=== PATIENT | female | born 2005 | race Caucasian/White ===

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

== ENCOUNTER 2023-01-06 13:30 | Emergency (ER) | payer BC, SELFPAY ==
[2023-01-06 13:43] VITALS: BP 126/81; PULSE 110; RESP 18; TEMP 36.9; O2SAT 98; BMI 28.4
--- NOTE | 2023-01-06 13:43 | ED_ITS ---
HPI - Female Genitourinary General Chief complaint: Urogenital-Female Stated complaint: uti ? kidney infection Time Seen by Provider: 01/06/23 14:05 Source: patient Mode of arrival: ambulatory Limitations: no limitations History of Present Illness HPI Narrative: patient is a 17-year-old who presents emergency department for evaluation of dysuria, urinary frequency and urgency. Symptom onset 2 days ago. She has an appointment to see her primary care provider in 3 days which she could not wait due to her amount of pain. She states pain is now progressing to bilateral flank areas. She has been experiencing subjective fevers, nausea, and poor p.o. intake. She denies hematuria. Reports a history of frequent urinary tract infections, last treated 3-4 months ago. States that she saw Urology in 2020, had a VCUG which was negative. Related Data Previous Rx's Medication Instructions Recorded cefuroxime axetil 500 mg tablet 500 mg PO Q12H 5 days #10 tabs 08/02/22 ibuprofen 600 mg tablet 600 mg PO Q6H PRN fever or pain 11/29/22 #20 tabs cefuroxime axetil 500 mg tablet 500 mg PO BID #14 tabs 01/06/23 naproxen 500 mg tablet 500 mg PO BID PRN pain #20 tabs 01/06/23 Allergies Allergy/AdvReac Type Severity Reaction Status Date / Time amoxicillin [Augmentin] Allergy Unknown diarrhea Verified 01/06/23 13:42 clavulanic acid [Augmentin] Allergy Unknown diarrhea Verified 01/06/23 13:42 levofloxacin Allergy Unknown Verified 01/06/23 13:42 Review of Systems Review of Systems: Constitutional: positive subjective fevers Skin: No rash or itching. Cardiovascular: No chest pain Respiratory: No shortness of breath, cough or sputum production. Gastrointestinal: positive nausea. no vomiting or diarrhea. No abdominal pain Genitourinary: positive burning micturition. positive urinary frequency positive flank pain Musculoskeletal: No muscle pain, back pain, joint pain or stiffness. Psychiatric: No depression or anxiety. Yes all other systems are reviewed and are negative PMFSH Past Medical History Attestation statement: The following information was validated with the patient. Source: old records reviewed Medical History [id number] transgender person Syringomyelia Social History Social History (System 12/13/22 @ 13:33 by Gabi Maravilla) Advance Directives: No Advance Directives Information Provided: Yes Physical Exam Vital Signs: Vital Signs: Last Vital Signs Temp 97.7 F 01/06/23 15:13 Pulse 113 H 01/06/23 15:13 Resp 18 01/06/23 15:13 BP 139/86 01/06/23 15:13 Pulse Ox 97 01/06/23 15:13 O2 Del Method Room Air 01/06/23 15:13 BMI result Body Mass Index 28.4 Appearance: Alert.?Oriented to person, place and time. No acute distress.?Normal affect. Eyes: Pupils equal, round and reactive to light.? ENT: Pharynx normal.?? Neck: Normal inspection.? Neck supple.?? CVS: Heart sounds normal. Normal heart rate and rhythm.? Pulses normal.?? Respiratory: No respiratory distress.? Lung sounds clear to auscultation bilaterally?? Abdomen: Soft and non-tender. Normoactive bowel sounds. ?mild positive CVA tenderness bilaterally. Skin: Skin warm and dry.? Normal skin color.? Extremities: No lower extremity edema.? Neuro: Moves all extremities spontaneously. Sensation intact bilaterally.No focal neuro deficits. Ambulates with normal steady gait. Course Course Course Narrative: RME - 17 y/o female with history of recurrent UTIs (last a few months ago) who presents to the ER for evaluation of 2 days of urinary urgency, frequency, dysuria that has now progressed to bilateral kidney pain. No hematuria. She reports subjective fevers, nausea, constipation and unable to eat or drink due to nausea. Plan: Medications Administered Discontinued Medications Generic Name Dose Route Start Last Admin Trade Name Freq PRN Reason Stop Dose Admin Naproxen 500 mg 01/06/23 15:18 01/06/23 15:22 Naproxen 500 Mg Tablet PO 01/06/23 15:19 500 mg ONCE ONE Administration Ondansetron HCl 4 mg 01/06/23 15:01 01/06/23 15:16 Ondansetron Odt 4 Mg Tab.Rapdis TRANSLINGU 01/06/23 15:02 4 mg ONCE ONE Administration Medical Decision Making Medical Decision Making MDM Narrative: patient is a 17-year-old Transgender female to male who presents to the emergency department for evaluation of dysuria with urinary frequency and urgency, she has been taking OTC azo without any improvement in symptoms. Urinalysis is concerning for urinary tract infection, concern for early pyelonephritis given mild CVA tenderness, however tolerating oral intake. At this time of discharge home with prescription for oral antibiotic, outpatient follow-up with primary care provider as scheduled on 01/09/2023. Reviewed worrisome signs and symptoms that would warrant re-evaluation in the emergency department. All questions answered. Stable for discharge. Differential Diagnosis Differential Diagnoses: The differential diagnosis associated with the presentation includes ( urinary tract infection, pyelonephritis, ureteral calculi, hydronephrosis, obstructive calculi, PID) Lab Data MDM Lab Attestation statement: I reviewed the patient's lab results. ( As noted above) Labs: Lab Results 01/06/23 01/06/23 Range/Units 14:39 14:[address] [place] Urine Appearance Hazy Urine pH 7.0 (5.0-9.0) Ur Specific [place] 1.020 (1.005-1.025) Urine Protein See Note (Neg-Trace) mg/dL Urine Glucose (UA) 100 H (Negative) mg/dL Urine Ketones Trace (Negative) mg/dL Urine Blood Trace (Negative) Urine Nitrite See Note (Negative) Ur Leukocyte Esterase Moderate (2+) H (Negative) Urine RBC 3-5 H (0-2) /HPF Urine WBC >50 H (0-5) /HPF Urine WBC Clumps Present Ur Squamous Epith Cells 3-5 (0-2) /HPF Urine Bacteria 1+ (None Seen) Hyaline Casts 0-2 (0-2) /LPF Urine Test NEGATIVE (NEGATIVE) Tests considered The following testing was considered but not selected: I considered serum labs in addition to CT of the abdomen pelvis for further evaluation, however clinically appears consistent with early pyelonephritis, lower suspicion for ureteral calculi/ hydronephrosis or obstructive stone, imaging deferred At this time. Prescription Management I considered prescription management with: Pain Medication and Antibiotic Discharge Plan Discharge Clinical Impression: Urinary tract infection Patient Disposition: Home, Self-Care Instructions: Urinary Tract Infection in Women (ED) Additional Instructions: As discussed, your urine sample today is concerning for a urinary tract infection. For this I have sent a prescription for antibiotic to your pharmacy. Please complete this entire course. I have also sent a prescription for naproxen to your pharmacy, do not use additional [id number] medications such as ibuprofen/ Advil / Aleve/ Motrin/ aspirin while taking this medication. Follow-up with your primary care provider as scheduled on Sunday. You may return back to the emergency department any new or worsening symptoms or concerns. Prescriptions: New cefuroxime axetil 500 mg tablet 500 mg PO BID Qty: 14 0RF naproxen 500 mg tablet 500 mg PO BID PRN (Reason: pain) Qty: 20 0RF No Action cefuroxime axetil 500 mg tablet 500 mg PO Q12H 5 Days Qty: 10 0RF ibuprofen 600 mg tablet 600 mg PO Q6H PRN (Reason: fever or pain) Qty: 20 0RF Referrals: Jimbo Oliveros MD [Primary Care Provider] -
--- OUTSIDE RECORDS SUMMARY | 2023-01-06 14:15 | XMS_ITS | Continuity of Care Document ---
Author Name Unknown Organization 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 Role Phone Yelena Martinez DO Primary Care Physician Encounter [facility] Date(s): 06/08/21 - 07/08/21 [facility] [address] [place] [address]- Attending Physician: AdmBertin sellers Admitting Physician: Admtr, ArLauren Referring Physician: Admtr, Ar8 Allergies, Adverse Reactions, Alerts Substance Reaction Severity Status Augmentin diarrhea Active levoFLOXacin muscle/bone pain Active Medications acetaminophen 325 mg oral tablet 650 mg, By Mouth, Every 4 hours, (after 24 hrs may give PRN for Moderate Pain - separate order required), # 50 tablet, Refills 0, Tot. Refills 0, Acute 10/05/21 15:15:00 EDT, 10/04/20 15:14:00 EDT, Route to Pharmacy Electronically, [facility]... Start Date: 10/04/20 Stop Date: 10/05/21 Status: Ordered amiTRIPTYLINE By Mouth, Daily at bedtime, 0 Refills, Maintenance, 07/20/20 13:49:00 EST, Partial fill upon patient request if the prescription is for a schedule II opioid drug. Start Date: 07/20/20 Status: Ordered ibuprofen 400 mg oral tablet 400 mg, 1, tablet, By Mouth, Every 4 hours, PRN, # 60 tablet, Refills 0, Tot. Refills 0, Acute 10/05/21 15:15:00 EDT, Pain , Mild, 10/04/20 15:15:00 EDT, Route to Pharmacy Electronically, [facility], Partial fill upon patient request if... Start Date: 10/04/20 Stop Date: 10/05/21 Status: Ordered omeprazole 20 mg oral enteric coated capsule 1 capsule = 20 mg, By Mouth, Daily, # 30 capsule, 3 Refills, Maintenance, 08/20/19 12:10:00 EST, [facility]/pharmacy #[id number], 172.2, cm, 05/20/19 14:14:00 EST, Height, 57.8, kg, 05/20/19 14:14:00 EST, Dry Weight Start Date: 08/20/19 Status: Ordered ondansetron 4 mg oral tablet 1 tablet = 4 mg, By Mouth, Every 6 hours, PRN as needed for nausea/vomiting, # 16 tablet, 0 Refills, Maintenance, 09/17/20 15:41:00 EDT, Tablet, [facility]/pharmacy #[id number], Partial fill upon patient request if the prescription is for a schedule II opioid drug... Start Date: 09/17/20 Status: Ordered oxybutynin 5 mg oral tablet 1 tablet = 5 mg, By Mouth, 3 times a day, PRN for urinary discomfort, # 30 tablet, 0 Refills, Maintenance, 10/04/20 15:14:00 EDT, Tablet, [facility], Partial fill upon patient request if the prescription is for a schedule II opioid drug.... Start Date: 10/04/20 Status: Ordered Pyridium = 200 mg, By Mouth, 3 times a day after meals, 0 Refills, Maintenance, 10/04/20 10:28:00 EDT, Partial fill upon patient request if the prescription is for a schedule II opioid drug. Start Date: 10/04/20 Status: Ordered Slynd = 4 mg, By Mouth, Daily, 0 Refills, Maintenance, 06/30/21 14:52:00 EST, Partial fill upon patient request if the prescription is for a schedule II opioid drug. Start Date: 06/30/21 Status: Ordered Vitamin C By Mouth, Daily, 0 Refills, Maintenance, 08/31/20 8:47:00 EST, Partial fill upon patient request ifthe prescription is for a schedule II opioid drug. Start Date: 08/31/20 Status: Ordered Problem List Condition Effective Dates Status Health Status Inform ant Urachal cyst(Confirmed) Active Gender dysphoria(Confirmed) Active History of vertebral fracture(Confirmed) Active Migraine(Confirmed) Active Anxiety and depression(Confirmed) Active Social History Social History Type Response Tobacco Tobacco user in hous ehold: Yes. Other: smokes outside. Sex Female
--- OUTSIDE RECORDS SUMMARY | 2023-01-06 14:15 | XMS_ITS | Continuity of Care Document ---
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 Name Role Phone Yelena Martinez DO Primary Care Physician Encounter [facility] Date(s): 05/18/20 - 06/17/20 [facility] [address] [place] [id number]- Allergies, Adverse Reactions, Alerts Substance Reaction Severity Status Augmentin Active Medications celecoxib 100 mg oral capsule 1 capsule = 100 mg, By Mouth, 2 times a day, # 60 capsule, 5 Refills, Maintenance, 10/09/19 8:55:00EDT, Capsule, [id number], 172.2, cm, 05/20/19 14:14:00 EST, Height, 57.8, kg, 05/20/19 14:14:00 EST, Dry Weight Start Date: 10/09/19 Status: Ordered omeprazole 20 mg oral enteric coated capsule 1 capsule = 20 mg, By Mouth, Daily, # 30 capsule, 3 Refills, Maintenance, 08/20/19 12:10:00 EST, [id number], 172.2, cm, 05/20/19 14:14:00 EST, Height, 57.8, kg, 05/20/19 14:14:00 EST, Dry Weight Start Date: 08/20/19 Status: Ordered Vitamin D3 1000 intl units oral tablet 1 tablet = 1,000 International_Units, By Mouth, Daily, # 1,000 tablet, 4 Refills, Maintenance, 06/10/20 14:37:00 EST, Tablet, [id number], Partial fill upon patient request if the prescriptionis for a schedule II opioid drug., 170, cm, ... Start Date: 06/10/20 Status: Ordered Problem List Condition Effective Dates Status Health Status Inform ant Urachal cyst(Confirmed) Active Gender dysphoria(Confirmed) Active History of vertebral fracture(Confirmed) Active Lymphadenopathy(Confirmed) Active Anxiety and depression(Confirmed) Active Social History Social History Type Response Tobacco Tobacco user in hous ehold: Yes. Other: smokes outside. Sex
--- OUTSIDE RECORDS SUMMARY | 2023-01-06 14:15 | XMS_ITS | Continuity of Care Document ---
Author Name Unknown Organization [facility] Address [address] [place] [address]- Care Team Providers Care Equipment Maint Tech Name Role Phone Arian THOMAS, Meghann Talley Primary Care Physician [place] [facility] [place] 06/02/19 - 06/12/19 [facility] [address] [place] [address]- [facility] Attending Physician: AdmBertin sellers Admitting Physician: AdmtrBertin Referring Physician: Admtr, Ar8 Allergies, Adverse Reactions, Alerts Substance Reaction Severity Status Augmentin Active Medications amitriptyline 10 mg oral tablet 30 mg, 3, tablet, By Mouth, Daily at bedtime, # 90 tablet, Refills 2, Tot. Refills 2, Maintenance, 05/09/19 12:17:23 EST, Route to Pharmacy Electronically, [id number], [facility]/pharmacy #[id number] Start Date: 05/09/19 Status: Ordered celecoxib 100 mg oral capsule 1 capsule = 100 mg, By Mouth, 2 times a day, # 60 capsule, 3 Refills, Maintenance, 02/07/19 14:28:05 EDT, Capsule Start Date: 02/07/19 Status: Ordered Melatonin By Mouth, Daily at bedtime, 0 Refills, Maintenance Start Date: 10/07/12 Status: Ordered omeprazole 20 mg oral enteric coated capsule 1 capsule = 20 mg, By Mouth, Daily, # 30 capsule, 3 Refills, Maintenance, 04/08/19 8:50:17 EDT Start Date: 04/08/19 Status: Ordered predniSONE 10 mg oral tablet See Instructions, 2 tablet By Mouth Daily for 7 days, then 1 tablet daily thereafter until gone, # 30 tablet, 0 Refills, Maintenance, 06/12/19 12:56:00 EST, [id number], 172.2, cm, 05/20/19 14:14:00 EST, Height, 57.8, kg, 05/20/19 14:14:00 EST,... Start Date: 06/12/19 Status: Ordered Zantac 150 oral tablet 1 tablet = 150 mg, By Mouth, 2 times a day, 0 Refills, Maintenance, 10/30/18 14:51:51 EDT Start Date: 10/30/18 Status: Ordered Problem List Condition Effective Dates Status Health Status Inform ant Lymphadenopathy(Confirmed) Active Social History Social History Type Response Tobacco Tobacco user in hous ehold: Yes. Other: smokes outside. Sex
--- OUTSIDE RECORDS SUMMARY | 2023-01-06 14:15 | XMS_ITS | Continuity of Care Document ---
Author Name Unknown Organization [facility] Address [address] [place] [id number]- Care Team Providers Care Architectural Engineer Name Role Phone Yelena Martinez DO Primary Care Physician Encounter [facility] [place] Date(s): 11/03/21 - 12/03/21 [facility] [address] [place] [address]- [place] Allergies, Adverse Reactions, Alerts Substance Reaction Severity Status Augmentin diarrhea Active levoFLOXacin muscle/bone pain Active Medications amiTRIPTYLINE By Mouth, Daily at bedtime, 0 Refills, Maintenance, 07/20/20 13:49:00 EST, Partial fill upon patient request if the prescription is for a schedule II opioid drug. Start Date: 07/20/20 Status: Ordered baclofen 10 mg oral tablet Refills 0, Maintenance, 10/18/21 7:04:00 EDT, Partial fill upon patient request if the prescriptionis for a schedule II opioid drug. Start Date: 10/18/21 Status: Ordered ISOtretinoin 30 mg oral capsule 0 Refills, Maintenance, 09/12/21 14:00:00 EDT, Partial fill upon patient request if the prescription is for a schedule II opioid drug. Start Date: 09/12/21 Status: Ordered omeprazole 20 mg oral enteric coated capsule 1 capsule = 20 mg, By Mouth, Daily, # 30 capsule, 3 Refills, Maintenance, 08/20/19 12:10:00 EST, [facility]/pharmacy #[id number], 172.2, cm, 05/20/19 14:14:00 EST, Height, 57.8, kg, 05/20/19 14:14:00 EST, Dry Weight Start Date: 08/20/19 Status: Ordered ondansetron 4 mg oral tablet 1 tablet = 4 mg, By Mouth, Every 6 hours, PRN as needed for nausea/vomiting, # 16 tablet, 0 Refills, Maintenance, 09/17/20 15:41:00 EDT, Tablet, [facility]/pharmacy #[id number], Partial fill upon patient request if the prescription is for a schedule II opioid drug... Start Date: 09/17/20 Status: Ordered oxybutynin 5 mg oral tablet 1 tablet = 5 mg, By Mouth, 3 times a day, PRN for urinary discomfort, # 30 tablet, 0 Refills, Maintenance, 10/04/20 15:14:00 EDT, Tablet, [facility], Partial fill upon patient request [...] opioid drug. Start Date: 06/30/21 Status: Ordered SUMAtriptan 25 mg oral tablet 0 Refills, Maintenance, 10/18/21 7:04:00 EDT, Partial fill upon patient request if the prescriptionis for a schedule II opioid drug. Start Date: 10/18/21 Status: Ordered Vitamin C By Mouth, Daily, 0 Refills, Maintenance, 08/31/20 8:47:00 EST, Partial fill upon patient request ifthe prescription is for a schedule II opioid drug. Start Date: 08/31/20 Status: Ordered Problem List Condition Effective Dates Status Health Status Inform ant Urachal cyst(Confirmed) Active Syrinx(Confirmed) Active Gender dysphoria(Confirmed) Active History of vertebral fracture(Confirmed) Active Migraine(Confirmed) Active Anxiety and depression(Confirmed) Active Social History Social History Type Response Tobacco Tobacco user in hous ehold: Yes. Other: smokes outside. Sex Female
--- OUTSIDE RECORDS SUMMARY | 2023-01-06 14:15 | XMS_ITS | Continuity of Care Document ---
Author Name Unknown Organization [facility] Address [address] [place] [address]- Care Team Providers Care Assistant Teacher Name Role Phone Yelena Martinez DO Primary Care Physician [phone] Encounter [facility] [place] Date(s): 06/30/21 - 07/30/21 [facility] [address] [place] [address]- Attending Physician: Bertin Tobin Admitting Physician: Bertin Tobin Referring Physician: Admtr Ar8 Allergies, Adverse Reactions, Alerts Substance Reaction Severity Status Augmentin diarrhea Active levoFLOXacin muscle/bone pain Active Medications acetaminophen 325 mg oral tablet 650 mg, By Mouth, Every 4 hours, (after 24 hrs may give PRN for Moderate Pain - separate order required), # 50 tablet, Refills 0, Tot. Refills 0, Acute 10/05/21 15:15:00 EDT, 10/04/20 15:14:00 EDT, Route to Pharmacy Electronically, [facility] Start Date: 10/04/20 Stop Date: 10/05/21 [...] 10/04/20 15:15:00 EDT, Route to Pharmacy Electronically, [facility], Partial fill upon patient request if... Start Date: 10/04/20 Stop Date: 10/05/21 Status: Ordered omeprazole 20 mg oral enteric coated capsule 1 capsule = 20 mg, By Mouth, Daily, # 30 capsule, 3 Refills, Maintenance, 08/20/19 12:10:00 EST, [facility]/pharmacy #[id number], 172.2, cm, 05/20/19 14:14:00 EST, Height, 57.8, kg, 05/20/19 14:14:00 EST, Dry Weight Start Date: 08/20/19 Status: Ordered ondansetron 4 mg oral tablet 1 tablet = 4 mg, By Mouth, Every 6 hours, PRN as needed for nausea/vomiting, # 16 tablet, 0 Refills, Maintenance, 09/17/20 15:41:00 EDT, Tablet, [facility]/pharmacy #[id number], Partial fill upon patient request if the prescription is for a schedule II opioid drug... Start Date: 09/17/20 Status: Ordered oxybutynin 5 mg oral tablet 1 tablet = 5 mg, By Mouth, 3 times a day, PRN for urinary discomfort, # 30 tablet, 0 Refills, Maintenance, 10/04/20 15:14:00 EDT, Tablet, [facility], Partial fill upon patient [...]
--- OUTSIDE RECORDS SUMMARY | 2023-01-06 14:15 | XMS_ITS | Continuity of Care Document ---
Author Name Unknown Organization [facility] Address [address] [place] [address] [address] [place] [address]- Care Team Providers Care Footwear Factory Worker Name Role Phone Yelena Martinez DO Primary Care Physician [phone] En[place] [facility] [place] Date(s): 06/09/21 - 07/09/21 [facility] [address] [place] [address]- Allergies, Adverse Reactions, Alerts Substance Reaction Severity Status Augmentin diarrhea Active levoFLOXacin muscle/bone pain Active Medications acetaminophen 325 mg oral tablet 650 mg, By Mouth, Every 4 hours, (after 24 hrs may give PRN for Moderate Pain - separate order required), # 50 tablet, Refills 0, Tot. Refills 0, Acute 10/05/21 15:15:00 EDT, 10/04/20 15:14:00 EDT, Route to Pharmacy Electronically, [facility] Start Date: 10/04/20 Stop Date: 10/05/21 [...] 10/04/20 15:15:00 EDT, Route to Pharmacy Electronically, [facility], Partial fill upon patient request if... Start Date: 10/04/20 Stop Date: 10/05/21 Status: Ordered omeprazole 20 mg oral enteric coated capsule 1 capsule = 20 mg, By Mouth, Daily, # 30 capsule, 3 Refills, Maintenance, 08/20/19 12:10:00 EST, [facility]/pharmacy #[id number], 172.2, cm, 05/20/19 14:14:00 EST, Height, 57.8, kg, 05/20/19 14:14:00 EST, Dry Weight Start Date: 08/20/19 Status: Ordered ondansetron 4 mg oral tablet 1 tablet = 4 mg, By Mouth, Every 6 hours, PRN as needed for nausea/vomiting, # 16 tablet, 0 Refills, Maintenance, 09/17/20 15:41:00 EDT, Tablet, [facility]/pharmacy #[id number], Partial fill upon patient request if the prescription is for a schedule II opioid drug... Start Date: 09/17/20 Status: Ordered oxybutynin 5 mg oral tablet 1 tablet = 5 mg, By Mouth, 3 times a day, PRN for urinary discomfort, # 30 tablet, 0 Refills, Maintenance, 10/04/20 15:14:00 EDT, Tablet, [facility], Partial fill upon patient request [...]
--- OUTSIDE RECORDS SUMMARY | 2023-01-06 14:15 | XMS_ITS | Continuity of Care Document ---
Author Name Unknown Organization [facility] Address [address] [place] [address]- Care Team Providers Care Electric Motor Repairer Name Role Phone Yelena Martinez DO Primary Care Physician Encounter [facility] [place] Date(s): 10/12/21 - 11/11/21 [facility] [address] [place] [address]- [place] Allergies, Adverse Reactions, Alerts Substance Reaction [...] capsule, 3 Refills, Maintenance, 08/20/19 12:10:00 EST, [facility]/pharmacy #[id number], 172.2, cm, 05/20/19 14:14:00 EST, Height, 57.8, kg, 05/20/19 14:14:00 EST, Dry Weight Start Date: 08/20/19 Status: Ordered ondansetron 4 mg oral tablet 1 tablet = 4 mg, By Mouth, Every 6 hours, PRN as needed for nausea/vomiting, # 16 tablet, 0 Refills, Maintenance, 09/17/20 15:41:00 EDT, Tablet, [facility]/pharmacy #[id number], Partial fill upon patient request if the prescription is for a schedule II opioid drug... Start Date: 09/17/20 Status: Ordered oxybutynin 5 mg oral tablet 1 tablet = 5 mg, By Mouth, 3 times a day, PRN for urinary discomfort, # 30 tablet, 0 Refills, Maintenance, 10/04/20 15:14:00 EDT, Tablet, [facility], Partial fill upon patient request [...]
--- OUTSIDE RECORDS SUMMARY | 2023-01-06 14:15 | XMS_ITS | Continuity of Care Document ---
Author Name Unknown Organization [facility] ter Address [address] [place] [address]- Care Team Providers Care Novelty Twister Operator Name Role Phone Yelena Martinez DO Primary Care Physician [phone] [place] [facility] [place](s): 06/08/20 - 09/08/[address] [address]- Attending Physician: Mary Jo Drummond MD Admitting Physician: Mary Jo Drummond MD Referring Physician: Mary Jo Drummond MD Allergies, Adverse Reactions, Alerts Substance Reaction Severity Status Augmentin diarrhea Active levoFLOXacin Active Medications amiTRIPTYLINE By Mouth, Daily at bedtime, 0 Refills, Maintenance, 07/20/20 13:49:00 EST, Partial fill upon patient request if the prescription is for a schedule II opioid drug. Start Date: 07/20/20 Status: Ordered omeprazole 20 mg oral enteric coated capsule 1 capsule = 20 mg, By Mouth, Daily, # 30 capsule, 3 Refills, Maintenance, 08/20/19 12:10:00 EST, [id number], 172.2, cm, 05/20/19 14:14:00 EST, Height, 57.8, kg, 05/20/19 14:14:00 EST, Dry Weight Start Date: 08/20/19 Status: Ordered oxybutynin 5 mg oral tablet 1 tablet = 5 mg, By Mouth, 3 times a day, PRN for urinary discomfort, # 30 tablet, 0 Refills, Maintenance, 09/07/20 13:21:00 EDT, Tablet, [id number], Partial fill upon patient request if the prescription is for a schedule II opioid drug., 172,... Start Date: 09/07/20 Status: Ordered phenazopyridine 200 mg oral tablet 200 mg, 1, tablet, By Mouth, 3 times a day, for 3 days, # 9 tablet, Refills 0, Tot. Refills 0, Acute 09/09/20 12:09:00 EDT, 09/06/20 12:09:00 EDT, Route to Pharmacy Electronically, [facility]/pharmacy #[id number], Partial fill upon patient request if the prescript... Start Date: 09/06/20 Stop Date: 09/09/20 Status: Ordered Sulfamethoxazole 0 Refills, Maintenance, 08/31/20 8:48:00 EST, Partial fill upon patient request if the prescriptionis for a schedule II opioid drug. Start Date: 08/31/20 Status: Ordered Vitamin C By Mouth, Daily, [...]
--- OUTSIDE RECORDS SUMMARY | 2023-01-06 14:15 | XMS_ITS | Continuity of Care Document ---
Author Name Unknown Organization [facility] ter Address [address] [place] [address]- Care Team Providers Care Physician Non Invasive Cardiologist Name Role Phone Yelena Martinez DO Primary Care Physician Encounter [facility] [place] Date(s): 10/18/21 - 10/18/[address] [address]- Discharge Disposition: A-D/C Home Attending Physician: Fox Julien MD Admitting Physician: Fox Julien MD Referring Physician: Not on Staff, Referring MD Allergies, Adverse Reactions, Alerts Substance Reaction [...] capsule, 3 Refills, Maintenance, 08/20/19 12:10:00 EST, [facility]/pharmacy #[id number], 172.2, cm, 05/20/19 14:14:00 EST, Height, 57.8, kg, 05/20/19 14:14:00 EST, Dry Weight Start Date: 08/20/19 Status: Ordered ondansetron 4 mg oral tablet 1 tablet = 4 mg, By Mouth, Every 6 hours, PRN as needed for nausea/vomiting, # 16 tablet, 0 Refills, Maintenance, 09/17/20 15:41:00 EDT, Tablet, [facility]/pharmacy #[id number], Partial fill upon patient request if the prescription is for a schedule II opioid drug... Start Date: 09/17/20 Status: Ordered oxybutynin 5 mg oral tablet 1 tablet = 5 mg, By Mouth, 3 times a day, PRN for urinary discomfort, # 30 tablet, 0 Refills, Maintenance, 10/04/20 15:14:00 EDT, Tablet, [facility], Partial fill upon patient [...] Active Migraine(Confirmed) Active Anxiety and depression(Confirmed) Active Vital Signs Most recent to oldest [Reference Range]: 1 2 3 Weight 71.5 kg (10/18/21 7:20 AM) 71.5 kg (10/18/21 2:38 AM) 71.5 kg (10/18/21 1:01 AM) Oxygen Saturation [94-100 %] 99 % (10/18/21 7:20 AM) 98 % (10/18/21 2:38 AM) 98 % (10/18/21 1:01 AM) Pulse Rate [55-90 bpm] 93 bpm *H* (10/18/21 7:20 AM) 78 bpm (10/18/21 2:38 AM) 117 bpm *H* (10/18/21 1:01 AM) Blood Pressure [80-130/50-80 mm Hg] 118/82mm Hg (10/18/21 7:20 AM) 118/72mm Hg (10/18/21 2:38 AM) 123/81mm Hg (10/18/21 1:01 AM) Respiratory Rate [16-30 br/min] 18 br/min (10/18/21 7:20 AM) 16 br/min (10/18/21 2:38 AM) 16 br/min (10/18/21 1:01 AM) Temperature [96.8-100.4 DegF] 99.0 DegF (10/18/21 7:20 AM) 97.8 DegF (10/18/21 2:38 AM) 99.2 DegF (10/18/21 1:01 AM) Mode of Delivery (Oxygen) Room air (10/18/21 7:20 AM) Room air (10/18/21 2:38 AM) Room air (10/18/21 1:01 AM) Blood pressure sites Arm, left (10/18/21 7:20 AM) Arm, right (10/18/21 2:38 AM) Arm, right (10/18/21:01 AM) Temperature Route Oral (10/18/21 7:20 AM) Oral (10/18/21 2:38 AM) Temporal (10/18/21 1:01 AM) Dry Weight 71.5 kg (10/18/21 7:20 AM) 71.5 kg (10/18/21 2:38 AM) 71.5 kg (10/18/21 1:01 AM) Weight Obtained Via Standing scale (10/18/21 1:01 AM) Dry Weight Obtained Via Standing scale (10/18/21 1:01 AM) Social History Social History Type Response Tobacco Tobacco user in hous ehold: Yes. Other: smokes outside. Sex Female
--- OUTSIDE RECORDS SUMMARY | 2023-01-06 14:15 | XMS_ITS | Continuity of Care Document ---
Author Name Unknown Organization [facility] Address [address] [facility] [address] [place] [address]- Care Team Providers Care Special Education Educational Assistant Name Role Phone Yelena Martinez DO Primary Care Physician [place] [facility] [place] 08/31/20 - 09/07/20 [facility] [address] [facility] [address] [place] [address]- Attending Physician: Christiano THOMAS, Jose Roberto Cedillo Allergies, Adverse Reactions, Alerts Substance Reaction Severity [...] Route to Pharmacy Electronically, [facility]/pharmacy #[id number], Partial fill upon patient request if the [...] Most recent to oldest [Reference Range]: 1 Weight 66.3 kg (08/31/20 8:36 AM) Dry Weight 66.3 kg (08/31/20 8:36 AM) Weight Obtained Via Patient/family state d (08/31/20 8:36 AM) Social History Social History Type Response Tobacco Tobacco user in hous ehold: Yes. Other: smokes outside. Sex
--- OUTSIDE RECORDS SUMMARY | 2023-01-06 14:15 | XMS_ITS | Continuity of Care Document ---
Author Name Unknown Organization [facility] Address [address] [place] [address] [address] [place] [address]- Care Team Providers Care Graphics Intern Name Role Phone Yelena Martinez DO Primary Care Physician En[place] [facility] [place](s): 06/08/21 - 06/15/21 [facility] [address] [place] [address]- Attending Physician: Fox Lugo MD Allergies, Adverse Reactions, Alerts Substance Reaction Severity Status Augmentin diarrhea Active levoFLOXacin muscle/bone pain Active Medications acetaminophen 325 mg oral tablet 650 mg, By Mouth, Every 4 hours, (after 24 hrs may give PRN for Moderate Pain - separate order required), # 50 tablet, Refills 0, Tot. Refills 0, Acute 10/05/21 15:15:00 EDT, 10/04/20 15:14:00 EDT, Route to Pharmacy Electronically, [facility] Start Date: 10/04/20 Stop Date: [...] 10/04/20 15:15:00 EDT, Route to Pharmacy Electronically, [facility], Partial fill upon patient request if... Start Date: 10/04/20 Stop Date: 4/13/22 Status: Ordered omeprazole 20 mg oral enteric coated capsule 1 capsule = 20 mg, By Mouth, Daily, # 30 capsule, 3 Refills, Maintenance, 08/20/19 12:10:00 EST, [facility]/pharmacy #[id number], 172.2, cm, 05/20/19 14:14:00 EST, Height, 57.8, kg, 05/20/19 14:14:00 EST, Dry Weight Start Date: 08/20/19 Status: Ordered ondansetron 4 mg oral tablet 1 tablet = 4 mg, By Mouth, Every 6 hours, PRN as needed for nausea/vomiting, # 16 tablet, 0 Refills, Maintenance, 09/17/20 15:41:00 EDT, Tablet, [facility]/pharmacy #[id number], Partial fill upon patient request if the prescription is for a schedule II opioid drug... Start Date: 09/17/20 Status: Ordered oxybutynin 5 mg oral tablet 1 tablet = 5 mg, By Mouth, 3 times a day, PRN for urinary discomfort, # 30 tablet, 0 Refills, Maintenance, 10/04/20 15:14:00 EDT, Tablet, [facility], Partial fill upon patient request if the prescription is for a schedule II opioid drug.... Start Date: 10/04/20 Status: Ordered Pyridium = 200 mg, By Mouth, 3 times a day after meals, 0 Refills, Maintenance, 10/04/20 10:28:00 EDT, Partial fill upon patient request if the prescription is for a schedule II opioid drug. Start Date: 10/04/20 Status: Ordered Vitamin C By Mouth, Daily, [...] Most recent to oldest [Reference Range]: 1 Height 170 cm (06/08/21 3:23 PM) Weight 68 kg (06/08/21 3:23 PM) Body Mass Index [18.5-24.99] 23.53 (06/08/21 3:23 PM) Temperature [96.8-100.4 DegF] 98.2 DegF (06/08/21 3:23 PM) Social History Social History Type Response Tobacco Tobacco user in hous ehold: Yes. Other: smokes outside. Sex Female
--- OUTSIDE RECORDS SUMMARY | 2023-01-06 14:15 | XMS_ITS | Continuity of Care Document ---
Author Name Unknown Organization [facility] Address [address] [facility] [address] [place] [address]- Care Team Providers Care Shoe Clerk Name Role Phone Yelnea Martinez DO Primary Care Physician [phone] [place] [facility] [place] - 08/19/20 [facility] [address] [facility] [address] [place] [address]- Attending Physician: Christiano THOMAS, Jose Roberto Cedillo Referring Physician: Yelena Martinez DO Allergies, Adverse Reactions, Alerts Substance Reaction Severity Status Augmentin diarrhea Active levoFLOXacin Active Medications amiTRIPTYLINE By Mouth, Daily at bedtime, 0 Refills, Maintenance, 07/20/20 13:49:00 EST, Partial fill upon patient request if the prescription is for a schedule II opioid drug. Start Date: 07/20/20 Status: Ordered Multivitamin Daily, 0 Refills, Maintenance, 07/20/20 13:49:00 EST, Partial fill upon patient request if the prescription is for a schedule II opioid drug. Start Date: 07/20/20 Status: Ordered omeprazole 20 mg oral enteric coated capsule 1 capsule = 20 mg, By Mouth, Daily, # 30 capsule, 3 Refills, Maintenance, 08/20/19 12:10:00 EST, [facility]/pharmacy #[id number], 172.2, cm, 05/20/19 14:14:00 EST, Height, 57.8, kg, 05/20/19 14:14:00 EST, Dry Weight Start Date: 08/20/19 Status: Ordered Problem List Condition Effective Dates Status Health Status Inform ant Urachal cyst(Confirmed) Active Gender dysphoria(Confirmed) Active History of vertebral fracture(Confirmed) Active Migraine(Confirmed) Active Anxiety and depression(Confirmed) Active Social History Social History Type Response Tobacco Tobacco user in [facility] ehold: Yes. Other: smokes outside. Sex
--- OUTSIDE RECORDS SUMMARY | 2023-01-06 14:15 | XMS_ITS | Continuity of Care Document ---
Author Name Unknown Organization [facility] Address [address] [place] [address] [phone]- Care Team Providers Care Software Development Coordinator Name Role Phone Yelena Martinez DO Primary Care Physician [phone] Encounter [facility] [place] Date(s): 05/25/21 - 06/01/21 [facility] [address] [address]- Attending Physician: Fox Lugo MD Referring Physician: Yelena Martinez DO Allergies, Adverse [...] 10/04/20 15:14:00 EDT, Route to Pharmacy Electronically, [facility] Start Date: 10/04/20 Stop Date: 10/05/21 Status: [...] 10/04/20 15:15:00 EDT, Route to Pharmacy Electronically, [facility], Partial fill upon patient request if... Start Date: 10/04/20 Stop Date: 10/05/21 Status: Ordered omeprazole 20 mg oral enteric coated capsule 1 capsule = 20 mg, By Mouth, Daily, # 30 capsule, 3 Refills, Maintenance, 08/20/19 12:10:00 EST, [facility]/pharmacy #[id number], 172.2, cm, 05/20/19 14:14:00 EST, Height, 57.8, kg, 05/20/19 14:14:00 EST, Dry Weight Start Date: 08/20/19 Status: Ordered ondansetron 4 mg oral tablet 1 tablet = 4 mg, By Mouth, Every 6 hours, PRN as needed for nausea/vomiting, # 16 tablet, 0 Refills, Maintenance, 09/17/20 15:41:00 EDT, Tablet, [facility]/pharmacy #[id number], Partial fill upon patient request if the prescription is for a schedule II opioid drug... Start Date: 09/17/20 Status: Ordered oxybutynin 5 mg oral tablet 1 tablet = 5 mg, By Mouth, 3 times a day, PRN for urinary discomfort, # 30 tablet, 0 Refills, Maintenance, 10/04/20 15:14:00 EDT, Tablet, [facility], Partial fill upon patient [...] oldest [Reference Range]: 1 Height 170 cm (05/25/21 8:33 AM) Weight 68 kg (05/25/21 8:33 AM) Body Mass Index [18.5-24.99] 23.53 (05/25/21 8:33 AM) Temperature [96.8-100.4 DegF] 98.2 DegF (05/25/21 8:33 AM) Social History Social History Type Response Tobacco Tobacco user in hous ehold: Yes. Other: smokes outside. Sex Female
--- OUTSIDE RECORDS SUMMARY | 2023-01-06 14:15 | XMS_ITS | Continuity of Care Document ---
Author Name Unknown Organization [facility] Chantale zoila Address [address] [place] [address] [address] [place] [address]- Care Team Providers Care Corporate Planner Name Role Phone Yelena Martinez DO Primary Care Physician [place] [facility] [place] [facility] [address] [place] [address]- Allergies, Adverse Reactions, Alerts Substance Reaction Severity Status Augmentin diarrhea Active levoFLOXacin muscle/bone pain Active Medications acetaminophen 325 mg oral tablet 650 mg, By Mouth, Every 4 hours, (after 24 hrs may give PRN for Moderate Pain - separate order required), # 50 tablet, Refills 0, Tot. Refills 0, Acute 10/05/21 15:15:00 EDT, 10/04/20 15:14:00 EDT, Route to Pharmacy Electronically, [facility] Start Date: 10/04/20 Stop Date: 10/05/21 [...] 10/04/20 15:15:00 EDT, Route to Pharmacy Electronically, [facility], Partial fill upon patient request if... Start Date: 10/04/20 Stop Date: 10/05/21 Status: Ordered omeprazole 20 mg oral enteric coated capsule 1 capsule = 20 mg, By Mouth, Daily, # 30 capsule, 3 Refills, Maintenance, 08/20/19 12:10:00 EST, [facility]/pharmacy #[id number], 172.2, cm, 05/20/19 14:14:00 EST, Height, 57.8, kg, 05/20/19 14:14:00 EST, Dry Weight Start Date: 08/20/19 Status: Ordered ondansetron 4 mg oral tablet 1 tablet = 4 mg, By Mouth, Every 6 hours, PRN as needed for nausea/vomiting, # 16 tablet, 0 Refills, Maintenance, 09/17/20 15:41:00 EDT, Tablet, [facility]/pharmacy #[id number], Partial fill upon patient request if the prescription is for a schedule II opioid drug... Start Date: 09/17/20 Status: Ordered oxybutynin 5 mg oral tablet 1 tablet = 5 mg, By Mouth, 3 times a day, PRN for urinary discomfort, # 30 tablet, 0 Refills, Maintenance, 10/04/20 15:14:00 EDT, Tablet, [facility], Partial fill upon patient [...]
--- OUTSIDE RECORDS SUMMARY | 2023-01-06 14:15 | XMS_ITS | Continuity of Care Document ---
Author Name Unknown Organization [facility] Address [address] [place] [address]- Care Team Providers Care Facilities Assistant Name Role Phone Yelena Martinez DO Primary Care Physician [phone] [place] [facility] [place]12[place]20 [facility] [address] [place] [address]- Attending Physician: Sharon Akins DO Admitting Physician: Sharon Akins DO Referring Physician: Yelena Martinez DO Allergies, Adverse [...]
--- OUTSIDE RECORDS SUMMARY | 2023-01-06 14:15 | XMS_ITS | Continuity of Care Document ---
Author Name Unknown Organization [facility] Address [address] [place] [address]- Care Team Providers Care Chief Controller Tower Name Role Phone Yelena Martinez DO Primary Care Physician [place] [facility] [place] 10/04/[address] [address]- Discharge Disposition: A-D/C Home Attending Physician: Christiano THOMAS, Jose Roberto Cedillo Admitting Physician: Jose Roberto Alvarado MD Referring Physician: Jose Roberto Alvarado MD Allergies, Adverse Reactions, Alerts Substance Reaction Severity Status Augmentin diarrhea Active levoFLOXacin muscle/bone pain Active Medications acetaminophen 325 mg oral tablet 650 mg, By Mouth, Every 4 hours, (after 24 hrs may give PRN for Moderate Pain - separate order required), # 50 tablet, Refills 0, Tot. Refills 0, Acute 10/05/21 15:15:00 EDT, 10/04/20 15:14:00 EDT, Route to Pharmacy Electronically, [facility] Start Date: 10/04/20 Stop Date: [...] 10/04/20 15:15:00 EDT, Route to Pharmacy Electronically, [facility], Partial fill upon patient request if... Start Date: 10/04/20 Stop Date: 10/05/21 Status: Ordered omeprazole 20 mg oral enteric coated capsule 1 capsule = 20 mg, By Mouth, Daily, # 30 capsule, 3 Refills, Maintenance, 08/20/19 12:10:00 EST, [facility]/pharmacy #[id number], 172.2, cm, 05/20/19 14:14:00 EST, Height, 57.8, kg, 05/20/19 14:14:00 EST, Dry Weight Start Date: 08/20/19 Status: Ordered ondansetron 4 mg oral tablet 1 tablet = 4 mg, By Mouth, Every 6 hours, PRN as needed for nausea/vomiting, # 16 tablet, 0 Refills, Maintenance, 09/17/20 15:41:00 EDT, Tablet, [id number], Partial fill upon patient request if the prescription is for a schedule II opioid drug... Start Date: 09/17/20 Status: Ordered oxybutynin 5 mg oral tablet 1 tablet = 5 mg, By Mouth, 3 times a day, PRN for urinary discomfort, # 30 tablet, 0 Refills, Maintenance, 10/04/20 15:14:00 EDT, Tablet, [facility], Partial fill upon patient request if the prescription is for a schedule II opioid drug.... Start Date: 10/04/20 Status: Ordered oxyCODONE 5 mg oral tablet 5 mg, 1, tablet, By Mouth, Every 6 hours, PRN, # 5 tablet, Refills 0, Tot. Refills 0, Acute 10/03/21 15:16:00 EDT, as needed for pain, 10/04/20 15:16:00 EDT, Route to Pharmacy Electronically, [facility], Partial fill upon patient request... Start Date: 10/04/20 Stop Date: 10/03/21 Status: Ordered Pyridium = 200 mg, By [...] to oldest [Reference Range]: 1 2 3 Oxygen Saturation [94-100 %] 100 % (10/04/20 5:30 PM) 100 % (10/04/20 5:15 PM) 100 % (10/04/20 5:00 PM) Pulse Rate [55-90 bpm] 109 bpm *H* (10/04/20 10:14 AM) Blood Pressure [80-130/50-80 mm Hg] 134/84mm Hg *H* (10/04/20 5:30 PM) 140/83mm Hg *H* (10/04/20 5:15 PM) 141/88mm Hg *H* (10/04/20 5:00 PM) Respiratory Rate [16-30 br/min] 17 br/min (10/04/20 4:45 PM) 16 br/min (10/04/20 4:30 PM) 16 br/min (10/04/20 4:15 PM) Temperature [96.8-100.4 DegF] 98.7 DegF (10/04/20 5:15 PM) 97.6 DegF (10/04/20 4:15 PM) 98.4 DegF (10/04/20 3:00 PM) Mode of Delivery (Oxygen) Room air (10/04/20 3:00 PM) Room air (10/04/20 10:14 AM) Blood pressure sites Arm, right (10/04/20 10:14 AM) Temperature Route Temporal (10/04/20 5:15 PM) Temporal (10/04/20 3:00 PM) Temporal (10/04/20 10:14 AM) Dry Weight 65.9 kg (10/04/20 10:14 AM) Dry Weight Obtained Via Standing scale (10/04/20 10:14 AM) Social History Social History Type Response Tobacco Tobacco user in hous ehold: Yes. Other: smokes outside. Sex
--- OUTSIDE RECORDS SUMMARY | 2023-01-06 14:15 | XMS_ITS | Continuity of Care Document ---
Author Name Unknown Organization [facility] Address [address] [place] [address]- Care Team Providers Care Housekeeping Room Inspector Name Role Phone Yelena Martinez DO Primary Care Physician Encounter [facility] Date(s): 08/25/20 - 09/24/20 [facility] [address] [place] [id number] Allergies, Adverse Reactions, Alerts Substance Reaction Severity [...] 0 Refills, Maintenance, 09/17/20 15:41:00 EDT, Tablet, [facility]/pharmacy #[id number], Partial fill upon patient request if the prescription is for a schedule II opioid drug... Start Date: 09/17/20 Status: Ordered oxybutynin 5 mg oral tablet 1 tablet = 5 mg, By Mouth, 3 times a day, PRN for urinary discomfort, # 30 tablet, 0 Refills, Maintenance, 09/07/20 13:21:00 EDT, Tablet, [facility]/pharmacy #[id number], Partial fill upon patient request if the prescription is for a schedule II opioid drug., 172,... Start Date: 09/07/20 Status: Ordered Sulfamethoxazole 0 Refills, Maintenance, 08/31/20 [...]
--- OUTSIDE RECORDS SUMMARY | 2023-01-06 14:15 | XMS_ITS | Continuity of Care Document ---
Author Name Unknown Organization [facility] Address [address] [place] [address]- Care Team Providers Care Body Recall Instructor Name Role Phone Yelena Martinez DO Primary Care Physician [place] [facility] [place] 03/21[place]21 - 04/20/21 [facility] [address] [place] [address]- [place] Allergies, Adverse Reactions, Alerts Substance Reaction Severity Status Augmentin diarrhea Active levoFLOXacin muscle/bone pain Active Medications acetaminophen 325 mg oral tablet 650 mg, By Mouth, Every 4 hours, (after 24 hrs may give PRN for Moderate Pain - separate order required), # 50 tablet, Refills 0, Tot. Refills 0, Acute 10/05/21 15:15:00 EDT, 10/04/20 15:14:00 EDT, Route to Pharmacy Electronically, [facility] Start Date: 10/04/20 Stop Date: [...] 10/04/20 15:15:00 EDT, Route to Pharmacy Electronically, [facility], Partial fill upon patient request if... Start Date: 10/04/20 Stop Date: 10/05/21 Status: Ordered omeprazole 20 mg oral enteric coated capsule 1 capsule = 20 mg, By Mouth, Daily, # 30 capsule, 3 Refills, Maintenance, 08/20/19 12:10:00 EST, [facility]/pharmacy #[id number], 172.2, cm, 05/20/19 14:14:00 EST, Height, 57.8, kg, 05/20/19 14:14:00 EST, Dry Weight Start Date: 08/20/19 Status: Ordered ondansetron 4 mg oral tablet 1 tablet = 4 mg, By Mouth, Every 6 hours, PRN as needed for nausea/vomiting, # 16 tablet, 0 Refills, Maintenance, 09/17/20 15:41:00 EDT, Tablet, [facility]/pharmacy #[id number], Partial fill upon patient request if the prescription is for a schedule II opioid drug... Start Date: 09/17/20 Status: Ordered oxybutynin 5 mg oral tablet 1 tablet = 5 mg, By Mouth, 3 times a day, PRN for urinary discomfort, # 30 tablet, 0 Refills, Maintenance, 10/04/20 15:14:00 EDT, Tablet, [facility], Partial fill upon patient request if [...]
--- OUTSIDE RECORDS SUMMARY | 2023-01-06 14:15 | XMS_ITS | Continuity of Care Document ---
Author Name Unknown Organization [facility] Address [address] [place] [address]- Care Team Providers Care Treatment Counselor Name Role Phone Yelena Martinez DO Primary Care Physician [place] [facility] [place] 01[place]13[place]22 - 05/12/22 [facility] [address] [place] [id number]- Attending Physician: Not on Staff, Attending MD Allergies, Adverse Reactions, Alerts Substance Reaction [...] capsule, 3 Refills, Maintenance, 08/20/19 12:10:00 EST, [facility]/pharmacy #[id number], 172.2, cm, 05/20/19 14:14:00 EST, Height, 57.8, kg, 05/20/19 14:14:00 EST, Dry Weight Start Date: 08/20/19 Status: Ordered ondansetron 4 mg oral tablet 1 tablet = 4 mg, By Mouth, Every 6 hours, PRN as needed for nausea/vomiting, # 16 tablet, 0 Refills, Maintenance, 09/17/20 15:41:00 EDT, Tablet, [facility]/pharmacy #[id number], Partial fill upon patient request if the prescription is for a schedule II opioid drug... Start Date: 09/17/20 Status: Ordered oxybutynin 5 mg oral tablet 1 tablet = 5 mg, By Mouth, 3 times a day, PRN for urinary discomfort, # 30 tablet, 0 Refills, Maintenance, 10/04/20 15:14:00 EDT, Tablet, [facility], Partial fill upon patient request if the prescription is for a schedule II opioid drug.... Start Date: 10/04/20 Status: Ordered Pyridium = 200 mg, By Mouth, 3 times a day after meals, 0 Refills, Maintenance, 10/04/20 10:28:00 EDT, Partial fill upon patient request if the prescription is for a schedule II opioid drug. Start Date: 10/04/20 Status: Ordered Slynd 4 mg oral tablet 1 tablet = 4 mg, By Mouth, Daily, # 28 tablet, 11 Refills, Maintenance, 12/26/21 17:53:00 EDT, Tablet, [facility]/pharmacy #[id number], Partial fill upon patient request if the prescription is for a schedule II opioid drug., 170, cm, 06/08/21 15:23:00 EST, Height,... 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 Other: smokes outside. Sex Female Patient Care team information Care Team Personnel Name: Yelena Martinez DO Position: [facility] General Pediatrics MD Member Role: PCP Address: Address: [address] [place] [address] [place] [address]- Name: Adriano Rankin RN Position: [facility] RN Member Role: Primary Care Nurse Care Team Related Persons Name: ADAN SÁNCHEZ Address: [address] [place] [address] Name: ARABELLA SÁNCHEZ Address: home [address] [place] [address] Name: JOHNATHAN REID Address: [address] [address]
--- OUTSIDE RECORDS SUMMARY | 2023-01-06 14:15 | XMS_ITS | Continuity of Care Document ---
Author Name Unknown Organization [facility] ter Address [address] [place] [address]- Care Team Providers Care Proposal Coordinator Name Role Phone Yelena Martinez DO Primary Care Physician [place] [facility] [place] Date(s): 10/13/22 - 10/13/[address] [address]- Encounter Diagnosis Abdominal pain(Final) - 10/13/22 GERD (gastroesophageal reflux disease)(Final) - 10/13/22 Discharge Disposition: A-D/C Home Attending Physician: Mari Garcia MD Admitting Physician: Mari Garcia MD Referring Physician: Not on Staff, Referring [...] opioid drug. Start Date: 10/18/21 Status: Ordered famotidine 20 mg oral tablet 20 mg, 1, tablet, By Mouth, Daily, # 30 tablet, Refills 0, Tot. Refills 0, Maintenance, 10/13/22 21:03:00 EDT, Route to Pharmacy Electronically, [facility]/pharmacy #[id number], Partial fill upon patient request if the prescription is for a schedule II opioid drug... Start Date: 10/13/22 Status: Ordered ISOtretinoin 30 mg oral capsule 0 Refills, Maintenance, 09/12/21 14:00:00 EDT, Partial fill upon patient request if the prescription is for a schedule II opioid drug. Start Date: 09/12/21 Status: Ordered omeprazole 20 mg oral enteric coated capsule 1 capsule = 20 mg, By Mouth, Daily, # 30 capsule, 3 Refills, Maintenance, 08/20/19 12:10:00 EST, [facility]/pharmacy #[id number], 172.2, cm, 05/20/19 14:14:00 EST, Height, 57.8, kg, 05/20/19 14:14:00 EST, Dry Weight Start Date: 08/20/19 Status: Ordered ondansetron 4 mg oral tablet 1 tablet = 4 mg, By Mouth, Every 6 hours, PRN as needed for nausea/vomiting, # 16 tablet, 0 Refills, Maintenance, 09/17/20 15:41:00 EDT, Tablet, [facility]/pharmacy #[id number], Partial fill upon patient request if the prescription is for a schedule II opioid drug... Start Date: 09/17/20 Status: Ordered oxybutynin 5 mg oral tablet 1 tablet = 5 mg, By Mouth, 3 times a day, PRN for urinary discomfort, # 30 tablet, 0 Refills, Maintenance, 10/04/20 15:14:00 EDT, Tablet, [facility], Partial fill upon patient request if [...] 11 Refills, Maintenance, 12/26/21 17:53:00 EDT, Tablet, [facility]/pharmacy #[id number], Partial fill upon patient request [...] Confirmed Active Anxiety and depression Confirmed Active Results Radiology Reports * Exam Date Time Procedure Performing Provider Status 10/13/22 8:[address] Abd/Pelvis W/ IV Contrast Only [address]on [address]; Auth (Verified) Notes: (CT Abd/Pelvis W/ IV Contrast Only) Reason For Exam: RLQ abdominal pain;Other: RESULT: CT Abd/Pelvis W/ IV Contrast Only CT Abd/Pelvis W/ IV Contrast Only Hx of Present Illness: R O Appy; Reason: Other:; RLQ abdominal pain; Clinical Question(s): Appendicitis; Order Comment: TECHNIQUE: Spiral CT through the abdomen and pelvis with IV contrast formatted in 3 planes. 75 cc of Omnipaque 300 was administered intravenously. This study was performed without oral contrast. Weight-based protocol using automatic tube modulation was used to optimize exposure parameters. CTDIvol Body: 15.60 mGy, DLP Body: 891 mGy*cm. COMPARISON: None. FINDINGS: Railroad Dining Car Steward/Stewardess View Findings, Lines and Tubes: None. Visualized Chest: Lung bases are clear. No pleural effusion. The heart is normal in size. No pericardial effusion. Diaphragm: Normal. Liver: Normal. Gallbladder: No CT evidence of gallbladder pathology. Bile ducts: No biliary ductal dilation. Spleen: Normal. Pancreas: Normal. Adrenal glands: Normal. Kidneys and ureters: No hydronephrosis, stones, or suspicious masses. Bladder: Normal. Reproductive organs: There are bilateral ovarian follicles with small amount of free fluid within the pelvis. Stomach, small bowel, and large bowel: Normal. Appendix: Normal. Peritoneum and retroperitoneum: No ascites or pneumoperitoneum. No omental or mesenteric lesions. Lymph nodes: No enlarged lymph nodes. Blood vessels: Normal. No aneurysm. No evidence of venous thrombosis. Abdominal and pelvic wall: Unremarkable. Bones: No acute abnormality. IMPRESSION: Normal appendix. Bilateral ovarian follicles with small amount of free fluid in the pelvis. WSN: [id number] Ordering Physician: Sadai Goetz Dictated By: Avi Padron MD Dictated Date/Time: 10/13/22 8:40 pm Reviewed By: Avi Padron MD Signed By: Avi Padron MD Signed Date/Time: 10/13/22 8:40 pm Transcribed By: RENETTA Transcribed Date/Time: 10/13/22 8:36 pm Vital Signs Most recent to oldest [Reference Range]: 1 2 3 Oxygen Saturation [94-100 %] 100 % (10/13/22 8:28 PM) 100 % (10/13/22 5:49 PM) 100 % (10/13/22 4:34 PM) Pulse Rate [55-90 bpm] 114 bpm *H* (10/13/22 8:28 PM) 110 bpm *H* (10/13/22 5:49 PM) 104 bpm *H* (10/13/22 4:34 PM) Blood Pressure [71-110/30-71 mm Hg] 138/92mm Hg *H* (10/13/22 8:28 PM) 142/86mm Hg *H* (10/13/22 5:49 PM) 146/87mm Hg *H* (10/13/22 4:34 PM) Respiratory Rate [16-30 br/min] 22 br/min (10/13/22 8:28 PM) 20 br/min (10/13/22 3:27 PM) Temperature [96.8-100.4 DegF] 98.1 DegF (10/13/22 8:28 PM) 98.8 DegF (10/13/22 5:49 PM) 98.9 DegF (10/13/22 4:34 PM) Mode of Delivery (Oxygen) Room air (10/13/22 8:28 PM) Room air (10/13/22 5:49 PM) r (10/13/22 3:27 PM) Blood pressure sites Arm, left (10/13/22 8:28 PM) Arm, right (10/13/22 5:49 PM) Arm, left (10/13/22 4:34 PM) Temperature Route Oral (10/13/22 8:28 PM) Oral (10/13/22 5:49 PM) Oral (10/13/22 4:34 PM) Social History Social History Type Response Tobacco Tobacco user in hous ehold: Yes. Other: smokes outside. Sex Female Note * Jim Cordero MD: PERFORM Event Display: Patient Education Leaflets Authored Date: Unknown Causes of Abdominal Pain (Adult) ?? [id number] Unknown Causes of Abdominal Pain (Adult) The exact cause of your belly (abdominal) pain is not clear. Your exam and tests don't suggest a dangerous cause at this time. This does not mean that this is something to worry about. Everyone likesto know the exact cause of the problem. But sometimes with belly pain, there is no clear-cut cause,and this could be a good thing. Your symptoms can be treated, and you should feel better.?? Your condition does not seem serious now. But sometimes the signs of a serious problem may take more time to appear. For this reason,??it's important for you to watch for any new symptoms, problems,??or worsening of your condition. Over the next few days, the abdominal pain may come and go. Or it may be constant. Other common symptoms can include nausea and vomiting. Sometimes it can be difficult to tell if you feel nauseous. You may just feel bad and not connect that feeling to nausea. Constipation, diarrhea, and a fever maygo along with the pain. The pain may continue even if treated correctly over the following days. Depending on how things go, sometimes the cause can become clear and you may need more??or different treatment. You may also need other evaluations, medicines, or tests. Home care Your healthcare provider may prescribe medicine for pain, symptoms, or an infection. ??Follow the healthcare provider's instructions for taking these medicines. General care ??? Rest as much as you can until your next exam. No strenuous activities. ??? Try to not do anything that may have caused your symptoms. This might be not taking any medicines unless otherwise directed by your healthcare provider. It might be not eating certain foods or doing certain activities. ??? Find positions that ease discomfort. A small pillow placed on your belly may help relieve pain. ??? Something warm on your belly such as a heating pad may help, but be careful not to burn yourself. Diet ??? Don???t??force yourself to eat, especially if having cramps, vomiting, or diarrhea. ??? Water is important so you don't get dehydrated. Soup may also be good. Sports drinks may also help, especially if they are not too acidic. Don't drink sugary drinks as this can make things worse. Take liquids in small amounts. Don???t??guzzle them. ??? Caffeine sometimes makes the pain and cramping worse. ??? Don???t take??dairy products if you have vomiting or diarrhea. ??? Don't eat large amounts at a time. Eat several small meals during the day instead of 2 or 3 larger meals. Wait a few minutesbetween bites. ??? Eat a diet low in fiber (called a low-residue diet). Foods allowed include refined breads, white rice, fruit and vegetable juices without pulp, tender meats. These foods will pass more easily through the intestine. ??? Don???t have??whole-grain foods, whole fruits and vegetables,meats, seeds and nuts, fried or fatty foods, dairy, alcohol and spicy foods until your symptoms go away. ?? Follow-up care Follow up with your healthcare provider, or as advised, if your pain does not begin to improve in the next 24 hours. ?? Call 911 Call?? 911 if any of these occur: ??? Trouble breathing ??? Confusion ??? Fainting or loss of consciousness ??? Rapid heart rate ??? Seizure ?? When to seek medical advice Call your healthcare provider right away if any of these occur: ??? Pain gets worse or moves to theright lower abdomen ??? New or worsening vomiting or diarrhea ??? Swelling of the abdomen ??? Unable to pass stool for more than??3 days ??? Fever of 100.4??F (38??C) or higher, or as directed by your healthcare provider ??? Blood in vomit or bowel movements (dark red or black color) ??? Yellow color of eyes and skin (jaundice) ??? Weakness, dizziness ??? Chest, arm, back, neck, or jaw pain ??? Can't keep down medicines, liquids, or water because of too much vomiting ??? If you have a vagina: unexpected vaginal bleeding or missed period ?? Last Reviewed Date: 2021 ?? [id number] [employer]. All rights reserved. This information is not intended as a substitute for professional medical care. Always follow your healthcare professional's instructions. ?? CT Abdomen and Pelvis W contrast IV * [facility] , CIS S: TRANSCRIBE Avi Padron MD: VERIFY Event Display: Result: Authored Date: [id number] CT Abd/Pelvis W/ IV Contrast Only Hx of Present Illness: R O Appy; Reason: Other:; RLQ abdominal pain; Clinical Question(s): Appendicitis; Order Comment: TECHNIQUE: Spiral CT through the abdomen and pelvis with IV contrast formatted in 3 planes. 75 cc of Omnipaque 300 was administered intravenously. This study was performed without oral contrast. Weight-based protocol using automatic tube modulation was used to optimize exposure parameters. CTDIvol Body: 15.60 mGy, DLP Body: 891 mGy*cm. COMPARISON: None. FINDINGS: Railroad Dining Car Steward/Stewardess View Findings, Lines and Tubes: None. Visualized Chest: Lung bases are clear. No pleural effusion. The heart is normal in size. No pericardial effusion. Diaphragm: Normal. Liver: Normal. Gallbladder: No CT evidence of gallbladder pathology. Bile ducts: No biliary ductal dilation. Spleen: Normal. Pancreas: Normal. Adrenal glands: Normal. Kidneys and ureters: No hydronephrosis, stones, or suspicious masses. Bladder: Normal. Reproductive organs: There are bilateral ovarian follicles with small amount of free fluid within the pelvis. Stomach, small bowel, and large bowel: Normal. Appendix: Normal. Peritoneum and retroperitoneum: No ascites or pneumoperitoneum. No omental or mesenteric lesions. Lymph nodes: No enlarged lymph nodes. Blood vessels: Normal. No aneurysm. No evidence of venous thrombosis. Abdominal and pelvic wall: Unremarkable. Bones: No acute abnormality. IMPRESSION: Normal appendix. Bilateral ovarian follicles with small amount of free fluid in the pelvis. WSN: [id number] Ordering Physician: Sadia Goetz Dictated By: Avi Padron MD Dictated Date/Time: 10/13/22 8:40 pm Reviewed By: Avi Padron MD Signed By: Avi Padron MD Signed Date/Time: 10/13/22 8:40 pm Transcribed By: RENETTA Transcribed Date/Time: 10/13/22 8:36 pm Patient Care team information Care Team Personnel Name: Yelena Martinez DO Position: [facility] General Pediatrics MD Member Role: PCP Address: Address: [address] [place] [address] [facility] [address]- Name: Mari Garcia MD Position: [facility] ED Medicine MD Member Role: Admitting Physician Address: Address: [address] [place] [address]- Name: Dixie Plasencia RN Position: [facility] ED RN W/OE and Tasks Member Role: Patient Care Provider Name: Jim Cordero MD Position: [facility] Resident Member Role: ED Resident Address: Address: [address] [place] [address]- Care Team Related Persons Name: ADAN SÁNCHEZ Address: [address] [place] [address] Name: ARABELLA SÁNCHEZ Address: home [address] [place] [address] Name: JOHNATHAN REID Address: home [address] [place] [address]
--- OUTSIDE RECORDS SUMMARY | 2023-01-06 14:15 | XMS_ITS | Continuity of Care Document ---
Author Name Unknown Organization [facility] ndocrinology Address [address] [place] [address]- Care Team Providers Care Space Operations Officer Name Role Phone Juan Yelena Primary Care Physician [phone] [facility] [place] Date(s): 01/28/21 - 02/27/21 [facility] [address] [place] [address]- [place] Allergies, Adverse Reactions, Alerts Substance Reaction Severity Status Augmentin diarrhea Active levoFLOXacin muscle/bone pain Active Medications acetaminophen 325 mg oral tablet 650 mg, By Mouth, Every 4 hours, (after 24 hrs may give PRN for Moderate Pain - separate order required), # 50 tablet, Refills 0, Tot. Refills 0, Acute 10/05/21 15:15:00 EDT, 10/04/20 15:14:00 EDT, Route to Pharmacy Electronically, [facility] Start Date: 10/04/20 Stop Date: [...] 10/04/20 15:15:00 EDT, Route to Pharmacy Electronically, [facility], Partial fill upon patient request if... Start Date: 10/04/20 Stop Date: 10/05/21 Status: Ordered omeprazole 20 mg oral enteric coated capsule 1 capsule = 20 mg, By Mouth, Daily, # 30 capsule, 3 Refills, Maintenance, 08/20/19 12:10:00 EST, [facility]/pharmacy #[id number], 172.2, cm, 05/20/19 14:14:00 EST, Height, 57.8, kg, 05/20/19 14:14:00 EST, Dry Weight Start Date: 08/20/19 Status: Ordered ondansetron 4 mg oral tablet 1 tablet = 4 mg, By Mouth, Every 6 hours, PRN as needed for nausea/vomiting, # 16 tablet, 0 Refills, Maintenance, 09/17/20 15:41:00 EDT, Tablet, [facility]/pharmacy #[id number], Partial fill upon patient request if the prescription is for a schedule II opioid drug... Start Date: 09/17/20 Status: Ordered oxybutynin 5 mg oral tablet 1 tablet = 5 mg, By Mouth, 3 times a day, PRN for urinary discomfort, # 30 tablet, 0 Refills, Maintenance, 10/04/20 15:14:00 EDT, Tablet, [facility], Partial fill [...]
--- OUTSIDE RECORDS SUMMARY | 2023-01-06 14:15 | XMS_ITS | Continuity of Care Document ---
Author Name Unknown Organization [facility] Address [address] [place] [address]- Care Team Providers Care Strip Presser Name Role Phone Yelena Martinez DO Primary Care Physician Encounter [facility] [place] Date(s): 03/16/21 - 04/21/21 [facility] [address] [place] [address]- Attending Physician: Morgan Zheng MD Admitting Physician: Marce THOMAS, Morgan Landry Allergies, Adverse Reactions, Alerts Substance Reaction Severity Status Augmentin diarrhea Active levoFLOXacin muscle/bone pain Active Medications acetaminophen 325 mg oral tablet 650 mg, By Mouth, Every 4 hours, (after 24 hrs may give PRN for Moderate Pain - separate order required), # 50 tablet, Refills 0, Tot. Refills 0, Acute 10/05/21 15:15:00 EDT, 10/04/20 15:14:00 EDT, Route to Pharmacy Electronically, [facility] Start Date: 10/04/20 Stop Date: [...] 10/04/20 15:15:00 EDT, Route to Pharmacy Electronically, [facility], Partial fill upon patient request if... Start Date: 10/04/20 Stop Date: 10/05/21 Status: Ordered omeprazole 20 mg oral enteric coated capsule 1 capsule = 20 mg, By Mouth, Daily, # 30 capsule, 3 Refills, Maintenance, 08/20/19 12:10:00 EST, [facility]/pharmacy #[id number], 172.2, cm, 05/20/19 14:14:00 EST, Height, 57.8, kg, 05/20/19 14:14:00 EST, Dry Weight Start Date: 08/20/19 Status: Ordered ondansetron 4 mg oral tablet 1 tablet = 4 mg, By Mouth, Every 6 hours, PRN as needed for nausea/vomiting, # 16 tablet, 0 Refills, Maintenance, 09/17/20 15:41:00 EDT, Tablet, [facility]/pharmacy #[id number], Partial fill upon patient request if the prescription is for a schedule II opioid drug... Start Date: 09/17/20 Status: Ordered oxybutynin 5 mg oral tablet 1 tablet = 5 mg, By Mouth, 3 times a day, PRN for urinary discomfort, # 30 tablet, 0 Refills, Maintenance, 10/04/20 15:14:00 EDT, Tablet, [facility], Partial fill upon patient [...]
--- OUTSIDE RECORDS SUMMARY | 2023-01-06 14:15 | XMS_ITS | Continuity of Care Document ---
Author Name Unknown Organization [facility] Address [address] [place] [address]- Care Team Providers Care Pocket Setter Name Role Phone Arian THOMAS, Meghann Talley Primary Care Physician Encounter [facility] [place] Date(s): 09/15/19 - 09/25/19 [facility] [address] [place] [address]- [facility] Attending Physician: Admtr, Bertin Admitting Physician: AdmtrBertin Referring Physician: Admtr, Ar8 Allergies, Adverse Reactions, Alerts Substance Reaction Severity Status Augmentin Active Medications amitriptyline 10 mg oral tablet 30 mg, 3, tablet, By Mouth, Daily at bedtime, # 90 tablet, Refills 2, Tot. Refills 2, Maintenance, 08/20/19 12:10:00 EST, Route to Pharmacy Electronically, [facility]/pharmacy #[id number], 172.2, cm, 05/20/19 14:14:00 EST, Height, 57.8, kg, 05/20/19 14:14:00 EST,... Start Date: 08/20/19 Status: Ordered celecoxib 100 mg oral capsule [...] capsule, 3 Refills, Maintenance, 08/20/19 12:10:00 EST, [facility]/pharmacy #[id number], 172.2, cm, 05/20/19 14:14:00 EST, Height, 57.8, kg, 05/20/19 14:14:00 EST, Dry Weight Start Date: 08/20/19 Status: Ordered predniSONE 10 mg oral tablet See Instructions, 2 tablet By Mouth Daily for 7 days, then 1 tablet daily thereafter until gone, # 30 tablet, 0 Refills, Maintenance, 06/12/19 12:56:00 EST, [facility]/pharmacy #[id number], 172.2, cm, 05/20/19 [...]
--- OUTSIDE RECORDS SUMMARY | 2023-01-06 14:15 | XMS_ITS | Continuity of Care Document ---
Author Name Unknown Organization [facility] ter Address [address] [place] [address]- Care Team Providers Care Garage Door Hanger Name Role Phone Yelena Martinez DO Primary Care Physician [place] [facility] [place] - 07/07/[address] [address]- Encounter Diagnosis Pill esophagitis(Final) - 07/07/20 Discharge Disposition: A-D/C Home Attending Physician: Chilango Matias MD Admitting Physician: Chilango Matias MD Referring Physician: Not on Staff, Referring MD Allergies, Adverse Reactions, Alerts Substance Reaction Severity Status Augmentin Active Medications Carafate 1 gm/10 ml oral suspension 10 mL = 1 Gm, By Mouth, 3 times a day before meals and bedtime, # 160 mL, 0 Refills, Maintenance, 07/07/20 18:06:00 EST, [facility]/pharmacy #[id number], Partial fill upon patient request if the prescription is for a schedule II opioid drug., 171, cm, 07/07/20 15:... Start Date: 07/07/20 Stop Date: 07/11/20 Status: Ordered celecoxib 100 mg oral capsule [...] 4 Refills, Maintenance, 06/10/20 14:37:00 EST, Tablet, [facility]/pharmacy #[id number], Partial fill upon patient request if the prescriptionis for a schedule II opioid drug., 170, cm, ... Start Date: 06/10/20 Status: Ordered Problem List Condition Effective Dates Status Health Status Inform ant Urachal cyst(Confirmed) Active Gender dysphoria(Confirmed) Active History of vertebral fracture(Confirmed) Active Lymphadenopathy(Confirmed) Active Anxiety and depression(Confirmed) Active Results Radiology Reports * Exam Date Time Procedure Performing Provider Status 07/07/20 5:45 PM Chest 2 Views Frontal and Lat Mary Davenport; April (Verified) Notes: (Chest 2 Views Frontal and Lat) Reason For Exam: sensation of pill in throat;Foreign Body RESULT: Chest 2 Views Frontal and Lat Chest 2 Views Frontal and Lat Hx of Present Illness: pt goes by Garygi- Female to Male. pt took medications last night at 10pm- woke up at 2am feeling like something is stuck, mom gave benadryl pt c o throat pain and pain when swallowing solids; Reason: Foreign Body; sensation of pill in throat; Clinical Question(s): Foreign Body; Special Instructions: Pt goes by Bennett COMPARISON: None FINDINGS: LINES AND TUBES: None. LUNGS AND PLEURA: The lungs are clear. No pleural effusion. No pneumothorax. HEART, MEDIASTINUM AND HA: Normal. BONES AND SOFT TISSUES: Normal. IMPRESSION: Clear lungs. Normal caliber trachea. No ingested foreign body. WSN: [id number] Ordering Physician: Christy Zurita Dictated By: Tapan Laureano MD Dictated Date/Time: 07/07/20 5:47 pm Reviewed By: Tapan Laureano MD Signed By: Tapan Laureano MD Signed Date/Time: 07/07/20 5:47 pm Transcribed By: RENETTA Transcribed Date/Time: 07/07/20 5:47 pm Vital Signs Most recent to oldest [Reference Range]: 1 2 3 Height 171 cm (07/07/20 6:13 PM) 171 cm (07/07/20 3:48 PM) 171 cm (07/07/20 3:34 PM) Weight 64.1 kg (07/07/20 6:13 PM) 64.1 kg (07/07/20 3:48 PM) 64.1 kg (07/07/20 3:34 PM) Oxygen Saturation [94-100 %] 100 % (07/07/20 3:34 PM) Pulse Rate [55-90 bpm] 88 bpm (07/07/20 6:13 PM) 102 bpm *H* (07/07/20 3:34 PM) Body Mass Index [18.5-24.99] 21.92 (07/07/20 6:13 PM) 21.92 (07/07/20 3:34 PM) Blood Pressure [80-130/50-80 mm Hg] 122/70mm Hg (07/07/20 6:13 PM) 123/77mm Hg (07/07/20 3:34 PM) Respiratory Rate [16-30 br/min] 18 br/min (07/07/20 6:13 PM) 26 br/min (07/07/20 3:34 PM) Temperature [96.8-100.4 DegF] 99.1 DegF (07/07/20 6:13 PM) 99.9 DegF (07/07/20 3:34 PM) Mode of Delivery (Oxygen) Room air (07/07/20 3:34 PM) Blood pressure sites Arm, left (07/07/20 3:34 PM) Temperature Route Oral (07/07/20 6:13 PM) Temporal (07/07/20 3:34 PM) Dry Weight 64.1 kg (07/07/20 6:13 PM) 64.1 kg (07/07/20 3:48 PM) 64.1 kg (07/07/20 3:34 PM) Weight Obtained Via Standing scale (07/07/20 3:34 PM) Dry Weight Obtained Via Standing scale (07/07/20 3:34 PM) Social History Social History Type Response Tobacco Tobacco user in hous ehold: Yes. Other: smokes outside. Sex
--- OUTSIDE RECORDS SUMMARY | 2023-01-06 14:15 | XMS_ITS | Continuity of Care Document ---
Author Name Unknown Organization [facility] Address [address] [place] [address]- Care Team Providers Care Dough Brake Machine Operator Name Role Phone Juan Yelena Primary Care Physician [phone] Encounter [facility] [place] Date(s): 05/03/21 - 06/02/21 [facility] [address] [place] [address]- [place] Allergies, Adverse Reactions, Alerts Substance Reaction Severity Status Augmentin diarrhea Active levoFLOXacin muscle/bone pain Active Medications acetaminophen 325 mg oral tablet 650 mg, By Mouth, Every 4 hours, (after 24 hrs may give PRN for Moderate Pain - separate order required), # 50 tablet, Refills 0, Tot. Refills 0, Acute 10/05/21 15:15:00 EDT, 10/04/20 15:14:00 EDT, Route to Pharmacy Electronically, [facility] Start Date: 10/04/20 Stop Date: [...] 10/04/20 15:15:00 EDT, Route to Pharmacy Electronically, [facility], Partial fill upon patient request if... Start Date: 10/04/20 Stop Date: 10/05/21 Status: Ordered omeprazole 20 mg oral enteric coated capsule 1 capsule = 20 mg, By Mouth, Daily, # 30 capsule, 3 Refills, Maintenance, 08/20/19 12:10:00 EST, [facility]/pharmacy #[id number], 172.2, cm, 05/20/19 14:14:00 EST, Height, 57.8, kg, 05/20/19 14:14:00 EST, Dry Weight Start Date: 08/20/19 Status: Ordered ondansetron 4 mg oral tablet 1 tablet = 4 mg, By Mouth, Every 6 hours, PRN as needed for nausea/vomiting, # 16 tablet, 0 Refills, Maintenance, 09/17/20 15:41:00 EDT, Tablet, [facility]/pharmacy #[id number], Partial fill upon patient request if the prescription is for a schedule II opioid drug... Start Date: 09/17/20 Status: Ordered oxybutynin 5 mg oral tablet 1 tablet = 5 mg, By Mouth, 3 times a day, PRN for urinary discomfort, # 30 tablet, 0 Refills, Maintenance, 10/04/20 15:14:00 EDT, Tablet, [facility], Partial fill upon patient [...]
--- OUTSIDE RECORDS SUMMARY | 2023-01-06 14:15 | XMS_ITS | Continuity of Care Document ---
Author Name Unknown Organization [facility] Address [address] [place] [address] [address] [place] [address]- Care Team Providers Care Brownell Operator Name Role Phone Yelena Martinez DO Primary Care Physician Encounter [facility] [place] Date(s): 06/09/21 - 07/09/21 [facility] [address] [place] [address]- Allergies, Adverse Reactions, Alerts Substance Reaction Severity Status Augmentin diarrhea Active levoFLOXacin muscle/bone pain Active Medications acetaminophen 325 mg oral tablet 650 mg, By Mouth, Every 4 hours, (after 24 hrs may give PRN for Moderate Pain - separate order required), # 50 tablet, Refills 0, Tot. Refills 0, Acute 10/05/21 15:15:00 EDT, 10/04/20 15:14:00 EDT, Route to Pharmacy Electronically, [facility] Start Date: 10/04/20 Stop Date: [...] 10/04/20 15:15:00 EDT, Route to Pharmacy Electronically, [facility], Partial fill upon patient request if... Start Date: 10/04/20 Stop Date: 10/05/21 Status: Ordered omeprazole 20 mg oral enteric coated capsule 1 capsule = 20 mg, By Mouth, Daily, # 30 capsule, 3 Refills, Maintenance, 08/20/19 12:10:00 EST, [facility]/pharmacy #[id number], 172.2, cm, 05/20/19 14:14:00 EST, Height, 57.8, kg, 05/20/19 14:14:00 EST, Dry Weight Start Date: 08/20/19 Status: Ordered ondansetron 4 mg oral tablet 1 tablet = 4 mg, By Mouth, Every 6 hours, PRN as needed for nausea/vomiting, # 16 tablet, 0 Refills, Maintenance, 09/17/20 15:41:00 EDT, Tablet, [facility]/pharmacy #[id number], Partial fill upon patient request if the prescription is for a schedule II opioid drug... Start Date: 09/17/20 Status: Ordered oxybutynin 5 mg oral tablet 1 tablet = 5 mg, By Mouth, 3 times a day, PRN for urinary discomfort, # 30 tablet, 0 Refills, Maintenance, 10/04/20 15:14:00 EDT, Tablet, [facility], Partial fill upon patient [...]
--- OUTSIDE RECORDS SUMMARY | 2023-01-06 14:16 | XMS_ITS | Continuity of Care Document ---
Author Name Unknown Organization [facility] ter Address [address] [place] [address]- Care Team Providers Care Truck Driving Name Role Phone Yelena Martinez DO Primary Care Physician Encounter [facility] [place] Date(s): 07/20/20 - 07/20/[address] [address]- Discharge Disposition: A-D/C Home Attending Physician: Navid Mccabe MD Admitting Physician: Navid Mccabe MD Referring Physician: Not on Staff, Referring MD Allergies, Adverse Reactions, Alerts Substance Reaction Severity Status Augmentin Active Medications amiTRIPTYLINE By Mouth, Daily at bedtime, 0 Refills, Maintenance, 07/20/20 13:49:00 EST, Partial fill upon patient request if the prescription is for a schedule II opioid drug. Start Date: 07/20/20 Status: Ordered cephalexin monohydrate 500 mg oral capsule 1 capsule = 500 mg, By Mouth, Every 12 hours, take until complete, # 20 capsule, 0 Refills, Maintenance, 07/20/20 19:36:00 EST, Capsule, [id number], Partial fill upon patient request if the prescription is for a schedule II opioid drug., 170,... Start Date: 07/20/20 Stop Date: 07/30/20 Status: Ordered Multivitamin Daily, 0 Refills, Maintenance, [...] 08/20/19 Status: Ordered ondansetron 4 mg oral tablet, disintegrating 1 tablet = 4 mg, By Mouth, Once, PRN as needed for nausea/vomiting, allow tablet to dissolve on tongue, # 10 tablet, 0 Refills, Soft Stop, 07/20/20 19:36:00 EST, DIS Tablet, [facility]/pharmacy #[id number], Partial fill upon patient request if the prescription is... Start Date: 07/20/20 Status: Ordered Pyridium 200 mg oral tablet 1 tablet = 200 mg, By Mouth, 3 times a day, PRN Pain , Mild, for 2 days, # 6 tablet, 0 Refills, Acute 07/22/20 21:26:00 EST, 07/20/20 21:26:00 EST, Tablet, [facility]/pharmacy #[id number], Partial fill upon patient request if the prescription is for a schedule II... Start Date: 07/20/20 Stop Date: 07/22/20 Status: Ordered Problem List Condition Effective Dates Status Health Status Inform ant Urachal cyst(Confirmed) Active Gender dysphoria(Confirmed) Active History of vertebral fracture(Confirmed) Active Lymphadenopathy(Confirmed) Active Anxiety and depression(Confirmed) Active Vital Signs Most recent to oldest [Reference Range]: 1 2 3 Height 170 cm (07/20/20 3:43 PM) 170 cm (07/20/20 1:45 PM) 170 cm (07/20/20 1:15 PM) Weight 63.9 kg (07/20/20 3:43 PM) 63.9 kg (07/20/20 1:45 PM) 63.9 kg (07/20/20 1:15 PM) Oxygen Saturation [94-100 %] 100 % (07/20/20 7:26 PM) 100 % (07/20/20 3:43 PM) 100 % (07/20/20 1:15 PM) Pulse Rate [55-90 bpm] 102 bpm *H* (07/20/20 7:26 PM) 92 bpm *H* (07/20/20 3:43 PM) 97 bpm *H* (07/20/20 1:15 PM) Body Mass Index [18.5-24.99] 22.11 (07/20/20 3:43 PM) 22.11 (07/20/20 1:15 PM) Blood Pressure [80-130/50-80 mm Hg] 115/70mm Hg (07/20/20 7:26 PM) 125/72mm Hg (07/20/20 3:43 PM) 127/79mm Hg (07/20/20 1:15 PM) Respiratory Rate [16-30 br/min] 18 br/min (07/20/20 7:26 PM) 20 br/min (07/20/20 3:43 PM) 18 br/min (07/20/20 1:15 PM) Temperature [96.8-100.4 DegF] 98.1 DegF (07/20/20 7:26 PM) 98.3 DegF (07/20/20 3:43 PM) 97.9 DegF (07/20/20 1:15 PM) Mode of Delivery (Oxygen) Room air (07/20/20 7:26 PM) Room air (07/20/20 3:43 PM) Room air (07/20/20 1:15 PM) Blood pressure sites Arm, right (07/20/20 7:26 PM) Arm, left (07/20/20 3:43 PM) Arm, left (07/20/20 1:15 PM) Temperature Route Oral (07/20/20 7:26 PM) Oral (07/20/20 3:43 PM) Temporal (07/20/20 1:15 PM) Dry Weight 63.9 kg (07/20/20 3:43 PM) 63.9 kg (07/20/20 1:45 PM) 63.9 kg (07/20/20 1:15 PM) Weight Obtained Via Standing scale (07/20/20 1:15 PM) Dry Weight Obtained Via Standing scale (07/20/20 1:15 PM) Social History Social History Type Response Tobacco Tobacco user in hous ehold: Yes. Other: smokes outside. Sex
--- OUTSIDE RECORDS SUMMARY | 2023-01-06 14:16 | XMS_ITS | Continuity of Care Document ---
Author Name Unknown Organization [facility] Address [address] [place] [address]- Care Team Providers Care Technical Coordinator Name Role Phone Yelena Martinez DO Primary Care Physician Encounter [facility] [place] Date(s): 06/30/21 - 07/30/21 [facility] [address] [place] [address]- [place] Allergies, Adverse Reactions, Alerts Substance Reaction Severity Status Augmentin diarrhea Active levoFLOXacin muscle/bone pain Active Medications acetaminophen 325 mg oral tablet 650 mg, By Mouth, Every 4 hours, (after 24 hrs may give PRN for Moderate Pain - separate order required), # 50 tablet, Refills 0, Tot. Refills 0, Acute 10/05/21 15:15:00 EDT, 10/04/20 15:14:00 EDT, Route to Pharmacy Electronically, [facility] Start Date: 10/04/20 Stop Date: 10/05/21 [...] 10/04/20 15:15:00 EDT, Route to Pharmacy Electronically, [facility], Partial fill upon patient request [...] 0 Refills, Maintenance, 10/04/20 15:14:00 EDT, Tablet, [facility], Partial fill upon patient request [...]
--- OUTSIDE RECORDS SUMMARY | 2023-01-06 14:16 | XMS_ITS | Continuity of Care Document ---
Author Name Unknown Organization [facility] Address [address] [place] [address]- Care Team Providers Care Platinum And Palladium Kettle Tender Name Role Phone Arian THOMAS, Meghann Talley Primary Care Physician [phone] Encounter [facility] [place] Date(s): 07/23/19 - 10/15/19 [facility] [address] [place] [address]- [facility] Attending Physician: Buck Taylor MD Allergies, Adverse Reactions, Alerts Substance Reaction Severity Status Augmentin Active Medications amitriptyline 10 mg oral tablet 30 mg, 3, tablet, By Mouth, Daily at bedtime, # 90 tablet, Refills 2, Tot. Refills 2, Maintenance, 08/20/19 12:10:00 EST, Route to Pharmacy Electronically, [facility]/pharmacy #[id number], 172.2, cm, 05/20/19 14:14:00 EST, Height, 57.8, kg, 05/20/19 14:14:00 EST,... Start Date: 08/20/19 Status: Ordered celecoxib 100 mg oral capsule 1 capsule = 100 mg, By Mouth, 2 times a day, # 60 capsule, 5 Refills, Maintenance, 10/09/19 8:55:00EDT, Capsule, [facility]/pharmacy #[id number], 172.2, cm, 05/20/19 14:14:00 EST, Height, 57.8, kg, 05/20/19 14:14:00 EST, Dry Weight Start Date: 10/09/19 Status: Ordered Melatonin By Mouth, Daily at bedtime, 0 Refills, Maintenance Start Date: 10/07/12 Status: Ordered omeprazole 20 mg oral enteric coated capsule 1 capsule = 20 mg, By Mouth, Daily, # 30 capsule, 3 Refills, Maintenance, 08/20/19 12:10:00 EST, [facility]/pharmacy #[id number], 172.2, cm, 05/20/19 14:14:00 EST, Height, 57.8, kg, 05/20/19 14:14:00 EST, Dry Weight Start Date: 08/20/19 Status: Ordered predniSONE 10 mg oral tablet See Instructions, 2 tablet By Mouth Daily for 7 days, then 1 tablet daily thereafter until gone, # 30 tablet, 0 Refills, Maintenance, 06/12/19 12:56:00 EST, [facility]/pharmacy #[id number], 172.2, cm, 05/20/19 14:14:00 EST, [...]
--- OUTSIDE RECORDS SUMMARY | 2023-01-06 14:16 | XMS_ITS | Continuity of Care Document ---
Author Name Unknown Organization [facility] Address [address] [place] [address] [address] [place] [address]- Care Team Providers Care Graduate Civil Engineer Name Role Phone Yelena Martinez DO Primary Care Physician [phone] Encounter [facility] [place] Date(s): 09/18/22 - 10/18/22 [facility] [address] [place] [address]- Attending Physician: Bertin Tobin Admitting Physician: AdmtrBertin Referring Physician: Admtr, Ar8 [...] 10/13/22 21:03:00 EDT, Route to Pharmacy Electronically, [facility]/pharmacy #[id number], Partial fill upon patient request if the [...] 0 Refills, Maintenance, 10/04/20 15:14:00 EDT, Tablet, [facility], Partial fill upon patient request if [...] 11 Refills, Maintenance, 12/26/21 17:53:00 EDT, Tablet, [id number], Partial fill upon [...] Team Personnel Name: Yelena Martinez DO Position: [facility] General Pediatrics MD Member Role: PCP Address: Address: [address] [place] [address] [place] [address]- Care Team Related Persons Name: ADAN SÁNCHEZ Address: home [address] [place] [address] Name: ARABELLA SÁNCHEZ Address: [address] [place] [address] Name: JOHNATHAN REID Address: [place] [phone]
--- OUTSIDE RECORDS SUMMARY | 2023-01-06 14:16 | XMS_ITS | Continuity of Care Document ---
Author Name Unknown Organization [facility] Address [address] [place] [address]- Care Team Providers Care Remote Medical Coder Name Role Phone Yelena Martinez DO Primary Care Physician Encounter [facility] [place] Date(s): 05/10/20 - 06/09/20 [facility] [address] [place], [place] [address] Allergies, Adverse Reactions, Alerts Substance Reaction Severity Status Augmentin Active Medications amitriptyline 10 mg oral tablet 30 mg, 3, tablet, By Mouth, Daily at bedtime, # 90 tablet, Refills 3, Tot. Refills 3, Maintenance, 11/05/19 15:26:00 EDT, Route to Pharmacy Electronically, [id number], 172.2, cm, 05/20/19 14:14:00 EST, Height, 57.8, kg, 05/20/19 14:14:00 EST,... Start Date: 11/05/19 Status: Ordered celecoxib 100 mg oral capsule [...] tablet, 0 Refills, Maintenance, 06/12/19 12:56:00 EST, [facility]/pharmacy #[id number], 172.2, cm, 05/20/19 14:14:00 EST, [...]
--- OUTSIDE RECORDS SUMMARY | 2023-01-06 14:16 | XMS_ITS | Continuity of Care Document ---
Author Name Unknown Organization [facility] Address [address] [place] [address]- Care Team Providers Care Licensed Optician Name Role Phone Yelena Martinez DO Primary Care Physician Encounter [facility] Date(s): 05/12/20 - 06/11/20 [facility] [address] [place] [address]- Allergies, Adverse Reactions, Alerts Substance Reaction Severity [...]
--- OUTSIDE RECORDS SUMMARY | 2023-01-06 14:16 | XMS_ITS | Summary of Care ---
Author Name Unknown Organization [facility] Address [address] [place] [address]. [place] [address]- Care Team Providers Care Commercial Property Administrator Name Role Phone JENNIFER VIGIL DO Primary Care Physician Encounter [facility] [id number] Date(s): 06/13/21 - 06/13/21 [facility] [address] [place], [place] [address] Attending Physician: ADAN NEIL MD Referring Physician: JENNIFER VIGIL DO Social History Social History Type Response Sex Female
--- OUTSIDE RECORDS SUMMARY | 2023-01-06 14:16 | XMS_ITS | Continuity of Care Document ---
Author Name Unknown Organization [facility] Address [address] [place] [address]- Care Team Providers Care Labeling Associate Name Role Phone Juan Yelena Primary Care Physician [phone] Encounter [facility] [place] Date(s): 03/23/21 - 04/22/21 [facility] [address] [place] [address]- [place] Allergies, Adverse Reactions, Alerts Substance Reaction Severity Status Augmentin diarrhea Active levoFLOXacin muscle/bone pain Active Medications acetaminophen 325 mg oral tablet 650 mg, By Mouth, Every 4 hours, (after 24 hrs may give PRN for Moderate Pain - separate order required), # 50 tablet, Refills 0, Tot. Refills 0, Acute 10/05/21 15:15:00 EDT, 10/04/20 15:14:00 EDT, Route to Pharmacy Electronically, [facility] Start Date: 10/04/20 Stop Date: 10/05/21 [...] 10/04/20 15:15:00 EDT, Route to Pharmacy Electronically, [facility], Partial fill upon patient request if... Start Date: 10/04/20 Stop Date: 10/05/21 Status: Ordered omeprazole 20 mg oral enteric coated capsule 1 capsule = 20 mg, By Mouth, Daily, # 30 capsule, 3 Refills, Maintenance, 08/20/19 12:10:00 EST, [facility]/pharmacy #[id number], 172.2, cm, 05/20/19 14:14:00 EST, Height, 57.8, kg, 05/20/19 14:14:00 EST, Dry Weight Start Date: 08/20/19 Status: Ordered ondansetron 4 mg oral tablet 1 tablet = 4 mg, By Mouth, Every 6 hours, PRN as needed for nausea/vomiting, # 16 tablet, 0 Refills, Maintenance, 09/17/20 15:41:00 EDT, Tablet, [facility]/pharmacy #[id number], Partial fill upon patient request if the prescription is for a schedule II opioid drug... Start Date: 09/17/20 Status: Ordered oxybutynin 5 mg oral tablet 1 tablet = 5 mg, By Mouth, 3 times a day, PRN for urinary discomfort, # 30 tablet, 0 Refills, Maintenance, 10/04/20 15:14:00 EDT, Tablet, [facility], Partial fill upon patient request [...]
--- OUTSIDE RECORDS SUMMARY | 2023-01-06 14:16 | XMS_ITS | Summary of Care ---
Author Name Unknown Organization [facility] Address [address] [place] [address]- Care Team Providers Care Eligibility Worker Name Role Phone JENNIFER VIGIL DO Primary Care Physician [phone] Encounter [facility] [id number] Date(s): 09/29/21 - 09/29/[address] [address]- Encounter Diagnosis Congenital spondylolisthesis(Final) - Discharge Disposition: Discharge Attending Physician: SEE ROGER THOMAS Referring Physician: JENNIFER VIGIL DO Medications No Known Medications Social History Social History Type Response Sex Female
--- OUTSIDE RECORDS SUMMARY | 2023-01-06 14:16 | XMS_ITS | Continuity of Care Document ---
Author Name Unknown Organization [facility] ter Address [address] [place] [address]- Care Team Providers Care Swabber Name Role Phone Yelena Martinez DO Primary Care Physician Encounter [facility] [place] Date(s): 03/13/22 - 03/14/[address] [address]- Encounter Diagnosis Pyelonephritis(Final) - 03/14/22 Discharge Disposition: A-D/C Home Attending Physician: Abbey Whalen MD Admitting Physician: Abbey Whalen MD Referring Physician: Not on Staff, Referring MD Allergies, Adverse Reactions, Alerts Substance Reaction Severity Status Augmentin diarrhea Active levoFLOXacin muscle/bone pain Active Medications Acetaminophen Tablet 975 mg, Tablet, By Mouth, Once, STAT, 03/14/22 3:05:00 EDT, Stop date 03/14/22 3:05:00 EDT Start Date: 03/14/22 Stop Date: 03/14/22 Status: Completed amiTRIPTYLINE By Mouth, Daily at bedtime, 0 Refills, Maintenance, 07/20/20 13:49:00 EST, Partial fill upon patient request if the prescription is for a schedule II opioid drug. Start Date: 07/20/20 Status: Ordered baclofen 10 mg oral tablet Refills 0, Maintenance, 10/18/21 7:04:00 EDT, Partial fill upon patient request if the prescriptionis for a schedule II opioid drug. Start Date: 10/18/21 Status: Ordered cefpodoxime 200 mg oral tablet 1 tablet = 200 mg, By Mouth, Every 12 hours, for 10 days, # 20 tablet, 0 Refills, Acute 03/24/22 4:55:00 EDT, 03/14/22 4:55:00 EDT, Tablet, [id number], Partial fill upon patient request if the prescription is for a schedule II opioid drug., 17... Start Date: 03/14/22 Stop Date: 03/24/22 Status: Ordered ISOtretinoin 30 mg oral capsule [...] 0 Refills, Maintenance, 10/04/20 15:14:00 EDT, Tablet, [facility], Partial fill upon patient request if [...] 11 Refills, Maintenance, 12/26/21 17:53:00 EDT, Tablet, [facility] [...] opioid drug. Start Date: 10/18/21 Status: Ordered Toradol Inj 15 mg, Injection, IV Push Slowly, Once, STAT, 03/14/22 3:05:00 EDT, Stop date 03/14/22 3:05:00 EDT Start Date: 03/14/22 Stop Date: 03/14/22 Status: Completed Vitamin C By Mouth, Daily, 0 Refills, [...] 1 2 3 Oxygen Saturation [94-100 %] 99 % (03/14/22 6:20 AM) 100 % (03/14/22 5:12 AM) 100 % (03/14/22 3:46 AM) Pulse Rate [55-90 bpm] 92 bpm *H* (03/14/22 6:20 AM) 93 bpm *H* (03/14/22 5:12 AM) 101 bpm *H* (03/14/22 3:46 AM) Blood Pressure [71-110/30-71 mm Hg] 119/67mm Hg *H* (03/14/22 6:20 AM) 144/72mm Hg *H* (03/14/22 5:12 AM) 122/81mm Hg *H* (03/14/22 3:46 AM) Respiratory Rate [16-30 br/min] 16 br/min (03/14/22 6:20 AM) 16 br/min (03/14/22 5:11 AM) 16 br/min (03/14/22 4:42 AM) Temperature [96.8-100.4 DegF] 98.4 DegF (03/14/22 6:20 AM) 98.8 DegF (03/14/22 12:37 AM) 98.6 DegF (03/13/22 11:51 PM) Mode of Delivery (Oxygen) Room air (03/14/22 6:20 AM) Room air (03/14/22 5:12 AM) Room air (03/14/22 3:46 AM) Blood pressure sites Arm, left (03/14/22 6:20 AM) Arm, left (03/14/22 5:12 AM) Arm, left (03/14/22 3:46 AM) Temperature Route Oral (03/14/22 6:20 AM) Oral (03/14/22 12:37 AM) Oral (03/13/22 11:51 PM) Social History Social History Type Response Tobacco Tobacco user in hous ehold: Yes. Other: smokes outside. Sex Female Care Team Personnel Name: Yelena Martinez DO Address: [address] [place] [address] [facility] [place], [place] [address]
--- OUTSIDE RECORDS SUMMARY | 2023-01-06 14:16 | XMS_ITS | Continuity of Care Document ---
Author Name Unknown Organization [facility] Address [address] [place] [address]- Care Team Providers Care Insulation Batting Machine Operator Name Role Phone Yelena Martinez DO Primary Care Physician [place] [facility] [place] 01/28/21 - 04/21/21 [facility] [address] [place] [address]- Attending Physician: Morgan Zheng MD Admitting Physician: Morgan Zheng MD Allergies, Adverse Reactions, Alerts Substance Reaction Severity Status Augmentin diarrhea Active levoFLOXacin muscle/bone pain Active Medications acetaminophen 325 mg oral tablet 650 mg, By Mouth, Every 4 hours, (after 24 hrs may give PRN for Moderate Pain - separate order required), # 50 tablet, Refills 0, Tot. Refills 0, Acute 10/05/21 15:15:00 EDT, 10/04/20 15:14:00 EDT, Route to Pharmacy Electronically, [facility] Start Date: 10/04/20 Stop [...] 10/04/20 15:15:00 EDT, Route to Pharmacy Electronically, [facility], Partial fill upon patient request if... Start Date: 10/04/20 Stop Date: 4/13/22 Status: Ordered omeprazole 20 mg oral enteric coated capsule 1 capsule = 20 mg, By Mouth, Daily, # 30 capsule, 3 Refills, Maintenance, 08/20/19 12:10:00 EST, [facility]/pharmacy #[id number], 172.2, cm, 05/20/19 14:14:00 EST, Height, 57.8, kg, 05/20/19 14:14:00 EST, Dry Weight Start Date: 08/20/19 Status: Ordered ondansetron 4 mg oral tablet 1 tablet = 4 mg, By Mouth, Every 6 hours, PRN as needed for nausea/vomiting, # 16 tablet, 0 Refills, Maintenance, 09/17/20 15:41:00 EDT, Tablet, [facility]/pharmacy #[id number], Partial fill upon patient request if the prescription is for a schedule II opioid drug... Start Date: 09/17/20 Status: Ordered oxybutynin 5 mg oral tablet 1 tablet = 5 mg, By Mouth, 3 times a day, PRN for urinary discomfort, # 30 tablet, 0 Refills, Maintenance, 10/04/20 15:14:00 EDT, Tablet, [facility], Partial fill upon [...]
--- OUTSIDE RECORDS SUMMARY | 2023-01-06 14:16 | XMS_ITS | Continuity of Care Document ---
Author Name Unknown Organization [facility] Address [address] [place] [address]- Care Team Providers Care Undergraduate Internship Name Role Phone Yelena Martinez DO Primary Care Physician Encounter [facility] Date(s): 05/11/20 - 06/10/20 [facility] [address] [place] [address]- Allergies, Adverse Reactions, Alerts Substance Reaction Severity [...]
--- OUTSIDE RECORDS SUMMARY | 2023-01-06 14:16 | XMS_ITS | Continuity of Care Document ---
Author Name Unknown Organization [facility] ter Address [address] [place] [address]- Care Team Providers Care Roofing Machine Operator Name Role Phone Yelena Martinez DO Primary Care Physician [phone] [id number] - 10/08/[address] [address]- Encounter Diagnosis Constipation(Final) - 10/08/20 Discharge Disposition: A-D/C Home Attending Physician: Lenora Perdue MD Admitting Physician: Lenora Perdue MD Referring Physician: Not on Staff, Referring [...] 10/04/20 15:14:00 EDT, Route to Pharmacy Electronically, [facility] Start Date: 10/04/20 Stop Date: 10/05/21 Status: Ordered amiTRIPTYLINE By Mouth, Daily at bedtime, 0 Refills, Maintenance, 07/20/20 13:49:00 EST, Partial fill upon patient request if the prescription is for a schedule II opioid drug. Start Date: 07/20/20 Status: Ordered Dulcolax 10 mg rectal suppository 1 supp = 10 mg, Rectally, Daily, PRN as needed for constipation, for 3 days, # 3 supp, 0 Refills, Acute 10/11/20 6:06:00 EDT, 10/08/20 6:06:00 EDT, Suppository, [facility]/pharmacy #[id number], Partial fill upon patient request if the prescription is for a schedul... Start Date: 10/08/20 Stop Date: 10/11/20 Status: Ordered ibuprofen 400 mg oral tablet 400 mg, 1, tablet, By Mouth, Every 4 hours, PRN, # 60 tablet, Refills 0, Tot. Refills 0, Acute 10/05/21 15:15:00 EDT, Pain , Mild, 10/04/20 15:15:00 EDT, Route to Pharmacy Electronically, [facility], Partial fill upon patient request if... Start Date: 10/04/20 Stop Date: 10/05/21 Status: Ordered MiraLax oral powder for reconstitution = 17 Gm, By Mouth, Daily, for 7 days, dissolve in water before taking, # 255 Gm, 0 Refills, Acute 10/15/20 6:00:00 EDT, 10/08/20 6:00:00 EDT, [id number] fill upon patientrequest if the prescription is for a schedule II op... Start Date: 10/08/20 Stop Date: 10/15/20 Status: Ordered omeprazole 20 mg oral enteric coated capsule 1 capsule = 20 mg, By Mouth, Daily, # 30 capsule, 3 Refills, Maintenance, 08/20/19 12:10:00 EST, [facility]/pharmacy #[id number], 172.2, cm, 05/20/19 14:14:00 EST, Height, 57.8, kg, 05/20/19 14:14:00 EST, Dry Weight Start Date: 08/20/19 Status: Ordered ondansetron 4 mg oral tablet 1 tablet = 4 mg, By Mouth, Every 6 hours, PRN as needed for nausea/vomiting, # 16 tablet, 0 Refills, Maintenance, 09/17/20 15:41:00 EDT, Tablet, [facility]/pharmacy #[id number], Partial fill upon patient request if the prescription is for a schedule II opioid drug... Start Date: 09/17/20 Status: Ordered oxybutynin 5 mg oral tablet 1 tablet = 5 mg, By Mouth, 3 times a day, PRN for urinary discomfort, # 30 tablet, 0 Refills, Maintenance, 10/04/20 15:14:00 EDT, Tablet, [facility], Partial fill upon patient request if the prescription is for a schedule II opioid drug.... Start Date: 10/04/20 Status: Ordered oxyCODONE 5 mg oral tablet 5 mg, 1, tablet, By Mouth, Every 6 hours, PRN, # 5 tablet, Refills 0, Tot. Refills 0, Acute 10/03/21 15:16:00 EDT, as needed for pain, 10/04/20 15:16:00 EDT, Route to Pharmacy Electronically, [facility], Partial fill upon patient request... Start Date: 10/04/20 Stop Date: 10/03/21 Status: Ordered OxyCODONE IR Tablet 5 mg, Tablet, By Mouth, Once, STAT, 10/08/20 5:59:00 EDT, Stop date 10/08/20 5:59:00 EDT Start Date: 10/08/20 Stop Date: 10/08/20 Status: Completed Pyridium = 200 mg, By Mouth, 3 [...] Range]: 1 2 3 Height 170 cm (10/08/20 6:02 AM) 170 cm (10/08/20 4:40 AM) 170 cm (10/08/20 1:23 AM) Weight 68.5 kg (10/08/20 6:02 AM) 68.5 kg (10/08/20 4:40 AM) 68.5 kg (10/08/20 1:23 AM) Oxygen Saturation [94-100 %] 100 % (10/08/20 6:02 AM) 100 % (10/08/20 4:40 AM) 98 % (10/08/20 1:23 AM) Pulse Rate [55-90 bpm] 97 bpm *H* (10/08/20 6:02 AM) 96 bpm *H* (10/08/20 4:40 AM) 126 bpm *H* (10/08/20 1:23 AM) Body Mass Index [18.5-24.99] 23.7 (10/08/20 6:02 AM) 23.7 (10/08/20 4:40 AM) 23.7 (10/08/20 1:23 AM) Blood Pressure [80-130/50-80 mm Hg] 123/81mm Hg (10/08/20 6:02 AM) 120/79mm Hg (10/08/20 4:40 AM) 141/82mm Hg *H* (10/08/20 1:23 AM) Respiratory Rate [16-30 br/min] 18 br/min (10/08/20 6:02 AM) 18 br/min (10/08/20 6:01 AM) 18 br/min (10/08/20 4:40 AM) Temperature [96.8-100.4 DegF] 98.6 DegF (10/08/20 6:02 AM) 98.4 DegF (10/08/20 4:40 AM) 99.1 DegF (10/08/20 1:23 AM) Mode of Delivery (Oxygen) Room air (10/08/20 6:02 AM) Room air (10/08/20 4:40 AM) Room air (10/08/20 1:23 AM) Blood pressure sites Arm, right (10/08/20 6:02 AM) Arm, left (10/08/20 4:40 AM) Arm, right (10/08/20 1:23 AM) Temperature Route Oral (10/08/20 6:02 AM) Oral (10/08/20 4:40 AM) Oral (10/08/20 1:23 AM) Dry Weight 68.5 kg (10/08/20 6:02 AM) 68.5 kg (10/08/20 4:40 AM) 68.5 kg (10/08/20 1:23 AM) Weight Obtained Via Standing scale (10/08/20 1:23 AM) Dry Weight Obtained Via Standing scale (10/08/20 1:23 AM) Social History Social History Type Response Tobacco Tobacco user in hous ehold: Yes. Other: smokes outside. Sex
--- OUTSIDE RECORDS SUMMARY | 2023-01-06 14:16 | XMS_ITS | Continuity of Care Document ---
Author Name Unknown Organization [facility] Address [address] [place] [address] [address] [place] [address]- Care Team Providers Care Hydro Pneumatic Tester Name Role Phone Yelena Martinez DO Primary Care Physician Encounter [facility] Date(s): 09/18/22 - 09/25/22 [facility] [address] [place] [address]- Attending Physician: Fox Lugo MD Allergies, Adverse [...] 3 Refills, Maintenance, 08/20/19 12:10:00 EST, [facility]/pharmacy #[id number], 172.2, cm, 05/20/19 14:14:00 EST, Height, 57.8, kg, 05/20/19 14:14:00 EST, Dry Weight Start Date: 08/20/19 Status: Ordered ondansetron 4 mg oral tablet 1 tablet = 4 mg, By Mouth, Every 6 hours, PRN as needed for nausea/vomiting, # 16 tablet, 0 Refills, Maintenance, 09/17/20 15:41:00 EDT, Tablet, [facility]/pharmacy #[id number], Partial fill upon patient request if the prescription is for a schedule II opioid drug... Start Date: 09/17/20 Status: Ordered oxybutynin 5 mg oral tablet 1 tablet = 5 mg, By Mouth, 3 times a day, PRN for urinary discomfort, # 30 tablet, 0 Refills, Maintenance, 10/04/20 15:14:00 EDT, Tablet, [facility], Partial fill upon patient request if [...] Refills, Maintenance, 12/26/21 17:53:00 EDT, Tablet, [facility]/pharmacy #[id number], Partial fill upon patient request [...] Confirmed Active Anxiety and depression Confirmed Active Vital Signs Most recent to oldest [Reference Range]: 1 Height 170 cm (09/18/22 2:53 PM) Weight 71 kg (09/18/22 2:53 PM) Body Mass Index [18.5-24.99 kg/m2] 24.57 kg/m2 (09/18/22 2:53 PM) Height Percentile 85.28 % 1 (09/18/22 2:53 PM) Height ZScore 1.05 2 (09/18/22 2:53 PM) Weight Percentile Per Age 87.02 % 3 (09/18/22 2:53 PM) BMI Percentile 78.27 4 (09/18/22 2:53 PM) BMI ZScore 0.78 5 (09/18/22 2:53 PM) Weight ZScore 1.13 6 (09/18/22 2:53 PM) 1Result Comment: ^~:!Percentile Source -CDC/WHO 2Result Comment: ^~:!ZScore Source -CDC/WHO 3Result Comment: ^~:!Percentile Source -CDC/WHO 4Result Comment: ^~:!Percentile Source -CDC/WHO 5Result Comment: ^~:!ZScore Source -CDC/WHO 6Result Comment: ^~:!ZScore Source -CDC/WHO Social History Social History Type Response Tobacco Tobacco user in hous ehold: Yes. Other: smokes outside. Sex Female Patient Care team information Care Team Personnel Name: Yelena Martinez DO Position: [facility] General Pediatrics MD Member Role: PCP Address: Address: [address] [place] [address] [place] [address]- Care Team Related Persons Name: ADAN SÁNCHEZ Address: home [address] [place] [address] Name: ARABELLA SÁNCHEZ Address: home [address] [place] [address] Name: JOHNATHAN REID Address: home [address] [place] [address]
--- OUTSIDE RECORDS SUMMARY | 2023-01-06 14:16 | XMS_ITS | Continuity of Care Document ---
Author Name Unknown Organization [facility] Address [address] [facility] [address] [place] [address]- Care Team Providers Care Sporting Goods Sales Associate Name Role Phone Yelena Martinez DO Primary Care Physician [phone] Encounter [facility] Date(s): 07/27/20 - 08/03/20 [facility] [address] [facility] [address] [place], [place] [address] Attending Physician: Christiano THOMAS, Jose Roberto Cedillo [...] capsule, 3 Refills, Maintenance, 08/20/19 12:10:00 EST, [facility]/pharmacy #[id number], 172.2, cm, 05/20/19 14:14:00 EST, Height, 57.8, kg, 05/20/19 14:14:00 EST, Dry Weight Start Date: 08/20/19 Status: Ordered Pyridium = 200 mg, By Mouth, 3 times a day after meals, 0 Refills, Maintenance, 07/27/20 11:25:00 EST, Partial fill upon patient request if the prescription is for a schedule II opioid drug. Start Date: 07/27/20 Status: Ordered Zofran 4 mg oral tablet 1 tablet = 4 mg, By Mouth, Every 6 hours, # 8 tablet, 0 Refills, Maintenance, 07/25/20 11:59:00 EST, Tablet, [facility], Partial fill upon patient request if the prescription is for a schedule II opioid drug., 171, cm, 07/25/20 3:25:00 E... Start Date: 07/25/20 Status: Ordered Problem List Condition Effective Dates Status Health Status Inform ant Urachal cyst(Confirmed) Active Gender dysphoria(Confirmed) Active History of vertebral fracture(Confirmed) Active Migraine(Confirmed) Active Anxiety and depression(Confirmed) Active Social History Social History Type Response Tobacco Tobacco user in hous ehold: Yes. Other: smokes outside. Sex
--- OUTSIDE RECORDS SUMMARY | 2023-01-06 14:16 | XMS_ITS | Continuity of Care Document ---
Author Name Unknown Organization [facility] ter Address [address] [place] [address]- Care Team Providers Care Male Impersonator Name Role Phone Yelena Martinez DO Primary Care Physician Encounter [facility] Date(s): 08/01/20 - 08/01/[address] [address]- Discharge Disposition: A-D/C Home Attending Physician: Jason Alcocer MD Admitting Physician: Jaosn Alcocer MD Referring Physician: Not on Staff, Referring [...] capsule, 3 Refills, Maintenance, 08/20/19 12:10:00 EST, [facility]/pharmacy #[id number], 172.2, cm, 05/20/19 14:14:00 EST, [...] 0 Refills, Maintenance, 07/25/20 11:59:00 EST, Tablet, [facility], Partial fill upon patient [...] oldest [Reference Range]: 1 2 3 Height 172 cm (08/01/20 4:20 PM) 172 cm (08/01/20 4:06 PM) Weight 60 kg (08/01/20 4:20 PM) 60 kg (08/01/20 4:06 PM) Oxygen Saturation [94-100 %] 99 % (08/01/20 8:54 PM) 99 % (08/01/20 7:30 PM) 98 % (08/01/20 4:19 PM) Pulse Rate [55-90 bpm] 117 bpm *H* (08/01/20 8:54 PM) 110 bpm *H* (08/01/20 7:30 PM) 113 bpm *H* (08/01/20 4:19 PM) Body Mass Index [18.5-24.99] 20.28 (08/01/20 4:20 PM) Blood Pressure [80-130/50-80 mm Hg] 122/64mm Hg (08/01/20 8:54 PM) 111/68mm Hg (08/01/20 7:30 PM) 126/73mm Hg (08/01/20 4:19 PM) Respiratory Rate [16-30 br/min] 16 br/min (08/01/20 8:54 PM) 17 br/min (08/01/20 7:30 PM) 22 br/min (08/01/20 4:19 PM) Temperature [96.8-100.4 DegF] 98.3 DegF (08/01/20 8:54 PM) 98.9 DegF (08/01/20 7:30 PM) 98.8 DegF (08/01/20 4:19 PM) Mode of Delivery (Oxygen) Room air (08/01/20 8:54 PM) Room air (08/01/20 7:30 PM) Room air (08/01/20 4:19 PM) Blood pressure sites Arm, right (08/01/20 8:54 PM) Arm, left (08/01/20 7:30 PM) Arm, left (08/01/20 4:19 PM) Temperature Route Oral (08/01/20 8:54 PM) Oral (08/01/20 7:30 PM) Oral (08/01/20 4:19 PM) Dry Weight 60 kg (08/01/20 4:20 PM) 60 kg (08/01/20 4:06 PM) Dry Weight Obtained Via Patient/family s tated (08/01/20 4:20 PM) Social History Social History Type Response Tobacco Tobacco user in hous ehold: Yes. Other: smokes outside. Sex
--- OUTSIDE RECORDS SUMMARY | 2023-01-06 14:16 | XMS_ITS | Continuity of Care Document ---
Author Name Unknown Organization [facility] Address [address] [facility] [address] [place] [address]- Care Team Providers Care Wet Process Miller Head Name Role Phone Yelena Martinez DO Primary Care Physician [phone] [place] [facility] [place] 10/21/20 - 10/28/20 [facility] [address] [facility] [address] [place] [address]- Attending Physician: Christiano THOMAS, Jose Roberto Cedillo [...] 10/04/20 15:14:00 EDT, Route to Pharmacy Electronically, [facility] Start Date: 10/04/20 Stop Date: [...] 10/04/20 15:15:00 EDT, Route to Pharmacy Electronically, [facility], Partial fill upon patient request if... Start Date: 10/04/20 Stop Date: 10/05/21 Status: Ordered omeprazole 20 mg oral enteric coated capsule 1 capsule = 20 mg, By Mouth, Daily, # 30 capsule, 3 Refills, Maintenance, 08/20/19 12:10:00 EST, [facility]/pharmacy #[id number], 172.2, cm, 05/20/19 14:14:00 EST, Height, 57.8, kg, 05/20/19 14:14:00 EST, Dry Weight Start Date: 08/20/19 Status: Ordered ondansetron 4 mg oral tablet 1 tablet = 4 mg, By Mouth, Every 6 hours, PRN as needed for nausea/vomiting, # 16 tablet, 0 Refills, Maintenance, 09/17/20 15:41:00 EDT, Tablet, [facility]/pharmacy #[id number], Partial fill upon patient request if the prescription is for a schedule II opioid drug... Start Date: 09/17/20 Status: Ordered oxybutynin 5 mg oral tablet 1 tablet = 5 mg, By Mouth, 3 times a day, PRN for urinary discomfort, # 30 tablet, 0 Refills, Maintenance, 10/04/20 15:14:00 EDT, Tablet, [facility], Partial fill upon patient [...] Active Migraine(Confirmed) Active Anxiety and depression(Confirmed) Active Procedures Procedure Date Related Diagnosis Body Site Status Cystoscopy and bladder biopsy 10/04/20 Completed Vital Signs Most recent to oldest [Reference Range]: 1 Weight 68.7 kg (10/21/20 2:19 PM) Dry Weight 68.7 kg (10/21/20 2:19 PM) Weight Obtained Via Standing scale (10/21/20 2:19 PM) Social History Social History Type Response Tobacco Tobacco user in hous ehold: Yes. Other: smokes outside. Sex Female
--- OUTSIDE RECORDS SUMMARY | 2023-01-06 14:16 | XMS_ITS | Continuity of Care Document ---
Author Name Unknown Organization [facility] Address [address] [place] [address]- Care Team Providers Care Boiler House Operator Name Role Phone Yelena Martinez DO Primary Care Physician [phone] [facility] Date(s): 09/16/20 - 10/16/20 [facility] [address] [place] [address]- Attending Physician: Admverito, Bertin Admitting Physician: Admtr, Ar8 Referring Physician: Admtr, Ar8 Allergies, Adverse Reactions, [...] 3 Refills, Maintenance, 08/20/19 12:10:00 EST, [id number], 172.2, cm, 05/20/19 14:14:00 EST, Height, 57.8, kg, 05/20/19 14:14:00 EST, Dry Weight Start Date: 08/20/19 Status: Ordered ondansetron 4 mg oral tablet 1 tablet = 4 mg, By Mouth, Every 6 hours, PRN as needed for nausea/vomiting, # 16 tablet, 0 Refills, Maintenance, 09/17/20 15:41:00 EDT, Tablet, [id number], Partial fill upon patient request if [...] 10/04/20 15:16:00 EDT, Route to Pharmacy Electronically, [facility] [...]
--- OUTSIDE RECORDS SUMMARY | 2023-01-06 14:16 | XMS_ITS | Continuity of Care Document ---
Author Name Unknown Organization [facility] Address [address] [facility] [address] [place] [address]- Care Team Providers Care Profiler Name Role Phone Yelena Martinez DO Primary Care Physician [place] [facility] [place](s[place] 10/21/20 - 11/20/20 [facility] Pediatric [facility] [address] [facility] [address] [place] [address]- Attending Physician: AdmBertin sellers Admitting Physician: Admtr, Ar8 Referring Physician: Admtr, [...] 10/04/20 15:14:00 EDT, Route to Pharmacy Electronically, [facility] Start Date: 10/04/20 Stop Date: 10/05/21 [...] 10/04/20 15:15:00 EDT, Route to Pharmacy Electronically, [facility], Partial fill upon patient request if... Start Date: 10/04/20 Stop Date: 10/05/21 Status: Ordered omeprazole 20 mg oral enteric coated capsule 1 capsule = 20 mg, By Mouth, Daily, # 30 capsule, 3 Refills, Maintenance, 08/20/19 12:10:00 EST, [facility]/pharmacy #[id number], 172.2, cm, 05/20/19 14:14:00 EST, Height, 57.8, kg, 05/20/19 14:14:00 EST, Dry Weight Start Date: 08/20/19 Status: Ordered ondansetron 4 mg oral tablet 1 tablet = 4 mg, By Mouth, Every 6 hours, PRN as needed for nausea/vomiting, # 16 tablet, 0 Refills, Maintenance, 09/17/20 15:41:00 EDT, Tablet, [facility]/pharmacy #[id number], Partial fill upon patient request if the prescription is for a schedule II opioid drug... Start Date: 09/17/20 Status: Ordered oxybutynin 5 mg oral tablet 1 tablet = 5 mg, By Mouth, 3 times a day, PRN for urinary discomfort, # 30 tablet, 0 Refills, Maintenance, 10/04/20 15:14:00 EDT, Tablet, [facility], Partial fill upon patient request if [...]
--- OUTSIDE RECORDS SUMMARY | 2023-01-06 14:16 | XMS_ITS | Continuity of Care Document ---
Author Name Unknown Organization [facility] Address [address] [place] [address]- Care Team Providers Care Teen Counselor Name Role Phone Yelena Martinez DO Primary Care Physician Encounter [facility] Date(s): 04/12/22 - 05/12/22 [facility] [address] [place] [address]- Attending Physician: Bertin Tobin Admitting Physician: Bertin Tobin Referring Physician: trBertin Allergies, Adverse Reactions, Alerts Substance Reaction Severity [...] 3 Refills, Maintenance, 08/20/19 12:10:00 EST, [facility]/pharmacy #[id number], 172.2, cm, 05/20/19 14:14:00 EST, Height, 57.8, kg, 05/20/19 14:14:00 EST, Dry Weight Start Date: 08/20/19 Status: Ordered ondansetron 4 mg oral tablet 1 tablet = 4 mg, By Mouth, Every 6 hours, PRN as needed for nausea/vomiting, # 16 tablet, 0 Refills, Maintenance, 09/17/20 15:41:00 EDT, Tablet, [facility]/pharmacy #[id number], Partial fill upon patient request if the prescription is for a schedule II opioid drug... Start Date: 09/17/20 Status: Ordered oxybutynin 5 mg oral tablet 1 tablet = 5 mg, By Mouth, 3 times a day, PRN for urinary discomfort, # 30 tablet, 0 Refills, Maintenance, 10/04/20 15:14:00 EDT, Tablet, [facility], Partial fill upon patient [...] 11 Refills, Maintenance, 12/26/21 17:53:00 EDT, Tablet, [facility]/pharmacy #[id number], Partial fill upon patient request if [...] Team Personnel Name: Yelena Martinez DO [facility] General Pediatrics MD Member Role: PCP Address: Address: [address] [place] [address] [place] [address]- Name: Adriano Rankin RN Position[facility] RN Member Role: Primary Care Nurse Care Team Related Persons Name: ADAN SÁNCHEZ Address: [address] [place] [address] Name: ARABELLA SÁNCHEZ Address: home [address] [place] [address] Name: JOHNATHAN REID Address: home [address] [place] [address]
--- OUTSIDE RECORDS SUMMARY | 2023-01-06 14:16 | XMS_ITS | Continuity of Care Document ---
Author Name Unknown Organization [facility] Address [address] [place] [address] [address] [place] [address]- Care Team Providers Care Rock Duster Name Role Phone Yelena Martinez DO Primary Care Physician [place] [facility] [place]s): 05/25/21 - 06/24/21 [facility] [address] [place] [address]- Allergies, Adverse Reactions, Alerts Substance Reaction Severity Status Augmentin diarrhea Active levoFLOXacin muscle/bone pain Active Medications acetaminophen 325 mg oral tablet 650 mg, By Mouth, Every 4 hours, (after 24 hrs may give PRN for Moderate Pain - separate order required), # 50 tablet, Refills 0, Tot. Refills 0, Acute 10/05/21 15:15:00 EDT, 10/04/20 15:14:00 EDT, Route to Pharmacy Electronically, [facility] Start Date: 10/04/20 Stop [...] 10/04/20 15:15:00 EDT, Route to Pharmacy Electronically, [facility], Partial fill upon patient request if... Start Date: 10/04/20 Stop Date: 10/05/21 Status: Ordered omeprazole 20 mg oral enteric coated capsule 1 capsule = 20 mg, By Mouth, Daily, # 30 capsule, 3 Refills, Maintenance, 08/20/19 12:10:00 EST, [facility]/pharmacy #[id number], 172.2, cm, 05/20/19 14:14:00 EST, Height, 57.8, kg, 05/20/19 14:14:00 EST, Dry Weight Start Date: 08/20/19 Status: Ordered ondansetron 4 mg oral tablet 1 tablet = 4 mg, By Mouth, Every 6 hours, PRN as needed for nausea/vomiting, # 16 tablet, 0 Refills, Maintenance, 09/17/20 15:41:00 EDT, Tablet, [facility]/pharmacy #[id number], Partial fill upon patient request if the prescription is for a schedule II opioid drug... Start Date: 09/17/20 Status: Ordered oxybutynin 5 mg oral tablet 1 tablet = 5 mg, By Mouth, 3 times a day, PRN for urinary discomfort, # 30 tablet, 0 Refills, Maintenance, 10/04/20 15:14:00 EDT, Tablet, [facility], Partial fill upon [...]
--- OUTSIDE RECORDS SUMMARY | 2023-01-06 14:16 | XMS_ITS | Continuity of Care Document ---
Author Name Unknown Organization [facility] Address [address] [place] [address]- Care Team Providers Care Automatic Riveting Machine Operator Name Role Phone Yelena Martinez DO Primary Care Physician Encounter [facility] Date(s): 05/11/20 - 06/10/20 [facility] [address] [place] [address]- Allergies, Adverse Reactions, Alerts Substance Reaction Severity [...]
--- OUTSIDE RECORDS SUMMARY | 2023-01-06 14:16 | XMS_ITS | Continuity of Care Document ---
Author Name Unknown Organization [facility] Address [address] [place] [address] [address] [place] [address]- Care Team Providers Care Accounts Receivable Analyst Name Role Phone Yelena Martinez DO Primary Care Physician [place] [facility] [place](s[place] 05/13/21 - 06/12/21 [facility] [address] [place] [address]- Allergies, Adverse Reactions, Alerts Substance Reaction Severity Status Augmentin diarrhea Active levoFLOXacin muscle/bone pain Active Medications acetaminophen 325 mg oral tablet 650 mg, By Mouth, Every 4 hours, (after 24 hrs may give PRN for Moderate Pain - separate order required), # 50 tablet, Refills 0, Tot. Refills 0, Acute 10/05/21 15:15:00 EDT, 10/04/20 15:14:00 EDT, Route to Pharmacy Electronically, [facility] Start Date: 10/04/20 Stop Date: [...] 10/04/20 15:15:00 EDT, Route to Pharmacy Electronically, [facility], Partial fill upon patient request if... Start Date: 10/04/20 Stop Date: 10/05/21 Status: Ordered omeprazole 20 mg oral enteric coated capsule 1 capsule = 20 mg, By Mouth, Daily, # 30 capsule, 3 Refills, Maintenance, 08/20/19 12:10:00 EST, [facility]/pharmacy #[id number], 172.2, cm, 05/20/19 14:14:00 EST, Height, 57.8, kg, 05/20/19 14:14:00 EST, Dry Weight Start Date: 08/20/19 Status: Ordered ondansetron 4 mg oral tablet 1 tablet = 4 mg, By Mouth, Every 6 hours, PRN as needed for nausea/vomiting, # 16 tablet, 0 Refills, Maintenance, 09/17/20 15:41:00 EDT, Tablet, [facility]/pharmacy #[id number], Partial fill upon patient request if the prescription is for a schedule II opioid drug... Start Date: 09/17/20 Status: Ordered oxybutynin 5 mg oral tablet 1 tablet = 5 mg, By Mouth, 3 times a day, PRN for urinary discomfort, # 30 tablet, 0 Refills, Maintenance, 10/04/20 15:14:00 EDT, Tablet, [facility], Partial fill upon [...]
--- OUTSIDE RECORDS SUMMARY | 2023-01-06 14:16 | XMS_ITS | Summary of Care ---
Author Name Unknown Organization [facility] Address [address] [place] [address]. [place] [address]- Care Team Providers Care Public Works Commissioner Name Role Phone JENNIFER VIGIL DO Primary Care Physician Encounter [facility] [id number] Date(s): 09/09/21 - 09/09/21 [facility] [address] [place] [address]- Discharge Disposition: Discharge Attending Physician: ADAN NEIL MD Referring Physician: JENNIFER VIGIL DO Social History Social History Type Response Sex Female
--- OUTSIDE RECORDS SUMMARY | 2023-01-06 14:16 | XMS_ITS | Continuity of Care Document ---
Author Name Unknown Organization [facility] Address [address] [place] [address]- Care Team Providers Care Stripper Preliminary Name Role Phone Yelena Martinez DO Primary Care Physician [phone] [place] [facility] [place](s): 02/02/22 - 03/04/22 [facility] [address] [place] [address] [place] Allergies, Adverse Reactions, Alerts Substance Reaction [...] Refills, Maintenance, 08/20/19 12:10:00 EST, [facility]/pharmacy #[id number], 172.2, cm, 05/20/19 14:14:00 EST, Height, 57.8, kg, 05/20/19 14:14:00 EST, Dry Weight Start Date: 08/20/19 Status: Ordered ondansetron 4 mg oral tablet 1 tablet = 4 mg, By Mouth, Every 6 hours, PRN as needed for nausea/vomiting, # 16 tablet, 0 Refills, Maintenance, 09/17/20 15:41:00 EDT, Tablet, [facility]/pharmacy #[id number], Partial fill upon patient request if the prescription is for a schedule II opioid drug... Start Date: 09/17/20 Status: Ordered oxybutynin 5 mg oral tablet 1 tablet = 5 mg, By Mouth, 3 times a day, PRN for urinary discomfort, # 30 tablet, 0 Refills, Maintenance, 10/04/20 15:14:00 EDT, Tablet, [facility], Partial fill upon [...] Maintenance, 12/26/21 17:53:00 EDT, Tablet, [facility]/pharmacy #[id number], Partial fill upon patient request [...] Team Personnel Name: Yelena Martinez DO Address: [address] [place], [place] [address] [place] [address]-
--- OUTSIDE RECORDS SUMMARY | 2023-01-06 14:16 | XMS_ITS | Summary of Care ---
Author Name Unknown Organization [facility] Orthopa[facility] Surgery [facility] Address [address] [place] [address]. [place] [address]- Care Team Providers Care Toll Collector Name Role Phone RUTH ANN THOMAS, KRIS Talley Primary Care Physician Encounter [facility] [id number] Date(s): 02/25/21 - 02/25/21 [facility] [address] [place] [address]- Discharge Disposition: Discharge Attending Physician: ADAN NEIL MD Referring Physician: JENNIFER VIGIL DO Social History Social History Type Response Sex Female
--- OUTSIDE RECORDS SUMMARY | 2023-01-06 14:16 | XMS_ITS | Continuity of Care Document ---
Author Name Unknown Organization [facility] Address [address] [place] [address]- Care Team Providers Care Estimation Manager Name Role Phone Arian THOMAS, Meghann Talley Primary Care Physician [phone] Encounter [facility] [place] Date(s): 09/15/19 - 09/22/19 [facility] [address] [place] [address]- [facility] Attending Physician: Buck Taylor MD Allergies, Adverse Reactions, Alerts Substance Reaction Severity Status Augmentin Active Medications amitriptyline 10 mg oral tablet 30 mg, 3, tablet, By Mouth, Daily at bedtime, # 90 tablet, Refills 2, Tot. Refills 2, Maintenance, 08/20/19 12:10:00 EST, Route to Pharmacy Electronically, [facility]/pharmacy #[id number], 172.2, cm, 05/20/19 14:14:00 EST, Height, [...] capsule, 3 Refills, Maintenance, 08/20/19 12:10:00 EST, [facility]/pharmacy #[id number], 172.2, cm, 05/20/19 14:14:00 EST, Height, [...]
--- OUTSIDE RECORDS SUMMARY | 2023-01-06 14:16 | XMS_ITS | Summary of Care ---
Author Name Unknown Organization [facility] Orthopaed ic Surgery [facility] Address [address] [place] [address]- Care Team Providers Care Sheet Writer Name Role Phone RUTH ANN THOMAS, KRIS Talley Primary Care Physician Encounter [facility] [id number] Date(s): 04/08/21 - 04/08/21 [facility] [address] [place] [address]- Discharge Disposition: Discharge Attending Physician: ADAN NEIL MD Referring Physician: JENNIFER VIGIL DO Medications cephalexin Dose: 500 mg, PO, Entered: 03/14/21 15:40:00 EDT Start Date: 03/14/21 Status: Ordered omeprazole PO, daily, Entered: 03/14/21 15:38:00 EDT Start Date: 03/14/21 Status: Ordered Slynd mg, PO, daily, Entered: 03/14/21 15:39:00 EDT Start Date: 03/14/21 Status: Ordered Social History Social History Type Response Sex Female
--- OUTSIDE RECORDS SUMMARY | 2023-01-06 14:16 | XMS_ITS | Continuity of Care Document ---
Author Name Unknown Organization [facility] Address [address] [place] [address]- Care Team Providers Care Curling Machine Operator Name Role Phone Yelena Martinez DO Primary Care Physician [phone] [place] [facility] [place] 08/31/20 - 09/30/20 [facility] [address] [place] [address]- Attending Physician: Bertin Tobin Admitting Physician: AdmtrBertin [...] capsule, 3 Refills, Maintenance, 08/20/19 12:10:00 EST, [facility]/pharmacy #[id number], 172.2, cm, 05/20/19 14:14:00 [...] 0 Refills, Maintenance, 09/07/20 13:21:00 EDT, Tablet, [facility]/pharmacy #[id number], Partial fill upon patient request if the [...]
--- OUTSIDE RECORDS SUMMARY | 2023-01-06 14:16 | XMS_ITS | Continuity of Care Document ---
Author Name Unknown Organization [facility] Address [address] [place] [address]- Care Team Providers Care Banking Supervisor Name Role Phone Yelena Martinez DO Primary Care Physician Encounter [facility] Date(s): 05/11/20 - 06/10/20 [facility] [address] [place] [address]- Allergies, Adverse Reactions, Alerts Substance Reaction Severity [...]
--- OUTSIDE RECORDS SUMMARY | 2023-01-06 14:16 | XMS_ITS | Continuity of Care Document ---
Author Name Unknown Organization [facility] Address [address] [place] [address]- Care Team Providers Care Utilization Specialist Name Role Phone Yelena Martinez DO Primary Care Physician [place] [facility] [place] 03/23[place]21 - 04/22/21 [facility] [address] [place] [address]- Attending Physician: Bertin Tobin Admitting Physician: AdmtrBertin [...] 10/04/20 15:14:00 EDT, Route to Pharmacy Electronically, [facility] Start Date: 10/04/20 Stop Date: [...] 10/04/20 15:15:00 EDT, Route to Pharmacy Electronically, [facility], Partial fill upon patient request if... Start Date: 10/04/20 Stop Date: 10/05/21 Status: Ordered omeprazole 20 mg oral enteric coated capsule 1 capsule = 20 mg, By Mouth, Daily, # 30 capsule, 3 Refills, Maintenance, 08/20/19 12:10:00 EST, [facility]/pharmacy #[id number], 172.2, cm, 05/20/19 14:14:00 EST, Height, 57.8, kg, 05/20/19 14:14:00 EST, Dry Weight Start Date: 08/20/19 Status: Ordered ondansetron 4 mg oral tablet 1 tablet = 4 mg, By Mouth, Every 6 hours, PRN as needed for nausea/vomiting, # 16 tablet, 0 Refills, Maintenance, 09/17/20 15:41:00 EDT, Tablet, [facility]/pharmacy #[id number], Partial fill upon patient request if the prescription is for a schedule II opioid drug... Start Date: 09/17/20 Status: Ordered oxybutynin 5 mg oral tablet 1 tablet = 5 mg, By Mouth, 3 times a day, PRN for urinary discomfort, # 30 tablet, 0 Refills, Maintenance, 10/04/20 15:14:00 EDT, Tablet, [facility], Partial fill upon patient [...]
--- OUTSIDE RECORDS SUMMARY | 2023-01-06 14:16 | XMS_ITS | Continuity of Care Document ---
Author Name Unknown Organization [facility] Address [address] [place] [address]- Care Team Providers Care Worship Director Name Role Phone Arian THOMAS, Meghann Talley Primary Care Physician [phone] En[place] [facility] [place] Date(s): 05/13/19 - 07/02/19 [facility] [address] [place] [address] [facility] Attending Physician: Buck Taylor MD Allergies, Adverse Reactions, Alerts Substance Reaction Severity Status Augmentin Active Medications amitriptyline 10 mg oral tablet 30 mg, 3, tablet, By Mouth, Daily at bedtime, # 90 tablet, Refills 2, Tot. Refills 2, Maintenance, 05/09/19 12:17:23 EST, Route to Pharmacy Electronically, [id number], [id number] Start Date: 05/09/19 Status: Ordered celecoxib [...]
--- OUTSIDE RECORDS SUMMARY | 2023-01-06 14:16 | XMS_ITS | Continuity of Care Document ---
Author Name Unknown Organization [facility] Address [address] [place] [address]- Care Team Providers Care Outside Sales Name Role Phone Yelena Martinez DO Primary Care Physician Encounter [facility] Date(s): 10/01/20 - 10/31/20 [facility] [address] [facility] [address] [place] [address]- Allergies, Adverse Reactions, Alerts Substance Reaction Severity Status Augmentin diarrhea Active levoFLOXacin muscle/bone pain Active Medications acetaminophen 325 mg oral tablet 650 mg, By Mouth, Every 4 hours, (after 24 hrs may give PRN for Moderate Pain - separate order required), # 50 tablet, Refills 0, Tot. Refills 0, Acute 10/05/21 15:15:00 EDT, 10/04/20 15:14:00 EDT, Route to Pharmacy Electronically, [facility] Start Date: 10/04/20 Stop Date: 10/05/21 [...] 10/04/20 15:15:00 EDT, Route to Pharmacy Electronically, [facility], Partial fill upon patient request if... Start Date: 10/04/20 Stop Date: 4/13/22 Status: Ordered omeprazole 20 mg oral enteric coated capsule 1 capsule = 20 mg, By Mouth, Daily, # 30 capsule, 3 Refills, Maintenance, 08/20/19 12:10:00 EST, [facility]/pharmacy #[id number], 172.2, cm, 05/20/19 14:14:00 EST, Height, 57.8, kg, 05/20/19 14:14:00 EST, Dry Weight Start Date: 08/20/19 Status: Ordered ondansetron 4 mg oral tablet 1 tablet = 4 mg, By Mouth, Every 6 hours, PRN as needed for nausea/vomiting, # 16 tablet, 0 Refills, Maintenance, 09/17/20 15:41:00 EDT, Tablet, [facility]/pharmacy #[id number], Partial fill upon patient request if the prescription is for a schedule II opioid drug... Start Date: 09/17/20 Status: Ordered oxybutynin 5 mg oral tablet 1 tablet = 5 mg, By Mouth, 3 times a day, PRN for urinary discomfort, # 30 tablet, 0 Refills, Maintenance, 10/04/20 15:14:00 EDT, Tablet, [facility], Partial fill upon patient request [...]
--- OUTSIDE RECORDS SUMMARY | 2023-01-06 14:17 | XMS_ITS | Summary of Care ---
Author Name Unknown Organization [facility] Address [address] [place] [address]- Care Team Providers Care Monorail Hooker Name Role Phone JENNIFER VIGIL DO Primary Care Physician [phone] Encounter [facility] [id number] Date(s): 09/29/21 - 09/29/[address] [address]- Encounter Diagnosis Congenital spondylolisthesis(Final) - Discharge Disposition: Discharge Attending Physician: JOSEPH THOMAS, YONY Perez Referring Physician: JENNIFER VIGIL DO Medications Lidoderm 5% topical film Dose Amount: 1 patch, TOP, daily, Dispense Quantity: 30 patch, Entered: 09/20/21 17:02:00 EDT, [id number] Start Date: 09/20/21 Status: Ordered Social History Social History Type Response Sex Female
[2023-01-06 14:47] LABS: Appearance Urine Hazy; Color Urine Orange; Glucose Urine UA 100 mg/dL (Negative); Leukocyte Esterase Urine Moderate (2+) (Negative); UMIC TRIGGER UACC YES; Urine Blood Trace (Negative); Urine Ketones Trace mg/dL (Negative)
[2023-01-06 14:53] LABS: UPreg QC Valid YES; Urine Pregnancy NEGATIVE (NEGATIVE)
[2023-01-06 14:54] LABS: Bacteria Urine 1+ (None Seen); Hyaline Casts Urine 0-2 /LPF (0-2); UACC Culture Trigger YES; WBC Clumps Urine Present; WBC Urine >50 /HPF (0-5)
[2023-01-06 15:13] VITALS: BP 139/86; PULSE 113; RESP 18; TEMP 36.5; O2SAT 97
[2023-01-06] MEDS: Ondansetron ODT 4 MG TAB.RAPDIS TRANSLINGU (15:16)
[2023-01-06] MEDS: NaPROXEN 500 MG TABLET PO (15:22)
== END 2023-01-06 16:04 | disposition home or self-care (01) ==
PROVIDERS: Physician Assistant; Emergency Provider Student in an Organized Health Care Education/Training Program; PCP Pediatrics
DX: N39.0 Urinary tract infection, site not specified (principal); B95.7 Other staphylococcus as the cause of diseases classified elsewhere; B95.1 Streptococcus, group B, as the cause of diseases classified elsewhere; F64.0 Transsexualism; Z87.440 Personal history of urinary (tract) infections
CPT/HCPCS: 81001; 81025; 87086; 87088; 87147; 87186; 99283

== ENCOUNTER 2023-04-12 15:27 | Emergency (ER) | payer BC, SELFPAY ==
--- NOTE | ~2023-04-12 | XR_ITS ---
Examination: Left knee, right foot and right ankle: Clinical indications: Status post fall. Pain. COMPARISON: None. TECHNIQUE LEFT KNEE 4 VIEWS. Right ankle 2 views and right foot 3 views. FINDINGS: Left knee: The tricompartment joint space is maintained. No acute fracture, loose bodies or joint effusion seen. No bony erosive changes. RIGHT FOOT: The interphalangeal, metatarsophalangeal and tarsometatarsal joint spaces are maintained normal. No acute fracture or dislocation seen. The soft tissues are normal. RIGHT ANKLE: The ankle mortise and subtalar joints are normal. No visible acute fracture, dislocation or subluxation seen. The soft tissues are normal. XR/XR knee LT 3V IMPRESSION: Unremarkable left knee exam. Unremarkable right foot and right ankle exam.
--- NOTE | ~2023-04-12 | XR_ITS ---
Examination: Left knee, right foot and right ankle: Clinical indications: Status post fall. Pain. COMPARISON: None. TECHNIQUE LEFT KNEE 4 VIEWS. Right ankle 2 views and right foot 3 views. FINDINGS: Left knee: The tricompartment joint space is maintained. No acute fracture, loose bodies or joint effusion seen. No bony erosive changes. RIGHT FOOT: The interphalangeal, metatarsophalangeal and tarsometatarsal joint spaces are maintained normal. No acute fracture or dislocation seen. The soft tissues are normal. RIGHT ANKLE: The ankle mortise and subtalar joints are normal. No visible acute fracture, dislocation or subluxation seen. The soft tissues are normal. XR/XR foot RT min 3V IMPRESSION: Unremarkable left knee exam. Unremarkable right foot and right ankle exam.
--- NOTE | ~2023-04-12 | XR_ITS ---
Examination: Left knee, right foot and right ankle: Clinical indications: Status post fall. Pain. COMPARISON: None. TECHNIQUE LEFT KNEE 4 VIEWS. Right ankle 2 views and right foot 3 views. FINDINGS: Left knee: The tricompartment joint space is maintained. No acute fracture, loose bodies or joint effusion seen. No bony erosive changes. RIGHT FOOT: The interphalangeal, metatarsophalangeal and tarsometatarsal joint spaces are maintained normal. No acute fracture or dislocation seen. The soft tissues are normal. RIGHT ANKLE: The ankle mortise and subtalar joints are normal. No visible acute fracture, dislocation or subluxation seen. The soft tissues are normal. XR/XR ankle RT min 3V IMPRESSION: Unremarkable left knee exam. Unremarkable right foot and right ankle exam.
[2023-04-12 16:14] VITALS: BP 145/78; PULSE 113; RESP 18; TEMP 37; O2SAT 100; BMI 29.0
--- NOTE | 2023-04-12 16:18 | ED_ITS ---
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 Reports fasting ankle and landing on left knee. Denies head trauma or LOC, numbness, tingling, weakness. Denies symptoms prior to fall MD complaint: knee injury and ankle injury Related Data Previous Rx's Medication Instructions Recorded cefuroxime axetil 500 mg tablet 500 mg PO Q12H 5 days #10 tabs 08/02/22 ibuprofen 600 mg tablet 600 mg PO Q6H PRN fever or pain 11/29/22 #20 tabs cefuroxime axetil 500 mg tablet 500 mg PO BID #14 tabs 01/06/23 naproxen 500 mg tablet 500 mg PO BID PRN pain #20 tabs 01/06/23 nitrofurantoin 100 mg PO BID 7 days #14 caps 01/11/23 monohydrate/macrocrystals 100 mg capsule (Macrobid) Allergies Allergy/AdvReac Type Severity Reaction Status Date / Time amoxicillin [Augmentin] Allergy Unknown diarrhea Verified 01/06/23 13:42 clavulanic acid [Augmentin] Allergy Unknown diarrhea Verified 01/06/23 13:42 levofloxacin Allergy Unknown Verified 01/06/23 13:42 Review of Systems Review of Systems: Constitutional: No Fever, No Chills ENT/Mouth: No Ear Pain, No Nasal Congestion, No sore throat, No Rhinorrhea, No Swallowing Difficulty Cardiovascular: No Chest Pain, No SOB Respiratory: No Cough Gastrointestinal: No Nausea, No Vomiting, No Diarrhea, No Constipation, No Abdominal pain Musculoskeletal: +joint pain, No Myalgias, +Joint Swelling Skin: No Skin Lesions, No rash Neuro: No Weakness, No Numbness, No Paresthesias, No head trauma, no LOC Yes all other systems are reviewed and are negative Constitutional: Constitutional: Reports as per [facility] Past Medical History Attestation statement: The following information was validated with the patient. Source: old records reviewed Medical History [id number]-hc-hoir transgender person Syringomyelia Physical Exam Vital Signs: Vital Signs: Last Vital Signs Temp 98.6 F 04/12/23 16:14 Pulse 106 H 04/12/23 18:15 Resp 18 04/12/23 16:14 BP 145/78 H 04/12/23 16:14 Pulse Ox 100 04/12/23 18:15 O2 Del Method Room Air 04/12/23 18:15 BMI result Body Mass Index 29.0 Const: General: cooperative, healthy appearing and no acute distress Orientation/consciousness: patient oriented x3 Limitations: no limitations HEENT: Head: Yes normal to inspection and Yes atraumatic Ears: hearing grossly normal bilaterally General nose exam: Normal external nose present Face and sinus: Yes normal facial exam Eyes: General: appearance normal, both eyes and all related structures EOM: EOMs intact bilaterally Neck: Neck: Yes normal visual inspection and Yes no meningeal signs Resp: Effort & Inspection: normal respiratory effort and no respiratory distress Cardio: Rate: regular rate Skin: Rashes: no rashes Wounds: no wounds Neuro: General: patient oriented x3, tone normal and no meningeal signs Cranial nerves: Yes CN's II-XII intact bilaterally Gait exam (Neuro): Normal gait present Extrem: Other: Left knee with mild tenderness to palpation. ROM intact w/some pain. NV intact distally. Right ankle with mild swelling > lateral malleolus w/ tenderness to palpation. Foot nontender. 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 Denies head trauma or LOC Left knee with mild tenderness. Right ankle with mild swelling and tenderness. Neurovascular intact X-rays ordered Full HPI, ROS and PE to be performed by primary ED provider. 1812-- XR knee LT 3V/XR foot RT min 3V/XR ankle RT min 3V IMPRESSION: Unremarkable left knee exam. Unremarkable right foot and right ankle exam. > SANDRO wrap applied to L knee and ankle stirr-up applied to R ankle Results discussed with patient including worrisome signs and symptoms and strict return precautions, and when to return to the emergency department. They verbalized understanding and feel safe for discharge at this time. 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 On exam initially tachycardic, PE as above. Concern for fx vs sprain. Unlikely dislocation or septic joint/arthritis Plan: XRs Please refer to course for remaining clinical decision making, interpretation of labs/imaging results, and discussions with consultants and/or family members. Differential Diagnosis Differential Diagnoses: The differential diagnosis associated with the presentation includes As above Lab Data [facility] Lab Attestation statement: I reviewed the patient's lab results. External Record Review External record reviewed: Inpatient record, Office record, Outpatient record, Prior outpatient labs, Prior outpatient radiology, Primary care record and Outside ED record Tests considered The following testing was considered but not selected: As above Discharge Plan Discharge Clinical Impression: Ankle sprain and strain, Injury of knee, left Patient Disposition: Home, Self-Care Instructions: Ankle Sprain (DC) Additional Instructions: Your x-rays were unremarkable. Wear Sandro wrap and ankle stirrup as needed Ice and elevate Follow-up with your doctor Prescriptions: No Action cefuroxime axetil 500 mg tablet 500 mg PO Q12H 5 Days Qty: 10 0RF ibuprofen 600 mg tablet 600 mg PO Q6H PRN (Reason: fever or pain) Qty: 20 0RF cefuroxime axetil 500 mg tablet 500 mg PO BID Qty: 14 0RF naproxen 500 mg tablet 500 mg PO BID PRN (Reason: pain) Qty: 20 0RF nitrofurantoin monohyd/m-cryst [Macrobid] 100 mg capsule 100 mg PO BID 7 Days Qty: 14 0RF Rx Instructions: must administer with a meal/food Referrals: Jimbo Oliveros MD [Primary Care Provider] - 3 days Stand Alone Forms: Work/School Release
[2023-04-12 18:15] VITALS: PULSE 106; O2SAT 100
--- OUTSIDE RECORDS SUMMARY | 2023-04-12 18:23 | XMS_ITS | Continuity of Care Document ---
Author Name Unknown Organization [facility] Address [address] [place] [address]- Care Team Providers Care Event Promoter Name Role Phone Yelena Martinez DO Primary Care Physician En[place] [facility] [place] Date(s): 02/22/23 - 03/24/23 [facility] [address] [place] [address] [place] Allergies, Adverse Reactions, Alerts Substance Reaction [...] 10/13/22 21:03:00 EDT, Route to Pharmacy Electronically, [facility]/pharmacy #[id number], Partial fill upon patient request [...] capsule, 3 Refills, Maintenance, 08/20/19 12:10:00 EST, [facility]/pharmacy #[id number], 172.2, cm, 05/20/19 14:14:00 EST, Height, 57.8, kg, 05/20/19 14:14:00 EST, Dry Weight Start Date: 08/20/19 Status: Ordered ondansetron 4 mg oral tablet 1 tablet = 4 mg, By Mouth, Every 6 hours, PRN as needed for nausea/vomiting, # 16 tablet, 0 Refills, Maintenance, 09/17/20 15:41:00 EDT, Tablet, [facility]/pharmacy #[id number], Partial fill upon patient request if the prescription is for a schedule II opioid drug... Start Date: 09/17/20 Status: Ordered oxybutynin 5 mg oral tablet 1 tablet = 5 mg, By Mouth, 3 times a day, PRN for urinary discomfort, # 30 tablet, 0 Refills, Maintenance, 10/04/20 15:14:00 EDT, Tablet, [facility], Partial fill upon patient request if [...] 11 Refills, Maintenance, 12/26/21 17:53:00 EDT, Tablet, [facility]/pharmacy #[id number], Partial fill upon patient request [...] Name: Yelena Martinez DO Position[facility] Physician - Pediatrics Member Role: PCP Address: Address: [address] [place] [address] [facility] [place], [place] [address] Name: Adriano Rankin RN Position: [facility] RN Member Role: Primary Care Nurse Care Team Related Persons Name: ADAN SÁNCHEZ Address: home [address] [place] [address] Name: ARABELLA SÁNCHEZ Address: home [address] [place] [address] Name: JOHNATHAN REID Address: [address] [address]
== END 2023-04-12 18:28 | disposition home or self-care (01) ==
PROVIDERS: Emergency Provider Student in an Organized Health Care Education/Training Program; PCP Pediatrics
DX: S93.401A Sprain of unspecified ligament of right ankle, initial encounter (principal); S96.911A Strain of unspecified muscle and tendon at ankle and foot level, right foot, initial encounter; S89.92XA Unspecified injury of left lower leg, initial encounter; W10.8XXA Fall (on) (from) other stairs and steps, initial encounter; Y93.9 Activity, unspecified; Y92.9 Unspecified place or not applicable; Y99.9 Unspecified external cause status
CPT/HCPCS: 73562; 73610; 73630; 99282; 99283

== ENCOUNTER 2023-08-28 15:04 | Emergency (ER) | payer BC, SELFPAY ==
[2023-08-28 15:06] VITALS: BP 149/84; PULSE 125; RESP 18; TEMP 37.2; O2SAT 100; BMI 31.4
--- NOTE | 2023-08-28 15:07 | ED_ITS ---
HPI - General Adult General Chief complaint: General Medical Stated complaint: UTI?/Kidney Inf? Time Seen by Provider: 08/28/23 18:25 Source: patient, RN notes reviewed and old records reviewed Mode of arrival: ambulatory Limitations: no limitations History of Present Illness HPI narrative: 17 year old female to male transgender patient presents for evaluation of urinary frequency. Symptoms started this morning. She has some mild lower abdominal pain. Denies any vaginal bleeding or discharge Denies any new sexual partners Denies any fevers or chills or flank pain No other complaints or concerns Related Data Previous Rx's Medication Instructions Recorded cefuroxime axetil 500 mg tablet 500 mg PO Q12H 5 days #10 tabs 08/02/22 ibuprofen 600 mg tablet 600 mg PO Q6H PRN fever or pain 11/29/22 #20 tabs cefuroxime axetil 500 mg tablet 500 mg PO BID #14 tabs 01/06/23 naproxen 500 mg tablet 500 mg PO BID PRN pain #20 tabs 01/06/23 nitrofurantoin 100 mg PO BID 7 days #14 caps 01/11/23 monohydrate/macrocrystals 100 mg capsule (Macrobid) cefuroxime axetil 250 mg tablet 250 mg PO Q12H #14 tabs 08/28/23 Allergies Allergy/AdvReac Type Severity Reaction Status Date / Time amoxicillin [Augmentin] Allergy Unknown diarrhea Verified 08/28/23 15:10 clavulanic acid [Augmentin] Allergy Unknown diarrhea Verified 08/28/23 15:10 levofloxacin Allergy Unknown Verified 08/28/23 15:10 Review of Systems 2 Constitutional: Constitutional: Denies fever(s) Eyes: Eyes: Denies blurry vision Cardiovascular: Cardiovascular: Denies chest pain and Denies dyspnea Respiratory: Respiratory: Denies cough and Denies dyspnea Gastrointestinal: Gastrointestinal: Reports abdominal pain, Denies nausea and Denies vomiting Genitourinary: Comments: Reports urinary frequency Musculoskeletal: Musculoskeletal: Denies back pain PMFSH Past Medical History Medical History [id number] transgender person Syringomyelia Physical Exam ED Vital Signs: Vital Signs - 24 hr 08/28/23 15:06 08/28/23 18:25 Temperature 99 F Pulse Rate 125 H 103 H Respiratory Rate 18 18 Blood Pressure 149/84 H 134/79 Pulse Oximetry 100 96 Oxygen Delivery Method Room Air Room Air BMI result Body Mass Index 31.4 Const General: healthy appearing, comfortable, no acute distress, alert and awake Nutritional Appearance: well nourished Orientation/consciousness: patient oriented x3 HENMT Head: Yes normocephalic and Yes atraumatic Eyes Eyelids: Yes eyelids normal Conjunctivae: conjunctivae normal Sclerae: sclerae normal Corneas: corneas normal Pupils: Equal, round and reactive pupils present EOM: EOMs intact bilaterally Neck Neck: Yes full ROM Resp Effort & Inspection: normal respiratory effort, able to speak in complete sentences and not labored Skin General skin exam: elasticity normal Neuro General: patient oriented x3 Cranial nerves: Yes Equal, round and reactive pupils present and Yes Bilaterally intact EOM present Cognition (Neuro): normal cognition Extrem Other: Moving all extremities well without any obvious deformities Course Course Course Narrative: RME- 17 year old biological female identifying as male presents for evaluation of urinary frequency that started this morning with mild lower abdominal pain. Plan for UA Reevaluation(s) Reevaluation #1: Patient was initially tachycardic on arrival at 1:25 a.m., this was regular. Denies any chest pain or palpitations or shortness of breath. The patient's heart rate improved to 103 without any intervention. No leukocytosis, evidence of renal injury Time: 18:38 Medical Decision Making Medical Decision Making [facility] Narrative: 17-year-old female to male patient presents for evaluation of urinary frequency and UTI symptoms. He reports frequent UTIs. Denies any fevers, flank pain or other signs of systemic symptoms. Plan for UA Differential Diagnosis Differential Diagnoses: The differential diagnosis associated with the presentation includes UTI Cystitis Pyelonephritis Obstructive uropathy Lab Data [facility] Lab Attestation statement: I reviewed the patient's lab results. Patient has positive nitrates and leukocyte esterase concerning for UTI will treat the patient is symptomatic. No leukocytosis or evidence of renal injury. Normal electrolytes 08/28/23 17:18 08/28/23 17:18 Labs: Lab Results 08/28/23 08/28/23 Range/Units 17:18 17:21 WBC 7.1 (4.8-10.8) X10*3/uL RBC 5.16 (4.20-5.50) X10*6/uL Hgb 16.4 H (12.0-16.0) g/dl Hct 44.9 (37.0-47.0) % MCV 87.0 (80.0-98.0) fL MCH 31.8 (27.0-33.0) pg MCHC 36.5 H (31.0-35.0) g/dl RDW 12.5 (11.0-16.0) % Plt Count 293 (160-400) X10*3/uL MPV 9.7 (9.4-12.3) fL Immature Gran % (Auto) 0.6 H (0.0-0.4) % Neut % (Auto) 57.8 (45-73) % Lymph % (Auto) 29.5 (20-40) % [place] % (Auto) 8.8 (2-11) % Eos % (Auto) 2.9 (0-4) % Baso % (Auto) 0.4 (0-2) % Lymph # (Auto) 2.1 (1.2-4.9) X10*3/uL [place] # (Auto) 0.6 (0.1-1.2) X10*3/uL Eos # (Auto) 0.2 (0.0-0.4) X10*3/uL Baso # (Auto) 0.0 (0.0-0.2) X10*3/uL Abs Immat Gran (auto) 0.04 H (0.00-0.03) X10*3/uL Absolute Neuts (auto) 4.1 (2.0-8.3) x10*3/uL Absolute Nucleated RBC 0.000 (0.0-0.012) X10*3/uL Nucleated RBC % (auto) 0.0 (0.0-0.2) /100WBC Sodium 139 (135-145) mmol/L Potassium 3.7 (3.3-5.1) mmol/L Chloride 106 (96-108) mmol/L Carbon Dioxide 27 (22-29) mmol/L Anion Gap 10 L (12-20) BUN 8 L (9-16) mg/dL Creatinine 0.80 (0.5-1.4) mg/dL Estim Creat Clear Calc 130.9 Estimated GFR > 60 Random Glucose 90 (60-115) mg/dL Lactic Acid 1.4 (0.5-2.0) mmol/L Calcium 9.8 (8.4-10.2) mg/dL Total Bilirubin 0.7 (0.0-1.0) mg/dL AST 20 (5-31) U/L ALT 26 (0-31) U/L Alkaline Phosphatase 92 (39-117) U/L Total Protein 7.6 (6.5-8.0) g/dL Albumin 4.4 (3.5-5.0) g/dL Urine Color [place] Urine Appearance Hazy Urine pH 7.5 (5.0-9.0) Ur Specific [place] 1.010 (1.005-1.025) Urine Protein 100 (2+) H (Neg-Trace) mg/dL Urine Glucose (UA) 250 H (Negative) mg/dL Urine Ketones Trace (Negative) mg/dL Urine Blood Negative (Negative) Urine Nitrite Positive H (Negative) Ur Leukocyte Esterase Moderate (2+) H (Negative) Urine RBC 0-2 (0-2) /HPF Urine WBC 6-10 (0-5) /HPF Ur Squamous Epith Cells 6-10 (0-2) /HPF Urine Bacteria Trace (None Seen) Hyaline Casts 3-5 (0-2) /LPF Discharge Plan Discharge Clinical Impression: Urinary tract infection Patient Disposition: Home, Self-Care Instructions: Urinary Tract Infection in Women (ED) Additional Instructions: Your urine sample was consistent with a UTI. Take the antibiotic twice daily for the next 5 days Drink lots of fluids You may continue to use the [id number] azo Follow-up with your primary doctor return for new or worsening symptoms Prescriptions: New cefuroxime axetil 250 mg tablet 250 mg PO Q12H Qty: 14 0RF No Action cefuroxime axetil 500 mg tablet 500 mg PO Q12H 5 Days Qty: 10 0RF ibuprofen 600 mg tablet 600 mg PO Q6H PRN (Reason: fever or pain) Qty: 20 0RF cefuroxime axetil 500 mg tablet 500 mg PO BID Qty: 14 0RF naproxen 500 mg tablet 500 mg PO BID PRN (Reason: pain) Qty: 20 0RF nitrofurantoin monohyd/m-cryst [Macrobid] 100 mg capsule 100 mg PO BID 7 Days Qty: 14 0RF Rx Instructions: must administer with a meal/food Stand Alone Forms: Work/School Release Interventions: ED Discharge Assessment Last Done: 08/28/23 18:35
[2023-08-28 17:26] LABS: MANUAL DIFF FLAG NO
[2023-08-28 17:39] LABS: Lactic Acid 1.4 mmol/L (0.5-2.0)
[2023-08-28 17:41] LABS: Appearance Urine Hazy; Color Urine Orange; Glucose Urine UA 250 mg/dL (Negative); Leukocyte Esterase Urine Moderate (2+) (Negative); Nitrite Urine Positive (Negative); PH 7.5 (5.0-9.0); UMIC TRIGGER UACC YES; Urine Blood Negative (Negative); Urine Ketones Trace mg/dL (Negative); Urine Protein 100 (2+) mg/dL (Neg-Trace)
[2023-08-28 17:41] LABS: Basophils Percent Auto 0.4 % (0-2); Eosinophils Absolute Auto 0.2 X10*3/uL (0.0-0.4); Eosinophils Percent Auto 2.9 % (0-4); Hematocrit 44.9 % (37.0-47.0); Hemoglobin 16.4 g/dl (12.0-16.0); Imm Gran Abs Auto 0.04 X10*3/uL (0.00-0.03); Imm Gran Pct Auto 0.6 % (0.0-0.4); Lymphocytes Absolute Auto 2.1 X10*3/uL (1.2-4.9); Lymphocytes Percent Auto 29.5 % (20-40); Mean Corpuscular HGB Conc 36.5 g/dl (31.0-35.0); Mean Corpuscular Hemoglobin 31.8 pg (27.0-33.0); Mean Platelet Volume 9.7 fL (9.4-12.3); Monocytes Absolute Auto 0.6 X10*3/uL (0.1-1.2); Monocytes Percent Auto 8.8 % (2-11); Neutrophils Absolute Auto 4.1 x10*3/uL (2.0-8.3); Neutrophils Percent Auto 57.8 % (45-73); Platelet Count 293 X10*3/uL (160-400); Red Blood Count 5.16 X10*6/uL (4.20-5.50); Red Cell Distribution Width 12.5 % (11.0-16.0); White Blood Count 7.1 X10*3/uL (4.8-10.8)
[2023-08-28 17:44] LABS: Alanine Aminotransferase 26 U/L (0-31); Albumin Level 4.4 g/dL (3.5-5.0); Alkaline Phosphatase 92 U/L (39-117); Anion Gap 10 (12-20); Aspartate Amino Transferase 20 U/L (5-31); Bilirubin Total 0.7 mg/dL (0.0-1.0); Blood Urea Nitrogen 8 mg/dL (9-16); Calcium 9.8 mg/dL (8.4-10.2); Carbon Dioxide 27 mmol/L (22-29); Chloride 106 mmol/L (96-108); Creatinine Clr Calc Pharmacy 130.9; Estimated Glomerular Filt Rate > 60; Glucose Random 90 mg/dL (60-115); Potassium 3.7 mmol/L (3.3-5.1); Sodium 139 mmol/L (135-145); Total Protein 7.6 g/dL (6.5-8.0)
[2023-08-28 17:47] LABS: Bacteria Urine Trace (None Seen); UACC Culture Trigger YES
[2023-08-28 18:04] LABS: RBC Urine 0-2 /HPF (0-2)
[2023-08-28 18:25] VITALS: BP 134/79; PULSE 103; RESP 18; O2SAT 96
== END 2023-08-28 18:38 | disposition home or self-care (01) ==
LOC: HO.ED 18:37
PROVIDERS: Nurse Practitioner Family; Physician Assistant; Emergency Provider Emergency Medicine; PCP Pediatrics
DX: N39.0 Urinary tract infection, site not specified (principal); R35.0 Frequency of micturition; Z79.899 Other long term (current) drug therapy
CPT/HCPCS: 36415; 80053; 81001; 83605; 85025; 87040; 87086; 87088; 87186; 99282; 99283

== ENCOUNTER 2023-09-07 16:37 | Emergency (ER) | payer BC, SELFPAY ==
--- NOTE | ~2023-09-07 | US_ITS ---
EXAMINATION: US RETROPERITONEAL COMPLETE (RENAL) CLINICAL INFORMATION: Bilateral flank pain and dysuria. COMPARISON: Renal ultrasound 01/18/2012. TECHNIQUE: Real-time imaging of the kidneys and bladder. FINDINGS: RIGHT KIDNEY: 11.2 x 5.5 x 5.8 cm (SAG x AP x TRV). The kidney is normal in size, contour, and echogenicity. Renal cortical thickness is normal. No calculi or focal parenchymal lesions. No hydronephrosis. LEFT KIDNEY: 12.2 x 5.2 x 5.4 cm (SAG x AP x TRV). The kidney is normal in size, contour, and echogenicity. Renal cortical thickness is normal. No calculi or focal parenchymal lesions. No hydronephrosis. BLADDER: Well distended and normal. Bilateral ureteral jets are demonstrated. Prevoid bladder volume is 282 mL. Postvoid bladder volume is 35 mL. US/US retroperitoneal comp IMPRESSION: No acute sonographic abnormalities.
[2023-09-07 16:49] VITALS: BP 134/85; PULSE 110; RESP 20; TEMP 36.6; O2SAT 98; BMI 31.3
--- NOTE | 2023-09-07 16:49 | ED_ITS ---
HPI - General Adult General Chief complaint: Abdominal Pain Stated complaint: ?UTI Time Seen by Provider: 09/07/23 23:07 Source: patient and old records reviewed Mode of arrival: ambulatory Limitations: no limitations History of Present Illness HPI narrative: 17 yo male with PMH of dysautonomia, recurrent pyelonephritis, anxiety, depression, urachal cyst surgery in 2021, just seen here 3/5 and dx with E. Coli UTI simon s started on ceftin 250mg BID. He notes having bilateral flank pain since getting out of work at [employer] but denies trauma or heavy labor at job. He has no vomiting or fevers. It is worse on both sides. He has mild dysuria. MD complaint: flank pain, dysuria Onset (ago): day(s) (1) Location: back Radiation: non-radiation Severity: moderate Quality: aching Pain Consistency: constant Relieving factors: none Exacerbating factors: movement Associated symptoms: loss of appetite and nausea/vomiting Treatments prior to arrival: none Related Data Previous Rx's Medication Instructions Recorded cefuroxime axetil 500 mg tablet 500 mg PO Q12H 5 days #10 tabs 08/02/22 ibuprofen 600 mg tablet 600 mg PO Q6H PRN fever or pain 11/29/22 #20 tabs cefuroxime axetil 500 mg tablet 500 mg PO BID #14 tabs 01/06/23 naproxen 500 mg tablet 500 mg PO BID PRN pain #20 tabs 01/06/23 nitrofurantoin 100 mg PO BID 7 days #14 caps 01/11/23 monohydrate/macrocrystals 100 mg capsule (Macrobid) cefuroxime axetil 250 mg tablet 250 mg PO Q12H #14 tabs 08/28/23 Allergies Allergy/AdvReac Type Severity Reaction Status Date / Time amoxicillin [Augmentin] Allergy Unknown diarrhea Verified 09/07/23 16:53 clavulanic acid [Augmentin] Allergy Unknown diarrhea Verified 09/07/23 16:53 levofloxacin Allergy Unknown Verified 09/07/23 16:53 Review of Systems 2 Review of Systems: Constitutional : No Fever, No Chills ENT/Mouth : No sore throat Eyes: No Eye Pain, No Swelling, No Redness Cardiovascular : No Chest Pain, No SOB Respiratory : No Cough, No Sputum, No Wheezing Gastrointestinal : positive Nausea, no Vomiting, No Diarrhea, no abdominal pain Genitourinary : positive Dysuria, no urinary frequency, no Hematuria, positive Flank Pain Musculoskeletal : No joint pain, No Myalgias Skin : No Skin Lesions, No rash Neuro : No Weakness, No Numbness, No Headache Psych : No Anxiety/Panic, No Depression All other systems reviewed and are negative [facility] Past Medical History Attestation statement: The following information was validated with the patient. Source: old records reviewed Medical History [id number]-st-[id number] transgender person Syringomyelia Social History Social History (Updated 09/07/23 @ 23:22 by Felisha Damon DO) Patient Tobacco Use Status: Tobacco use Unknown Advance Directives: No Advance Directives Information Provided: No Physical Exam ED Vital Signs: Vital Signs - 24 hr 09/07/23 16:49 09/07/23 22:57 Temperature 97.9 F Pulse Rate 110 H 103 H Respiratory Rate 20 18 Blood Pressure 134/85 121/72 Pulse Oximetry 98 98 Oxygen Delivery Method Room Air Room Air BMI result Body Mass Index 31.3 Appearance: Alert. Oriented X3. No acute distress. Eyes: Pupils equal, round and reactive to light. ENT: Pharynx normal. Neck: Normal inspection. Neck supple. CVS: Normal heart rate and rhythm. Pulses normal. Respiratory: No respiratory distress. Breath sounds normal. Abdomen: Soft and nontender. Back: bilateral CVA ttp Skin: Skin warm and dry. Normal skin color. Normal skin turgor. Extremities: No lower extremity edema. No calf ttp Neuro: Oriented X 3. No motor deficit. No sensory deficit. Course Course Course Narrative: This is an RME: Additional HPI, ROS, PE not included below will be deferred to primary provider. Patient is a 17-year-old transgender female to male patient presenting to the emergency department expressing concern for bilateral kidney pain. The seen in the emergency department recently, has Urine culture from 08/28/2023 grew E coli susceptible to ceftriaxone and was treated with cefuroxime, completed the entire course. Complaining of pain to the bilateral flank regions, intermittent, nausea, poor PO intake, continues to have dysuria. 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 Plan: Urinalysis, labs Medical Decision Making Medical Decision Making [facility] Narrative: 17 yo male with PMH of dysautonomia, recurrent pyelonephritis, anxiety, depression, urachal cyst surgery in 2021, just seen here 08/27 and dx with E. Coli UTI simon s started on ceftin 250mg BID here with c/o bilateral flank pain and dysuria at this time VS are stable, labs reassuring, ALT elevated but no abdominal pain could be medication side effect will need repeat with PCP, no WBC count, UA is not positive, US will be ordered to look for stone vs hydro but could just be MSK pain related to job Differential Diagnosis Differential Diagnoses: The differential diagnosis associated with the presentation includes stone, hydronephrosis, MSK strain, UTI Admission/Observation Consideration of admission/observation: Escalation of care including admission/observation considered negative workup stable for DC at this time Lab Data [facility] Lab Attestation statement: I reviewed the patient's lab results. 09/07/23 18:30 09/07/23 18:30 Labs: Lab Results 09/07/23 09/07/23 Range/Units 18:30 18:36 WBC 7.8 (4.8-10.8) X10*3/uL RBC 5.35 (4.20-5.50) X10*6/uL Hgb 16.8 H (12.0-16.0) g/dl Hct 46.4 (37.0-47.0) % MCV 86.7 (80.0-98.0) fL MCH 31.4 (27.0-33.0) pg MCHC 36.2 H (31.0-35.0) g/dl RDW 12.7 (11.0-16.0) % Plt Count 310 (160-400) X10*3/uL MPV 9.8 (9.4-12.3) fL Immature Gran % (Auto) 0.3 (0.0-0.4) % Neut % (Auto) 60.5 (45-73) % Lymph % (Auto) 26.6 (20-40) % [place] % (Auto) 9.3 (2-11) % Eos % (Auto) 2.8 (0-4) % Baso % (Auto) 0.5 (0-2) % Lymph # (Auto) 2.1 (1.2-4.9) X10*3/uL [place] # (Auto) 0.7 (0.1-1.2) X10*3/uL Eos # (Auto) 0.2 (0.0-0.4) X10*3/uL Baso # (Auto) 0.0 (0.0-0.2) X10*3/uL Abs Immat Gran (auto) 0.02 (0.00-0.03) X10*3/uL Absolute Neuts (auto) 4.7 (2.0-8.3) x10*3/uL Absolute Nucleated RBC 0.000 (0.0-0.012) X10*3/uL Nucleated RBC % (auto) 0.0 (0.0-0.2) /100WBC Sodium 140 (135-145) mmol/L Potassium 3.9 (3.3-5.1) mmol/L Chloride 108 (96-108) mmol/L Carbon Dioxide 23 (22-29) mmol/L Anion Gap 13 (12-20) BUN 7 L (9-16) mg/dL Creatinine 0.89 (0.5-1.4) mg/dL Estim Creat Clear Calc 117.5 Estimated GFR > 60 Random Glucose 80 (60-115) mg/dL Calcium 9.7 (8.4-10.2) mg/dL Total Bilirubin 0.7 (0.0-1.0) mg/dL AST 28 (5-31) U/L ALT 44 H (0-31) U/L Alkaline Phosphatase 91 (39-117) U/L Total Protein 7.6 (6.5-8.0) g/dL Albumin 4.4 (3.5-5.0) g/dL Urine Color Dark Yellow Urine Appearance Clear Urine pH 6.5 (5.0-9.0) Ur Specific [place] 1.015 (1.005-1.025) Urine Protein Negative (Neg-Trace) mg/dL Urine Glucose (UA) Negative (Negative) mg/dL Urine Ketones Negative (Negative) mg/dL Urine Blood Negative (Negative) Urine Nitrite Negative (Negative) Ur Leukocyte Esterase Small (1+) H (Negative) Urine RBC 0-2 (0-2) /HPF Urine WBC 0-5 (0-5) /HPF Ur Squamous Epith Cells 3-5 (0-2) /HPF Urine Bacteria None Seen (None Seen) Hyaline Casts 0-2 (0-2) /LPF Urine Test NEGATIVE (NEGATIVE) Independent Interpretation I performed an independent interpretation of an: Ultrasound (no acute findings) Radiology Impression Discussion of test interpretation with radiology: I have reviewed the radiologist's reading. Independent Historian Clinical information obtained from an independent historian. History obtained from or confirmed by: Friend External Record Review External record reviewed: Inpatient record and Prior outpatient labs Discharge Plan Discharge Clinical Impression: Bilateral flank pain Patient Disposition: Home, Self-Care Instructions: Flank Pain (ED) Additional Instructions: normal ultrasound no urinary tract infection on UA we will send a culture. return for fever, worsening symptoms or any concerns. can follow up with our urologist if you need one call to schedule appointment in the future FINDINGS: RIGHT KIDNEY: 11.2 x 5.5 x 5.8 cm (SAG x AP x TRV). The kidney is normal in size, contour, and echogenicity. Renal cortical thickness is normal. No calculi or focal parenchymal lesions. No hydronephrosis. LEFT KIDNEY: 12.2 x 5.2 x 5.4 cm (SAG x AP x TRV). The kidney is normal in size, contour, and echogenicity. Renal cortical thickness is normal. No calculi or focal parenchymal lesions. No hydronephrosis. BLADDER: Well distended and normal. Bilateral ureteral jets are demonstrated. Prevoid bladder volume is 282 mL. Postvoid bladder volume is 35 mL. US/US retroperitoneal comp IMPRESSION: No acute sonographic abnormalities. Prescriptions: No Action cefuroxime axetil 500 mg tablet 500 mg PO Q12H 5 Days Qty: 10 0RF ibuprofen 600 mg tablet 600 mg PO Q6H PRN (Reason: fever or pain) Qty: 20 0RF cefuroxime axetil 250 mg tablet 250 mg PO Q12H Qty: 14 0RF cefuroxime axetil 500 mg tablet 500 mg PO BID Qty: 14 0RF naproxen 500 mg tablet 500 mg PO BID PRN (Reason: pain) Qty: 20 0RF nitrofurantoin monohyd/m-cryst [Macrobid] 100 mg capsule 100 mg PO BID 7 Days Qty: 14 0RF Rx Instructions: must administer with a meal/food Referrals: Oliverio Alonzo MD [Physician] - (urologist) Stand Alone Forms: Work/School Release
[2023-09-07 18:41] LABS: MANUAL DIFF FLAG NO
[2023-09-07 18:52] LABS: Appearance Urine Clear; Color Urine Dark Yellow; Glucose Urine UA Negative (Negative); Leukocyte Esterase Urine Small (1+) (Negative); Nitrite Urine Negative (Negative); PH 6.5 (5.0-9.0); Specific Gravity - Urine 1.015 (1.005-1.025); UMIC TRIGGER UACC YES; Urine Blood Negative (Negative); Urine Ketones Negative (Negative); Urine Protein Negative (Neg-Trace)
[2023-09-07 18:53] LABS: UPreg QC Valid YES; Urine Pregnancy NEGATIVE (NEGATIVE)
[2023-09-07 18:58] LABS: Alanine Aminotransferase 44 U/L (0-31); Albumin Level 4.4 g/dL (3.5-5.0); Alkaline Phosphatase 91 U/L (39-117); Anion Gap 13 (12-20); Aspartate Amino Transferase 28 U/L (5-31); Bilirubin Total 0.7 mg/dL (0.0-1.0); Blood Urea Nitrogen 7 mg/dL (9-16); Calcium 9.7 mg/dL (8.4-10.2); Carbon Dioxide 23 mmol/L (22-29); Chloride 108 mmol/L (96-108); Creatinine Clr Calc Pharmacy 117.5; Estimated Glomerular Filt Rate > 60; Glucose Random 80 mg/dL (60-115); Potassium 3.9 mmol/L (3.3-5.1); Sodium 140 mmol/L (135-145); Total Protein 7.6 g/dL (6.5-8.0)
[2023-09-07 19:17] LABS: Basophils Percent Auto 0.5 % (0-2); Eosinophils Absolute Auto 0.2 X10*3/uL (0.0-0.4); Eosinophils Percent Auto 2.8 % (0-4); Hematocrit 46.4 % (37.0-47.0); Hemoglobin 16.8 g/dl (12.0-16.0); Imm Gran Abs Auto 0.02 X10*3/uL (0.00-0.03); Imm Gran Pct Auto 0.3 % (0.0-0.4); Lymphocytes Absolute Auto 2.1 X10*3/uL (1.2-4.9); Lymphocytes Percent Auto 26.6 % (20-40); Mean Corpuscular HGB Conc 36.2 g/dl (31.0-35.0); Mean Corpuscular Hemoglobin 31.4 pg (27.0-33.0); Mean Corpuscular Volume 86.7 fL (80.0-98.0); Mean Platelet Volume 9.8 fL (9.4-12.3); Monocytes Absolute Auto 0.7 X10*3/uL (0.1-1.2); Monocytes Percent Auto 9.3 % (2-11); Neutrophils Absolute Auto 4.7 x10*3/uL (2.0-8.3); Neutrophils Percent Auto 60.5 % (45-73); Platelet Count 310 X10*3/uL (160-400); Red Blood Count 5.35 X10*6/uL (4.20-5.50); Red Cell Distribution Width 12.7 % (11.0-16.0); White Blood Count 7.8 X10*3/uL (4.8-10.8)
[2023-09-07 19:35] LABS: Bacteria Urine None Seen (None Seen); Hyaline Casts Urine 0-2 /LPF (0-2); RBC Urine 0-2 /HPF (0-2); UACC Culture Trigger YES; WBC Urine 0-5 /HPF (0-5)
[2023-09-07 22:57] VITALS: BP 121/72; PULSE 103; RESP 18; O2SAT 98
[2023-09-08 01:27] VITALS: BP 111/67; PULSE 92; RESP 18; TEMP 36.7; O2SAT 98
== END 2023-09-08 01:28 | disposition home or self-care (01) ==
PROVIDERS: Nurse Practitioner Family; Emergency Provider Emergency Medicine; PCP Pediatrics
DX: R10.9 Unspecified abdominal pain (principal); Z87.440 Personal history of urinary (tract) infections
CPT/HCPCS: 36415; 76770; 80053; 81001; 81025; 85025; 87086; 99283; 99284

== ENCOUNTER 2024-01-25 05:24 | Emergency (ER) | payer BC, OTHER, SELFPAY ==
[2024-01-25 05:26] VITALS: BP 130/85; PULSE 99; RESP 20; TEMP 36.6; O2SAT 99; BMI 29.9
--- NOTE | 2024-01-25 06:44 | PC.NURSE ---
Pt requesting test to be sent along with urinalysis. States its a low possibility but would ease their mind.
[2024-01-25 06:52] LABS: UPreg QC Valid YES
[2024-01-25 06:54] LABS: Urine Pregnancy NEGATIVE (NEGATIVE)
[2024-01-25 06:58] LABS: Appearance Urine Clear; Color Urine Dark Yellow; Glucose Urine UA Negative (Negative); Leukocyte Esterase Urine Small (1+) (Negative); Nitrite Urine Negative (Negative); Specific Gravity - Urine >= 1.030 (1.005-1.025); UMIC TRIGGER UACC YES; Urine Blood Negative (Negative); Urine Ketones Negative (Negative); Urine Protein Trace mg/dL (Neg-Trace)
[2024-01-25 07:02] LABS: Bacteria Urine 2+ (None Seen); Hyaline Casts Urine 0-2 /LPF (0-2); RBC Urine 0-2 /HPF (0-2); UACC Culture Trigger YES; WBC Urine 21-50 /HPF (0-5)
--- NOTE | 2024-01-25 07:09 | ED_ITS ---
HPI - General Adult General Chief complaint: General Medical Stated complaint: urine smell, urgency, and nausea Time Seen by Provider: 01/25/24 07:08 Source: patient Mode of arrival: ambulatory Limitations: no limitations History of Present Illness HPI narrative: 18 year old female PMH: dysautonomia, recurrent pyelonephritis, anxiety, depression, urachal cyst surgery in 2021 recurrent UTI's. Seen here last in Jun who presents for several weeks of dysuria and foul smelling urine. Denies fever chills cough or shortness of breath. urine has been simon sensitive. She also states she might BV but does not want to be swabbed and states she will follow up with her doctor for that. Related Data Previous Rx's ?Medication ?Instructions ?Recorded cefuroxime axetil 500 mg tablet 500 mg PO Q12H 5 days #10 tabs 08/02/22 ibuprofen 600 mg tablet 600 mg PO Q6H PRN fever or pain 11/29/22 #20 tabs cefuroxime axetil 500 mg tablet 500 mg PO BID #14 tabs 01/06/23 naproxen 500 mg tablet 500 mg PO BID PRN pain #20 tabs 01/06/23 nitrofurantoin 100 mg PO BID 7 days #14 caps 01/11/23 monohydrate/macrocrystals 100 mg capsule (Macrobid) cefuroxime axetil 250 mg tablet 250 mg PO Q12H #14 tabs 08/28/23 cefuroxime axetil 500 mg tablet 500 mg PO BID 7 days #14 tabs 01/25/24 Allergies Allergy/AdvReac Type Severity Reaction Status Date / Time amoxicillin [Augmentin] Allergy Unknown diarrhea Verified 01/25/24 05:28 clavulanic acid [Augmentin] Allergy Unknown diarrhea Verified 01/25/24 05:28 levofloxacin Allergy Unknown Verified 01/25/24 05:28 Review of Systems Review of Systems: Review of systems: General: Patient denies any fever chills recent illness or falls Musculoskeletal: Denies back pain or body aches or other injuries HEENT: denies headache, runny nose, ear pain Respiratory: denies shortness of breath, cough Cardiovascular: no chest pain or palpitations : dysuria, frequency Abdomen: no nausea vomiting denies abdominal pain Extremities: no swelling, no pain Skin: no diaphoresis Yes all other systems are reviewed and are negative PMFSH Past Medical History Medical History [id number] transgender person Syringomyelia Social History Social History (Updated 09/07/23 @ 23:22 by Felisha Damon DO) Patient Tobacco Use Status: Tobacco use Unknown Do you have a plan to hurt others: No Plan Physical Exam ED Vital Signs: Vital Signs - 24 hr 01/25/24 05:26 Temperature 97.9 F Pulse Rate 99 Respiratory Rate 20 Blood Pressure 130/85 Pulse Oximetry 99 Oxygen Delivery Method Room Air BMI result Body Mass Index 29.9 General: Well-appearing well-nourished in no signs of distress HEENT: Normocephalic atraumatic Neck: No signs of JVD, no masses no tenderness or lymphadenopathy Cardiovascular: Regular rate and rhythm Respiratory: Clear to auscultation bilaterally Abdomen: Soft nontender no massesno CVA tenderness Extremities: Normal pedal pulses no signs of edema Skin: Dry warm no rashes Back: No tenderness full ROM Medications Administered Discontinued Medications Generic Name Dose Route Start Last Admin Trade Name Freq PRN Reason Stop Dose Admin Cefuroxime Axetil 250 mg 01/25/24 07:11 01/25/24 07:21 Cefuroxime Axetil 250 Mg Tablet PO 01/25/24 07:12 250 mg ONCE ONE Administration Medical Decision Making Medical Decision Making [facility] Narrative: Patient looks well urine is a from a clean sample I will start the patient antibiotics pending culture Differential Diagnosis Differential Diagnoses: The differential diagnosis associated with the presentation includes UTI Lab Data [facility] Lab Attestation statement: I reviewed the patient's lab results. Labs: Lab Results 01/25/24 Range/Units 06:44 Urine Color Dark Yellow Urine Appearance Clear Urine pH 6.0 (5.0-9.0) Ur Specific [place] >= 1.030 H (1.005-1.025) Urine Protein Trace (Neg-Trace) mg/dL Urine Glucose (UA) Negative (Negative) mg/dL Urine Ketones Negative (Negative) mg/dL Urine Blood Negative (Negative) Urine Nitrite Negative (Negative) Ur Leukocyte Esterase Small (1+) H (Negative) Urine RBC 0-2 (0-2) /HPF Urine WBC 21-50 H (0-5) /HPF Ur Squamous Epith Cells 11-20 (0-2) /HPF Urine Bacteria 2+ (None Seen) Hyaline Casts 0-2 (0-2) /LPF Urine Test NEGATIVE (NEGATIVE) Discharge Plan Discharge Clinical Impression: UTI (urinary tract infection) Patient Disposition: Home, Self-Care Instructions: Urinary Tract Infection in Women (DC) Additional Instructions: You seen today in the emergency department for concern for infection. Urine was contaminated but might be infected I will switch antibiotics pending culture. If you have any other concerns please return to emergency department Prescriptions: New cefuroxime axetil 500 mg tablet 500 mg PO BID 7 Days Qty: 14 0RF No Action cefuroxime axetil 500 mg tablet 500 mg PO Q12H 5 Days Qty: 10 0RF ibuprofen 600 mg tablet 600 mg PO Q6H PRN (Reason: fever or pain) Qty: 20 0RF cefuroxime axetil 250 mg tablet 250 mg PO Q12H Qty: 14 0RF cefuroxime axetil 500 mg tablet 500 mg PO BID Qty: 14 0RF naproxen 500 mg tablet 500 mg PO BID PRN (Reason: pain) Qty: 20 0RF nitrofurantoin monohyd/m-cryst [Macrobid] 100 mg capsule 100 mg PO BID 7 Days Qty: 14 0RF Rx Instructions: must administer with a meal/food Stand Alone Forms: Work/School Release Print Language: Mosotho
[2024-01-25] MEDS: cefuroxime axetiL 250 MG TABLET PO (07:21)
[2024-01-25 07:53] VITALS: BP 130/85; PULSE 99; RESP 20; TEMP 36.6; O2SAT 99
== END 2024-01-25 07:54 | disposition home or self-care (01) ==
PROVIDERS: Emergency Provider Student in an Organized Health Care Education/Training Program; PCP Pediatrics
DX: N39.0 Urinary tract infection, site not specified (principal); B96.20 Unspecified Escherichia coli [E. coli] as the cause of diseases classified elsewhere; F64.0 Transsexualism; Z87.440 Personal history of urinary (tract) infections
CPT/HCPCS: 81001; 81025; 87086; 87088; 87186; 99282; 99283

== ENCOUNTER 2024-03-19 23:25 | Emergency (ER) | payer BC, OTHER, SELFPAY ==
[2024-03-19 23:32] VITALS: BP 120/63; PULSE 102; RESP 18; TEMP 37; O2SAT 100; BMI 32.3
--- NOTE | 2024-03-19 23:49 | PC.NURSE ---
pt from lobby, assume care of pt at this time
--- NOTE | 2024-03-20 00:20 | ED.MALEGU ---
HPI - Male Genitourinary General Chief complaint: Urogenital-Male Stated complaint: possible UTI Time Seen by Provider: 03/20/24 00:14 Source: patient Mode of arrival: ambulatory Limitations: no limitations History of Present Illness ED Provider: Dr. Cooper HPI Narrative: Patient is a 18yo transgendered male with history of a bladder mass and resection with prior ecoli UTIs who presents with dysuria for weeks. Related Data Previous Rx's ?Medication ?Instructions ?Recorded cefuroxime axetil 500 mg tablet 500 mg PO Q12H 5 days #10 tabs 08/02/22 ibuprofen 600 mg tablet 600 mg PO Q6H PRN fever or pain 11/29/22 #20 tabs cefuroxime axetil 500 mg tablet 500 mg PO BID #14 tabs 01/06/23 naproxen 500 mg tablet 500 mg PO BID PRN pain #20 tabs 01/06/23 nitrofurantoin 100 mg PO BID 7 days #14 caps 01/11/23 monohydrate/macrocrystals 100 mg capsule (Macrobid) cefuroxime axetil 250 mg tablet 250 mg PO Q12H #14 tabs 08/28/23 cefuroxime axetil 500 mg tablet 500 mg PO BID 7 days #14 tabs 01/25/24 cefuroxime axetil 500 mg tablet 500 mg PO Q12H 7 days #14 tabs 03/25/24 Allergies Allergy/AdvReac Type Severity Reaction Status Date / Time amoxicillin [Augmentin] Allergy Unknown diarrhea Verified 03/19/24 23:35 clavulanic acid [Augmentin] Allergy Unknown diarrhea Verified 03/19/24 23:35 levofloxacin Allergy Unknown Verified 03/19/24 23:35 Review of Systems Review of Systems: Yes all other systems are reviewed and are negative Neurologic: Denies Sensory deficit (Neuro) PMFSH Past Medical History Medical History [id number] transgender person Syringomyelia Social History Social History Patient Tobacco Use Status: Tobacco use Unknown Advance Directives: No Advance Directives Information Provided: Yes Physical Exam Vital Signs: Vital Signs: Last Vital Signs Temp 98.6 F 03/19/24 23:32 Pulse 102 H 03/19/24 23:32 Resp 18 03/19/24 23:32 BP 120/63 03/19/24 23:32 Pulse Ox 100 03/19/24 23:32 O2 Del Method Room Air 03/19/24 23:32 BMI result Body Mass Index 32.3 Const: General: healthy appearing Nutritional Appearance: average body habitus Orientation/consciousness: oriented to person and patient oriented x3 Limitations: no limitations HEENT: Head: Yes normal to inspection Ears: external ears normal General nose exam: Normal external nose present Mouth: Normal oral and palatal mucosa present and oropharynx normal Throat: Yes posterior oropharynx normal Eyes: General: appearance normal, both eyes and all related structures Neck: Other: supple Neck: Yes normal visual inspection Chest: Chest palpation & inspection: normal inspection of the chest Resp: Auscultation: clear to auscultation bilaterally Cardio: Jugular venous distension: no JVD Rate: regular rate Rhythm: regular rhythm Heart sounds: S1 normal heart sound present and S2 normal heart sound present GI: Inspection: Yes normal to inspection Palpation (GI): Soft to palpation, nontender and No hepatosplenomegaly present Auscultation: normal bowel sounds : General: Yes no CVA tenderness Back/Spine/Pelvis: Back: no CVA tenderness Skin: General skin exam: no rashes or lesions noted Neuro: General: oriented to person and patient oriented x3 Cranial nerves: Yes CN's II-XII intact bilaterally Motor exam (neuro): 5/5 motor strength present throughout Sensory Exam: No Sensory deficit (Neuro) Extrem: General: Yes normal to inspection Psych: Appearance: grossly normal Medical Decision Making Differential Diagnosis Differential Diagnoses: The differential diagnosis associated with the presentation includes UTI, pyelonephritis, dehydration, renal failure Admission/Observation Consideration of admission/observation: Escalation of care including admission/observation considered (upon arrival patient considered for admission) Lab Data Labs: Lab Results 03/20/24 Range/Units 01:01 Urine Color Yellow Urine Appearance Cloudy Urine pH 6.0 (5.0-9.0) Ur Specific [place] 1.025 (1.005-1.025) Urine Protein Negative (Neg-Trace) mg/dL Urine Glucose (UA) Negative (Negative) mg/dL Urine Ketones Negative (Negative) mg/dL Urine Blood Negative (Negative) Urine Nitrite Negative (Negative) Ur Leukocyte Esterase Negative (Negative) Urine RBC 0-2 (0-2) /HPF Urine WBC 6-10 H (0-5) /HPF Ur Squamous Epith Cells >20 (0-2) /HPF Urine Bacteria 2+ (None Seen) Hyaline Casts 0-2 (0-2) /LPF Tests considered The following testing was considered but not selected: CT of abdomen considered but known bladder mass and nontender abdomen Discharge Plan Discharge Clinical Impression: UTI (urinary tract infection) Patient Disposition: Home, Self-Care Prescriptions: New cefuroxime axetil 500 mg tablet 500 mg PO Q12H 7 Days Qty: 14 0RF No Action cefuroxime axetil 500 mg tablet 500 mg PO Q12H 5 Days Qty: 10 0RF ibuprofen 600 mg tablet 600 mg PO Q6H PRN (Reason: fever or pain) Qty: 20 0RF cefuroxime axetil 250 mg tablet 250 mg PO Q12H Qty: 14 0RF cefuroxime axetil 500 mg tablet 500 mg PO BID 7 Days Qty: 14 0RF cefuroxime axetil 500 mg tablet 500 mg PO BID Qty: 14 0RF naproxen 500 mg tablet 500 mg PO BID PRN (Reason: pain) Qty: 20 0RF nitrofurantoin monohyd/m-cryst [Macrobid] 100 mg capsule 100 mg PO BID 7 Days Qty: 14 0RF Rx Instructions: must administer with a meal/food Discharge Date/Time: 03/20/24 03:38 Print Language: Irish
--- NOTE | 2024-03-20 01:00 | PC.NURSE ---
spoke with pt'lesly bryan, per pt's ok, , she was concerned that this UTI has been going on for awhile, and would like to have blood work done,
[2024-03-20 01:09] LABS: Appearance Urine Cloudy; Color Urine Yellow; Glucose Urine UA Negative (Negative); Leukocyte Esterase Urine Negative (Negative); Nitrite Urine Negative (Negative); Specific Gravity - Urine 1.025 (1.005-1.025); Urine Blood Negative (Negative); Urine Ketones Negative (Negative); Urine Protein Negative (Neg-Trace)
[2024-03-20 01:13] LABS: Bacteria Urine 2+ (None Seen); Hyaline Casts Urine 0-2 /LPF (0-2); RBC Urine 0-2 /HPF (0-2); Squamous Epithelial Cell Urine >20 /HPF (0-2); UACC Culture Trigger YES
== END 2024-03-20 03:38 | disposition home or self-care (01) ==
PROVIDERS: Emergency Provider Emergency Medicine
DX: N39.0 Urinary tract infection, site not specified (principal); Z79.899 Other long term (current) drug therapy
CPT/HCPCS: 81001; 87086; 87088; 87147; 87186; 99282

== ENCOUNTER 2024-09-03 09:01 | Emergency (ER) | payer BC, SELFPAY ==
--- NOTE | 2024-09-03 | ECG_ITS ---
Test Reason : TACHYCARDIA Blood Pressure : */* mmHG Vent. Rate : 121 BPM Atrial Rate : 121 BPM P-R Int : 136 ms QRS Dur : 88 ms QT Int : 322 ms P-R-T Axes : 16 72 29 degrees QTcB Int : 457 ms Sinus tachycardia Otherwise normal ECG No previous ECGs available Referred By: Generic ED Physician Electronically Signed By: BRITTANI THOMAS
[2024-09-03 09:39] VITALS: BP 117/77; PULSE 127; RESP 16; TEMP 37.1; O2SAT 99; BMI 28.3
[2024-09-03 10:28] LABS: MANUAL DIFF FLAG NO
[2024-09-03 10:32] LABS: Basophils Percent Auto 0.2 % (0-2); Eosinophils Absolute Auto 0.4 X10*3/uL (0.0-0.4); Eosinophils Percent Auto 2.2 % (0-4); Hematocrit 39.5 % (37.0-47.0); Hemoglobin 14.5 g/dl (12.0-16.0); Imm Gran Abs Auto 0.06 X10*3/uL (0.00-0.03); Imm Gran Pct Auto 0.4 % (0.0-0.4); Lymphocytes Absolute Auto 0.5 X10*3/uL (1.2-4.9); Lymphocytes Percent Auto 3.2 % (20-40); Mean Corpuscular HGB Conc 36.7 g/dl (31.0-35.0); Mean Corpuscular Hemoglobin 32.6 pg (27.0-33.0); Mean Corpuscular Volume 88.8 fL (80.0-98.0); Mean Platelet Volume 10.4 fL (9.4-12.3); Monocytes Absolute Auto 1.3 X10*3/uL (0.1-1.2); Monocytes Percent Auto 7.9 % (2-11); Neutrophils Absolute Auto 13.9 x10*3/uL (2.0-8.3); Neutrophils Percent Auto 86.1 % (45-73); Platelet Count 253 X10*3/uL (160-400); Red Blood Count 4.45 X10*6/uL (4.20-5.50); Red Cell Distribution Width 12.2 % (11.0-16.0); White Blood Count 16.2 X10*3/uL (4.8-10.8)
[2024-09-03 10:37] LABS: IDNOW Serial# 58CA691E; Strep A Nucleic Acid Positive (Negative)
[2024-09-03 10:49] LABS: Alanine Aminotransferase 31 U/L (0-31); Alkaline Phosphatase 84 U/L (39-117); Anion Gap 12 (12-20); Aspartate Amino Transferase 22 U/L (5-31); Bilirubin Total 0.7 mg/dL (0.0-1.0); Blood Urea Nitrogen 9 mg/dL (9-16); Calcium 9.3 mg/dL (8.4-10.2); Carbon Dioxide 24 mmol/L (22-29); Chloride 107 mmol/L (96-108); Creatinine Clr Calc Pharmacy 136.9; Estimated Glomerular Filt Rate > 60; Glucose Random 117 mg/dL (60-115); Potassium 4.1 mmol/L (3.3-5.1); Sodium 139 mmol/L (135-145); Total Protein 7.4 g/dL (6.5-8.0)
--- NOTE | 2024-09-03 11:18 | ED_ITS ---
HPI - General Adult General Chief complaint: General Medical Stated complaint: Tonsil Swelling Time Seen by Provider: 09/03/24 11:18 Source: patient, RN notes reviewed and old records reviewed Mode of arrival: ambulatory Limitations: no limitations History of Present Illness ED Provider: Werner HPI narrative: 18-year-old biological female who identifies as male presents for evaluation of a sore throat. Patient reports that he has had pain for the last 2 days. He reports painful swallowing with food or liquids but is able to manage his secretions No other complaints or concerns Related Data Previous Rx's ?Medication ?Instructions ?Recorded cefuroxime axetil 500 mg tablet 500 mg PO Q12H 5 days #10 tabs 08/02/22 ibuprofen 600 mg tablet 600 mg PO Q6H PRN fever or pain 11/29/22 #20 tabs cefuroxime axetil 500 mg tablet 500 mg PO BID #14 tabs 01/06/23 naproxen 500 mg tablet 500 mg PO BID PRN pain #20 tabs 01/06/23 nitrofurantoin 100 mg PO BID 7 days #14 caps 01/11/23 monohydrate/macrocrystals 100 mg capsule (Macrobid) cefuroxime axetil 250 mg tablet 250 mg PO Q12H #14 tabs 08/28/23 cefuroxime axetil 500 mg tablet 500 mg PO BID 7 days #14 tabs 01/25/24 cefuroxime axetil 500 mg tablet 500 mg PO Q12H 7 days #14 tabs 03/25/24 clindamycin HCl 300 mg capsule 300 mg PO TID #21 caps 09/03/24 Allergies Allergy/AdvReac Type Severity Reaction Status Date / Time amoxicillin [Augmentin] Allergy Unknown diarrhea Verified 09/03/24 09:41 clavulanic acid [Augmentin] Allergy Unknown diarrhea Verified 09/03/24 09:41 levofloxacin Allergy Unknown Verified 09/03/24 09:41 Review of Systems 2 Constitutional: Constitutional: Reports body ache(s), Reports chills, Reports fever(s) and Denies headache(s) ENT: Denies headache(s), Reports sore throat and Denies throat swelling Neurologic: Denies headache(s) Allergic/Immunologic: Allergic/Immunologic: Denies throat swelling PMFSH Past Medical History Medical History [id number] transgender person Syringomyelia Social History Social History Patient Tobacco Use Status: Tobacco use Unknown Physical Exam ED Vital Signs: Vital Signs - 24 hr 09/03/24 09:39 Temperature 98.8 F Pulse Rate 127 H Respiratory Rate 16 Blood Pressure 117/77 Pulse Oximetry 99 Oxygen Delivery Method Room Air BMI result Body Mass Index 28.3 Const General: healthy appearing, comfortable, no acute distress, alert and awake Nutritional Appearance: well nourished Orientation/consciousness: patient oriented x3 HENMT Other: Retropharyngeal erythema with mild tonsillar hypertrophy. No obvious exudates. No evidence of peritonsillar abscess. No fullness to the soft palate Head: Yes normocephalic and Yes atraumatic Neck Neck: Yes full ROM Resp Effort & Inspection: normal respiratory effort, able to speak in complete sentences and not labored Skin General skin exam: elasticity normal Neuro General: patient oriented x3 Cranial nerves: Yes Bilaterally intact EOM present Cognition (Neuro): normal cognition Extrem Other: Moving all extremities well without any obvious deformities Medical Decision Making Medical Decision Making [facility] Narrative: 18-year-old biological female who identifies as male presents for evaluation of sore throat. He was found to be positive for strep pharyngitis. There is no obvious abscess. He has painful swallowing but is managing his secretions. He has a mild leukocytosis. We will treat with clindamycin given amoxicillin allergy Differential Diagnosis Differential Diagnoses: The differential diagnosis associated with the presentation includes Strep pharyngitis Upper respiratory infection Mononucleosis Peritonsillar abscess less likely Lab Data [facility] Lab Attestation statement: I reviewed the patient's lab results. Mild leukocytosis with a left shift. No anemia. Normal platelet count. No electrolyte abnormalities 09/03/24 10:13 09/03/24 10:13 Labs: Lab Results 09/03/24 Range/Units 10:13 WBC 16.2 H (4.8-10.8) X10*3/uL RBC 4.45 (4.20-5.50) X10*6/uL Hgb 14.5 (12.0-16.0) g/dl Hct 39.5 (37.0-47.0) % MCV 88.8 (80.0-98.0) fL MCH 32.6 (27.0-33.0) pg MCHC 36.7 H (31.0-35.0) g/dl RDW 12.2 (11.0-16.0) % Plt Count 253 (160-400) X10*3/uL MPV 10.4 (9.4-12.3) fL Immature Gran % (Auto) 0.4 (0.0-0.4) % Neut % (Auto) 86.1 H (45-73) % Lymph % (Auto) 3.2 L (20-40) % [place] % (Auto) 7.9 (2-11) % Eos % (Auto) 2.2 (0-4) % Baso % (Auto) 0.2 (0-2) % Lymph # (Auto) 0.5 L (1.2-4.9) X10*3/uL [place] # (Auto) 1.3 H (0.1-1.2) X10*3/uL Eos # (Auto) 0.4 (0.0-0.4) X10*3/uL Baso # (Auto) 0.0 (0.0-0.2) X10*3/uL Abs Immat Gran (auto) 0.06 H (0.00-0.03) X10*3/uL Absolute Neuts (auto) 13.9 H (2.0-8.3) x10*3/uL Absolute Nucleated RBC 0.000 (0.0-0.012) X10*3/uL Nucleated RBC % (auto) 0.0 (0.0-0.2) /100WBC Sodium 139 (135-145) mmol/L Potassium 4.1 (3.3-5.1) mmol/L Chloride 107 (96-108) mmol/L Carbon Dioxide 24 (22-29) mmol/L Anion Gap 12 (12-20) BUN 9 (9-16) mg/dL Creatinine 0.73 (0.5-1.4) mg/dL Estim Creat Clear Calc 136.9 Estimated GFR > 60 Random Glucose 117 H (60-115) mg/dL Calcium 9.3 (8.4-10.2) mg/dL Total Bilirubin 0.7 (0.0-1.0) mg/dL AST 22 (5-31) U/L ALT 31 (0-31) U/L Alkaline Phosphatase 84 (39-117) U/L Total Protein 7.4 (6.5-8.0) g/dL Albumin 4.0 (3.5-5.0) g/dL S. pyogenes GrpA GEORGE Positive A (Negative) Discharge Plan Discharge Clinical Impression: Acute streptococcal pharyngitis Patient Disposition: Home, Self-Care Instructions: Strep Throat (ED) Additional Instructions: Take the clindamycin 3 times daily for 1 week. Drink lots of fluids. You may use ibuprofen/Tylenol or Chloraseptic spray to help with the pain Follow-up with your primary doctor, return for new or worsening symptoms Prescriptions: New clindamycin HCl 300 mg capsule 300 mg PO TID Qty: 21 0RF No Action cefuroxime axetil 500 mg tablet 500 mg PO Q12H 5 Days Qty: 10 0RF ibuprofen 600 mg tablet 600 mg PO Q6H PRN (Reason: fever or pain) Qty: 20 0RF cefuroxime axetil 250 mg tablet 250 mg PO Q12H Qty: 14 0RF cefuroxime axetil 500 mg tablet 500 mg PO BID 7 Days Qty: 14 0RF cefuroxime axetil 500 mg tablet 500 mg PO BID Qty: 14 0RF naproxen 500 mg tablet 500 mg PO BID PRN (Reason: pain) Qty: 20 0RF nitrofurantoin monohyd/m-cryst [Macrobid] 100 mg capsule 100 mg PO BID 7 Days Qty: 14 0RF Rx Instructions: must administer with a meal/food cefuroxime axetil 500 mg tablet 500 mg PO Q12H 7 Days Qty: 14 0RF Print Language: Slovenian
[2024-09-03 11:26] VITALS: BP 117/77; PULSE 127; RESP 16; TEMP 37.1; O2SAT 99
[2024-09-03 11:27] LABS: Influenza A PCR NEGATIVE (Negative); Influenza B PCR NEGATIVE (Negative); Resp Syncy Virus RNA Qual PCR NEGATIVE (Negative); SARS COV2 PCR INHOUSE NEGATIVE (Negative)
--- OUTSIDE RECORDS SUMMARY | 2024-09-03 13:25 | XMS_ITS | Encounter Summary ---
Author Organization [facility] Address [address] [place] [id number] Phone Care Team Providers Care Drier Attendant Name Role Phone Yelena Martinez DO Primary Care Provider [phone] Reason for Visit * Reason Comments Med Refill Encounter Details Date Type Department Care Team (Late st Contact Info) Description 12/26/2021 Refill [facility] [place] [address] [place] [address] Yelena Martinez DO [address] [place] [address] Acne vulgaris; Menstrual disorder Social History Tobacco Use Types Packs/Day Years Used Date Smoking Tobacco: Never Smokeless Tobacco: Never Comments:Never smoker Alcohol Use Standard Drinks/Week Comments No 0 (1 standard drink = 0.6 oz pur e alcohol) Hunger/Food Answer Date Recorded In the last 12 months, did y ou or your family ever eat less than you felt you should because there wasn't enough money for food? Yes 07/29/2020 Stable Housing Answer Date Recorded Are you worried that in the next 2 months you may not have stable housing? No 07/29/2020 Transportation Concerns Answer Date Rec orded In the last 12 months, have you or your family ever had to go without healthcare because you didn't have a way to get there? Yes 07/29/2020 Hazards in Home Answer Date Recorded Think about the place you li ve. Do you have problems with any of the following? Pests (mice or roaches), mold, no/not working smoke detectors, water leaks, no window guards. No 2020 Financing Utilities Answer Date Recorde d In the last 12 months, has t he electric, gas, oil, or water company threatened to shut off your services in your home? No 07/29/2020 Safety at Home Answer Date Recorded Are you or your family worried about feeling saf e in your home? No 07/29/2020 Outside Support Answer Date Recorded Do you feel that you need mo re support from other people or programs to help you care for yourself or your family? No 07/29/2020 Understanding Health Concerns Answer Da te Recorded Do you need help understandi ng your or your child's healthcare needs (diagnosis, medications, plan, etc.)? No 07/29/2020 Financing Health Concerns Answer Date R ecorded In the last 12 months, was t here a time when your child needed to see a doctor or get medications or supplies but could not because of cost? No 07/29/2020 Missing School or Work Answer Date Shyam rded Did you or your child miss s chool or work because of a health problem that could have been avoided? No 07/29/2020 Comments No Sex and Gender Information Value Date Recorded Sex Assigned at Female 08/04/2020 4:46 PM EST Legal Sex Female 5:14 PM EDT Gender Identity Transgender Male 01/25/2022 11:0 9 AM EDT Sexual Orientation pansexual 01/25/2022 11 :09 AM EDT documented as of this encounter Miscellaneous Notes * Telephone Encounter - Cary Shelton LPN - 12/26/2021 8:44 AM EDT Faxed refill request documented in this encounter Plan of Treatment Not on file documented as of this encounter Visit Diagnoses Diagnosis Acne vulgaris Other acne Menstrual disorder documented in this encounter Care Teams Drier Attendant Relationship Specialty Start Date End Date Yelena Martinez DO [address] [place] [address] [place]O Blood [id number] PCP - General Pediatrics 01/11/22 03/19/23 documented as of this encounter
--- OUTSIDE RECORDS SUMMARY | 2024-09-03 13:25 | XMS_ITS | Encounter Summary ---
Author Organization [facility] Address [address] [place] [address] Phone Care Team Providers Care Truckman Name Role Phone Yelena Martinez DO Primary Care Provider [phone] Encounter Details Date Type Department Care Team (Late st Contact Info) Description 02/08/2017 Conversion Encounter [facility] [place] [address] [place], [place] [id number] Social History Tobacco Use Types Packs/Day Years Used Date Smoking Tobacco: Never Comments:Never smoker Comments Unknown Sex and Gender Information Value Date Recorded Sex Assigned at Female 08/04/2020 4:46 PM EST Legal Sex Female 5:14 PM EDT Gender Identity Transgender Male 01/25/2022 11:0 9 AM EDT Sexual Orientation pansexual 01/25/2022 11 :09 AM EDT documented as of this encounter Plan of Treatment Not on file documented as of this encounter Visit Diagnoses Not on filedocumented in this encounter Care Teams Truckman Relationship Specialty Start Date End Date Yelena Martinez DO [address] [place] [address] PCP - General Pediatrics 01/11/22 03/19/23 documented as of this encounter
--- OUTSIDE RECORDS SUMMARY | 2024-09-03 13:25 | XMS_ITS | Data Portability ---
Author Organization [facility], [address] Address [address] [place] [address] Assessment No assessment recorded. Plan of Treatment Reminders Order Date Submit Date Provider Last Modified By Organization Details Last Modified Time Details Appointments None recorded. Lab None recorded. Referral None recorded. Procedures None recorded. Surgeries None recorded. Imaging None recorded. Medication Orders naproxen 500 [address] [facility] #[id number], [address] [facility] [place], [address], 17:29:02 Patient TargetsNo targets recorded. Patient Instructions Encounter Date Encounter Id Patient Instructions Last Modified By Organization Details Last Modified Time 11/29/2022 [id number] Patient advised to take medication as directed by provider ? Ice to back area 3-4 times a day for the next 2-3 days then warm to hot water showers (moist heat) 2 times a day for 7 days ? Patient advised to slowly increase activity level. ? Monitor changes in symptoms such as numbness, tingling or weakness in legs, changes in bowel or bladder habits or worsening back pain. - if that happens then patient to go directly to local emergency room to be further evaluated ? follow up with pcp in 7 days for recheck of all symptoms [email or web address] Not available 11/29/2022 17:28:58 Reason for Referral None Reported. 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 Procedures Surgical History Date Name Laterality Status Provider Name and Address Organization Details Recorded Time procedure on urinary bladder completed [facility] 11/29/2022 16:54:58 excision of lymph node completed [facility] 11/29/2022 16:55:25 Imaging Results None recorded. Procedure Notes None recorded. Medical Equipment None Reported. Allergies Allergen ID Allergen Name Allergen Category Reaction Reaction Severity Criticality Documentation Date Start Date Code Code System Note Provider Name and Address Organization Details Recorded Time 015952 levofloxa segun medicatio n Not available Not available Not available 11/29/2022 60835 RxNorm tendo n/bon e pain [facility] 3 16:50:26 585810 Augmentin medicatio n diarrhea Not available Not available 11/29/2022 81806 2 RxNorm [facility] 3 16:50:32 Medications Name Sig Start Date Stop Date Status Note LastModified by Organization Details LastModified Time ketoconazol e 2 % shampoo active Not Available Not Available Not Available tizanidine 2 mg tablet TAKE 1 TABLET BY MOUTH 2 TIMES A DAY. active Not Available Not Available No t Available cefpodoxime 200 mg tablet TAKE 1 TABLET BY MOUTH EVERY 12 HOURS FOR 10 DAYS 11/29 completed Not Available Not Available Not Available azithromyci n 250 mg tablet PLEASE SEE ATTACHED FOR DETAILED DIRECTION S 2022 active Not Available Not Available Not Avai labshaina prochlorper azine maleate 5 mg tablet TAKE 1 TABLET (5 MG TOTAL) BY MOUTH EVERY 6 (SIX) HOURS NEEDED FOR NAUSEA (MIGRAINE ). active Not Available Not Available No t Available sumatriptan 25 mg tablet PLEASE SEE ATTACHED FOR DETAILED DIRECTION S 11/29 completed Not Available Not Available Not Available rizatriptan 10 mg tablet TAKE 1 TABLET BY MOUTH NEEDED FOR MIGRAINE. MAY REPEAT IN 2 HOURS IF NEEDED active Not Available Not Available No t Available sumatriptan 50 mg tablet TAKE 1 TABLET BY MOUTH AT ONSET OF HEADACHE (REPEAT IN 2 HOURS IF NEEDED, MAX 2 TABS PER WEEK) 11/29 completed Not Available Not Available Not Available sulfamethox azole 800 mg-trimetho prim 160 mg tablet TAKE 1 TABLET BY MOUTH TWICE A DAY FOR 7 DAYS 11/29 completed Not Available Not Available Not Available amitriptyli ne 50 mg tablet TAKE 1 TABLET (50 MG TOTAL) BY MOUTH NIGHTLY AT BEDTIME. TAKE WITH 10MG TABLET FOR 60MG NIGHTLY. active Not Available Not Available No t Available famotidine 20 mg tablet TAKE 1 TABLET BY MOUTH EVERY DAY 11/29 completed Not Available Not Available Not Available amitriptyli ne 10 mg tablet TAKE 1 TABLET BY MOUTH AT BEDTIME WITH 50 MG TABLET. active Not Available Not Available No t Available omeprazole 20 mg capsule,del ayed release TAKE 1 CAPSULE BY MOUTH DAILY. TAKE MEDICINE ONE HOUR BEFORE EATING. active Not Available Not Available No t Available testosteron e cypionate 200 mg/mL intramuscul ar oil INJECT 0.25 ML (50 MG TOTAL) UNDER THE SKIN EVERY 7 DAYS. active Not Available Not Available No t Available cefuroxime axetil 500 mg tablet TAKE 1 TABLET BY MOUTH EVERY 12 HOURS X5 DAYS 11/29 completed Not Available Not Available Not Available albuterol sulfate HFA 90 mcg/actuati on aerosol inhaler PLEASE SEE ATTACHED FOR DETAILED DIRECTION S active Not Available Not Available No t Available medroxyprog esterone 150 mg/mL intramuscul ar suspension INJECT 1 ML INTO THE MUSCLE EVERY 3 MONTHS active Not Available Not Available No t Available naproxen 500 mg tablet Take 1 tablet twice a day by oral route with meals for 10 days. 2022 active Not Available Not Available Not Avai lable duloxetine 20 mg capsule,del ayed release TAKE 2 CAPSULES BY MOUTH EVERY DAY active Not Available Not Available No t Available levocetiriz ine active Not Available Not Available Not Available Blanca Ibarra [facility] spacer USE WITH INHALER DIRECTED active Not Available Not Available No t Available Slynd 4 mg (28) tablet TAKE 1 TABLET BY MOUTH EVERY DAY 11/29 completed Not Available Not Available Not Available Winlevi 1 % topical cream APPLY TOPICALLY TO FACE TWICE DAILY. active Not Available Not Available No t Available Flowflex COVID-19 Antigen Home Test kit 11/29 completed Not Available Not Available Not Available Paxlovid 300 mg (150 mg x 2)-100 mg tablets in a dose pack PLEASE SEE ATTACHED FOR DETAILED DIRECTION S 11/29 completed Not Available Not Available Not Available Vitals Date Recorded Body height Body mass index (BMI) Percentile per age and sex Body mass index (BMI) Body weight Pain severity - 0-10 verbal numeric rating [Score] - Reported Respiratory rate Oxygen saturation Oxygen saturation in Arterial blood by Pulse oximetry Heart rate Body temperature Systolic blood pressure Diastolic blood pressure Provider Name and Address Organization Details Last Updated DateTime 170.18 cm 87 % 26.6 kg/m2 98137.7 g 7 18 /min 96 % 96 % 110 /min 98.2 [degF] 120 mm[Hg] 73 mm[Hg] BRENNA VIERA [employer] 16:56:17 Social History Question Answer Notes LastModified by [employer] Details LastModified Time Tobacco Smoking Status Never Smoker BRENNA valle [email or web address] 11/29/2022 16:54:23 What Is Your Level Of Alcohol Consumption? None [email or web address] Information not available 11/29/2022 Which Illicit Or Recreational Drugs Have You Used? Marijuana [email or web address] Information not available 11/29/2022 Do You Use Any Illicit Or Recreational Drugs? Yes [email or web address] Information not available 11/29/2022 Have You Recently Traveled Abroad? No [email or web address] Information not available 11/29/2022 Do You Or Have You Ever Used Any Other Forms Of Tobacco Or Nicotine? No [email or web address] Information not available 11/29/2022 Sex: Unknown Functional Status None recorded. Mental Status None recorded. Family History Relationship Description Onset Age of this Age Resolved Age Notes LastModified by Organization Details LastModified Time Father No current problems or disability Not available 11/29 16:54:12 Mother No current problems or disability [email or web address] Not available 11/29 16:54:12 Medical History No medical history recorded. Gynecological History Statement/Question Response Is there any chance of ? No Obstetrics History GPAL:G 0 P 0 0 0 0 Past Encounters Encounter ID Performer Location Encounter Start Date Encounter Closed Date Diagnosis/Indication Diagnosis SNOMED-CT Code Diagnosis ICD10 Code Diagnosis Note [id number] [address] [facility] [place] [address] 09/24/2018 11:24:41 09/24/2018 12:00:52 [id number] [address] [facility] [place] [address] 07/15/2015 16:16:00 07/15/2015 17:04:58 [id number] [address] [facility] [place] [address] 09/19/2018 09:36:51 09/19/2018 10:24:36 [id number] Tima Gallegos NP [address] [facility] [place] [address] 11/29/2022 16:15:35 11/29/2022 17:30:59 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 Health Concerns Section Related Observation LastModified by Organization Detai ls LastModified Time None Recorded Concern Status LastModified by Organization Details LastModified Time None Recorded Advance Directives Directive None Recorded Payers Encounter Date Sequence Insurance Name Policy Number Policy Barrientos Covered Member ID Barrientos Member ID Guarantor Name 07/15/2015 1 [place] [id number] Jerel Crowe [id number] 09/19/2018 1 [place]HMO) [id number] Jerel Crowe [id number] Kaylyn [address] Sebastien 09/19/2018 2 [place] [facility] Kaylyn V Sebastien [id number] Kaylyn V Sebastien 09/24/2018 1 [place] [id number] Jerel Crowe [id number] Kaylyn Crowe 09/24/2018 2 [place] Kaylyn Crowe [id number] Kaylyn Crowe 11/29/2022 1 [place] [facility] [place]HMO) [id number] Jerel Crowe [id number] Kaylyn Crowe 11/29/2022 2 [place] Kaylyn V Sebastien [id number] Kaylyn V Sebastien Notes Date Note Type Note Provider Name and Address Organization Details Recorded Time 11/29/2022 text/html Lower BackReport ed bypatient.Location :left; posterior Quality:aching; burning; constant Severity:moderate Duration:2 days Timing:acute; morning; daytime; nighttime Context:cannot identify; lifting Alleviating Factors:rest; NSAIDs Aggravating Factors:walking; lifting; carrying; bending/squatting; pushing/pulling Associated Symptoms:no weakness; no numbness; no swelling; no redness; no warmth; no ecchymosis; no catching/locking; no popping/clicking; no buckling; no grinding; no instability; no radiation down leg; no drainage; no fever; no chills; no weight loss; no change in bowel/bladder habits;tingling Previous Surgery:none Prior Imaging:none Previous Injections:none Previous PT:none Work Related:no Working:no Tima Gallegos [place] [facility] [place], [address], [place] [facility] 11/29/2022 17:29:47 OBGyn Episode No OBEpisode recorded.
--- OUTSIDE RECORDS SUMMARY | 2024-09-03 13:25 | XMS_ITS | Encounter Summary ---
Author Organization [facility] Address [address] [place], [place] [address] Phone Care Team Providers Care Bodywork Therapist Name Role Phone Yelena Martinez DO Primary Care Provider [phone] Reason for Visit * Reason Comments Med Refill Encounter Details Date Type Department Care Team ([facility] Contact Info) Description 06/04/2017 Refill [facility] [place] [address] [place] [address] Marie Meza MD [address] [place], [place] [phone] Encounter for surveillance of contraceptives, unspecified contraceptive (Primary Dx) Social History Tobacco Use Types Packs/Day Years [...] encounter Miscellaneous Notes * Telephone Encounter - Abbey Waddell LPN - 06/04/2017 2:00 PM EST Pharm fax refill request OCP. EH documented in this encounter Plan of Treatment Not on file documented as of this encounter Visit Diagnoses Diagnosis Encounter for surveillance of contraceptives, unspecified contraceptive- Primary documented in this encounter Care Teams Bodywork Therapist Relationship Specialty Start Date End Date Yelena Martinez DO [address] [place] [address] [place] [address] PCP - General Pediatrics 01/11/22 03/19/23 documented as of this encounter
--- OUTSIDE RECORDS SUMMARY | 2024-09-03 13:25 | XMS_ITS | Encounter Summary ---
Author Organization [facility] Address [address] [place] [address] Phone Care Team Providers Care Stripping Shovel Oiler Name Role Phone Yelena Martinez DO Primary Care Provider Reason for Visit * Reason Comments Med Change Request Encounter Details Date Type Department Care Team (Late st Contact Info) Description 01/07/2023 Refill [facility] [place] [address] [place] [address] Aren Arteaga MD [address] [place] [address] GERD without esophagitis Social History Tobacco Use Types Packs/Day Years Used Date Smoking Tobacco: Never Smokeless Tobacco: Never Comments:Never smoker Alcohol Use Standard Drinks/Week Comments No 0 (1 standard drink = 0.6 oz pur e alcohol) Hunger/Food Answer Date Recorded In the last 12 months, did y ou or your family ever eat less than you felt you should because there wasn't enough money for food? No 01/25/2022 Stable Housing Answer Date Recorded Are you worried that in the next 2 months you may not have stable housing? No 01/25/2022 Transportation Concerns Answer Date Rec orded In the last 12 months, have you or your family ever had to go without healthcare because you didn't have a way to get there? No 01/25/2022 Hazards in Home Answer Date Recorded Think about the place you li ve. Do you have problems with any of the following? Pests (mice or roaches), mold, no/not working smoke detectors, water leaks, no window guards. No 2021 Financing Utilities Answer Date Recorde d In the last 12 months, has t he electric, gas, oil, or water company threatened to shut off your services in your home? No 01/25/2022 Safety at Home Answer Date Recorded Are you or your family worried about feeling saf e in your home? No 01/25/2022 Outside Support Answer Date Recorded Do you feel that you need mo re support from other people or programs to help you care for yourself or your family? No 01/25/2022 Understanding Health Concerns Answer Da te Recorded Do you need help understandi ng your or your child's healthcare needs (diagnosis, medications, plan, etc.)? No 01/25/2022 Financing Health Concerns Answer Date R ecorded In the last 12 months, was t here a time when your child needed to see a doctor or get medications or supplies but could not because of cost? No 01/25/2022 Missing School or Work Answer Date Shyam rded Did you or your child miss s chool or work because of a health problem that could have been avoided? No 01/25/2022 Comments No Sex and Gender Information Value Date Recorded Sex Assigned at Female 08/04/2020 4:46 PM EST Legal Sex Female 5:14 PM EDT Gender Identity Transgender Male 01/25/2022 11:0 9 AM EDT Sexual Orientation pansexual 01/25/2022 11 :09 AM EDT documented as of this encounter Miscellaneous Notes * Telephone Encounter - Yudy Diaz LPN - 01/07/2023 10:27 AM EDT Sent on 01/01/23 documented in this encounter Plan of Treatment Not on file documented as of this encounter Visit Diagnoses Diagnosis GERD without esophagitis Esophageal reflux documented in this encounter Care Teams Stripping Shovel Oiler Relationship Specialty Start Date End Date Yelena Martinez DO [address] [place] [address] [place] [address] PCP - General Pediatrics 01/11/22 03/19/23 documented as of this encounter
--- OUTSIDE RECORDS SUMMARY | 2024-09-03 13:25 | XMS_ITS | Encounter Summary ---
Author Organization [facility] Address [address] [place] [address] Phone Care Team Providers Care Tile Layer Name Role Phone Yelena Martinez DO Primary Care Provider [phone] Reason for Visit * Reason Comments Med Refill Encounter Details Date Type Department Care Team (Late st Contact Info) Description 05/03/2018 Refill [facility] [place] [address] [place] [address] Ashley Onofre NP [address] [facility] [address] [place] [address] Chronic midline thoracic back pain (Primary Dx); Bilateral hip pain; Thoracogenic scoliosis of thoracolumbar region Social History Tobacco Use Types Packs/Day Years Used Date Smoking Tobacco: Never Smokeless Tobacco: Never Comments:Never smoker Alcohol Use Standard Drinks/Week Comments No 0 (1 standard drink = 0.6 oz pur e alcohol) Comments Unknown Sex and Gender Information Value Date Recorded Sex Assigned at Female 08/04/2020 4:46 PM EST Legal Sex Female 5:14 PM EDT Gender Identity Transgender Male 01/25/2022 11:0 9 AM EDT Sexual Orientation pansexual 01/25/2022 11 :09 AM EDT documented as of this encounter Miscellaneous Notes * Telephone Encounter - Yudy Diaz LPN - 05/03/2018 3:42 PM EST Refill request for Naproxen. Last PE 06/07/17, has pending PE appt Chris documented in this encounter Plan of Treatment Not on file documented as of this encounter Visit Diagnoses Diagnosis Chronic midline thoracic back pain- Primary Bilateral hip pain Pain in joint, pelvic region and thigh Thoracogenic scoliosis of thoracolumbar region documented in this encounter Care Teams Tile Layer Relationship Specialty Start Date End Date Yelena Martinez DO [address] [facility] [place] [address] PCP - General Pediatrics 01/11/22 03/19/23 documented as of this encounter
--- OUTSIDE RECORDS SUMMARY | 2024-09-03 13:25 | XMS_ITS | Encounter Summary ---
Author Organization [facility] Address [address] [place] [address] Phone Care Team Providers Care Director Of Diagnostic Imaging Name Role Phone Yelena Martinez DO Primary Care Provider [phone] Reason for Visit * Reason Comments Med Refill Encounter Details Date Type Department Care Team (Late st Contact Info) Description 02/26/2020 Refill [facility] [place] [address] [place] [address] Yelena Martinez DO [address] [place] [address] Chronic bilateral low back pain without sciatica Social History Tobacco Use Types Packs/Day Years Used Date Smoking Tobacco: Never Smokeless Tobacco: Never Comments:Never smoker Alcohol Use Standard Drinks/Week Comments No 0 (1 standard drink = 0.6 oz pur e alcohol) Hunger/Food Answer Date Recorded No 07/10/2018 Stable Housing Answer Date Recorded No 06/28/2019 Transportation Concerns Answer Date Rec orded No 07/10/2018 Hazards in Home Answer Date Recorded No 07/10/2018 Financing Utilities Answer Date Recorde d No 07/10/2018 Safety at Home Answer Date Recorded No 07/10/2018 Outside Support Answer Date Recorded No 07/10/2018 Understanding Health Concerns Answer Da te Recorded No 07/10/2018 Financing Health Concerns Answer Date R ecorded No 07/10/2018 Missing School or Work Answer Date Shyam rded No 07/10/2018 Comments No Sex and Gender Information Value Date Recorded Sex Assigned at Female 08/04/2020 4:46 PM EST Legal Sex Female 5:14 PM EDT Gender Identity Transgender Male 01/25/2022 11:0 9 AM EDT Sexual Orientation pansexual 01/25/2022 11 :09 AM EDT documented as of this encounter Miscellaneous Notes * Telephone Encounter - Yudy Diaz LPN - 02/26/2020 7:45 AM EDT Refill request for Omeprazole. Last PE 07/23/18/BO documented in this encounter Plan of Treatment Not on file documented as of this encounter Visit Diagnoses Diagnosis Chronic bilateral low back pain without sciatica documented in this encounter Care Teams Director Of Diagnostic Imaging Relationship Specialty Start Date End Date Yelena Martinez DO [address] [facility] [place] [address] PCP - General Pediatrics 01/11/22 03/19/23 documented as of this encounter
--- OUTSIDE RECORDS SUMMARY | 2024-09-03 13:25 | XMS_ITS | Clinical Summary ---
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 Plan (06/07/2017 2:12 PM EST): Started on bcps last year by Dr. Meza for cramps/period issues; doing better on them Immunizations Immunization Administration Dates Next Due COVID-19 Pfizer, gi-sucros e, 12+ years 02/13/2022,01/11/2022 DTaP 01/02/2008, 5,07/05/2004,05/05,03/10/2004 HPV Vaccine 9 Valent 05/08/2016 Hep A, ped/adol 02/27/2012,01/02/2008 Hep B, ped/adol 07/05/2004,02/08/2004,2003 Hib (PRP-T) 05/03/2005, 5,05/05/2004,03/10 IPV 01/02/2008, 5,05/05/2004,03/10 Influenza, injectable, quadrivalent 02/24,03/09/2009,05/03/2005,04/25,07/05/2004 Influenza, injectable, quadr ivalent, preservative free 03/03/2020,04/28/2015 MMR 01/02/2008,02/09/2005 Meningococcal B Trumenba 01/25/2022 Meningococcal Conj (Menactra) MCV4P 03/03/2020,1 06/28/2014 Pneumococcal Conjugate 02/09/2005,2004,05/05/2004,03/10 Tdap 04/28/2015 Varicella 01/02/2008,02/09/2005 Family History Medical History Relation Name Comments ADD / ADHD Brother Marfan syndrome Father Barrett Scoliosis Father Barrett Diabetes Maternal Grandfather Hyperlipidemia Maternal Grandfather Hypertension Maternal Grandfather Diabetes Maternal Grandmother Thyroid disease Maternal Grandmother Marfan syndrome Maternal Great-Grandfather ADD / ADHD Mother Lesley Cancer (Childhood Onset) Mother Lesley Celiac disease Mother Lesley Depression Mother Lesley Multiple sclerosis Mother Lesley Relation Name Status Comments Brother Father Barrett Alive Father: ADD/ADH D, Scoliosis Maternal Grandfather Alive Materna l grandfather: Diabetes mellitus, High cholesterol, Hypertension Maternal Grandmother Alive Materna l grandmother: Diabetes mellitus Maternal Great-Grandfather Mother Lesley Alive Mother: Alive a nd well Paternal Grandfather Alive Paternal Grandmother Alive Social History Tobacco Use Types Packs/Day Years [...] Orientation pansexual 01/25/2022 11 :09 AM EDT Last Filed Vital Signs Vital Sign Reading Time Taken Comments Blood Pressure 132/80 10/13/2022 2:32 PM EDT Pulse 114 10/13/2022 2:32 PM EDT Temperature 36.6 ??C (97.9 ??F) 12/06/2022 4:12 PM ED T Respiratory Rate 20 07/17/2018 3:13 PM EST Oxygen Saturation 100% 08/17/2022 4:07 PM EST Inhaled Oxygen Concentration - - Weight 82.6 kg (182 lb 3.2 oz) 12/06/2022 4:12 P M EDT Height 172.1 cm (5' 7.75 ) 01/25/2022 10:53 AM E DT Body Mass Index 27.91 01/25/2022 10:53 AM EDT Plan of Treatment Health Maintenance Due Date Last Done Comments HPV Vaccines (2 - 2-dose series) 11/05/2016 05/08/20 16 Men B Vaccine (2 of 2 - Trum enba SCDM 2-dose series) 07/28/2022 01/25/2022 LDL-C/Cholesterol 05/15/2023 05/15/2022, , 05/09/2016 Glucose/HbA1C 09/19/2023 09/18/2022 Influenza Vaccines (#1) 2024 03/03/20, 04/28/2015, 03/21/2013, Additional history exists COVID-19 Vaccine (3 - 2023-2 5 season) 2024 02/13/2022, 01/11/2022 DTaP,Tdap,and Td Vaccines (7 - Td or Tdap) 04/28/2025 04/28/2015, 01/02/2008, 05/03/2005, Additional history exists Hepatitis B Vaccines Completed 07/05/2004, 02/08/2004, 2003 Pneumococcal Vaccine Completed 02/09/2005, 07/05/2004, 05/05/2004, Additional history exists HIB Vaccines Completed 05/03/2005, 06/25, 05/05/2004, Additional history exists IPV Vaccines Completed 01/02/2008, 06/25, 05/05/2004, Additional history exists MMR Vaccines Completed 01/02/2008, 02/09/2005 Varicella Vaccines Completed 01/02/2008, 02/09/2005 Hepatitis A Vaccines Completed 02/27/2012, 01/02/20 08 Meningococcal Vaccine Completed 03/03/2020, 015 Procedures * Due to [place] state law, this organization might not be sharing sensitive test results. Procedure Name Priority Date/Time Associated Diagnosis Comments CHLAMYDIA AND GONORRHEA, AMPLIFIED Routine 12/06/2022 4:28 PM EDT Flank pain GLUCOSE, FASTING Routine 09/18/2022 3:47 PM EDT Dizziness LIPID PANEL, FASTING Routine 01/25/2022 11:57 AM EDT Well adult exam from Last 3 Months or Most Recently Relevant to Health Maintenance Results * Due to [place] state law, this organization might not be sharing sensitive test results. * Chlamydia and Gonorrhoea, Amplified (12/06/2022 4:28 PM EDT) Chlamydia Trachomatis, DNA Probe NEGATIVE (NEG) [facility] Comment: No Chlamydia Trachomatis RNA detected in this patient's sample ? (REFERENCE RANGE/NORMAL VALUE: NOT DETECTED) ? Note: This test uses tobacco hanger- mediated amplification method to detect rRNA from C. Trachomatis URINE GC AMP PROBE NEGATIVE (NEG) [facility] Comment: No Neisseria Gonorrhoeae RNA detected in this patient's sample ? (REFERENCE RANGE/NORMAL VALUE: NOT DETECTED) ? NOTE: This test uses tobacco hanger-mediated amplification method to detect rRNA from N.Gonorrhoeae. A negative result does not preclude infection. In the case of a negative urine result, testing of an endocervical(female) or urethral (male) specimen is recommended if there is high clinical suspicion of infection. Due to very high sensitivity of Nucleic Acid Amplification Test, false positive results may occur. Therefore, specimen handling is extremely important. In patients in whom the disease is unlikely, additional sample for testing should be considered after an initial positive result. The performance characteristics of this test have not been evaluated in children. The Aptima Combo2 assay is not intended for the evaluation of suspected sexual abuse or for other medico-legal indications. The ordering provider should assess if the patient had consensual sex without risk of sexual abuse. Consult the [facility] if needed. Contact phone number . Therapeutic failure or success cannot be determined with the Aptima Combo2 assay since nucleic acid may persist following appropriate antimicrobial therapy. The Centers for Disease Control and Prevention (CDC) recommends confirmatory retesting using culture or a different nucleic acid amplification test when positive results occur, if indicated. Testing performed or reported by [facility], a Service of [facility], [address], [place] [address] Vamsi Estrada MD, Exhibition Specialist CLIA# [id number] Urine (Urine) 12/06/2022 4:2 8 PM EDT 12/06/2022 8:01 PM EDT Result [facility] [place] Jocelyn Redd MD LAB MICROBIOLOGY - GENERAL JOHN PAUL UMANZOR Final Result Performing Organization Address [facility] Co de Phone Number [facility] * Glucose, fasting (09/18/2022 3:47 PM EDT) Glucose 83 (70-99) MG/DL [facility] Comment: Testing performed or reported by [facility], [place] [address] Nora Downs MD, Exhibition Specialist [facility]# [id number] Blood 09/18/2022 3:47 PM EDT 09/18/2022 5:00 PM EDT Result [facility] [place] [employer] LAB BLOOD ORDERABLES Final Resul t Performing Organization Address [facility] Phone Number [facility] * (ABNORMAL) Lipid Panel, Fasting (01/25/2022 11:57 AM EDT) Cholesterol, Total 155 (<170) MG/DL [facility] Triglycerides 128(H) (<90) MG/DL [facility] HDL 40(L) (>45) MG/DL [facility] LDL 89 (0-109) MG/DL [facility] Non-HDL Cholesterol 115 (<120) MG/DL [facility] Comment: Testing performed or reported by [facility], a Service of [address] [address] Nora Downs MD, Exhibition Specialist IA# [id number] Blood 01/25/2022 11:5 7 AM EDT 01/25/2022 11:58 AM EDT Result [facility] [place] [employer] LAB BLOOD ORDERABLES Final Resul t Performing Organization Address [facility] de Phone Number [facility] from Last 3 Months or Most Recently Relevant to Health Maintenance Insurance [facility] [address] [place] [address] [facility] [address] [place], [place] [address]
--- OUTSIDE RECORDS SUMMARY | 2024-09-03 13:25 | XMS_ITS | Encounter Summary ---
Author Organization [facility] Address [address] [place] [address] Phone Care Team Providers Care Visual Training Aide Name Role Phone Yelena Martinez DO Primary Care Provider [phone] Reason for Visit * Reason Comments Med Refill Encounter Details Date Type Department Care Team (Late st Contact Info) Description 01/24/2021 Refill [facility] [place] [address] [place] [address] Yelena Martinez DO [address] [place] [address] Acne vulgaris Social History Tobacco Use Types Packs/Day Years [...] encounter Miscellaneous Notes * Telephone Encounter - Yelena Martinez DO - 01/24/2021 1:05 PM EDT Pt not taking this med documented in this encounter Plan of Treatment Not on file documented as of this encounter Visit Diagnoses Diagnosis Acne vulgaris Other acne documented in this encounter Care Teams Visual Training Aide Relationship Specialty Start Date End Date Yelena Martinez DO [address] [facility] [place] [address] PCP - General Pediatrics 01/11/22 03/19/23 documented as of this encounter
--- OUTSIDE RECORDS SUMMARY | 2024-09-03 13:25 | XMS_ITS | Encounter Summary ---
Author Organization [facility] Address [address] [place] [address] Phone Care Team Providers Care Emissions Testing And Repair Technician Name Role Phone Yelena Martinez DO Primary Care Provider [phone] Reason for Visit * Reason Comments Med Refill Encounter Details Date Type Department Care Team (Late st Contact Info) Description 12/27/2022 Refill [facility] [place] [address] [place] [address] Yelena Martinez DO [address] [place] [address] GERD without esophagitis Social History Tobacco Use [...] encounter Miscellaneous Notes * Telephone Encounter - Aren Arteaga MD - 12/28/2022 11:00 AM EDT I thought we just got an email saying there is no more omeprazole.? * Telephone Encounter - Abbey Waddell LPN - 12/27/2022 3:57 PM EDT DN PCP PC: pharm requesting refill omeprazole. EH documented in this encounter Plan of Treatment Not on file documented as of this encounter Visit Diagnoses Diagnosis GERD without esophagitis Esophageal reflux documented in this encounter Care Teams Emissions Testing And Repair Technician Relationship Specialty Start Date End Date Yelena Martinez DO [address] [facility] [place] [address] PCP - General Pediatrics 01/11/22 03/19/23 documented as of this encounter
--- OUTSIDE RECORDS SUMMARY | 2024-09-03 13:25 | XMS_ITS | Encounter Summary ---
Author Organization [facility] Address [address] [place] [address] Phone Care Team Providers Care Machinery Rigger Name Role Phone Yelena Martinez DO Primary Care Provider [phone] Encounter Details Date Type Department Care Team (Late st Contact Info) Description 07/19/2015 Documentation [facility] [place] [facility] [address] [place] [address] Family Medicine, Physician [address], [place] [address] Social History Tobacco Use Types Packs/Day Years Used Date Smoking Tobacco: Never Assessed Comments Unknown Sex and Gender Information Value [...] on filedocumented in this encounter Care Teams Machinery Rigger Relationship Specialty Start Date End Date Yelena Martinez DO [address] [place] [address] PCP - General Pediatrics 01/11/22 03/19/23 documented as of this encounter
== END 2024-09-03 11:28 | disposition home or self-care (01) ==
PROVIDERS: Emergency Provider Emergency Medicine; PCP Physician Assistant Medical
DX: J02.0 Streptococcal pharyngitis (principal); R00.0 Tachycardia, unspecified; Z03.818 Encounter for observation for suspected exposure to other biological agents ruled out
CPT/HCPCS: 0241U; 80053; 85025; 87651; 93005; 99283

== ENCOUNTER → 2024-09-03 10:07 | Outpatient (BNV) | payer BC, SELFPAY | PROVIDERS: Emergency Provider Emergency Medicine; PCP Physician Assistant Medical; Visit Provider Internal Medicine | DX: R00.0 Tachycardia, unspecified (principal) | CPT/HCPCS: 93010 ==

== ENCOUNTER 2024-11-20 08:40 | Emergency (ER) | payer SELFPAY ==
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
[2024-11-20 08:55] VITALS: BP 114/77; PULSE 91; RESP 16; TEMP 36.6; O2SAT 98; BMI 27.2
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
--- OUTSIDE RECORDS SUMMARY | 2024-11-20 09:53 | XMS_ITS | Encounter Summary ---
Author Organization [facility] Address [address] [place], [place] [id number] Phone Care Team Providers Care Associate Media Director Name Role Phone Yelena Martinez DO Primary Care Provider [phone] Reason for Visit * Reason Comments Med Refill Encounter Details Date Type Department Care Team ([facility] Contact Info) Description 06/04/2017 Refill [facility] [address] [place] [address] Marie Meza MD [address], [place] [id number] Encounter for surveillance of contraceptives, unspecified contraceptive [...] Primary documented in this encounter Care Teams Associate Media Director Relationship Specialty Start Date End Date Yelena Martinez DO [address] [place] [address] LEO Blood [id number] PCP - General Pediatrics 01/11/22 03/19/23 documented as of this encounter
[2024-11-20 10:08] LABS: MANUAL DIFF FLAG NO
[2024-11-20 10:11] LABS: Basophils Percent Auto 0.7 % (0-2); Eosinophils Absolute Auto 0.2 X10*3/uL (0.0-0.4); Hemoglobin 13.7 g/dl (12.0-16.0); Imm Gran Abs Auto 0.01 X10*3/uL (0.00-0.03); Imm Gran Pct Auto 0.2 % (0.0-0.4); Lymphocytes Absolute Auto 1.8 X10*3/uL (1.2-4.9); Lymphocytes Percent Auto 29.8 % (20-40); Mean Corpuscular HGB Conc 36.1 g/dl (31.0-35.0); Mean Corpuscular Hemoglobin 31.5 pg (27.0-33.0); Mean Corpuscular Volume 87.4 fL (80.0-98.0); Mean Platelet Volume 9.7 fL (9.4-12.3); Monocytes Absolute Auto 0.5 X10*3/uL (0.1-1.2); Neutrophils Absolute Auto 3.5 x10*3/uL (2.0-8.3); Neutrophils Percent Auto 58.3 % (45-73); Platelet Count 281 X10*3/uL (160-400); Red Blood Count 4.35 X10*6/uL (4.20-5.50); Red Cell Distribution Width 12.2 % (11.0-16.0)
[2024-11-20 10:42] LABS: Alanine Aminotransferase 23 U/L (0-31); Albumin Level 4.5 g/dL (3.5-5.0); Alkaline Phosphatase 74 U/L (39-117); Anion Gap 11 (12-20); Aspartate Amino Transferase 19 U/L (5-31); Bilirubin Total 0.6 mg/dL (0.0-1.0); Blood Urea Nitrogen 11 mg/dL (9-16); Calcium 9.5 mg/dL (8.4-10.2); Carbon Dioxide 26 mmol/L (22-29); Chloride 109 mmol/L (96-108); Creatinine Clr Calc Pharmacy 143.4; Estimated Glomerular Filt Rate > 60; Glucose Random 98 mg/dL (60-115); HCG Quantitative < 2 mIU/mL; Sodium 142 mmol/L (135-145); Total Protein 7.3 g/dL (6.5-8.0)
--- NOTE | 2024-11-20 11:08 | PC.NURSE ---
in ct scan at this time
[2024-11-20 11:32] VITALS: BP 110/64; PULSE 90; RESP 16; TEMP 36.8; O2SAT 99
[2024-11-20] MEDS: 0.9 % Sodium Chloride 1,000 ML 999 ML IV (12:04)
[2024-11-20 13:07] LABS: Appearance Urine Clear; Color Urine Yellow; Glucose Urine UA Negative (Negative); Leukocyte Esterase Urine Negative (Negative); Nitrite Urine Negative (Negative); Specific Gravity - Urine >= 1.030 (1.005-1.025); Urine Blood Negative (Negative); Urine Ketones Trace mg/dL (Negative); Urine Protein Negative (Neg-Trace)
[2024-11-20 19:02] VITALS: BP 110/64; PULSE 90; RESP 16; TEMP 36.8; O2SAT 99
== END 2024-11-20 13:35 | disposition home or self-care (01) ==
PROVIDERS: Physician Assistant Medical; Emergency Provider Emergency Medicine Emergency Medical Services; PCP Physician Assistant Medical
DX: S39.92XA Unspecified injury of lower back, initial encounter (principal); R51.9 Headache, unspecified; M54.50 Low back pain, unspecified; M54.2 Cervicalgia; R39.15 Urgency of urination; M54.6 Pain in thoracic spine; R10.2 Pelvic and perineal pain; V43.52XA Car driver injured in collision with other type car in traffic accident, initial encounter; Y93.9 Activity, unspecified; Y92.410 Unspecified street and highway as the place of occurrence of the external cause; Y99.8 Other external cause status
CPT/HCPCS: 36415; 70450; 72125; 72128; 72131; 80053; 81003; 84702; 85025; 99284; 99285

== ENCOUNTER → 2024-11-20 09:12 | Outpatient (BNV) | payer BC, SELFPAY | PROVIDERS: PCP Physician Assistant Medical; Visit Provider Radiology Diagnostic Radiology | DX: M54.2 Cervicalgia (principal); M54.50 Low back pain, unspecified; M54.6 Pain in thoracic spine; R51.9 Headache, unspecified; V89.2XXA Person injured in unspecified motor-vehicle accident, traffic, initial encounter | CPT/HCPCS: 70450; 72125; 72128; 72131 ==

== ENCOUNTER 2025-04-21 12:29 | Emergency (ER) | payer OTHER, SELFPAY ==
--- OUTSIDE RECORDS SUMMARY | 2025-04-16 11:41 | XMS_ITS | Encounter Summary ---
Author Organization [facility] Address [address] [place] [id number] Phone Care Team Providers Care Rougher Helper Name Role Phone Dillon Bishop MD Unavailable [phone] Evelyn Dash [facility] Primary Care Provid er Dillon Salinas MD Unavailable [phone] [facility] Unavailable [phone] Encounter Details Date Type Department Care Team (Latest Contact Info) Description 04/16/2025 11:41 AM EDT - 04/16/2025 11:59 PM EDT Hospital Encounter [facility] [address], [place] [id number] Desiree Barry, [facility] [id number] [email or web address] [email or web address] Disposition: Home or Self Care Social History Tobacco Use Types Packs/Day Years Used Date Smoking Tobacco: Never Passive Smoke Exposure: Current Smokeless Tobacco: Never Passive Exposure Comments:Gr andpa smokes, used to in house but no longer Alcohol Use Standard Drinks/Week Comments Yes 1 (1 standard drink = 0.6 oz pur e alcohol) very very occasional Child or Family Care Answer Date Record ed Do you have problems with on e of the following making it difficult for you to work, study, or receive health care? Family care (i.e. spouse, parents, other family) 01/27/2025 Education Answer Date Recorded Are you interested in more education? Not on elaine e 01/27/2025 Are you concerned about your learning, performance, or behavior in school? No 01/27/2025 No 01/27/2025 Yes 01/27/2025 Food Answer Date Recorded Within the past 6 months we worried whether our food would run out before we got money to buy more. Often True 025 Within the past 6 months the food we bought just didn't last and we didn't have enough money to get more. Sometimes True 10/2024 Residential Stability Answer Date Recor ded What is your housing situation today? I am stayi ng with others 01/27/2025 How many times have you move d in the past 12 months? Two or more times 01/27/2025 Paying for Meds Answer Date Recorded Do you have trouble paying for medicines? No 01/27/2025 Paying Utility Bills Answer Date Record ed Do you have trouble paying your heating or elect ricity bill? Yes 01/27/2025 Transportation Answer Date Recorded Has the lack of transportati on kept you from medical appointments or from getting medications? No 01/27/2025 Unemployment Answer Date Recorded Are you currently unemployed or working on a part-time or temporary basis, and looking for work? Yes 01/27/2025 Digital Access Answer Date Recorded No 01/27/2025 Yes 01/27/2025 Do you have reliable internet access at home? Ye s 01/27/2025 Do you have a device (e.g., phone, tablet, computer) with a working camera? Yes 01/27/2025 Comments Unknown Sex and Gender Information Value Date Recorded Sex Assigned at Female 04/30/2019 12:10 PM EST Legal Sex Female 12:03 PM EST Gender Identity Non-binary 04/25/2022 12:35 PM EDT Sexual Orientation Bisexual 03/22/2025 3: 54 PM EDT Sexual Orientation Something else 03/22/2025 3: 54 PM EDT Sexual Orientation Queer 03/22/2025 3: 54 PM EDT documented as of this encounter Medications at Time of Discharge albuterol 90 mcg/actuation inhaler Inhale 2 puffs into the lungs every 6 (six) hours as needed for wheezing (and 15 minutes before exercise). 18 g 4 11/06/2024 drospirenone (SLYND) 4 mg tablet Take 1 tablet (4 mg total) by mouth daily. At the same time each day. 90 tablet 3 06/10/2024 lamoTRIgine (LAMICTAL) 100 MG IMMEDIATE release tablet Take 1 tablet (100 mg total) by mouth daily. 30 tablet 04/03/2025 5 lithium carbonate 150 mg capsule Take 1 capsule (150 mg total) by mouth 2 (two) times a day with meals. 60 capsule 04/10/2025 losartan (COZAAR) 25 MG tablet Take 25 mg every the morning. After two weeks, if needed, can increase to 50 mg every morning. 120 tablet 5 07/30/2024 omeprazole (PRILOSEC) 20 MG capsuleIndication s:GERD without esophagitis Take 1 capsule (20 mg total) by mouth nightly at bedtime. 90 capsule 1 03/11/2025 phenazopyridine (PYRIDIUM) 200 MG tabletIndications :History of recurrent UTIs Take 1 tablet (200 mg total) by mouth 3 (three) times a day as needed for pain (specific location in comments) (bladder spasm). 30 tablet 1 04/10/2024 documented as of this encounter Plan of Treatment Upcoming Encounters Date Type Department Care Team (Late st Contact Info) Description 04/23/2025 2:00 PM EDT Social Work [facility] [address] [place] [phone] Carlos Mccollum [address] [place] [address] 04/28/2025 10:00 AM EST Telemedicine [facility] [address] [place] [address] Desiree Barry, PMHNP-BC [address] [place] [phone] 04/30/2025 2:00 PM EST Social Work [facility] [address] [place] [phone] Carlos Mccollum [address] [place] [address] 05/07/2025 2:00 PM EST Social Work [facility] [address] [place] [phone] Carlos Mccollum [address] [place] [address] 05/14/2025 2:00 PM EST Social Work [facility] [address] [place] [phone] Carlos Mccollum [address] [place] [address] 05/28/2025 2:00 PM EST Social Work [facility] [address] [place] [phone] Carlos Mccollum [address] [place] [address] 06/04/2025 2:00 PM EST Social Work [facility] [address] [place] [phone] Carlos Mccollum [address] [place] [address] 06/11/2025 2:00 PM EST Social Work [facility] [address] [place] [phone] Carlos Mccollum [address] [place] [address] 06/16/2025 3:00 PM EST Telemedicine [facility] [address] [place] [phone] Travis Morrissey MD, [address] [address] 11/03/2025 3:00 PM EDT Telemedicine [facility] Pedi Cardiology at [address] [address] Dillon Salinas MD [address] [place] [phone] [email or web address] documented as of this encounter Procedures Procedure Name Priority Date/Time Associated Diagnosis Comments LITHIUM LEVEL Routine 04/16/2025 12:32 PM EDT Bipolar affective disorder, depressed, severe, with psychotic behavior BASIC METABOLIC PANEL Routine 04/16/2025 12:32 PM EDT Bipolar affective disorder, depressed, severe, with psychotic behavior documented in this encounter Results * (ABNORMAL) [place] level (04/16/2025 12:32 PM EDT) LITHIUM 0.12(L) 0.5 - 1.00 mmol/L [facility] Blood 04/16/2025 12:3 2 PM EDT 04/16/2025 12:38 PM EDT Desiree Barry [facility]- LAB BLOOD ORDERABLE S Final Result Performing Organization Address City/State/[facility] Co de Phone Number [address] [address] * (ABNORMAL) Basic metabolic panel (04/16/2025 12:32 PM EDT) SODIUM 141 133 - 146 mmol/L [facility] CHLORIDE 103 96 - 108 mmol/L [facility] POTASSIUM 3.9 3.3 - 5.1 mmol/L [facility] CO2 22 21 - 35 mmol/L [facility] BUN 9 6 - 19 mg/dL [facility] CREATININE 0.60 0.5 - 1.5 mg/dL [facility] GLUCOSE 69(L) 70 - 99 mg/dL [facility] CALCIUM 10.0 8.4 - 10.3 mg/dL [facility] EGFR >120 >59 mL/min/1.7 3m2 [facility] Comment:Estimated glomerular filtration rate calculated using the CKD-EPI refit equation. ANION GAP 20 10 - 20 mmol/L [facility] Blood 04/16/2025 12:3 2 PM EDT 04/16/2025 12:38 PM EDT us Desiree Barry HNP- LAB BLOOD ORDERABLE S Final Result [facility] [address] [place] [address] documented in this encounter Visit Diagnoses Diagnosis Bipolar affective disorder, depressed, severe, with psychotic behavior Bipolar I disorder, most recent episode (or current) depressed, severe, specified as with psychotic behavior documented in this encounter Additional Health Concerns Assessment Noted Time PHQ-9 Depression Total Score: 21 025 10:22 AM EDT PHQ-2 Depression Total Score: 4 03/23/20 25 10:22 AM EDT documented as of this encounter Care Teams Rougher Helper Relationship Specialty Start Date End Date Evelyn Dash CNP [address] [place] [phone] [email or web address] PCP - General Nurse Practitioner 01/25/24 Dillon Bishop MD [address] [place] [address] [place] [phone] [email or web address] Anesthesiology 07/31/22 Dillon Salinas MD [address] [place] [phone] [email or web address] Pediatric Cardiology 07/10/24 Desiree Barry, [facility] [address] [place] [phone] [email or web address] Psychiatrist Nurse Practitioner 02/16/25 documented as of this encounter Additional Source Comments The information contained in this document represents components of the legal health record. It is not the complete legal health record.[facility]
--- NOTE | ~2025-04-21 | XR_ITS ---
EXAMINATION: XR THORACIC SPINE CLINICAL INFORMATION: back pain. no spinal cysts COMPARISON: Previous CT of the thoracic spine October 2024 TECHNIQUE: 3 views of the thoracic spine were obtained. FINDINGS: Bone alignment is normal. No fracture or dislocation. Normal disc spaces. Normal paraspinal soft tissues. XR/XR thoracic spine 3V IMPRESSION: Unremarkable examination. Electronically signed by: Suyapa Woodard MD 04/21/2025 01:24 PM EDT
--- NOTE | ~2025-04-21 | XR_ITS ---
EXAMINATION: XR LUMBOSACRAL SPINE CLINICAL INFORMATION: back pain COMPARISON: Previous CT of the lumbar spine October 2024 TECHNIQUE: Three views of the lumbosacral spine. FINDINGS: There may be a transitional anatomy with 6 lumbar type vertebral bodies Mild curvature of the proximal lumbar spine convex to the right similar to prior CT. Bone alignment is otherwise normal. No fracture or dislocation. Normal disc spaces. Normal paraspinal soft tissues. XR/XR lumbar spine 2-3V IMPRESSION: Mild curvature of the proximal lumbar spine to the right similar to prior CT. Otherwise unremarkable exam. Electronically signed by: Suyapa Woodard MD 04/21/2025 01:22 PM EDT
[2025-04-21 12:40] VITALS: BP 113/60; PULSE 94; RESP 18; TEMP 36.6; O2SAT 100; BMI 26.4
--- NOTE | 2025-04-21 12:52 | ED_ITS ---
HPI - General Adult General Chief complaint: Back Pain/Injury Stated complaint: Back Pain Time Seen by Provider: 04/21/25 12:48 History of Present Illness ED Provider: Vance Yadav MD HPI narrative: This is a 19-year-old female sex assigned at previously transitioning to male no longer. 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 Chronic back pain somewhat worsened and more severe but similar character to previous pain several years ago. No fall or injury. She denies any focal motor deficits she does have pain he had walking midline back midthoracic region and pain with driving. No clumsy hands no unsteady gait. She feels a little bit tremulous both hands attributing this to the pain. No fever no chills. She reported 1 episode of perhaps urge incontinence once. She has been holding her urine and stool Related Data Previous Rx's ?Medication ?Instructions ?Recorded cefuroxime axetil 500 mg tablet 500 mg PO Q12H 5 days #10 tabs 08/02/22 ibuprofen 600 mg tablet 600 mg PO Q6H PRN fever or p ain 11/29/22 #20 tabs cefuroxime axetil 500 mg tablet 500 mg PO BID #14 tabs 01/06/23 naproxen 500 mg tablet 500 mg PO BID PRN pain #20 t abs 01/06/23 nitrofurantoin 100 mg PO BID 7 days #14 cap s 01/11/23 monohydrate/macrocrystals 100 mg capsule (Macrobid) cefuroxime axetil 250 mg tablet 250 mg PO Q12H #14 tab s 08/28/23 cefuroxime axetil 500 mg tablet 500 mg PO BID 7 days # 14 tabs 01/25/24 cefuroxime axetil 500 mg tablet 500 mg PO Q12H 7 days #14 tabs 03/25/24 clindamycin HCl 300 mg capsule 300 mg PO TID #21 caps 09/03/24 methocarbamol 750 mg tablet 750 mg PO Q8H PRN spasm #1 0 tabs 04/21/25 Allergies Allergy/AdvReac Type Severity Reaction Status Date / Time amoxicillin (Augmentin) Allergy Unknown diarrhea Verified 04/21/25 12:42 clavulanic acid (Augmentin) Allergy Unknown diarrhea Verified 04/21/25 12:42 levofloxacin Allergy Unknown Verified 04/21/25 12:42 [facility] Past Medical History Medical History [id number] transgender person Syringomyelia Social History Social History Patient Tobacco Use Status: Tobacco use Unknown Physical Exam ED Exam Exam: EXAM: Gen: Alert, awake, well appearing, well hydrated. Head: Atraumatic Eyes: Anicteric, Normal conjunctiva. ENT: Moist mucosa, no pallor. ? Neck: Supple. Skin: ?No observable rash or bruising on exposed or examined skin Respiratory: Breathing comfortably, No distress.Clear to auscultation bilaterally, symmetric chest expansion, No wheeze, rales, ronchi. Cardiovascular: Regular rate and rhythm. No murmurs or rub. Well perfused periphery, warm extremities. No edema. ? Abdominal: No focal tenderness. Soft, no objective distension. No palpable masses or obvious organomegaly. ?No guarding, no rebound tenderness or other peritoneal findings. : No flank tenderness. Neuro: Alert. Gross movement of all extremities intact. ?Mild midline tenderness mid to lower thoracic region. No step-off or instability. 5/5 strength lower extremities bilateral. Sensation intact to light touch throughout. Perhaps a very subtle by the lateral hand tremor. No tongue fasciculations. Face symmetric. Psych: Calm. Cooperative. MSK: No grossly visible deformity. Vital signs: See flowsheet Vital Signs: Vital Signs - 24 hr 04/21/25 12:40 04/21/25 13:46 04/21/25 13:53 Temperature 98 F 98 F 98 F Pulse Rate 94 94 85 Respiratory Rate 18 18 16 Blood Pressure 113/60 113/60 135/80 Pulse Oximetry 100 100 100 Oxygen Delivery Method Room Air Room Air Room Air BMI result Body Mass Index 26.4 Course Course Course Narrative: RME: 19-year-old trans female presents to ED for back pain for 1 week. Patient has history of cysts on thoracic spine states at moment has had some urinary incontinence. Patient denies any paralysis of lower extremities or abdominal pain. X-ray UA ordered. Medical Decision Making Medical Decision Making MDM Narrative: Medical Decision Making: Acute on chronic mid back pain known syringomyelia. No focal deficits. Reported a single episode of urge incontinence I do not feel the patient has neurogenic retention or incontinence. Reassuring neurologic exam here. Afebrile no IV drug use no suggestion of spinal epidural abscess. Close follow up with Neurology is clearly needed here. I will directly reach out to our neurology team to ensure close follow up. I do not think there is indication at this time for emergent MR but if the patient is unable to get neurology consultation as outpatient in the next few weeks I recommended she come back for MR to evaluate her syringomyelia. Preliminary Favored Differential Diagnosis: Functional back pain, syringomyelia complication, degenerative disc disease, among additional considered etiologies Testing Interpreted Independently: ?See below for details Radiology or Lab testing Results Reviewed: ?See below for details Consults: ?See below for details Independent Historians/External Chart Reviews: ?See below for details Social Determinants of Health Impacting MDM/Planning: ?See below for details Lab Data Labs: Lab Results 04/21/25 Range/Units 12:54 Urine Color Yellow Urine Appearance Clear Urine pH 7.0 (5.0-9.0) Ur Specific [place] 1.010 (1.005-1.025) Urine Protein Negative (Neg-Trace) mg/dL Urine Glucose (UA) Negative (Negative) mg/dL Urine Ketones Negative (Negative) mg/dL Urine Blood Negative (Negative) Urine Nitrite Negative (Negative) Ur Leukocyte Esterase Negative (Negative) Discharge Plan Discharge Clinical Impression: Thoracic back pain, Syringomyelia Patient Disposition: Home, Self-Care Instructions: Back Pain (ED) Additional Instructions: DISCHARGE DIAGNOSES: Thoracic back pain HISTORY OF PRESENTATION: ?1 week of mid thoracic back pain EMERGENCY DEPARTMENT COURSE,TESTS, TREATMENTS: While in the ED today you had back x-rays that were unremarkable and an examination that was reassuring at this time DISCHARGE MEDICATIONS: ?We recommend Tylenol ibuprofen [id number]. You can also use topical agents like plgs-kli-uublqda lidocaine patches or Voltaren gel. We recommended warming pad as needed massage of the back and stretching. You has been prescribed a muscle relaxant do not operate a motor vehicle under this and see how it affects you at nighttime just before bed before using it again FOLLOW-UP: ?Call your primary or general physician soon as possible to discuss your symptoms, your ED visit and to discuss follow up plans Neurology call the office for follow up. We have contacted directly the neurology team to try to expedite your follow up INSTRUCTIONS ?& RETURN PRECAUTIONS: If any symptoms change first call your primary physician, if it is after-hours your primary doctors office should have a provider energy consultant you can speak with. If the symptoms are severe or very concerning to you then call 911 or return to the ED. Return for severe worsening pain. Inability to hold your urine or stool in weakness or sensory changes of the legs or body Vance Yadav MD Emergency Physician [facility] Prescriptions: New methocarbamol 750 mg tablet 750 mg PO Q8H PRN (Reason: spasm) Qty: 10 0RF No Action cefuroxime axetil 500 mg tablet 500 mg PO Q12H 5 Days Qty: 10 0RF ibuprofen 600 mg tablet 600 mg PO Q6H PRN (Reason: fever or pain) Qty: 20 0RF cefuroxime axetil 250 mg tablet 250 mg PO Q12H Qty: 14 0RF cefuroxime axetil 500 mg tablet 500 mg PO BID 7 Days Qty: 14 0RF clindamycin HCl 300 mg capsule 300 mg PO TID Qty: 21 0RF cefuroxime axetil 500 mg tablet 500 mg PO BID Qty: 14 0RF naproxen 500 mg tablet 500 mg PO BID PRN (Reason: pain) Qty: 20 0RF nitrofurantoin monohyd/m-cryst [Macrobid] 100 mg capsule 100 mg PO BID 7 Days Qty: 14 0RF Rx Instructions: must administer with a meal/food cefuroxime axetil 500 mg tablet 500 mg PO Q12H 7 Days Qty: 14 0RF Referrals: [facility] Neuro/Sleep [Provider Group, Neurology] Referral Note: Back pain with known syringomyelia Interventions: ED Discharge Assessment Last Done: 04/21/25 13:46 Discharge Date/Time: 04/21/25 13:54 Print Language: Croatian
[2025-04-21 13:00] LABS: Appearance Urine Clear; Glucose Urine UA Negative (Negative); PH 7.0 (5.0-9.0); Specific Gravity - Urine 1.010 (1.005-1.025)
[2025-04-21 13:46] VITALS: BP 113/60; PULSE 94; RESP 18; TEMP 36.6; O2SAT 100
[2025-04-21 13:53] VITALS: BP 135/80; PULSE 85; RESP 16; TEMP 36.6; O2SAT 100
--- OUTSIDE RECORDS SUMMARY | 2025-04-21 17:35 | XMS_ITS | Encounter Summary ---
Author Organization [facility] Address [address] [facility] [address] [place] [address] Phone Care Team Providers Care Leather Production Artisan Name Role Phone Dillon Bishop MD Unavailable [phone] Evelyn Dash CNP Primary Care Provid er Dillon Salinas MD Unavailable Desiree Barry [facility] Unavailable [phone] Encounter Details Date Type Department Care Team (Late st Contact Info) Description 04/10/2025 Telephone [facility] [address] [place] [address] [phone] Evelyn Dash CNP [address] [place], [place] [phone] [email or web address] Social History Tobacco Use Types Packs/Day Years [...] PM EDT documented as of this encounter Progress Notes * Ms Sri Benson 04/10/2025 11:04 AM EDT Answering service calling to report recent conversation with [facility] in regards to patients medications recently prescribed. Reporting rx interaction (answering service did not get the medication names) documented in this encounter Plan of Treatment Upcoming Encounters Date Type Department Care Team (Late st Contact Info) Description 04/23/2025 2:00 PM EDT Social Work [facility] [address] [place] [phone] Carlos Mccollum [address] [place] [address] 04/28/2025 10:00 AM EST Telemedicine [facility] [address] [place] [address] Desiree Barry, [facility] [address] [email or web address] 04/30/2025 2:00 PM EST Social Work [facility] [address] [place] [address] Carlos Mccollum [address] [place] [address] 05/07/2025 2:00 PM EST Social Work [facility] [address] [place] [address] Carlos Mccollum [address] [place] [address] 05/14/2025 2:00 PM EST Social Work [facility] [address] [place] [address] Carlos Mccollum [address] [place] [address] 05/28/2025 2:00 PM EST Social Work [facility] [address] [place] [phone] Carlos Mccollum [address] [place] [address] 06/04/2025 2:00 PM EST Social Work [facility] [address] [place] [phone] Carlos Mccollum [address] [place] [address] 06/11/2025 2:00 PM EST Social Work [facility] [address] [place] [address] Carlos Mccollum [address] [facility] [place] [address] 06/16/2025 3:00 PM EST Telemedicine [facility] [address] [place] [address] Travis Morrissey MD, [place] [address] [address] 11/03/2025 3:00 PM EDT Telemedicine [facility] Pedi Cardiology at [address] [phone] Dillon Salinas MD [address] [place] [address] [email or web address] documented as of this encounter Visit Diagnoses Not on filedocumented in this encounter Additional Health Concerns Assessment Noted Time PHQ-9 Depression Total Score: 21 025 10:22 AM EDT PHQ-2 Depression Total Score: 4 03/23/20 25 10:22 AM EDT documented as of this encounter Care Teams Leather Production Artisan Relationship Specialty Start Date End Date Evelyn Dash CNP [address] [place] [address] [email or web address] PCP - General Nurse Practitioner 01/25/24 Dillon Bishop MD [address] [place] [address] [place] [address] [email or web address] [email or web address] 07/31/22 Dillon Salinas MD [address] [place] [address] [email or web address] Pediatric Cardiology 07/10/24 Desiree Barry, PMHNP-BC [address] [place] [address] [email or web address] Psychiatrist Nurse Practitioner 02/16/25 documented as of this encounter Additional Source Comments The information contained in this document represents components of the legal health record. It is not the complete legal health record.[facility]
--- OUTSIDE RECORDS SUMMARY | 2025-04-21 17:35 | XMS_ITS | Encounter Summary ---
Author Organization [facility] Address [address] [place] [address] Phone Care Team Providers Care Transformer Mechanic Name Role Phone Yelena Martinez DO Primary Care Provider [phone] Encounter Details Date Type Department Care Team (Late st Contact Info) Description 02/08/2017 Conversion Encounter [facility] [address] [place], [place] [phone] Social History Tobacco Use Types Packs/Day Years [...] on filedocumented in this encounter Care Teams Transformer Mechanic Relationship Specialty Start Date End Date Yelena Martinez DO 150 [place] [address] PCP - General Pediatrics 01/11/22 03/19/23 documented as of this encounter
--- OUTSIDE RECORDS SUMMARY | 2025-04-21 17:35 | XMS_ITS | Encounter Summary ---
Author Organization [facility] Address [address] [place] [address] Phone Care Team Providers Care Aircraft Tool Maker Name Role Phone Yelena Martinez DO Primary Care Provider [phone] Reason for Visit * Reason Comments Med Refill Encounter Details Date Type Department Care Team (Late st Contact Info) Description 12/27/2022 Refill [facility] [place] [address] [place] [address] Yelena Martinez DO 150 [place] [address] GERD without esophagitis Social History Tobacco Use [...] reflux documented in this encounter Care Teams Aircraft Tool Maker Relationship Specialty Start Date End Date Yelena Martinez DO 150 [facility] [place] [address] PCP - General Pediatrics 01/11/22 03/19/23 documented as of this encounter
--- OUTSIDE RECORDS SUMMARY | 2025-04-21 17:35 | XMS_ITS | Encounter Summary ---
Author Organization [facility] Address [address] [facility] [address] [place] [phone] Phone Care Team Providers Care Junior Architect Name Role Phone Dillon Bishop MD Unavailable [phone] Evelyn Dash [facility] Primary Care Provid er Dillon Salinas MD Unavailable [phone] Desiree Barry [facility] Unavailable [phone] Encounter Details Date Type Department Care Team (Late st Contact Info) Description 04/13/2025 Orders Only [facility] [address] [place] [address] [phone] Itzel Figueroa MD [address] [place] [address] [phone] [email or web address] Depression, unspecified depression type (Primary Dx) Social History Tobacco Use Types [...] PM EDT documented as of this encounter Plan of Treatment Upcoming Encounters Date Type Department Care Team (Late st Contact Info) Description 04/23/2025 2:00 PM EDT Social Work [facility] [address] [place] [address] Carlos Mccollum [address] [place] [address] 04/28/2025 10:00 AM EST Telemedicine [facility] [address] [place] [address] Desiree Barry, PMHNP- 10 [place] [address] 04/30/2025 2:00 PM EST Social Work [facility] [address] [place] [address] Carlos Mccollum [address] [place] [address] 05/07/2025 2:00 PM EST Social Work [facility] [address] [place] [address] Carlos Mccollum [address] [place] [address] 05/14/2025 2:00 PM EST Social Work [facility] [address] [place] [address] Carlos Mccollum [address] [place] [address] 05/28/2025 2:00 PM EST Social Work [facility] [address] [place] [address] Carlos Mccollum [address] [place] [address] 06/04/2025 2:00 PM EST Social Work [facility] [address] [place] [address] Carlos Mccollum [address] [place] [address] 06/11/2025 2:00 PM EST Social Work [facility] [address] [place] [phone] Carlos Mccollum [address] [place] [address] 06/16/2025 3:00 PM EST Telemedicine [facility] Wellness [address] [place] [address] Travis Morrissey MD, [place] [address] [facility] [address] [place] [address] [email or web address] 11/03/2025 3:00 PM EDT Telemedicine [facility] Pedi Cardiology at [address] [address] Dillon Salinas MD [address] [place] [address] [email or web address] documented as of this encounter Visit Diagnoses Diagnosis Depression, unspecified depression type- Primary documented in this encounter Additional Health Concerns Assessment Noted Time PHQ-9 Depression Total Score: 21 025 10:22 AM EDT PHQ-2 Depression Total Score: 4 03/23/20 25 10:22 AM EDT documented as of this encounter Care Teams Junior Architect Relationship Specialty Start Date End Date Evelyn Dash CNP [address] [place] [address] [email or web address] PCP - General Nurse Practitioner 01/25/24 Dillon Bishop MD [address] [place] [address] [email or web address] Anesthesiology 07/31/22 Dillon Salinas MD [address] [place] [address] [email or web address] Pediatric Cardiology 07/10/24 Desiree Barry, [facility]- [address] [place] [address] [email or web address] Psychiatrist Nurse Practitioner 02/16/25 documented as of this encounter Additional Source Comments The information contained in this document represents components of the legal health record. It is not the complete legal health record.[facility]
--- OUTSIDE RECORDS SUMMARY | 2025-04-21 17:35 | XMS_ITS | Encounter Summary ---
Author Organization [facility] Address [address] [facility] [address] [place] [address] Phone Care Team Providers Care Pool Attendant Name Role Phone Yelena Martinez DO Primary Care Provider [phone] Jimbo Oliveros MD Unavailable [phone] Dillon Bishop MD Unavailable [phone] Jimbo Oliveros MD Primary Care Provider Ashley Nunez [facility] Unavailable [phone] Jimbo Bryan NP Unavailable Evelyn Dash WELT WHE[employer] Primary Care Provid er Dillon Salinas MD Unavailable [phone] Desiree Barry [facility] Unavailable [phone] Encounter Details Date Type Department Care Team (Late st Contact Info) Description 10/30/2022 Procedure Pass [facility] Cardiology at [place] [address] [place], [place] [phone] Social History Tobacco Use Types Packs/Day Years Used Date Smoking Tobacco: Never Smokeless Tobacco: Never Alcohol Use Standard Drinks/Week Comments Never 0 (1 standard drink = 0.6 oz pur e alcohol) Child or Family Care Answer Date Record ed Do you have problems with on e of the following making it difficult for you to work, study, or receive health care? No 10/27/2022 Education Answer Date Recorded Are you interested in help w ith more adult education (for example, completing high school, GED, job training, learning the Palestinian language, technical skills, or developing parenting skills)? No 10/27/2022 Are you concerned about your learning, performance, or behavior in school? No 10/27/2022 No 10/27/2022 Yes 10/27/2022 Food Answer Date Recorded Within the past 6 months we worried whether our food would run out before we got money to buy more. Often True 10/27/2022 Within the past 6 months the food we bought just didn't last and we didn't have enough money to get more. Often True Residential Stability Answer Date Recor ded What is your housing situation today? I am stayi ng with others 10/27/2022 How many times have you move d in the past 12 months? One time 10/27/2022 Paying for Meds Answer Date Recorded Do you have trouble paying for medicines? Yes 10/27/2022 Paying Utility Bills Answer Date Record ed Do you have trouble paying your heating or elect ricity bill? No 10/27/2022 Transportation Answer Date Recorded Has the lack of transportati on kept you from medical appointments or from getting medications? No 10/27/2022 Unemployment Answer Date Recorded Are you currently unemployed or working on a part-time or temporary basis, and looking for work? No 05/03/2022 Digital Access Answer Date Recorded No 10/27/2022 Yes 10/27/2022 Do you have reliable internet access at home? Ye s 10/27/2022 Do you have a device (e.g., phone, tablet, computer) with a working camera? Yes 10/27/2022 Comments Unknown Sex and Gender Information Value [...] 04/23/2025 2:00 PM EDT Social Work [facility] [address] [place] [address] Carlos Mccollum [address] [place] [address] [email or web address] 04/28/2025 10:00 AM EST Telemedicine [facility] [address] [place] [address] Desiree Barry, PMHNP-[address] [address] [email or web address] 04/30/2025 2:00 PM EST Social Work [facility] [address] [place] [address] Carlos Mccollum [address] [place] [address] [email or web address] 05/07/2025 2:00 PM EST Social Work [facility] [address] [place] [address] Carlos Mccollum [address] [place] [address] 05/14/2025 2:00 PM EST Social Work [facility] [address] [place] [address] Carlos Mccollum [address] [place] [address] 05/28/2025 2:00 PM EST Social Work [facility] [address] [place] [address] Carlos Mccollum [address] [place] [address] 06/04/2025 2:00 PM EST Social Work [facility] [address] [place] [address] Carlos Mccollum [address] [place] [address] 06/11/2025 2:00 PM EST Social Work [facility] [address] [place] [address] Carlos Mccollum [address] [place] [address] [email or web address] 06/16/2025 3:00 PM EST Telemedicine [facility] [address] [facility] [place] [address] Travis Morrissey MD, [place] [address] [facility] [address] [place] [address] [email or web address] 11/03/2025 3:00 PM EDT Telemedicine [facility] at [place] [address] [place] [address] Dillon Salinas MD [address] [place] [address] [email or web address] documented as of this encounter Visit Diagnoses Not on filedocumented in this encounter Additional Health Concerns Assessment Noted Time PHQ-9 Depression Total Score: 13 023 1:14 PM EDT PHQ-2 Depression Total Score: 2 10/28/19 23 1:14 PM EDT documented as of this encounter Care Teams Pool Attendant Relationship Specialty Start Date End Date Yelena Martinez DO 150 [place] [address] PCP - General Pediatrics 04/30/19 01/15/23 Jimbo Oliveros MD 150 [place] [address] PCP - General Pediatrics 01/16/23 01/24/24 Evelyn Dash CNP [address] [place] [address] [email or web address] PCP - General Nurse Practitioner 01/25/24 Jimbo Oliveros MD 150 [place] [address] Consulting Provider Pediatrics 04/25/22 07/22/24 Dillon Bishop MD [address] [place] [address] 444 [place] [address] [email or web address] Anesthesiology 07/31/22 Ashley Nunez, ANDRAE [address] [place] [address] [email or web address] Primary Care Physician 04/18/23 01/24/24 Jimbo Bryan NP [address] [place] [address] Psychiatrist 06/11/23 08/22/24 Dillon Salinas MD [address] [place] [address] [email or web address] Pediatric Cardiology 07/10/24 Desiree Barry, [facility] [address] [place] [address] [email or web address] Psychiatrist Nurse Practitioner 02/16/25 documented as of this encounter Additional Source Comments The information contained in this document represents components of the legal health record. It is not the complete legal health record.[facility]
--- OUTSIDE RECORDS SUMMARY | 2025-04-21 17:35 | XMS_ITS | Encounter Summary ---
Author Organization [facility] Address [address] [place] [address] Phone Care Team Providers Care Patient Registration Specialist Name Role Phone Yelena Martinez DO Primary Care Provider [phone] Reason for Visit * Reason Comments Med Refill Encounter Details Date Type Department Care Team (Late st Contact Info) Description 02/26/2020 Refill [facility] [place] [address] [place] [address] Yelena Martinez DO 150 [place] [address] Chronic bilateral low back pain without sciatica [...] sciatica documented in this encounter Care Teams Patient Registration Specialist Relationship Specialty Start Date End Date Yelena Martinez DO [address] [place] [address] PCP - General Pediatrics 01/11/22 03/19/23 documented as of this encounter
--- OUTSIDE RECORDS SUMMARY | 2025-04-21 17:35 | XMS_ITS | Clinical Summary ---
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 Desiree Barry, [facility] Adjustment disorder with depressed mood (Primary Dx); Borderline personality disorder from Last 3 Months Immunizations Immunization Administration Dates Next Due DTaP 01/02/2008, 5,07/05/2004,05/05,03/10/2004 HPV9 05/08/2016 Hepatitis A, ped/adol, 2 dose 02/27/2012, 008 Hepatitis B 07/05/2004,02/08/2004,2003 Hib,PRP-T 05/03/2005, 5,05/05/2004,03/10 IPV 01/02/2008, 5,05/05/2004,03/10 Influenza Quadrivalent Prese rvative Free IM 03/03/2020,04/28/2015 Influenza Quadrivalent w/ Pr eservative IM 03/21/2013,03/09/2009,05/03/2005,04/25,07/05/2004 MMR 01/02/2008,02/09/2005 Meningococcal B, recombinant (MenB-FHbp) 01/25/2022 Meningococcal MCV4P 03/03/2020,04/28/2015 Pneumococcal conjugate, PCV 7 02/09/2005 ,07/05/2004,05/05/2004,03/10 Tdap 04/28/2015 Varicella 01/02/2008,02/09/2005 Family History Medical History Relation Comments Irritable bowel syndrome Brother 1 Syringomyelia Brother 1 Autism spectrum disorder Brother 2 Rheumatoid arthritis Brother 2 Marfan syndrome Father Pectus excavatum Father CABG Maternal Grandfather Diabetes Maternal Grandfather Heart disease Maternal Grandfather Diabetes Maternal Grandmother Hyperlipidemia Maternal Grandmother Multiple sclerosis Mother Other Mother Mast cell activa tion syndrome, autonomic dysfunction Polycystic ovary syndrome Mother Psoriasis Mother Syringomyelia Mother Relation Status Comments Brother 1 14 yo Brother 2 Alive 17 Father Maternal Grandfather Maternal Grandmother Mother Social History Tobacco Use Types Packs/Day Years Used Date Smoking Tobacco: Never Passive Smoke Exposure: Current Smokeless Tobacco: Never Tobacco Cessation:Counseling Given: Not Answered Passive Exposure Comments:Grandpa smokes, used to in house but no [...] Orientation Queer 03/22/2025 3: 54 PM EDT Last Filed Vital Signs Vital Sign Reading Time Taken Comments Blood Pressure 125/70 01/05/2025 2:06 PM EDT Pulse 96 01/05/2025 2:06 PM EDT Temperature 37.2 C (98.9 F) 05/14/2023 4:46 PM EST Respiratory Rate - - Oxygen Saturation 98% 01/05/2025 2:06 PM EDT Inhaled Oxygen Concentration - - Weight 88.5 kg (195 lb) 11/12/2023 4:26 PM EDT Height 172.7 cm (5' 8 ) 11/12/2023 4:26 PM EDT Body Mass Index 29.65 11/12/2023 4:26 PM EDT Plan of Treatment Upcoming Encounters Date Type Department Care Team (Late st Contact Info) Description 04/23/2025 2:00 PM EDT Social Work [facility] [address] [place] [address] [phone] Carlos Mccollum [address] [place] [address] [email or web address] 04/28/2025 10:00 AM EST Telemedicine [facility] [address] [place] [phone] Desiree Barry, PMHNP-[address] [address] [email or web address] 04/30/2025 2:00 PM EST Social Work [facility] [address] [place] [address] [phone] Carlos Mccollum [address] [place] [address] 05/07/2025 2:00 PM EST Social Work [facility] [address] [place] [phone] Carlos Mccollum [address] [place] [address] 05/14/2025 2:00 PM EST Social Work [facility] [address] [place] [phone] Carlos Mccollum [address] [place] [address] 05/28/2025 2:00 PM EST Social Work [facility] [address] [place] [address] Carlos Mccollum [address] [place] [address] 06/04/2025 2:00 PM EST Social Work [facility] [address] [place] [address] Carlos Mccollum [address] [place] [address] 06/11/2025 2:00 PM EST Social Work [facility] [address] [place] [address] [phone] Carlos Mccollum [address] [place] [address] 06/16/2025 3:00 PM EST Telemedicine [facility] [address] [place] [phone] Travis Morrissey MD, [address] [address] 11/03/2025 3:00 PM EDT Telemedicine [facility] at [address] [phone] Dillon Salinas MD [address] [place] [phone] [email or web address] Health Maintenance Due Date Last Done Comments HPV VACCINES (2 - 2-dose series) 11/05/2016 05/08/2016 HEPATITIS C SCREENING 12/30/2021 HIV ONE-TIME SCREENING (18-65 YEARS) 12/30/2021 MENINGOCOCCAL VACCINES (B) (2 of 2 - Trumenba SCDM 2-dose series) 07/28/2022 01/25/2022 PAP SMEAR 12/30/2024 INFLUENZA VACCINE (#1) 2025 , 04/28/2015, 03/21/2013, Additional history exists COVID-19 VACCINE ( season) 2025 02/13/2022, 01/11/2022 CHLAMYDIA SCREENING 04/10/2025 04/10/2024 REPEAT PHQ 04/22/2025 03/23/2025, 03/23/2025 Adult Td,Tdap Booster 04/28/2025 04/28/2015 COMBINED DTaP,Tdap,Td (7 - Td or Tdap) 04/28/2025 04/28/2015, 01/02/2008, 05/03/2005, Additional history exists SMOKING Hx and SMOKELESS TOBACCO SCREENING 12/09/2025 12/09/2024 DEPRESSION SCREENING 03/23/2026 03/23/2025, 03/23/20 25 TSH LEVEL 03/31/2026 03/31/2025, 11/13/2023 CREATININE LEVEL 04/16/2026 04/16/2025, 12/2024, 05/15/2022 LITHIUM LEVEL 04/16/2026 04/16/2025 POTASSIUM LEVEL 04/16/2026 04/16/2025, 10/0 12/2024, 05/15/2022 PNEUMOCOCCAL VACCINES (0-49 years) Aged Out 02/09/2005, 07/05/2004, 05/05/2004, Additional history exists No longer eligible based on patient's age to complete this topic HIB VACCINES Completed 05/03/2005, 06/25, 05/05/2004, Additional history exists MMR VACCINES Completed 01/02/2008, 02/09/2005 HEPATITIS A VACCINES Completed 02/27/2012, 01/02/20 08 MENINGOCOCCAL VACCINES (ACWY) Completed 03/03/2020, 04/28/2015 ADOLESCENT UNIVERSAL LIPID SCREENING Completed 05/15/2022 Medical Devices Not on file Procedures Procedure Name Priority Date/Time Associated Diagnosis Comments LITHIUM LEVEL Routine 04/16/2025 12:32 PM EDT Bipolar affective disorder, depressed, severe, with psychotic behavior BASIC METABOLIC PANEL Routine 04/16/2025 12:32 PM EDT Bipolar affective disorder, depressed, severe, with psychotic behavior URINALYSIS W/REFLEX URINE CULTURE Routine 03/31/2025 1:32 PM EDT Bipolar affective disorder, currently manic, moderate CBC AND DIFFERENTIAL Routine 03/31/2025 1:21 PM EDT Bipolar affective disorder, currently manic, moderate COMPREHENSIVE METABOLIC PANEL Routine 03/31/2025 1:21 PM EDT Bipolar affective disorder, currently manic, moderate TSH WITH REFLEX Routine 03/31/2025 1:21 PM EDT Bipolar affective disorder, currently manic, moderate THYROPEROXIDASE (TPO) ANTIBODIES Routine 03/31/2025 1:21 PM EDT Bipolar affective disorder, currently manic, moderate SURESWAB ADVANCED VAGINITIS PLUS, TMA Routine 04/10/2024 4:30 PM EDT LIPID PANEL Routine 05/15/2022 7:13 PM EST Medication management from Last 3 Months or Most Recently Relevant to Health Maintenance Results * (ABNORMAL) [place] level (04/16/2025 12:32 PM EDT) LITHIUM 0.12(L) 0.5 - 1.00 mmol/L [facility] Blood 04/16/2025 12:3 2 PM EDT 04/16/2025 12:38 PM EDT Desiree Barry [facility]- LAB BLOOD ORDERABLE S Final Result [address] [address] * (ABNORMAL) Basic metabolic panel (04/16/2025 12:32 PM EDT) SODIUM 141 133 - 146 mmol/L [facility] CHLORIDE 103 96 - 108 mmol/L [facility] POTASSIUM 3.9 3.3 - 5.1 mmol/L [facility] CO2 22 21 - 35 mmol/L [facility] BUN 9 6 - 19 mg/dL [facility] CREATININE 0.60 0.5 - 1.5 mg/dL [facility] GLUCOSE 69(L) 70 - 99 mg/dL [facility] CALCIUM 10.0 8.4 - 10.3 mg/dL [facility] EGFR >120 >59 mL/min/1.7 3m2 [facility] Comment:Estimated glomerular filtration rate calculated using the CKD-EPI refit equation. ANION GAP 20 10 - 20 mmol/L [facility] Blood 04/16/2025 12:3 2 PM EDT 04/16/2025 12:38 PM EDT us Desiree Barry [facility]- LAB BLOOD ORDERABLE S Final Result Performing Organization Address City/[facility] Co de Phone Number [address] [address] * Urinalysis w/reflex Urine Culture (03/31/2025 1:32 PM EDT) COLOR Yellow Yellow [facility] CLARITY Clear [facility] GLUCOSE Negative Negative [facility] BILI Negative Negative [facility] KETONES Negative Negative [facility] SPECIFIC GRAVITY 1.015 1.005 - 1.030 [facility] BLOOD Negative Negative [facility] PH 6.5 5.0 - 8.0 [facility] Protein-UA Negative Negative [facility] NITRITE Negative Negative [facility] Leukocyte esterase, ur Negative Negative [facility] Urine (Urine) 03/31/2025 1:3 2 PM EDT 03/31/2025 1:33 PM EDT us Desiree Barry PMHNP-BC URINE ORDERABLES Fi nal Result Performing Organization Address [facility]/ZIP Co de Phone Number [address] [address] * Comprehensive metabolic panel (03/31/2025 1:21 PM EDT) SODIUM 139 133 - 146 mmol/L [facility] POTASSIUM 4.4 3.3 - 5.1 mmol/L [facility] CHLORIDE 105 96 - 108 mmol/L [facility] CO2 22 21 - 35 mmol/L [facility] BUN 11 6 - 19 mg/dL [facility] CREATININE 0.70 0.5 - 1.5 mg/dL [facility] GLUCOSE 97 70 - 99 mg/dL [facility] ALBUMIN 4.8 3.9 - 4.8 g/dL [facility] TOTAL PROTEIN 7.7 6.5 - 8.0 g/dL [facility] CALCIUM 9.9 8.4 - 10.3 mg/dL [facility] ALKALINE PHOSPHATASE 83 39 - 117 U/L [facility] TOTAL BILIRUBIN 0.6 0.0 - 1.2 mg/dL [facility] AST 13 0 - 37 U/L [facility] ALT 16 0 - 40 U/L [facility] GLOBULIN 2.9 1 - 4.8 g/dL [facility] EGFR >120 >59 mL/min/1.7 3m2 [facility] Comment:Estimated glomerular filtration rate calculated using the CKD-EPI refit equation. ANION GAP 16 10 - 20 mmol/L [facility] Blood 03/31/2025 1:21 PM EDT 03/31/2025 1:25 PM EDT us Desiree Barry [facility] LAB BLOOD ORDERABLE S Final Result Performing Organization Address City/[facility]/ZIP Co de Phone Number [address] [address] * TSH with reflex (03/31/2025 1:21 PM EDT) TSH 1.02 0.27 - 4.20 uIU/mL [facility] Blood 03/31/2025 1:21 PM EDT 03/31/2025 1:25 PM EDT us Desiree Barry [facility] LAB BLOOD ORDERABLE S Final Result Performing Organization Address City/[facility]/ZIP Co de Phone Number [address] [address] * Thyroperoxidase (TPO) antibodies (03/31/2025 1:21 PM EDT) THYROPEROXIDASE AB, S <0.3 <9.0 IU/mL [facility] Blood 03/31/2025 1:21 PM EDT 03/31/2025 1:26 PM EDT us Desiree Barry PMHNP- LAB BLOOD ORDERABLE S Final Result [facility] [place] [address] * (ABNORMAL) CBC and differential (03/31/2025 1:21 PM EDT) WBC 7.07 4.00 - 11.00 K/uL [facility] RBC 4.70 4.00 - 5.20 M/uL [facility] HGB 14.7 12.0 - 16.0 g/dL [facility] HCT 41.6 36.0 - 46.0 % [facility] PLT 295 150 - 450 K/uL [facility] MCV 88.5 80.0 - 100.0 fL [facility] MCH 31.3(H) 27.0 - 31.0 pg [facility] MCHC 35.3 32.0 - 36.0 g/dL [facility] RDW 12.0 11.5 - 14.5 % [facility] MPV 10.1 8.4 - 12.0 fL [facility] NRBC 0.00 0.00 /100 WBCs [facility] ABSOLUTE NRBC 0.00 0.00 K/uL [facility] DIFF METHOD Auto [facility] NEUTS 63.9 48.0 - 76.0 % [facility] LYMPHS 25.9 18.0 - 41.0 % [facility] MONOS 7.6 4.0 - 11.0 % [facility] EOS 2.1 0.0 - 5.0 % [facility] BASOS 0.4 0.0 - 1.5 % [facility] Granulocytes, immature (%) 0.1 0.0 - 0.9 % [facility] ABSOLUTE NEUTS 4.51 1.92 - 7.60 K/uL [facility] ABSOLUTE LYMPHS 1.83 0.72 - 4.10 K/uL [facility] ABSOLUTE MONOS 0.54 0.16 - 1.10 K/uL [facility] ABSOLUTE EOS 0.15 0.00 - 0.50 K/uL [facility] ABSOLUTE BASOS 0.03 0.00 - 0.15 K/uL [facility] Granulocytes, immature 0.01 0.00 - 0.09 K/uL [facility] Blood 03/31/2025 1:21 PM EDT 03/31/2025 1:25 PM EDT Desiree Barry [facility]- LAB BLOOD ORDERABLE S Final Result [facility] [address] [place] [address] * (ABNORMAL) Sureab Advanced Vaginitis Plus, TMA (04/10/2024 4:30 PM EDT) [facility] Adv Bacterial Vaginosis (BV), TMA NEGATIVE NEGATIVE IP [facility] [place] [employer] Marilu Species DETECTED(A) NOT DETECTED [address] [place] [employer] Marilu Glabrata NOT DETECTED NOT DETECTED [address] [facility] [place] [employer] Comment: Marilu species C. albicans, C. tropicalis, C. parapsilosis, and/or C. dubliniensis can be detected, but not differentiated, in the Marilu spp. result. Trichomonas Vaginalis (TV), TMA NOT DETECTED NOT DETECTED [address] [place] [employer] Chlamydia trachomatis RNA, TMA NOT DETECTED NOT DETECTED [address] [place] [employer] Neisseria gonorrhoeae RNA, TMA NOT DETECTED NOT DETECTED [address] [place] [employer] Comment: For additional information, please refer to https://education.[employer]/faq/RRR336 (This link is being provided for information/ educational purposes only.) 04/10/2024 4:30 PM EDT 04/11/2024 1:02 PM EDT Narrative [facility] - 04/13/2024 7:15 AM EDT FASTING: UNKNOWN Evelyn Dash CNP LAB BLOOD ORDERABLES Final Result Performing Organization Address [facility]/ZIP Co de Phone Number [facility] [address] [address], [place] [phone] [facility] [address] [place] [address] * (ABNORMAL) Lipid panel (05/15/2022 7:13 PM EST) HDL 40 mg/dL [facility] Comment: Interpretation <40 mg/dL: Low HDL cholesterol (major risk factor for CHD) Greater than or equal to 60 mg/dL: High HDL cholesterol ( negative risk factor for CHD) HDL - cholesterol is affected by a number of factors, e.g. smoking, excerise, hormones, sex and age. CHOLESTEROL 162 0 - 240 mg/dL [facility] Comment: Pediatric Reference Ranges for 2 to 18 years Acceptable: Less than 170 mg/dL Borderline: 170 - 199 mg/dL High: Greater than or equal to 200 mg/dL TRIGLYCERIDES 193(H) 30 - 160 mg/dL [facility] LDL 83 50 - 129 mg/dL [facility] Comment: LDL levels in terms of risk for coronary heart disease: <100 mg/dL: Optimal 100-129 mg/dL: Near or above optimal 130-159 mg/dL: Borderline high 160-189 mg/dL: High >190 mg/dL: Very High CARDIAC RISK RATIO 4.1 3.3 - 4.4 [facility] Blood 05/15/2022 7:13 PM EST 05/15/2022 7:25 PM EST Caryn aMlloy MD LAB BLOOD ORDERABLES Final Re sult Performing Organization Address [facility]/ZIP Co de Phone Number [facility] [address] [place] [address] from Last 3 Months or Most Recently Relevant to Health Maintenance [place] [facility] PPO [facility] PPO Member Subscriber Plan / Payer (Ef fective 2025-Present) Name:Lorenzo Sánchez Relation to Subscriber:Self Name:Lorenzo Sánchez Payer ID:[id number] (NAIC) Type:PPO Address: [place] [id number] [place] [facility] [facility] [place] Care Teams Hospitality Coordinator Relationship Specialty Start Date End Date Evelyn Dash CNP [address] [place] [phone] [email or web address] PCP - General Nurse Practitioner 01/25/24 Dillon Bishop MD [address] [place] [address] [place] [phone] [email or web address] 07/31/22 Dillon Salinas MD [address] [place] [phone] [email or web address] Cardiology 07/10/24 Desiree Barry, HNP- [address] [place] [phone] [email or web address] Psychiatrist Nurse Practitioner 02/16/25 Additional Source Comments The information contained in this document represents components of the legal health record. It is not the complete legal health record.[facility]
--- OUTSIDE RECORDS SUMMARY | 2025-04-21 17:35 | XMS_ITS | Clinical Summary ---
Author Organization [facility] Address [address] [place], [place] [id number] Care Team Providers Care Cooker Helper Name Role Phone Yelena Martinez DO Primary Care Provider [phone] Source Comments Please note that some or all of the patient's information could have additional privacy protections. State laws allow health care providers to render certain types of treatment to minors without parental consent. Please do not assume that this information can be shared solely by obtaining just the consent of the patient's parent/guardian. Please determine if all or part of the patient's care was rendered without parent/guardian involvement. And, if so, obtain the minor's consent prior to disclosure.[facility] Allergies Active Allergy Reactions Criticality Noted Date Comments Amoxicillin-Pot Clavulanate Diarrhea 05/12/20 19 Mom states reaction is diarrhea Kaylyn. Levofloxacin Rash Low 12/27/2020 Medications acetaminophen (TYLENOL) 500 MG tablet Take by mouth Active SUMAtriptan (IMITREX) 25 MG tablet 1 tablet by mouth at onset of headache, repeat in 2 hours if needed, no more than 2 headaches per week 0 Active drospirenone, contraceptive, (SLYND) 4 mg (28) Tablet Take 1 tablet by mouth daily 2 Active amitriptyline (ELAVIL) 10 MG tablet TAKE 1 TABLET BY MOUTH AT BEDTIME, TAKE WITH 50MG TABLET 1 Active amitriptyline (ELAVIL) 50 MG tablet TAKE 1 TABLET BY MOUTH NIGHTLY AT BEDTIME WITH 10 MG TABLET FOR TOTAL DOSE OF 60 MG. 1 Active ISOtretinoin (ACCUTANE) 40 MG capsule Take 40 mg by mouth 2 (two) times daily Active Active Problems Problem Noted Date Diagnosed Date Cyst of ovary, left 02/13/2020 Overview (04/08/2020): 5 cm incidental finding on US in 2018 Repeat 2019- 4cm Plan check in 2020 Voiding dysfunction 07/28/2019 Overview (04/08/2020): Seeing [facility]/Dr. Drummond- last visit EMG abnormal- biofeedback @ [facility] and PT rec Last Assessment & Plan: Will be starting biofeedback tx @ [facility] Headache disorder 03/03/2019 Overview (04/08/2020): neurol- seeing Dr. Bunch- FU On amitryptiline and prn imitrex Previously: Saw [facility] neurol in 2019- had MRI brain- wnl; was concerned about mom's MS hx Last Assessment & Plan: Migraines are manageable per teen On amitryptiline and prn imitrex Will see Dr. Bunch for first visit in October Was seeing [facility] Neurol prior but too far for family Family history of Marfan syndrome 01/15/2019 Overview (04/08/2020): Genetics C/S 2019: could have Marfan's- need radiol to comment on MRI spine- may meet criteria if so. Gene sequencing ordered- FU . genetics Dr. Jones- : Last Assessment & Plan: 12/02/2019 (age 13 yr 11 mo): According to mom, genetic test of marfan's was negative. He is being worked up for Ehler Danlos and Yilq-Gapq-Fby syndrome by genetics. Mom is worried that he may be prone to cellulitis because she is. (He was seen for preseptal cellulitis today) Await genetic testing results and conclusions. 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 Ultrasound 11/2018 - most consistant with urachal cyst Last Assessment & Plan: Will FU with [facility] with US Acne vulgaris 10/04/2018 Overview (04/08/2020): Doxy course plus simon-oxyl wash Derm referral [...] doxy course Binder is not exacerbating acne [id number] transgender person 10/04/2018 Overview (04/08/2020): Identifies as male since 9 yo. Prefers Lorenzo Parents have some concerns about hormone therapy TG clinic referral- Last Assessment & Plan: He has not been referred to Gender clinic and I think this would be a great idea viola now that he is approaching 14yo Discussed gender therapists- gave list to teen and dad He wants to learn more about testosterone Family history of MS (multiple sclerosis) 2018 Overview (04/08/2020): Mom has dx Tumefactive MS - very severe. On immune compromising medication. Mom concerned that Kaylyn might have MS as well. Mom reported that Kaylyn fell out of Mat GF arms when Kaylyn was an and was seen by Pedi at the time who had no concerns. At 2 yo xray revealed ? old skull fx. DCF involved. [facility] and found that further imaging reassuring for no skull fx. I called and let mom know. 10/2018 Brain MRI normal Last Assessment & Plan: reasurrance given that Lorenzo does not have MS, given recent neg MRI Chronic bilateral low back pain without sciatica 07/10/2018 Overview (04/08/2020): Has C/S w/ [facility]um APR 08 Seeing ortho [facility] for spondylolysis- Brace rx; plan PT; Had FU - repeat MRIs done; referred to Pain clinic- mom did not hear about consult Refuses to wear back brace May want to TF care to local ortho sees Dr Taylor, rheumatology- on celebrex and prilosec for GI protection; has FU soon Mom has MS and older brother has reactive arthritis Xray of spine for scoliosis 04/11 pos for mild S shaped thoracolumbar scoliosis. Saw [facility] Neurol: MRI done @ [facility] October 2018: pos for L5 fracture (consistent with Spondylolysis) Last Assessment & Plan: Seeing multiple specialists for this- rheum locally and [facility] Ortho and had [facility] neurol C/S Will be having repeat MRI spine per Ortho- then deciding on plan Has brace and has done PT Refused influenza vaccine 07/10/2018 Overview (04/08/2020): refuses flu vaccine and any further HPV Anxiety disorder 06/07/2018 Overview (04/08/2020): Has tried therapy in the past- did [...] scoliosis of thoracolumbar region 1 06/25/2017 Overview (04/08/2020): With lots of back pain. Has seen [facility] 05/12. Mild scoliosis. No concerns Xray of spine for scoliosis 04/11 pos for mild S shaped thoracolumbar scoliosis. Last Assessment & Plan: Family History Medical History Relation Name Comments Juvenile idiopathic arthritis Neg Hx Lupus Neg Hx Psoriasis Neg Hx Thyroid disease Neg Hx Social History Tobacco Use Types Packs/Day Years Used Date Smoking Tobacco: Passive Smo ke Exposure - Never Smoker Comments:outside Other Needs Answer Date Recorded Anything else about your child you'd like help w ith? Not on file 03/09/2023 Share good news about positive changes: Not on f ile 03/09/2023 Comments No Sex and Gender Information Value Date Recorded Sex Assigned at Not on file Legal Sex Female 4:30 PM EDT Gender Identity Male 05/02/2021 2:19 PM EST Sexual Orientation Not on file Last Filed Vital Signs Vital Sign Reading Time Taken Comments Blood Pressure 124/77 08/11/2021 2:47 PM EST Pulse 107 08/11/2021 2:47 PM EST Temperature - - Respiratory Rate - - Oxygen Saturation - - Inhaled Oxygen Concentration - - Weight 69.6 kg (153 lb 7 oz) 08/11/2021 2:47 PM EST Height 170.4 cm (5' 7.09 ) 08/11/2021 2:47 PM ES T Body Mass Index 23.97 08/11/2021 2:47 PM EST Plan of Treatment Health Maintenance Due Date Last Done Comments DTaP/TDAP/TD VACCINES (1 - Tdap) 12/30/2010 ADOLESCENT HIV SCREENING 12/30/2016 COVID-19 Vaccine (2023-2 5 season) 2025 INFLUENZA (#1) 2025 NIRSEVIMAB VACCINES UNDER 8 MONTHS Aged Out No longer eligible based on patient's age to complete this topic Insurance [facility] Address: [address] [address] [facility] MEDICAID Care Teams Cooker Helper Relationship Specialty Start Date End Date Yelena Martinez DO [address] [place] [address] MJ [address] [place] [phone] PCP - General General Pediatrics 01/28/20
--- OUTSIDE RECORDS SUMMARY | 2025-04-21 17:35 | XMS_ITS | Encounter Summary ---
Author Organization [facility] Address [address] [place] [phone] Phone Care Team Providers Care Hand Fur Cleaner Name Role Phone Yelena Martinez DO Primary Care Provider [phone] Reason for Visit * Reason Comments Med Refill Encounter Details Date Type Department Care Team (Late st Contact Info) Description 12/26/2021 Refill [facility] [address] [place] [address] Yelena Martinez DO [address] [place] [address] Acne vulgaris; Menstrual disorder Social History Tobacco [...] disorder documented in this encounter Care Teams Hand Fur Cleaner Relationship Specialty Start Date End Date Yelena Martinez DO [address] [place] [address] [place] [id number] PCP - General Pediatrics 01/11/22 03/19/23 documented as of this encounter
--- OUTSIDE RECORDS SUMMARY | 2025-04-21 17:35 | XMS_ITS | Encounter Summary ---
Author Organization [facility] Address [address] [facility] [address] [place] [address] Phone Care Team Providers Care Coin Teller Name Role Phone Dillon Bishop MD Unavailable Evelyn Dash CNP Primary Care Provid er Dillon Salinas MD Unavailable Desiree Barry [facility] Unavailable [phone] Encounter Details Date Type Department Care Team (Late st Contact Info) Description 03/27/2025 Orders Only [facility] [address] [place] [address] [phone] Desiree Barry [facility] [phone] [email or web address] Bipolar affective disorder, currently manic, moderate (Primary Dx) Social History Tobacco Use Types [...] 04/23/2025 2:00 PM EDT Social Work [facility] [address] [place] [phone] Carlos Mccollum [address] [place] [address] 04/28/2025 10:00 AM EST Telemedicine [facility] [address] [place] [phone] Desiree Barry, PMHNP-[address] [address] [email or web address] 04/30/2025 2:00 PM EST Social Work [facility] [address] [place] [phone] Carlos Mccollum [address] [place] [address] [email or web address] 05/07/2025 2:00 PM EST Social Work [facility] [address] [place] [phone] Carlos Mccollum [address] [place] [address] 05/14/2025 2:00 PM EST Social Work [facility] [address] [place] [phone] Carlos Mccollum [address] [place] [address] 05/28/2025 2:00 PM EST Social Work [facility] [address] [place] [phone] Carlos Mccollum [address] [place] [address] 06/04/2025 2:00 PM EST Social Work [facility] [address] [place] [phone] Carlos Mccollum [address] [place] [address] 06/11/2025 2:00 PM EST Social Work [facility] [address] [place] [address] Carlos Mccollum [address] [place] [address] 06/16/2025 3:00 PM EST Telemedicine [facility] [address] [place] [phone] Travis Morrissey MD, [place] [address] [facility] [address] [place] [address] [email or web address] 11/03/2025 3:00 PM EDT Telemedicine [facility] [employer] [address] [place] [phone] Dillon Salinas MD [address] [place] [address] [email or web address] documented as of this encounter Results * Urinalysis w/reflex Urine Culture (03/31/2025 1:32 PM EDT) COLOR Yellow Yellow [facility] CLARITY Clear [facility] GLUCOSE Negative Negative [facility] BILI Negative Negative [facility] KETONES Negative Negative [facility] SPECIFIC GRAVITY 1.015 1.005 - 1.030 [facility] BLOOD Negative Negative [facility] PH 6.5 5.0 - 8.0 [facility] Protein-UA Negative Negative [facility] NITRITE Negative Negative [facility] Leukocyte esterase, ur Negative Negative [facility] Urine (Urine) 03/31/2025 1:3 2 PM EDT 03/31/2025 1:33 PM EDT Desiree Barry [facility] URINE ORDERABLES Fi nal Result [facility] [address] [place] [address] * Thyroperoxidase (TPO) antibodies (03/31/2025 1:21 PM EDT) THYROPEROXIDASE AB, S <0.3 <9.0 IU/mL [facility]PATH [address] Blood 03/31/2025 1:21 PM EDT 03/31/2025 1:26 PM EDT us Desiree Barry PMHNP-BC LAB BLOOD ORDERABLE S Final Result [facility] [address] [place] [address] * TSH with reflex (03/31/2025 1:21 PM EDT) TSH 1.02 0.27 - 4.20 uIU/mL [facility] Blood 03/31/2025 1:21 PM EDT 03/31/2025 1:25 PM EDT us Desiree Barry PMHNP-BC LAB BLOOD ORDERABLE S Final Result Performing Organization Address City/[facility]/ZIP Co de Phone Number [address] [address] * Comprehensive metabolic panel (03/31/2025 1:21 PM EDT) SODIUM 139 133 - 146 mmol/L [facility] POTASSIUM 4.4 3.3 - 5.1 mmol/L [facility] CHLORIDE 105 96 - 108 mmol/L [facility] CO2 22 21 - 35 mmol/L [facility] BUN 11 6 - 19 mg/dL [facility] CREATININE 0.70 0.5 - 1.5 mg/dL [facility] GLUCOSE 97 70 - 99 mg/dL [facility] ALBUMIN 4.8 3.9 - 4.8 g/dL [facility] TOTAL PROTEIN 7.7 6.5 - 8.0 g/dL [facility] CALCIUM 9.9 8.4 - 10.3 mg/dL [facility] ALKALINE PHOSPHATASE 83 39 - 117 U/L [facility] TOTAL BILIRUBIN 0.6 0.0 - 1.2 mg/dL [facility] AST 13 0 - 37 U/L [facility] ALT 16 0 - 40 U/L [facility] GLOBULIN 2.9 1 - 4.8 g/dL [facility] EGFR >120 >59 mL/min/1.7 3m2 [facility] Comment:Estimated glomerular filtration rate calculated using the CKD-EPI refit equation. ANION GAP 16 10 - 20 mmol/L [facility] Blood 03/31/2025 1:21 PM EDT 03/31/2025 1:25 PM EDT us Desiree Joshua Barry PMHNP-BC LAB BLOOD ORDERABLE S Final Result [address] [address] * (ABNORMAL) CBC and differential (03/31/2025 1:21 PM EDT) WBC 7.07 4.00 - 11.00 K/uL [facility] RBC 4.70 4.00 - 5.20 M/uL [facility] HGB 14.7 12.0 - 16.0 g/dL [facility] HCT 41.6 36.0 - 46.0 % [facility] PLT 295 150 - 450 K/uL [facility] MCV 88.5 80.0 - 100.0 fL [facility] MCH 31.3(H) 27.0 - 31.0 pg [facility] MCHC 35.3 32.0 - 36.0 g/dL [facility] RDW 12.0 11.5 - 14.5 % [facility] MPV 10.1 8.4 - 12.0 fL [facility] NRBC 0.00 0.00 /100 WBCs [facility] ABSOLUTE NRBC 0.00 0.00 K/uL [facility] DIFF METHOD Auto [facility] NEUTS 63.9 48.0 - 76.0 % [facility] LYMPHS 25.9 18.0 - 41.0 % [facility] MONOS 7.6 4.0 - 11.0 % [facility] EOS 2.1 0.0 - 5.0 % [facility] BASOS 0.4 0.0 - 1.5 % [facility] Granulocytes, immature (%) 0.1 0.0 - 0.9 % [facility] ABSOLUTE NEUTS 4.51 1.92 - 7.60 K/uL [facility] ABSOLUTE LYMPHS 1.83 0.72 - 4.10 K/uL [facility] ABSOLUTE MONOS 0.54 0.16 - 1.10 K/uL [facility] ABSOLUTE EOS 0.15 0.00 - 0.50 K/uL [facility] ABSOLUTE BASOS 0.03 0.00 - 0.15 K/uL [facility] Granulocytes, immature 0.01 0.00 - 0.09 K/uL [facility] Blood 03/31/2025 1:21 PM EDT 03/31/2025 1:25 PM EDT Desiree Barry PMHNP- LAB BLOOD ORDERABLE S Final Result [facility] [address] [place] [address] documented in this encounter Visit Diagnoses Diagnosis Bipolar affective disorder, currently manic, moderate- Primary Bipolar I disorder, most recent episode (or current) manic, moderate documented in this encounter Additional Health Concerns Assessment Noted Time PHQ-9 Depression Total Score: 21 025 10:22 AM EDT PHQ-2 Depression Total Score: 4 03/23/20 25 10:22 AM EDT documented as of this encounter Care Teams Coin Teller Relationship Specialty Start Date End Date Evelyn Dash CNP [address] [place] [phone] [email or web address] PCP - General Nurse Practitioner 01/25/24 Dillon Bishop MD [address] [place] [address] [place] [phone] [email or web address] Anesthesiology 07/31/22 Dillon Salinas MD [address] [place] [id number] [email or web address] Pediatric Cardiology 07/10/24 Desiree Barry, PMHNP-BC [address] [place] [phone] [email or web address] Psychiatrist Nurse Practitioner 02/16/25 documented as of this encounter Additional Source Comments The information contained in this document represents components of the legal health record. It is not the complete legal health record.[facility]
--- OUTSIDE RECORDS SUMMARY | 2025-04-21 17:35 | XMS_ITS | Encounter Summary ---
Author Organization [facility] Address [address] [place], [place] [phone] Phone Care Team Providers Care Basket Grader Name Role Phone Yelena Martinez DO Primary Care Provider [phone] Reason for Visit * Reason Comments Med Refill Encounter Details Date Type Department Care Team ([facility] Contact Info) Description 06/04/2017 [facility]ill [facility] [place] [address] [facility] [place] [address] Marie Meza MD [address] [place], [place] [phone] Encounter for surveillance of contraceptives, unspecified contraceptive [...] Primary documented in this encounter Care Teams Basket Grader Relationship Specialty Start Date End Date Yelena Martinez DO [address] [place] [address] [place] Blood [address] PCP - General Pediatrics 01/11/22 03/19/23 documented as of this encounter
--- OUTSIDE RECORDS SUMMARY | 2025-04-21 17:35 | XMS_ITS | Clinical Summary ---
Author Organization [facility] Address [address] [place] [phone] Phone Care Team Providers Care Sound Equipment Mechanic Name Role Phone Unavailable Primary Care Provider [...] limit skin exposure to semen Could see roving technician for desensitization- would need sample of partner's semen; pt is not interested at this time STI screen sent Syrinx of spinal cord 09/26/2021 Overview (10/04/2021): On MRI - 2mm in thoracic area; not impinging on cord Saw Ortho BC- no orthopedic intervention needed- PT advised; no FU Neurosurg NS- [facility] 09/29/21- no surgical intervention advised; back [...] a burning sensation pain Will be seeing [facility] NS this week for virtual CS Mom spoke to teen's neurologist @ [employer] [facility]- I do not feel this is definitely needed as teen has not yet even been evaluated by [facility] Neurosurg Mom insists on second opinion [...] on 09/14- sent prilosec Rx Did not leaf size picker prilosec Rx from pharm and will do so now Expect he will start feeling better in 2-4 weeks- recheck in November Assessment & Plan (09/14/2021 6:25 PM EDT): 3mo course prilosec and will then recheck teen Avoid CHANTAL triggers Left wrist pain 05/27/2021 Overview (01/11/2022): Saw local ortho- Dr. Lugo first in 2020 Mom wanted sec opinion- to see Dr. Morton in [place] Assessment & Plan (09/14/2021 6:13 PM EDT): Teen reports not address by [facility] Ortho He saw local ortho for [...] is calling with SArturo Sands from the [email or web address] office is calling. Mom, Ashley, is giving permission for us to give update to [employer]. Update given. Assessment & Plan (07/28/2020 1:01 [...] switch to topamax or propanolol Previously: Saw [facility] neurol in 2019- had MRI brain- [...] for first visit in October Was seeing [facility] Neurol prior but too far for [...] being worked up for Ehler Danlos and Sktn-Ingz-Yif syndrome by genetics. Mom is worried that he may be prone to cellulitis because she is. (He was seen for preseptal cellulitis today) Await genetic testing results and conclusions. Spondylolysis of lumbar region 12/10/2018 [id number] transgender person 10/04/2018 Overview (07/20/2022): Sees [facility] Started TEST inj 2021 On Depo Identifies [...] can start hormones [facility] to [facility] for therapy- gave info to pt so he/mom can call and book appt Prefers not to return to TG clinic @ [facility]- provider missed last televisit Assessment & Plan [...] skull fx. DCF involved. I looked at [facility] notes and found that further imaging reassuring for no skull fx. I called and let mom know. 10/2018 Brain MRI normal Assessment & Plan (11/26/2018 9:24 AM EDT): reasurrance given that Lorenzo does not have MS, given recent neg MRI Assessment & Plan (10/04/2018 4:13 PM EDT): Neuro appt scheduled with Dr Sarmiento at [facility] in early October. Mid back pain, chronic 07/10/2018 Overview (01/11/2022): Seeing Dr. Bishop/Pain Clinic- [facility] in : Plan: Add tizanidine 2mg BID Add Cymbalta/duloxetine 20mg QD PT advised by Ortho and neursurg On gabapentin per [facility]/Neurol(sees pt for HAs) Was seeing [facility] Rheum: last FU , now prn Was on celebrex- neurol weaned off in - ?contributing to HAs Labs ordered Hold PT- pt not interested Seeing ortho [facility]/Hedequist for spondylolysis- repeat MRI as pain [...] for mild S shaped thoracolumbar scoliosis. Saw [facility] Neurol: MRI done @ [facility] October 2018: pos for L5 fracture [...] PM EDT): Had repeat MRI recently per [facility] Ortho- 2mm syrinx was seen- not impinging on cord Uncertain if pain is related to the syrinx- will be seeing NS soon Eval by Pain Mgmt highly recommended- will see if teen can get more timely appt w/ [facility] Pain Mgmt He used to take celecoxib for back pain per Rheum- did not think it helped and does not want to take it again Advised have mtg w/ school to go over 504 plan as it needs amending for his ongoing back pain He is graduating this year- I brought up school polisher and buffer but he does not think he needs one; can do all of his work assignments online Assessment & Plan (09/14/2021 6:12 PM EDT): Seeing Ortho in [place]- repeat MRI is pending ?if needs return to Rheum- he has been off meds since 2019 I will message mom Assessment & Plan (02/18/2021 1:57 PM EDT): Seeing Dr. Morton for FU in FEB Assessment & Plan (01/19/2021 2:46 PM EDT): Will see Dr. Morton [facility] FEB for FU Seeing [facility] Rheum-last FU Assessment & Plan (08/18/2020 5:04 PM EST): Mom would like to see [facility] Ortho again- has appt in [facility]; needs new referral- Jerel Morton Assessment & Plan (07/24/2019 8:46 AM EST): Seeing multiple specialists for this- rheum locally and [facility] Ortho and had [facility] neurol C/S Will be having repeat MRI spine per Ortho- then deciding on plan Has brace and has done PT Assessment & Plan (03/04/2019 9:19 AM EDT): Has appt with Ortho soon- mom thinks teen needs another MRI; she just had one of L spine in OCTOBER @ [facility] that showed L5 pars fracture/spondylolysis; advised take the radiol disk to appt and d/w ortho the need for MRI Assessment & Plan (11/26/2018 9:36 AM EDT): Has had worsening low back pain. Has not been in school 2nd to pain this week. Recent MRI reveals old 5 spine fx. No hx known injury.Has appt in the next few weeks at [facility] spine Clinic.I discussed pain management - [...] - Anxiety disorder 06/07/2018 Overview (01/25/2022): Saw [facility] 2021- Kimberlee Assessment & Plan (01/25/2022 11:35 [...] can start hormones Wants to go to [facility] in [facility] for therapy- gave info to pt [...] will cancel appt @ [facility] Mom will call Dr. Drummond @ [facility] for FU appt Assessment & Plan (09/23/2020 4:32 PM EDT): Scheduled to have surgery 10/04/20 No urinary complaints today UA wnl Assessment & Plan (09/08/2020 5:11 PM EDT): Has surgery on 09/22 Unsure how much longer post surgery he will need a school polisher and buffer- mom will speak w/ surgeon on recovery [...] option w/ them Mom apologized for calling HPA triage numerous times yest I encouraged her [...] 10mg prior to procedure Also I called product development specialist @ [facility] to see if they can be present [...] Lesley Relation Name Status Comments Brother Father Barrtet Alive Father: ADD/ADH D, Scoliosis Maternal Grandfather [...] 114 10/13/2022 2:32 PM EDT Temperature 36.6 C (97.9 F) 12/06/2022 4:12 PM EDT Respiratory Rate 20 07/17/2018 3:13 PM EST [...] 05/09/2016 Glucose/HbA1C 09/19/2023 09/18/2022 Influenza Vaccines (#1) 2025 03/03/20, 04/28/2015, 03/21/2013, Additional history exists COVID-19 Vaccine (3 - 2024-2 6 season) 2025 02/13/2022, 01/11/2022 DTaP,Tdap,and Td Vaccines (7 - [...] Completed 03/03/2020, 015 Procedures * Due to [place] state law, this organization might not be sharing sensitive test results. Procedure Name Priority Date/Time Associated Diagnosis Comments CHLAMYDIA AND GONORRHEA, AMPLIFIED Routine 12/06/2022 4:28 PM EDT Flank pain GLUCOSE, FASTING Routine 09/18/2022 3:47 PM EDT Dizziness LIPID PANEL, FASTING Routine 01/25/2022 11:57 AM EDT Well adult exam from Last 3 Months or Most Recently Relevant to Health Maintenance Results * Due to [place] state law, this organization might not be sharing sensitive test results. * Chlamydia and Gonorrhoea, Amplified (12/06/2022 4:28 PM EDT) Chlamydia Trachomatis, DNA Probe NEGATIVE (NEG) [facility] Comment: No Chlamydia Trachomatis RNA detected in this patient's sample (REFERENCE RANGE/NORMAL VALUE: NOT DETECTED) Note: This test uses manager it security- mediated amplification method to detect rRNA from C. Trachomatis URINE GC AMP PROBE NEGATIVE (NEG) [facility] Comment: No Neisseria Gonorrhoeae RNA detected in this patient's sample (REFERENCE RANGE/NORMAL VALUE: NOT DETECTED) NOTE: This test uses manager it security-mediated amplification method to detect rRNA from N.Gonorrhoeae. [...] without risk of sexual abuse. Consult the [facility] if needed. Contact phone number . Therapeutic failure or success cannot be determined with the Aptima Combo2 assay since nucleic acid may persist following appropriate antimicrobial therapy. The Centers for Disease Control and Prevention (CDC) recommends confirmatory retesting using culture or a different nucleic acid amplification test when positive results occur, if indicated. Testing performed or reported by [facility], a Service of [facility], [address] [place] [address] Vamsi Estrada MD, Mammography Technician [facility]# [id number] Urine (Urine) 12/06/2022 4:2 8 PM EDT 12/06/2022 8:01 PM EDT Jocelyn Redd MD LAB MICROBIOLOGY - GENERAL ORDJoshua UMANZOR Final Result Performing Organization Address [facility] de Phone Number [facility] * Glucose, fasting (09/18/2022 3:47 PM EDT) Glucose 83 (70-99) MG/DL [facility] Comment: Testing performed or reported by [facility], a Service of [address] [address] Nora Downs MD, Mammography Technician CLIA# [id number] Blood 09/18/2022 3:47 PM EDT 09/18/2022 5:00 PM EDT Result [facility] Yelena COCC LAB BLOOD ORDERABLES Final Resul t Performing Organization Address [facility] Number [facility] * (ABNORMAL) Lipid Panel, Fasting (01/25/2022 11:57 AM EDT) Cholesterol, Total 155 (<170) MG/DL [facility] Triglycerides 128(H) (<90) MG/DL [facility] HDL 40(L) (>45) MG/DL [facility] LDL 89 (0-109) MG/DL [facility] Non-HDL Cholesterol 115 (<120) MG/DL [facility] Comment: Testing performed or reported by [facility], a Service of [address] [address] Nora Downs MD, Mammography Technician [facility]# [id number] Blood 01/25/2022 11:5 7 AM EDT 01/25/2022 11:58 AM EDT Applimation LAB BLOOD ORDERABLES Final Resul t Performing Organization Address [facility] Phone Number [facility] from Last 3 Months or Most Recently Relevant to Health Maintenance Insurance [facility] [place] [address] [address] HMO
--- OUTSIDE RECORDS SUMMARY | 2025-04-21 17:35 | XMS_ITS | Encounter Summary ---
Author Organization [facility] Address [address] [facility] [address] [place] [address] Phone Care Team Providers Care Spin Table Operator Name Role Phone Dillon Bishop MD Unavailable [phone] Evelyn Dash CNP Primary Care Provid er Dillon Salinas MD Unavailable Desiree Barry [facility] Unavailable [phone] Encounter Details Date Type Department Care Team (Late st Contact Info) Description 04/10/2025 Orders Only [facility] [address] [place] [address] [phone] Dseiree Barry [facility] [phone] [email or web address] Bipolar affective disorder, depressed, severe, with psychotic behavior (Primary Dx) Social History Tobacco Use Types [...] 04/23/2025 2:00 PM EDT Social Work [facility] [address] [place] [phone] Carlos Mccollum [address] [place] [address] 04/28/2025 10:00 AM EST Telemedicine [facility] [address] [place] [phone] Desiree Barry, PMHNP-[address] [address] 04/30/2025 2:00 PM EST Social Work [facility] [address] [place] [address] Carlos Mccollum [address] [place] [address] 05/07/2025 2:00 PM EST Social Work [facility] [address] [place] [address] Carlos Mccollum [address] [place] [address] 05/14/2025 2:00 PM EST Social Work [facility] [address] [place] [address] Carlos Mccollum [address] [place] [address] 05/28/2025 2:00 PM EST Social Work [facility] [address] [place] [address] Carlos Mccollum [address] [place] [address] 06/04/2025 2:00 PM EST Social Work [facility] [address] [place] [address] Carlos Mccollum [address] [place] [address] 06/11/2025 2:00 PM EST Social Work [facility] [address] [place] [address] Carlos Mccollum [address] [place] [address] 06/16/2025 3:00 PM EST Telemedicine [facility] [address] [place] [address] Travis Morrissey MD, [place] [address] [facility] [address] [place] [address] [email or web address] 11/03/2025 3:00 PM EDT Telemedicine [facility] Pedi Cardiology [place] [address] [place] [phone] Dillon Salinas MD [facility] [place] [address] [email or web address] documented as of this encounter Results * (ABNORMAL) [place] level (04/16/2025 12:32 PM EDT) LITHIUM 0.12(L) 0.5 - 1.00 mmol/L [facility] Blood 04/16/2025 12:3 2 PM EDT 04/16/2025 12:38 PM EDT us Desiree Barry [facility]- LAB BLOOD ORDERABLE S Final Result [facility] [address] [place] [address] documented in this encounter Visit Diagnoses Diagnosis Bipolar affective disorder, depressed, severe, with psychotic behavior- Primary Bipolar I disorder, most recent episode (or current) depressed, severe, specified as with psychotic behavior documented in this encounter Additional Health Concerns Assessment Noted Time PHQ-9 Depression Total Score: 21 025 10:22 AM EDT PHQ-2 Depression Total Score: 4 03/23/20 25 10:22 AM EDT documented as of this encounter Care Teams Spin Table Operator Relationship Specialty Start Date End Date Evelyn Dash CNP [address] [place] [phone] [email or web address] PCP - General Nurse Practitioner 01/25/24 Dillon Bishop MD [address] [place] [address] [address] [place] [address] [email or web address] 07/31/22 Dillon Salinas MD [address] [place] [address] [email or web address] Pediatric Cardiology 07/10/24 Desiree Barry, PMHNP- [address] [place] [address] [email or web address] Psychiatrist Nurse Practitioner 02/16/25 documented as of this encounter Additional Source Comments The information contained in this document represents components of the legal health record. It is not the complete legal health record.[facility]
--- OUTSIDE RECORDS SUMMARY | 2025-04-21 17:35 | XMS_ITS | Encounter Summary ---
Author Organization [facility] Address [address] [place] [address] Phone Care Team Providers Care Roughener Name Role Phone Yelena Martinez DO Primary Care Provider [phone] Reason for Visit * Reason Comments Med Refill Encounter Details Date Type Department Care Team (Late st Contact Info) Description 05/03/2018 Refill [facility] [address] [place] [address] Ashley Onofre NP [address] [facility] [address] [place] [address] Chronic midline thoracic back pain (Primary Dx); [...] region documented in this encounter Care Teams Roughener Relationship Specialty Start Date End Date Yelena Martinez DO [address] [facility] [place] [address] PCP - General Pediatrics 01/11/22 03/19/23 documented as of this encounter
--- OUTSIDE RECORDS SUMMARY | 2025-04-21 17:35 | XMS_ITS | Encounter Summary ---
Author Organization [facility] Address [address] [facility] [address] [place] [address] Phone Care Team Providers Care Medical/Surgery Registered Nurse Name Role Phone Dillon Bishop MD Unavailable [phone] Evelyn Dash CNP Primary Care Provid er Dillon Salinas MD Unavailable [phone] Desiree Barry [facility] Unavailable [phone] Encounter Details Date Type Department Care Team (Late st Contact Info) Description 04/10/2025 Telephone [facility] [address] [place] [address] [phone] Evelyn Dash CNP [address] [place], [place] [phone] [email or web address] Social History Tobacco Use Types Packs/Day Years [...] of this encounter Progress Notes * Ms Kelley - 04/10/2025 3:31 PM EDT Patient calling in regards to new medication 'Hollins'. Patient was advised by pharmacy that they could not fill the medication due to Luzmaria Barry not being credentialed to prescribe. Patient requesting Dr. Itzel Figueroa to rewrite prescription for medication in order to fulfil prescription. Patient requesting follow up, . documented in this encounter Plan of Treatment Upcoming Encounters Date Type Department Care Team (Late st Contact Info) Description 04/23/2025 2:00 PM EDT Social Work [facility] [address] [place] [address] Carlos Mccollum [address] [place] [address] 04/28/2025 10:00 AM EST Telemedicine [facility] [address] [place] [address] Desiree Barry, PMHNP-[address] [address] [email or web address] 04/30/2025 2:00 PM EST Social Work [facility] [address] [place] [address] Carlos Mccollum [address] [place] [address] 05/07/2025 2:00 PM EST Social Work [facility] [address] [place] [address] Carlos Mccollum [address] [place] [address] 05/14/2025 2:00 PM EST Social Work [facility] [address] [place] [address] Carlos Mccollum [address] [place] [address] 05/28/2025 2:00 PM EST Social Work [facility] [address] [place] [address] Carlos Mccollum [address] [place] [address] 06/04/2025 2:00 PM EST Social Work [facility] [address] [place] [address] Carlos Mccollum [address] [place] [address] [email or web address] 06/11/2025 2:00 PM EST Social Work [facility] [address] [place] [address] Carlos Mccollum [address] [place] [address] [email or web address] 06/16/2025 3:00 PM EST Telemedicine [facility] [address] [place] [address] Travis Morrissey MD, [place] [address] [address] [email or web address] 11/03/2025 3:00 PM EDT Telemedicine [facility] at [address] [address] Dillon Salinas MD [address] [place] [address] [email or web address] documented as of this encounter Visit Diagnoses Not on filedocumented in this encounter Additional Health Concerns Assessment Noted Time PHQ-9 Depression Total Score: 21 025 10:22 AM EDT PHQ-2 Depression Total Score: 4 03/23/20 25 10:22 AM EDT documented as of this encounter Care Teams Medical/Surgery Registered Nurse Relationship Specialty Start Date End Date Evelyn Dash CNP [address] [place] [address] [email or web address] PCP - General Nurse Practitioner 01/25/24 Dillon Bishop MD [address] [place] [address] [place] [address] [email or web address] Anesthesiology 07/31/22 Dillon Salinas MD [address] [place] [address] [email or web address] Pediatric Cardiology 07/10/24 Desiree Barry, PMHNP-BC [address] [place] [address] [email or web address] Psychiatrist Nurse Practitioner 02/16/25 documented as of this encounter Additional Source Comments The information contained in this document represents components of the legal health record. It is not the complete legal health record.[facility]
--- OUTSIDE RECORDS SUMMARY | 2025-04-21 17:35 | XMS_ITS | Encounter Summary ---
Author Organization [facility] Address [address] [place] [address] Phone Care Team Providers Care Audit Director Name Role Phone Yelena Martinez DO Primary Care Provider Reason for Visit * Reason Comments Med Refill Encounter Details Date Type Department Care Team (Late st Contact Info) Description 01/24/2021 Refill [facility] [address] [place] [address] Yelena Martinez DO [address] [place] [address] Acne vulgaris Social History Tobacco Use Types [...] acne documented in this encounter Care Teams Audit Director Relationship Specialty Start Date End Date Yelena Martinez DO [address] [facility] [place] [address] PCP - General Pediatrics 01/11/22 03/19/23 documented as of this encounter
--- OUTSIDE RECORDS SUMMARY | 2025-04-21 17:35 | XMS_ITS | Encounter Summary ---
Author Organization [facility] Address [address] [place] [address] Phone Care Team Providers Care Donor Recruiter Name Role Phone Yelena Martinez DO Primary Care Provider [phone] Encounter Details Date Type Department Care Team (Late st Contact Info) Description 07/19/2015 Documentation [facility] Medicine [address] [place] [address] Family Medicine, Physician [address] [place], [place] [phone] Social History Tobacco Use Types Packs/Day Years [...] on filedocumented in this encounter Care Teams Donor Recruiter Relationship Specialty Start Date End Date Yelena Martinez DO [address] [place] [address] PCP - General Pediatrics 01/11/22 03/19/23 documented as of this encounter
--- OUTSIDE RECORDS SUMMARY | 2025-04-21 17:35 | XMS_ITS | Encounter Summary ---
Author Organization Formerly [facility] Address [address] [facility] [address] [place] [phone] Phone Care Team Providers Care Program Aide Group Work Name Role Phone Jimbo Oliveros MD Unavailable Dillon Bishop MD Unavailable Jimbo Bryan NP Unavailable [phone] Evelyn Dash CNP Primary Care Provid er Dillon Salinas MD Unavailable Desiree Barry [facility] Unavailable [phone] Encounter Details Date Type Department Care Team (Late st Contact Info) Description 01/25/2024 Nurse Triage [facility] [address] [place] [address] [phone] Ashley Nunez CNP [address] [place], [place] [phone] [email or web address] Social History Tobacco Use Types Packs/Day Years Used Date Smoking Tobacco: Never Passive Smoke Exposure: Current Smokeless Tobacco: Never Passive Exposure Comments:Gr andpa smokes, used to in house but no longer Alcohol Use Standard Drinks/Week Comments Never 0 (1 standard drink = 0.6 oz pur e alcohol) Child or Family Care Answer Date Record ed Do you have problems with on e of the following making it difficult for you to work, study, or receive health care? No 08/15/2023 Education Answer Date Recorded Are you interested in more education? Not on elaine e 08/15/2023 Are you concerned about your learning, performance, or behavior in school? No 08/15/2023 No 08/15/2023 Yes 08/15/2023 Food Answer Date Recorded Within the past 6 months we worried whether our food would run out before we got money to buy more. Often True 08/15/2023 Within the past 6 months the food we bought just didn't last and we didn't have enough money to get more. Often True Residential Stability Answer Date Recor ded What is your housing situation today? I have micki salinas 08/15/2023 How many times have you moved in the past 12 sun ths? One time 08/15/2023 Paying for Meds Answer Date Recorded Do you have trouble paying for medicines? Yes 08/15/2023 Paying Utility Bills Answer Date Record ed Do you have trouble paying your heating or elect ricity bill? No 08/15/2023 Transportation Answer Date Recorded Has the lack of transportati on kept you from medical appointments or from getting medications? Yes 08/15/2023 Unemployment Answer Date Recorded Are you currently unemployed or working on a part-time or temporary basis, and looking for work? No 05/03/2022 Digital Access Answer Date Recorded No 08/15/2023 Yes 08/15/2023 Do you have reliable internet access at home? Ye s 08/15/2023 Do you have a device (e.g., phone, tablet, computer) with a working camera? Yes 08/15/2023 Comments Unknown Sex and Gender Information Value [...] 04/23/2025 2:00 PM EDT Social Work [facility] [address] [place] [phone] Carlos Mccollum [address] [place] [address] 04/28/2025 10:00 AM EST Telemedicine [facility] [address] [place] [phone] Desiree Barry, PMHNP-[address] [address] 04/30/2025 2:00 PM EST Social Work [facility] [address] [place] [address] Carlos Mccollum [address] [place] [address] 05/07/2025 2:00 PM EST Social Work [facility] [address] [place] [phone] Carlos Mccollum [address] [place] [address] 05/14/2025 2:00 PM EST Social Work [facility] [address] [place] [address] Carlos Mccollum [address] [place] [address] 05/28/2025 2:00 PM EST Social Work [facility] [address] [place] [address] Carlos Mccollum [address] [place] [address] 06/04/2025 2:00 PM EST Social Work [facility] [address] [place] [phone] Carlos Mccollum [address] [place] [address] 06/11/2025 2:00 PM EST Social Work [facility] [address] [place] [address] Carlos Mccollum [address] [place] [address] 06/16/2025 3:00 PM EST Telemedicine [facility] Wellness [address] [place] [phone] Travis Morrissey MD, [place] [address] [facility] [address] [place] [address] [email or web address] 11/03/2025 3:00 PM EDT Telemedicine [facility] [place] [address] [place] [address] Dillon Salinas MD [address] [place] [address] [email or web address] documented as of this encounter Visit Diagnoses Not on filedocumented in this encounter Additional Health Concerns Assessment Noted Time PHQ-9 Depression Total Score: 13 023 4:06 PM EDT PHQ-2 Depression Total Score: 3 02/14/20 23 4:06 PM EDT documented as of this encounter Care Teams Program Aide Group Work Relationship Specialty Start Date End Date Evelyn Dash CNP [address] [place] [phone] [email or web address] PCP - General Nurse Practitioner 01/25/24 Jimbo Oliveros MD [address] [place] [phone] Consulting Provider Pediatrics 04/25/22 07/22/24 Dillon Bishop MD [address] [place] [address] [place] [address] [email or web address] Anesthesiology 07/31/22 Jimbo Bryan NP [address] [place] [address] Psychiatrist 06/11/23 08/22/24 Dillon Salinas MD [facility] [place] [address] [email or web address] Pediatric Cardiology 07/10/24 Desiree Barry, PMHNP-BC [address] [place] [address] [email or web address] Psychiatrist Nurse Practitioner 02/16/25 documented as of this encounter Additional Source Comments The information contained in this document represents components of the legal health record. It is not the complete legal health record.Formerly [facility]
--- OUTSIDE RECORDS SUMMARY | 2025-04-21 17:35 | XMS_ITS | Encounter Summary ---
Author Organization [facility] Address [address] [place] [phone] Phone Care Team Providers Care Stores Laborer Name Role Phone Yelena Martinez DO Primary Care Provider [phone] Reason for Visit * Reason Comments Med Change Request Encounter Details Date Type Department Care Team (Late st Contact Info) Description 01/07/2023 Refill [facility] [address] [place] [address] Aren Arteaga MD [address] [place] [address] GERD without esophagitis Social History Tobacco Use [...] reflux documented in this encounter Care Teams Stores Laborer Relationship Specialty Start Date End Date Yelena Martinez DO [address] [place] [address] [place] Blood [id number] PCP - General Pediatrics 01/11/22 03/19/23 documented as of this encounter
== END 2025-04-21 13:54 | disposition home or self-care (01) ==
PROVIDERS: Physician Assistant; Emergency Provider Emergency Medicine
DX: M54.6 Pain in thoracic spine (principal); G95.0 Syringomyelia and syringobulbia; M54.2 Cervicalgia; M54.50 Low back pain, unspecified
CPT/HCPCS: 72072; 72100; 81003; 99283

== ENCOUNTER → 2025-04-21 12:45 | Outpatient (BNV) | payer OTHER, SELFPAY | PROVIDERS: Emergency Provider Emergency Medicine; Visit Provider Radiology Diagnostic Radiology | DX: M54.50 Low back pain, unspecified (principal); M54.6 Pain in thoracic spine | CPT/HCPCS: 72072; 72100 ==

== ENCOUNTER 2025-04-28 14:38 | Outpatient (AMB) | payer OTHER, MEDICAID, SELFPAY ==
--- NOTE | 2025-04-28 15:04 | MHC.OFFVIS ---
Intake Visit Reasons: Syringomyelia Allergies amoxicillin (Augmentin) Allergy (Unknown, Verified 04/21/25 12:42) diarrhea clavulanic acid (Augmentin) Allergy (Unknown, Verified 04/21/25 12:42) diarrhea levofloxacin Allergy (Verified 04/21/25 12:42) Unknown Medication List - Last Reconciled 04/28/25 by Rohan Singer MD cefuroxime axetil 500 mg PO Q12H 5 days cefuroxime axetil 500 mg PO BID cefuroxime axetil 250 mg PO Q12H cefuroxime axetil 500 mg PO BID 7 days cefuroxime axetil 500 mg PO Q12H 7 days clindamycin HCl 300 mg PO TID ibuprofen 600 mg PO Q6H PRN lamotrigine 100 mg PO DAILY losartan 25 mg PO DAILY melatonin mg PO ONCE methocarbamol 750 mg PO Q8H PRN naproxen 500 mg PO BID PRN nitrofurantoin monohyd/m-cryst 100 mg (Macrobid) 100 mg PO BID 7 days omeprazole 20 mg PO DAILY HPI Comments Details: This is a 19-year-old right-handed female transitioning to male who is here for 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 The previous MRIs not available for review at this time. 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 She saw 2 different neurosurgeons at [facility] and was told that she would not get an operation. She continued to have severe back pain. They were of the opinion that the syrinx was an incidental finding and not related to her back pain. She tells me that her mother and brother also have syringomyelia and both of them have Angel-Danlos syndrome like she does. She also suffers from bipolar disorder with psychotic features, borderline personality disorder depression anxiety PTSD GERD and frequent UTIs. She says that she has asthma and heartburn and sometimes gets a tremor in the right leg if she is putting weight on it. She is taking losartan for Raynaud's phenomena with the toes turning cold and purple. [facility] Medical History (Updated 04/28/25 @ 15:05 by Rohan Singer MD) Gmlrlv-rx-ggzv transgender person Syringomyelia Social History Patient Tobacco Use Status: Tobacco use Unknown Review of Systems Const Reports headache(s), Reports weakness and Reports weight gain Eyes Reports blurry vision ENT Reports dysphagia, Reports dizziness, Reports headache(s) and Reports neck pain Resp Reports wheezing GI Reports constipation, Reports dysphagia and Reports nausea Reports urinary incontinence Musc Reports abnormal gait, Reports back pain, Reports arthralgias and Reports neck pain Neuro Reports abnormal gait, Reports confusion, Reports dizziness, Reports headache(s), Reports tremor(s) and Reports weakness Psych Reports anxiety, Reports confusion, Reports depression and Reports auditory hallucinations Aller/Immun Reports wheezing Physical Exam Const General: confusion Orientation/consciousness: confusion Neuro Other: ?Mini Mental Status Exam Level of Consciousness:?Alert.? Orientation:?Knows correct year, month, date, day and season.?Knows correct city, county and state. Knows correct location and floor.? Registration:?Able to register 3 objects.? Attention:?Serial 7's performed accurately.? Recall:?Able to recall 3 out of 3 objects.? Language:?Normal spontaneous speech, fluency, repetition, naming, comprehension, reading, and writing.? Total Score:?30/30.? Neurological Abnormal neurological findings:??none.? Mental Status:?Alert and oriented X 3.?Normal attention, orientation, memory, and affect.? Cranial Nerves:?Pupils are equal, round and reactive to light. Fundoscopy shows normal disc bilaterally. External occular muscles are intact. Visual montano are full, no ptosis. Face is symmetrical, no facial weakness or droop. Facial sensations are normal. Tongue protrudes in midline. Palate elevates symmetrically. Shoulder shrugging is normal.? Motor Examination:?Normal muscle tone, bulk and strength.?No atrophy or fasciculations.?No drift of the extended upper extremities.?Deep tendon reflexes are 3+.?Plantars are flexor.? Motor Strength:? Proximal Muscles (out of 5):?5 Distal Muscles (out of 5):?5 Neck Flexors (out of 5):?5 Neck Extensors (out of 5):?5 Deltoid (out of 5):?5 Biceps (out of 5):?5 Triceps (out of 5):?5 Serratus Anterior (out of 5):?5 Wrist Extensors (out of 5):?5 APB (out of 5):?5 Finger Spread (out of 5):?5 Ileopsoas (out of 5):?5 Quadriceps (out of 5):?5 Hamstrings (out of 5):?5 Tibialis Anterior (out of 5):?5 Peronei (out of 5):?5 EDB (out of 5):?5 Gastrocnemius (out of 5):?5 Straight Leg Raising:?90 degrees.? Sensory Exam:?Normal light touch, temperature, pinprick, vibration and joint-position sensations.?Rhomberg sign is absent.? Coordination:?No ataxia,?no titubation,?bndisc-qt-vder, anjz-yrnh-hhwe test, and rapid alternating movements were normal.? Gait Exam:?Within normal limits.? Cerebellar Signs:?Zdactr-cz-extk and itor-jy-eegq is normal.?No dysdiadochokinesia.? Extrapyramidal System:?No tremor or?rigidity, normal facial expressions.?No bradykinesia. No bradyphrenia. Normal arm swing and posture. No propulsion or retropulsion.? Speech:?Normal,?no dysphasia or dysarthria.? General Examination GENERAL APPEARANCE:??normal,?in no acute distress?,?normal,?in no acute distress.? HEAD:??normocephalic,?atraumatic.? EYES:??sclera non-icteric,?conjunctiva clear.? EARS:??auditory canal clear,?tympanic membrane intact, clear.? NOSE:??no lesions.? ORAL CAVITY:??gums normal,?mucosa moist,?no lesions.? THROAT:??clear.? NECK/THYROID:??no cervical lymphadenopathy,?thyroid normal,?neck supple, full range of motion,?no carotid bruit.? SKIN:??no rashes,?no significant birthmarks.? HEART:??S1, S2 normal,?no murmurs?,?S1, S2 normal,?no murmurs.? LUNGS:??clear anteriorly and posteriorly?,?clear anteriorly and posteriorly.? CHEST:??no gross rib deformity,?clear to auscultation.? BACK:??normal exam of spine.? MUSCULOSKELETAL:??normal.? EXTREMITIES:??no edema?,?no edema.? PERIPHERAL PULSES:??normal.? PSYCH:??alert, oriented,?cognitive function intact,?cooperative with exam?,?alert, oriented,?cognitive function intact,?cooperative with exam.? General: confusion Assessment & Plan Assessment & Plan (1) Syringomyelia: Code(s): G95.0 - Syringomyelia and syringobulbia Category: Medical Plan f/u MRI thoracic spine Orders: Orders MR thoracic spine wo con Today G95.0 - Syringomyelia and syringobulbia Coding Level of Care Code New Pt Level 5 (07967) Diagnoses Syringomyelia G95.0
--- OUTSIDE RECORDS SUMMARY | 2025-04-28 17:41 | XMS_ITS | Encounter Summary ---
Author Organization [facility] Address [address] [place] [address] Phone Care Team Providers Care Business Support Specialist Name Role Phone Yelena Martinez DO Primary Care Provider [phone] Reason for Visit * Reason Comments Med Refill Encounter Details Date Type Department Care Team (Late st Contact Info) Description 01/24/2021 Refill [facility] [address] [place] [address] Yelena Martinez DO [address] [place] [address] Acne vulgaris Social History Tobacco Use Types [...] acne documented in this encounter Care Teams Business Support Specialist Relationship Specialty Start Date End Date Yelena Martinez DO [address] [facility] [place] [address] PCP - General Pediatrics 01/11/22 03/19/23 documented as of this encounter
--- OUTSIDE RECORDS SUMMARY | 2025-04-28 17:41 | XMS_ITS | Data Portability ---
Author Organization AYLIN Valentin s, [address] Address [address] [place] [address] Assessment No assessment recorded. Plan of Treatment Reminders Order Date Submit Date Provider Last Modified By Organization Details Last Modified Time Details Appointments None recorded. Lab None recorded. Referral None recorded. Procedures None recorded. Surgeries None recorded. Imaging None recorded. Medication Orders naproxen 500 mg tablet 2022 023 [facility][id number], [address] [facility] [place], [address], 17:29:02 Patient TargetsNo targets recorded. Patient Instructions Encounter Date Encounter Id Patient Instructions Last Modified By Organization Details Last Modified Time 11/29/2022 [id number] Patient advised to take medication as directed by provider Ice to back area 3-4 times a day for the next 2-3 days then warm to hot water showers (moist heat) 2 times a day for 7 days Patient advised to slowly increase activity level. Monitor changes in symptoms such as numbness, tingling or weakness in legs, changes in bowel or bladder habits or worsening back pain. - if that happens then patient to go directly to local emergency room to be further evaluated follow up with pcp in 7 days for recheck of all symptoms [email or web address] Not available 11/29/2022 17:28:58 Reason for Referral None Reported. 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 Procedures Surgical History Date Name Laterality Status Provider Name and Address Organization Details Recorded Time procedure on urinary bladder completed [facility] 11/29/2022 16:54:58 excision of lymph node completed [facility] 11/29/2022 16:55:25 Imaging Results None recorded. Procedure Notes None recorded. Medical Equipment None Reported. Allergies Allergen ID Allergen Name Allergen Category Reaction Reaction Severity Criticality Documentation Date Start Date Code Code System Note Provider Name and Address Organization Details Recorded Time 182891 levofloxa segun medicatio n Not available Not available Not available 11/29/2022 26431 RxNorm tendo n/bon e pain [facility] 3 16:50:26 907762 Augmentin medicatio n diarrhea Not available Not available 11/29/2022 01321 2 RxNorm [facility] 3 16:50:32 Medications Name [...] 2022 active Not Available Not Available Not Negroai labshaina prochlorper azine maleate 5 mg tablet [...] Not Available Not Available Blanca Ibarra [facility] spacer USE WITH INHALER DIRECTED [...] Recorded Body height Body mass index (BMI) [Percentile] Per age and sex Body mass index (BMI) Body weight Pain severity - 0-10 verbal numeric rating [Score] - Reported Respiratory rate Oxygen saturation Oxygen saturation in Arterial blood by Pulse oximetry Heart rate Body temperature Systolic And Diastolic Provider Name and Address Organization Details Last Updated DateTime 170.18 cm 87 % 26.6 kg/m2 03727.7 g 7 18 /min 96 % 96 % 110 /min 98.2 [degF] 120/73 mm[Hg] BRENNA PETE [employer] 16:56:17 Social History Question Answer Notes LastModified by [employer] Details LastModified Time Tobacco Smoking Status Never Smoker BRENNA valle [employer] 11/29/2022 16:54:23 Which Illicit Or Recreational Drugs Have You Used? Marijuana Information not available 11/29/2022 Have You Recently Traveled Abroad? No [email or web address] Information not available 11/29/2022 Sex: Unknown Functional Status Question Answer Note LastModified by [employer] Details LastModified Time Do you use any illicit or recreational drugs? Yes [email or web address] Information not available 11/29/2022 Do you or have you ever used any other forms of tobacco or nicotine? No [email or web address] Information not available 11/29/2022 What is your level of alcohol consumption? None [email or web address] Information not available 11/29/2022 Mental Status None recorded. Family History Relationship Description Onset Age of this Age Resolved Age Notes LastModified by Organization Details LastModified Time Father No current problems or disability [email or web address] Not available 11/29 16:54:12 Mother No current problems or disability [email or web address] Not available 11/29 16:54:12 Medical History No medical history recorded. Gynecological History Statement/Question Response Is there any chance of ? No Obstetrics History GPAL:G 0 P 0 0 0 0 Past Encounters Encounter ID Performer Location Encounter Start Date Encounter Closed Date Diagnosis/Indication Diagnosis SNOMED-CT Code Diagnosis ICD10 Code Diagnosis IMO Codes Diagnosis Note [id number] [address] [place] [address] 09/24/2018 11:24:41 09/24/2018 12:00:52 [id number] [address] [address] [place] [address] 07/15/2015 16:16:00 07/15/2015 17:04:58 [id number] [address] [place] [address] 09/19/2018 09:36:51 09/19/2018 10:24:36 [id number] Tima Gallegos [place] [address] [place] [address] 11/29/2022 16:15:35 11/29/2022 17:30:59 Low back pain 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 Health Concerns Section Related Observation LastModified by Organization Detai ls LastModified Time None Recorded Concern Status LastModified by Organization Details LastModified Time None Recorded Advance Directives Directive None Recorded Payers Insurance Date Sequence Insurance Name Policy Number Policy Barrientos Covered Member ID Barrientos Member ID Guarantor Name 11/29/2022 1 BCBS-[place]: HMO BLUE [employer] (HMO) [id number] Jerel Crowe [id number] Kaylyn Crowe 11/29/2022 2 MEDICAID-[place]: [facility] Kaylyn Crowe [id number] Kaylyn Crowe Notes Date Note Type Note Provider Name and Address Organization Details Recorded Time 3 text/html Lower BackReported by PatientHPIFor associated symptoms, patient reportstinglingbut reportsno weakness,no numbness,no swelling,no redness,no warmth,no ecchymosis,no catching/locking,no popping/clicking,no buckling,no grinding,no instability,no radiation down leg,no drainage,no fever,no chills,no weight loss, andno change in bowel/bladder habits. For location, patient reportsleftandposterior. For quality, patient reportsaching,burning, andconstant. For severity, patient reportsmoderate. For duration, patient reports2 days. For timing, patient reportsacute,morning,dayt erendira, andnighttime. For context, patient reportscannot identifyandlifting. For alleviating factors, patient reportsrestandnsaids. For aggravating factors, patient reportswalking,lifting,ca rrying,bending/squatting, andpushing/pulling. For previous surgery, patient reportsnone. For prior imaging, patient reportsnone. For previous injections, patient reportsnone. For previous pt, patient reportsnone. For work related, patient reportsno. For working, patient reportsno. Tima Gallegos NP [address] [place], [address], [place] - [facility] 11/29/2022 17:29:47 OBGyn Episode No OBEpisode recorded.
--- OUTSIDE RECORDS SUMMARY | 2025-04-28 17:41 | XMS_ITS | Clinical Summary ---
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 Role Phone Unavailable Primary Care Provider [...] limit skin exposure to semen Could see media relations coordinator for desensitization- would need sample of partner's semen; pt is not interested at this time STI screen sent Syrinx of spinal cord 09/26/2021 Overview (10/04/2021): On MRI - 2mm in thoracic area; not impinging on cord Saw Ortho [facility]- no orthopedic intervention needed- PT advised; no FU Neurosurg NS- [facility] 09/29/21- no surgical intervention advised; back [...] a burning sensation pain Will be seeing [facility] NS this week for virtual CS Mom spoke to teen's neurologist @ [facility] who [facility]- I do not feel this is definitely needed as teen has not yet even been evaluated by [facility] Neurosurg Mom insists on second opinion [...] on 09/14- sent prilosec Rx Did not pear picker prilosec Rx from pharm and will do so now Expect he will start feeling better in 2-4 weeks- recheck in November Assessment & Plan (09/14/2021 6:25 PM EDT): 3mo course prilosec and will then recheck teen Avoid CHANTAL triggers Left wrist pain 05/27/2021 Overview (01/11/2022): Saw local ortho- Dr. Lugo first in 2020 Mom wanted sec opinion- to see Dr. Morton in [place] Assessment & Plan (09/14/2021 6:13 PM EDT): Teen reports not address by [facility] Ortho He saw local ortho for [...] is calling with SArturo Sands from the [employer] office is calling. Mom, Ashley, is giving permission for us to give update to [employer]. Update given. Assessment & Plan (07/28/2020 1:01 [...] switch to topamax or propanolol Previously: Saw [facility] neurol in 2019- had MRI brain- [...] for first visit in October Was seeing [facility] Neurol prior but too far for [...] being worked up for Ehler Danlos and Ievl-Yajp-Tbg syndrome by genetics. Mom is worried that he may be prone to cellulitis because she is. (He was seen for preseptal cellulitis today) Await genetic testing results and conclusions. Spondylolysis of lumbar region 12/10/2018 Ullknh-ul-iusp transgender person 10/04/2018 Overview (07/20/2022): Sees [facility] Started TEST inj 2021 On Depo Identifies [...] can start hormones [facility]- gave info to pt so he/mom can call and book appt Prefers not to return to [place] clinic [place] [facility] provider missed last televisit Assessment & Plan [...] skull fx. DCF involved. I looked at [facility] notes and found that further imaging reassuring for no skull fx. I called and let mom know. 10/2018 Brain MRI normal Assessment & Plan (11/26/2018 9:24 AM EDT): reasurrance given that Lorenzo does not have MS, given recent neg MRI Assessment & Plan (10/04/2018 4:13 PM EDT): Neuro appt scheduled with Dr Sarmiento at [facility] in early October. Mid back pain, chronic 07/10/2018 Overview (01/11/2022): Seeing Dr. Bishop/[facility] in : Plan: Add tizanidine 2mg BID Add Cymbalta/duloxetine 20mg QD PT advised by Ortho and neursurg On gabapentin per [facility]/Neurol(sees pt for HAs) Was seeing [facility] Rheum: last FU , now prn Was on celebrex- neurol weaned off in - ?contributing to HAs Labs ordered Hold PT- pt not interested Seeing ortho [facility]/Hed[facility]ist for spondylolysis- repeat MRI as pain [...] for mild S shaped thoracolumbar scoliosis. 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 Morton for FU in FEB Assessment & Plan (01/19/2021 2:46 PM EDT): Will see Dr. Morton [facility] FEB for FU Seeing [facility] Rheum-last FU Assessment & Plan (08/18/2020 5:04 PM EST): Mom would like to see [facility] Ortho again- has appt in [facility]; needs new referral- Jerel Morton Assessment & Plan (07/24/2019 8:46 AM EST): Seeing multiple specialists for this- rheum locally and [facility] Ortho and had [facility] neurol C/S Will be having repeat MRI spine per Ortho- then deciding on plan Has brace and has done PT Assessment & Plan (03/04/2019 9:19 AM EDT): Has appt with Ortho soon- mom thinks teen needs another MRI; she just had one of L spine in OCTOBER @ [facility] that showed L5 pars fracture/spondylolysis; advised take the radiol disk to appt and d/w ortho the need for MRI Assessment & Plan (11/26/2018 9:36 AM EDT): Has had worsening low back pain. Has not been in school 2nd to pain this week. Recent MRI reveals old 5 spine fx. No hx known injury.Has appt in the next few weeks at [facility] spine Clinic.I discussed pain management - to [...] - Anxiety disorder 06/07/2018 Overview (01/25/2022): Saw [facility] 2021- Kimberlee Assessment & Plan (01/25/2022 [...] can start hormones Wants to go to [facility] in [facility] for therapy- gave info to pt so [...] will cancel appt @ [facility] Mom will call Dr. Drummond @ [facility] for FU appt Assessment & Plan (09/23/2020 4:32 PM EDT): Scheduled to have surgery 10/04/20 No urinary complaints today UA wnl Assessment & Plan (09/08/2020 5:11 PM EDT): Has surgery on 09/22 Unsure how much longer post surgery he will need a school high school science tutor- mom will speak w/ surgeon on [...] 10mg prior to procedure Also I called cardiac specialist @ [facility] to see if they can be present [...] Completed 03/03/2020, 015 Procedures * Due to [place] state law, this organization might not be sharing sensitive test results. Procedure Name Priority Date/Time Associated Diagnosis Comments CHLAMYDIA AND GONORRHEA, AMPLIFIED Routine 12/06/2022 4:28 PM EDT Flank pain GLUCOSE, FASTING Routine 09/18/2022 3:47 PM EDT Dizziness LIPID PANEL, FASTING Routine 01/25/2022 11:57 AM EDT Well adult exam from Last 3 Months or Most Recently Relevant to Health Maintenance Results * Due to [place] state law, this organization might not be sharing sensitive test results. * Chlamydia and Gonorrhoea, Amplified (12/06/2022 4:28 PM EDT) Chlamydia Trachomatis, DNA Probe NEGATIVE (NEG) [facility] Comment: No Chlamydia Trachomatis RNA detected in this patient's sample (REFERENCE RANGE/NORMAL VALUE: NOT DETECTED) Note: This test uses applications developer- mediated amplification method to detect rRNA from C. Trachomatis URINE GC AMP PROBE NEGATIVE (NEG) [facility] Comment: No Neisseria Gonorrhoeae RNA detected in this patient's sample (REFERENCE RANGE/NORMAL VALUE: NOT DETECTED) NOTE: This test uses applications developer-mediated amplification method to detect rRNA from N.Gonorrhoeae. [...] risk of sexual abuse. Consult the [facility] if needed. Contact phone number . Therapeutic failure or success cannot be determined with the Aptima Combo2 assay since nucleic acid may persist following appropriate antimicrobial therapy. The Centers for Disease Control and Prevention (CDC) recommends confirmatory retesting using culture or a different nucleic acid amplification test when positive results occur, if indicated. Testing performed or reported by [facility], a Service of [facility], [address] [place] [address] Vamsi Estrada MD, [facility]# [id number] Urine (Urine) 12/06/2022 4:2 8 PM EDT 12/06/2022 8:01 PM EDT Jocelyn Redd MD LAB MICROBIOLOGY - GENERAL ORDJoshua UMANZOR Final Result Performing Organization Address [facility] de Phone Number [facility] * Glucose, fasting (09/18/2022 3:47 PM EDT) Glucose 83 (70-99) MG/DL [facility] Comment: Testing performed or reported by [facility], a Service of [address] [address] Nora Downs MD, [employer] CLIA# [id number] Blood 09/18/2022 3:47 PM EDT 09/18/2022 5:00 PM EDT Result [facility] Yelena Planana LAB BLOOD ORDERABLES Final Resul t Performing Organization Address [facility] Number [facility] * (ABNORMAL) Lipid Panel, Fasting (01/25/2022 11:57 AM EDT) Cholesterol, Total 155 (<170) MG/DL [facility] Triglycerides 128(H) (<90) MG/DL [facility] HDL 40(L) (>45) MG/DL [facility] LDL 89 (0-109) MG/DL [facility] Non-HDL Cholesterol 115 (<120) MG/DL [facility] Comment: Testing performed or reported by [facility], a Service of [address] [address] Nora Downs MD, [facility] [facility]# [id number] Blood 01/25/2022 11:5 7 AM EDT 01/25/2022 11:58 AM EDT [facility] LAB BLOOD ORDERABLES Final Resul t Performing Organization Address [facility] Phone Number [facility] from Last 3 Months or Most Recently Relevant to Health Maintenance [facility] [address] [address] [place] [address] HMO
--- OUTSIDE RECORDS SUMMARY | 2025-04-28 17:41 | XMS_ITS | Encounter Summary ---
Author Organization [facility] Address [address] [facility] [address] [place] [address] Phone Care Team Providers Care Auxiliary Operator Name Role Phone Jimbo Oliveros MD Unavailable [phone] Dillon Bishop MD Unavailable Jimbo Bryan NP Unavailable Evelyn Dash CNP Primary Care Provid er Dillon Salinas MD Unavailable [phone] Desiree Barry [facility] Unavailable [phone] Encounter Details Date Type Department Care Team (Late st Contact Info) Description 01/25/2024 Nurse Triage [facility] [address] [place] [address] [phone] Ashley Nunez CNP [address] [place], [place] [phone] [email or web address] Social History Tobacco Use Types Packs/Day Years [...] Care Team (Late st Contact Info) Description 04/30/2025 2:00 PM EST Social Work [facility] [address] [place] [phone] Carlos Mccollum [address] [place] [address] 05/06/2025 9:30 AM EST Office Visit [facility] [address] [place] [phone] Evelyn Dash, [address] [address] 05/07/2025 2:00 PM EST Social Work [facility] [address] [place] [address] Carlos Mccollum [address] [place] [address] 05/13/2025 9:00 AM EST Office Visit [facility] [address] [place] [phone] Evelyn Dash, [address] [address] 05/14/2025 2:00 PM EST Social Work [facility] [address] [place] [phone] Carlos Mccollum [address] [place] [address] 05/28/2025 2:00 PM EST Social Work [facility] [address] [place] [address] Carlos Mccollum [address] [place] [address] 06/04/2025 2:00 PM EST Social Work [facility] [address] [place] [address] Carlos Mccollum [address] [place] [address] 06/11/2025 2:00 PM EST Social Work [facility] [address] [place] [address] Carlos Mccollum [address] [place] [address] 06/16/2025 3:00 PM EST Telemedicine [facility] [address] [place] [address] Travis Morrissey MD, [place] [address] [facility] [address] [place] [address] [email or web address] 11/03/2025 3:00 PM EDT Telemedicine [facility] [address] [place] [address] Dillon Salinas MD [address] [place] [address] [email or web address] documented as of this encounter Visit Diagnoses Not on filedocumented in this encounter Additional Health Concerns Assessment Noted Time PHQ-9 Depression Total Score: 13 023 4:06 PM EDT PHQ-2 Depression Total Score: 3 02/14/20 23 4:06 PM EDT documented as of this encounter Care Teams Auxiliary Operator Relationship Specialty Start Date End Date Evelyn Dash CNP [address] [place] [address] [email or web address] PCP - General Nurse Practitioner 01/25/24 Jimbo Oliveros MD [address] [place] [address] Consulting Provider Pediatrics 04/25/22 07/22/24 Dillon Bishop MD [address] [place] [address] [place] [address] [email or web address] Anesthesiology 07/31/22 Jimbo Bryan NP [address] [place] [address] Psychiatrist 06/11/23 08/22/24 Dillon Salinas MD [address] [place] [address] [email or web address] Pediatric Cardiology 07/10/24 Desiree Barry, PMHNP- [address] [place] [address] [email or web address] Psychiatrist Nurse Practitioner 02/16/25 documented as of this encounter Additional Source Comments The information contained in this document represents components of the legal health record. It is not the complete legal health record.[facility]
--- OUTSIDE RECORDS SUMMARY | 2025-04-28 17:41 | XMS_ITS | Encounter Summary ---
Author Organization [facility] Address [address] [place] [address] Phone Care Team Providers Care Email Deployment Specialist Name Role Phone Yelena Martinez DO Primary Care Provider [phone] Reason for Visit * Reason Comments Med Refill Encounter Details Date Type Department Care Team (Late st Contact Info) Description 12/27/2022 Refill [facility] [address] [place] [address] Yelena Martinez DO [address] [place] [address] GERD without esophagitis Social History Tobacco Use [...] reflux documented in this encounter Care Teams Email Deployment Specialist Relationship Specialty Start Date End Date Yelena Martinez DO [address] [facility] [place] [address] PCP - General Pediatrics 01/11/22 03/19/23 documented as of this encounter
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
--- OUTSIDE RECORDS SUMMARY | 2025-04-28 17:41 | XMS_ITS | Encounter Summary ---
Author Organization [facility] Address [address] [place] [phone] Phone Care Team Providers Care Hat Brim Curler Name Role Phone Yelena Martinez DO Primary Care Provider [phone] Reason for Visit * Reason Comments Med Change Request Encounter Details Date Type Department Care Team (Late st Contact Info) Description 01/07/2023 Refill [facility] [place] [address] [place] [address] Aren Arteaga MD [address] [place] [address] GERD without esophagitis Social History Tobacco Use [...] reflux documented in this encounter Care Teams Hat Brim Curler Relationship Specialty Start Date End Date Yelena Martinez DO [address] [place] [address] [place] [id number] PCP - General Pediatrics 01/11/22 03/19/23 documented as of this encounter
--- OUTSIDE RECORDS SUMMARY | 2025-04-28 17:41 | XMS_ITS | Encounter Summary ---
Author Organization [facility] Address [address] [place] [address] Phone Care Team Providers Care Sheet Metal Worker Apprentice Name Role Phone Yelena Martinez DO Primary Care Provider [phone] Reason for Visit * Reason Comments Med Refill Encounter Details Date Type Department Care Team (Late st Contact Info) Description 12/26/2021 Refill [facility] [place] [address] [place] [address] Yelena Martinez DO [address] [place] [address] Acne vulgaris; Menstrual disorder Social History Tobacco [...] disorder documented in this encounter Care Teams Sheet Metal Worker Apprentice Relationship Specialty Start Date End Date Yelena Martinez DO [address] [place] [address] [place] [address] PCP - General Pediatrics 01/11/22 03/19/23 documented as of this encounter
--- OUTSIDE RECORDS SUMMARY | 2025-04-28 17:42 | XMS_ITS | Encounter Summary ---
Author Organization [facility] Address [address] [facility] [address] [place] [address] Phone Care Team Providers Care Machine Compositor Name Role Phone Dillon Bishop MD Unavailable [phone] Evelyn Dash [facility] Primary Care Provid er Dillon Salinas MD Unavailable [phone] Desiree Barry [facility] Unavailable [phone] Encounter Details Date Type Department Care Team (Late st Contact Info) Description 04/13/2025 Orders Only [facility] [address] [place] [address] [phone] Itzel Figueroa MD [address] [place] [address] [id number] [email or web address] Depression, unspecified depression type (Primary Dx) Social [...] 04/30/2025 2:00 PM EST Social Work [facility] [address] [place] [address] 81450 Carlos Mccollum [address] [place] [address] 05/06/2025 9:30 AM EST Office Visit [facility] [address] [place] [address] 49075 Ekta Evelyn Mohan, [facility] 10 [place] [address] 05/07/2025 2:00 PM EST Social Work [facility] [address] [place] [address] 71237 Carlos Mccollum [address] [place] [address] 05/13/2025 9:00 AM EST Office Visit [facility] [address] [place] [address] 94037 Evelyn Dash, [address] [address] 05/14/2025 2:00 PM EST Social Work [facility] [address] [place] [address] 67842 Carlos Mccollum [address] [place] [address] 05/28/2025 2:00 PM EST Social Work [facility] [address] [place] [address] 20721 Carlos Mccollum [address] [place] [address] 06/04/2025 2:00 PM EST Social Work [facility] [address] [place] [address] 26642 Carlos Mccollum [address] [place] [address] 06/11/2025 2:00 PM EST Social Work [facility] [address] [place] [address] 71850 Carlos Mccollum [address] [place] [address] 06/16/2025 3:00 PM EST Telemedicine [facility] 84 [place] [address] Travis Morrissey MD, [place] [address] [address] [email or web address] 11/03/2025 3:00 PM EDT Telemedicine [facility] [place] [address] [place] [address] 0[address] Dillon Salinas MD [address] [place] [address] [email or web address] documented as of this encounter Visit Diagnoses Diagnosis Depression, unspecified depression type- Primary documented in this encounter Additional Health Concerns Assessment Noted Time PHQ-9 Depression Total Score: 21 025 10:22 AM EDT PHQ-2 Depression Total Score: 4 03/23/20 25 10:22 AM EDT documented as of this encounter Care Teams Machine Compositor Relationship Specialty Start Date End Date Evelyn Dash CNP [address] [place] [address] [email or web address] PCP - General Nurse Practitioner 01/25/24 Dillon Bishop MD [address] [place] [address] [email or web address] Anesthesiology 07/31/22 Dillon Salinas MD [address] [place] [address] [email or web address] Pediatric Cardiology 07/10/24 Desiree Barry, PMHNP- [address] [place] [address] 41698 Psychiatrist Nurse Practitioner 02/16/25 documented as of this encounter Additional Source Comments The information contained in this document represents components of the legal health record. It is not the complete legal health record.[facility]
--- OUTSIDE RECORDS SUMMARY | 2025-04-28 17:42 | XMS_ITS | Encounter Summary ---
Author Organization [facility] Address [address] [place] [address] Phone Care Team Providers Care Cushion Spring Assembler Name Role Phone Yelena Martinez DO Primary Care Provider [phone] Encounter Details Date Type Department Care Team (Late st Contact Info) Description 07/19/2015 Documentation [facility] Family Medicine [address] [place] [address] Family Medicine, Physician [address] [place], [place] 230741 Social History Tobacco Use Types Packs/Day Years [...] on filedocumented in this encounter Care Teams Cushion Spring Assembler Relationship Specialty Start Date End Date Yelena Martinez DO [address] [place] [address] PCP - General Pediatrics 01/11/22 03/19/23 documented as of this encounter
--- OUTSIDE RECORDS SUMMARY | 2025-04-28 17:42 | XMS_ITS | Encounter Summary ---
Author Organization [facility] Address [address] [place] [address] [place] [address] Phone Care Team Providers Care Lead Network Engineer Name Role Phone Dillon Bishop MD Unavailable [phone] Evelyn Dash [facility] Primary Care Provid er Dillon Salinas MD Unavailable [phone] [facility] Unavailable [phone] Reason for Visit * Reason Comments Medication Refill Encounter Details Date Type Department Care Team (Late st Contact Info) Description 02/13/2025 Refill [facility] [address] [place] [address] [phone] Valerie Agarwal NP [address] [place] [address] [phone] [email or web address] Medication Refill Social History Tobacco Use Types Packs/Day Years [...] 04/30/2025 2:00 PM EST Social Work [facility] [address] [place] [address] 355[address] Carlos Mccollum [address] [place] [address] 05/06/2025 9:30 AM EST Office Visit [facility] [address] [place] [address] 37266 Evelyn Dash, [facility] 10 [place] [address] 05/07/2025 2:00 PM EST Social Work [facility] [address] [place] [address] 76310 Carlos Mccollum [address] [place] [address] 05/13/2025 9:00 AM EST Office Visit [facility] [address] [place] [address] 92137 Evelyn Dash, MEDICAL SCIENTIST [address] [place] [address] [email or web address] 05/14/2025 2:00 PM EST Social Work [facility] [address] [place] [address] 55480 Carlos Mccollum [address] [place] [address] 05/28/2025 2:00 PM EST Social Work [facility] [address] [place] [address] 42717 Carlos Mccollum [address] [place] [address] 06/04/2025 2:00 PM EST Social Work [facility] [address] [place] [address] 09761 Carlos Mccollum [address] [place] [address] 06/11/2025 2:00 PM EST Social Work [facility] [address] [place] [address] 97768 Carlos Mccollum [address] [place] [address] 06/16/2025 3:00 PM EST Telemedicine [facility] 84 [place] [address] Travis Morrissey MD, [place] [address] [address] [email or web address] 11/03/2025 3:00 PM EDT Telemedicine [facility] [place] [address] [place] [address] 6[address] Dillon Salinas MD [address] [place] [email or web address] documented as of this encounter Visit Diagnoses Not on filedocumented in this encounter Additional Health Concerns Assessment Noted Time PHQ-9 Depression Total Score: 13 023 4:06 PM EDT PHQ-2 Depression Total Score: 3 02/14/20 23 4:06 PM EDT documented as of this encounter Care Teams Lead Network Engineer Relationship Specialty Start Date End Date Evelyn Dash CNP [address] [place] [address] [email or web address] PCP - General Nurse Practitioner 01/25/24 Dillon Bishop MD [address] [place] [address] [email or web address] Anesthesiology 07/31/22 Dillon Salinas MD [address] [place] [address] 197[address] [email or web address] Pediatric Cardiology 07/10/24 Desiree Barry, PMHNP- [address] [place] [address] [email or web address] Psychiatrist Nurse Practitioner 02/16/25 documented as of this encounter Additional Source Comments The information contained in this document represents components of the legal health record. It is not the complete legal health record.[facility]
--- OUTSIDE RECORDS SUMMARY | 2025-04-28 17:42 | XMS_ITS | Encounter Summary ---
Author Organization [facility] Address [address] [facility] [address] [place] [address] Phone Care Team Providers Care Sustainability Director Name Role Phone Dillon Bishop MD Unavailable [phone] Evelyn Dash CNP Primary Care Provid er Dillon Salinas MD Unavailable Desiree Barry [facility] Unavailable [phone] Encounter Details Date Type Department Care Team (Late st Contact Info) Description 04/10/2025 Telephone [facility] [address] [place] [address] [phone] Evelyn Dash CNP 10 [place], [place] [phone] [email or web address] Social History Tobacco Use Types Packs/Day [...] Patient calling in regards to new medication '[place]'. Patient was advised by pharmacy that they [...] 04/30/2025 2:00 PM EST Social Work [facility] [address] [place] [address] 297[address] Carlos Mccollum [address] [place] [address] [email or web address] 05/06/2025 9:30 AM EST Office Visit [facility] [address] [place] [address] 55937 Evelyn Dash, SHUTDOWN COORDINATOR [address] [place] [address] [email or web address] 05/07/2025 2:00 PM EST Social Work [facility] [address] [place] [address] 12134 Carlos Mccollum [facility] [address] [place] [address] [email or web address] 05/13/2025 9:00 AM EST Office Visit [facility] [address] [place] [address] 72176 Evelyn Dash, SHUTDOWN COORDINATOR [address] [place] [address] [email or web address] 05/14/2025 2:00 PM EST Social Work [facility] [address] [place] [address] 18024 Carlos Mccollum [address] [place] [address] [email or web address] 05/28/2025 2:00 PM EST Social Work [facility] [address] [place] [address] 75363 Carlos Mccollum [address] [place] [address] [email or web address] 06/04/2025 2:00 PM EST Social Work [facility] 10 [place] [address] Carlos Mccollum [address] [place] [address] 06/11/2025 2:00 PM EST Social Work [facility] 10 [place] [address] Carlos Mccollum [address] [place] [address] 06/16/2025 3:00 PM EST Telemedicine [facility] 84 [place] [address] Travis Morrissey MD, [address] [address] 11/03/2025 3:00 PM EDT Telemedicine [facility] [place] [address] [place] [address] Dillon Salinas MD [address] [place] [address] 559[address] [email or web address] documented as of this encounter Visit Diagnoses Not on filedocumented in this encounter Additional Health Concerns Assessment Noted Time PHQ-9 Depression Total Score: 21 025 10:22 AM EDT PHQ-2 Depression Total Score: 4 03/23/20 25 10:22 AM EDT documented as of this encounter Care Teams Sustainability Director Relationship Specialty Start Date End Date Evelyn Dash CNP 10 [place] [address] [email or web address] PCP - General Nurse Practitioner 01/25/24 Dillon Bishop MD [address] [place] [address] [address] [place] [address] [email or web address] Anesthesiology 07/31/22 Dillon Salinas MD [address] [place] [address] [email or web address] Pediatric Cardiology 07/10/24 Desiree Barry, PMHNP-BC [address] [place] [address] [email or web address] Psychiatrist Nurse Practitioner 02/16/25 documented as of this encounter Additional Source Comments The information contained in this document represents components of the legal health record. It is not the complete legal health record.[facility]
--- OUTSIDE RECORDS SUMMARY | 2025-04-28 17:42 | XMS_ITS | Encounter Summary ---
Author Organization [facility] Address [address] [facility] [address] [place] [address] 14587 Phone Care Team Providers Care Director New Product Name Role Phone Dillon Bishop MD Unavailable [phone] Evelyn Dash CNP Primary Care Provid er Dillon Salinas MD Unavailable [phone] Desiree Barry [facility] Unavailable [phone] Encounter Details Date Type Department Care Team (Late st Contact Info) Description 04/10/2025 Telephone [facility] [address] [place] [address] [phone] Evelyn Dash CNP 10 [place], [place] [phone] [email or web address] Social History Tobacco Use Types [...] service calling to report recent conversation with [facility] in regards to patients medications recently prescribed. Reporting rx interaction (answering service did not get the medication names) documented in this encounter Plan of Treatment Upcoming Encounters Date Type Department Care Team (Late st Contact Info) Description 04/30/2025 2:00 PM EST Social Work [facility] [address] [place] [address] 94952 Carlos Mccollum [address] [place] [address] 05/06/2025 9:30 AM EST Office Visit [facility] [address] [place] [address] 80889 Evelyn Dash, [address] [address] 05/07/2025 2:00 PM EST Social Work [facility] [address] [place] [address] 27112 Carlos Mccollum [address] [place] [address] 05/13/2025 9:00 AM EST Office Visit [facility] [address] [place] [address] 65[address] Evelyn Dash, [address] [address] 05/14/2025 2:00 PM EST Social Work [facility] [address] [place] [address] 00261 Carlos Mccollum [address] [place] [address] 05/28/2025 2:00 PM EST Social Work [facility] [address] [place] [address] 05684 Carlos Mccollum [address] [place] [address] 06/04/2025 2:00 PM EST Social Work [facility] [address] [place] [address] 21292 Carlos Mccollum [address] [place] [address] [email or web address] 06/11/2025 2:00 PM EST Social Work [facility] 10 [place] [address] Carlos Mccollum Sabrina [address] [place] [address] [email or web address] 06/16/2025 3:00 PM EST [facility]medicine [facility] 84 [place] [address] Travis Morrissey MD, [place] [address] [address] 11/03/2025 3:00 PM EDT Telemedicine [facility] Pedi Cardiology at [address] [address] Dillon Salinas MD [address] [place] [address] [email or web address] documented as of this encounter Visit Diagnoses Not on filedocumented in this encounter Additional Health Concerns Assessment Noted Time PHQ-9 Depression Total Score: 21 025 10:22 AM EDT PHQ-2 Depression Total Score: 4 03/23/20 25 10:22 AM EDT documented as of this encounter Care Teams Director New Product Relationship Specialty Start Date End Date Evelyn Dash CNP [address] [place] [address] [email or web address] PCP - General Nurse Practitioner 01/25/24 Dillon Bishop MD [address] [place], [place] [address]B 444 [place] [address] [email or web address] Anesthesiology 07/31/22 Dillon Salinas MD [address] [place] [address] [email or web address] Pediatric Cardiology 07/10/24 Desiree Barry, [facility] [address] [place] [address] 9[address] [email or web address] Psychiatrist Nurse Practitioner 02/16/25 documented as of this encounter Additional Source Comments The information contained in this document represents components of the legal health record. It is not the complete legal health record.[facility]
--- OUTSIDE RECORDS SUMMARY | 2025-04-28 17:42 | XMS_ITS | Encounter Summary ---
Author Organization [facility] Address [address] [place] [address] 09695 Phone Care Team Providers Care Inventory Control Specialist Name Role Phone Yelena Martinez DO Primary Care Provider [phone] Reason for Visit * Reason Comments Med Refill Encounter Details Date Type Department Care Team (Late st Contact Info) Description 02/26/2020 Refill [facility] [address] [place] [address] Yelena Martinez DO 150 [place] [address] Chronic bilateral low back pain without sciatica [...] sciatica documented in this encounter Care Teams Inventory Control Specialist Relationship Specialty Start Date End Date Yelena Martinez DO 150 [place] [address] PCP - General Pediatrics 01/11/22 03/19/23 documented as of this encounter
--- OUTSIDE RECORDS SUMMARY | 2025-04-28 17:42 | XMS_ITS | Encounter Summary ---
Author Organization [facility] Address [address] [place] [address] Phone Care Team Providers Care Director Of Software Development Name Role Phone Yelena Martinez DO Primary Care Provider [phone] Reason for Visit * Reason Comments Med Refill Encounter Details Date Type Department Care Team (Late st Contact Info) Description 05/03/2018 Refill [facility] 150 [place] [address] Ashley Onofre NP 299 [facility] 210 [place] [address] Chronic midline thoracic back pain (Primary Dx); [...] region documented in this encounter Care Teams Director Of Software Development Relationship Specialty Start Date End Date Yelena Martinez DO 150 [facility] [place] [address] PCP - General Pediatrics 01/11/22 03/19/23 documented as of this encounter
--- OUTSIDE RECORDS SUMMARY | 2025-04-28 17:42 | XMS_ITS | Encounter Summary ---
Author Organization [facility] Address [address] [facility] [address] [place] [address] Phone Care Team Providers Care Magazine Keeper Name Role Phone Dillon Bishop MD Unavailable Evelyn Dash CNP Primary Care Provid er Dillon Salinas MD Unavailable [phone] Desiree Barry [facility] Unavailable [phone] Encounter Details Date Type Department Care Team (Late st Contact Info) Description 04/10/2025 Orders Only [facility] [address] [place] [address] [phone] Desiree Barry [facility] [phone] [email or web address] Bipolar affective disorder, depressed, severe, [...] 2:00 PM EST Social Work [facility] [address] [place] [address] 7[address] Carlos Mccollum [address] [place] [address] 05/06/2025 9:30 AM EST Office Visit [facility] [address] [place] [address] 75169 Evelyn Dash, PHOTO LAB TECHNICIAN 10 [place] [address] 05/07/2025 2:00 PM EST Social Work [facility] [address] [place] [address] 370[address] Carlos Mccollum [address] [place] [address] 05/13/2025 9:00 AM EST Office Visit [facility] [address] [place] [address] 888[address] Evelyn Dash, PHOTO LAB TECHNICIAN [address] [place] [address] [email or web address] 05/14/2025 2:00 PM EST Social Work [facility] [address] [place] [address] 6[address] Carlos Mccollum [address] [place] [address] 05/28/2025 2:00 PM EST Social Work [facility] [address] [place] [address] 57798 Carlos Mccollum [address] [place] [address] 06/04/2025 2:00 PM EST Social Work [facility] [address] [place] [address] 09[address] Carlos Mccollum [address] [place] [address] 06/11/2025 2:00 PM EST Social Work [facility] [address] [place] [address] 17619 Carlos Mccollum [address] [place] [address] 06/16/2025 3:00 PM EST Telemed[facility] 84 [place] [address] Travis Morrissey MD, [place] [address] [facility] [address] [place] [address] 11/03/2025 3:00 PM EDT Telemedicine [facility] [place] 17[address] [place] [address] Dillon Salinas MD [address] [place] [address] [email or web address] documented as of this encounter Results * (ABNORMAL) [place] level (04/16/2025 12:32 PM EDT) LITHIUM 0.12(L) 0.5 - 1.00 mmol/L [facility] Blood 04/16/2025 12:3 2 PM EDT 04/16/2025 12:38 PM EDT us Desiree Barry [facility]- LAB BLOOD BKR ORDER [place] Final Result [facility] [address] [place] [address] documented in this encounter Visit Diagnoses Diagnosis [...] documented as of this encounter Care Teams Magazine Keeper Relationship Specialty Start Date End Date Evelyn Dash CNP [address] [place] [address] [email or web address] PCP - General Nurse Practitioner 01/25/24 Dillon Bishop MD [address] [place] [address] 444 [place] [address] [email or web address] Anesthesiology 07/31/22 Dillon Salinas MD [address] [place] [address] [email or web address] Pediatric Cardiology 07/10/24 Desiree Barry, [facility] [address] [place] [address] [email or web address] Psychiatrist Nurse Practitioner 02/16/25 documented as of this encounter Additional Source Comments The information contained in this document represents components of the legal health record. It is not the complete legal health record.[facility]
--- OUTSIDE RECORDS SUMMARY | 2025-04-28 17:42 | XMS_ITS | Clinical Summary ---
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 Mom is worried that [...] doxy course Binder is not exacerbating acne Lbwjos-fz-gclu transgender person 10/04/2018 Overview (04/08/2020): Identifies as [...] skull fx. DCF involved. I looked at [facility] notes and found that further imaging reassuring for no skull fx. I called and let mom know. 10/2018 Brain MRI normal Last Assessment & Plan: reasurrance given that Lorenzo does not have MS, given recent neg MRI Chronic bilateral low back pain without sciatica 07/10/2018 Overview (04/08/2020): Has C/S w/ [facility] Rheum APR 08 Seeing ortho [facility] for spondylolysis- Brace rx; plan PT; [...] patient's age to complete this topic Insurance [facility] MEDICAID Care Teams Support Clerk Relationship Specialty Start Date End Date Yelena Martinez DO [address] [place] [address] MJ 1 [place] [phone] PCP - General General Pediatrics 01/28/20
--- OUTSIDE RECORDS SUMMARY | 2025-04-28 17:42 | XMS_ITS | Encounter Summary ---
Author Organization [facility] Address [address] [facility] [address] [place] [address] Phone Care Team Providers Care Scoring Machine Operator Name Role Phone Yelena Martinez DO Primary Care Provider Jimbo Oliveros MD Unavailable [phone] Dillon Bishop MD Unavailable Jimbo Oliveros MD Primary Care Provider Ashley Nunez [facility] Unavailable Jimbo Bryan NP Unavailable Evelyn Dash MOTION GRAPHICS DESIGNER Primary Care Provid er Dillon Salinas MD Unavailable Desiree Barry [facility] Unavailable [phone] Encounter Details Date Type Department Care Team (Late st Contact Info) Description 10/30/2022 Procedure Pass [facility] [place] [address] [place], [place] [phone] Social History Tobacco Use Types Packs/Day Years [...] high school, GED, job training, learning the Bhutanese language, technical skills, or developing parenting skills)? [...] 04/30/2025 2:00 PM EST Social Work [facility] [address] [place] [address] Carlos Mccollum [address] [place] [address] [email or web address] 05/06/2025 9:30 AM EST Office Visit [facility] [address] [place] [address] Evelyn Dash, MOTION GRAPHICS DESIGNER 10 [place] [address] [email or web address] 05/07/2025 2:00 PM EST Social Work [facility] [address] [place] [address] Carlos Mccollum [address] [place] [address] [email or web address] 05/13/2025 9:00 AM EST Office Visit [facility] [address] [place] [address] Evelyn Dash, MOTION GRAPHICS DESIGNER [address] [place] [address] [email or web address] 05/14/2025 2:00 PM EST Social Work [facility] [address] [place] [address] Carlos Mccollum [address] [place] [address] 05/28/2025 2:00 PM EST Social Work [facility] [address] [place] [address] Carlos Mccollum [address] [place] [address] 06/04/2025 2:00 PM EST Social Work [facility] [address] [place] [address] Carlos Mccollum [address] [place] [address] [email or web address] 06/11/2025 2:00 PM EST Social Work [facility] [address] [place] [address] Carlos Mccollum [address] [place] [address] [email or web address] 06/16/2025 3:00 PM EST Telemedicine [facility] [address] [facility] [place] [address] Travis Morrissey MD, [place] [address] [address] 11/03/2025 3:00 PM EDT Telemedicine [facility] [place] [address] [place] [address] Dillon Salinas MD [facility]4 [place] [address] [email or web address] documented as of this encounter Visit Diagnoses Not on filedocumented in this encounter Additional Health Concerns Assessment Noted Time PHQ-9 Depression Total Score: 13 023 1:14 PM EDT PHQ-2 Depression Total Score: 2 10/28/19 23 1:14 PM EDT documented as of this encounter Care Teams Scoring Machine Operator Relationship Specialty Start Date End Date Yelena Martinez DO [address] [place] [address] PCP - General Pediatrics 04/30/19 01/15/23 Jimbo Oliveros MD 150 [place] [address] PCP - General Pediatrics 01/16/23 01/24/24 Evelyn Dash CNP [address] [place] [address] [email or web address] PCP - General Nurse Practitioner 01/25/24 Jimbo Oliveros MD [address] [place] [address] Consulting Provider Pediatrics 04/25/22 07/22/24 Dillon Bishop MD [address] [place] [address] [place] [address] [email or web address] Anesthesiology 07/31/22 Ashley Nunez CNP [address] [place] [address] [email or web address] Primary Care Physician 04/18/23 01/24/24 Jimbo Bryan NP [address] [place] [address] Psychiatrist 06/11/23 08/22/24 Dillon Salinas MD [address] [place] [address] [email or web address] Pediatric Cardiology 07/10/24 Desiree Barry, HNP-BC [address] [place] [address] [email or web address] Psychiatrist Nurse Practitioner 02/16/25 documented as of this encounter Additional Source Comments The information contained in this document represents components of the legal health record. It is not the complete legal health record.[facility]
--- OUTSIDE RECORDS SUMMARY | 2025-04-28 17:42 | XMS_ITS | Encounter Summary ---
Author Organization [facility] Address [address] [place] [address] Phone Care Team Providers Care Pharmacy Order Entry Technician Name Role Phone Yelena Martinez DO Primary Care Provider [phone] Encounter Details Date Type Department Care Team (Late st Contact Info) Description 02/08/2017 Conversion Encounter [facility] [address] [place], [place] [phone] Social History Tobacco Use Types Packs/Day Years [...] on filedocumented in this encounter Care Teams Pharmacy Order Entry Technician Relationship Specialty Start Date End Date Yelena Martinez DO [address] [place] [address] PCP - General Pediatrics 01/11/22 03/19/23 documented as of this encounter
--- OUTSIDE RECORDS SUMMARY | 2025-04-28 17:42 | XMS_ITS | Encounter Summary ---
Author Organization [facility] Address [address] [facility] [address] [place] [address] Phone Care Team Providers Care Cyber Defense Incident Responder Name Role Phone Dillon Bishop MD Unavailable [phone] Evelyn Dash CNP Primary Care Provid er Dillon Salinas MD Unavailable Desiree Barry [facility] Unavailable [phone] Encounter Details Date Type Department Care Team (Late st Contact Info) Description 03/27/2025 Orders Only [facility] [address] [place] [address] [phone] Desiree Barry [facility] [phone] [email or web address] Bipolar affective disorder, currently manic, moderate (Primary [...] 2:00 PM EST Social Work [facility] [address] [place] [address] Carlos Mccollum [address] [place] [address] 05/06/2025 9:30 AM EST Office Visit [facility] [address] [place] [address] Evelyn Dash, RESIDENTIAL ASSISTANT 10 [place] [address] 05/07/2025 2:00 PM EST Social Work [facility] [address] [place] [address] Carlos Mccollum [address] [place] [address] 05/13/2025 9:00 AM EST Office Visit [facility] [address] [place] [address] Evelyn Dash, RESIDENTIAL ASSISTANT [address] [place] [address] 05/14/2025 2:00 PM EST Social Work [facility] [address] [place] [address] Carlos Mccollum [address] [place] [address] 05/28/2025 2:00 PM EST Social Work [facility] [address] [place] [address] Carlos Mccollum [address] [place] [address] 06/04/2025 2:00 PM EST Social Work [facility] [address] [place] [address] Carlos Mccollum [address] [place] [address] 06/11/2025 2:00 PM EST Social Work [facility] [address] [place] [address] Carlos Mccollum [address] [place] [address] 06/16/2025 3:00 PM EST Telemedicine [facility] [address] [place] [address] Travis Morrissey MD, [place] [address] [facility] [address] [place] [address] 11/03/2025 3:00 PM EDT Telemedicine [facility] [address] [place] [address] Dillon aSlinas MD [address] [place] [address] [email or web address] documented as of this encounter Results * Urinalysis w/reflex Urine Culture (03/31/2025 1:32 PM EDT) COLOR Yellow Yellow [facility] CLARITY Clear [facility] GLUCOSE Negative Negative [facility] BILI Negative Negative [facility] KETONES Negative Negative [facility] SPECIFIC GRAVITY 1.015 1.005 - 1.030 [facility] BLOOD Negative Negative [facility] PH 6.5 5.0 - 8.0 [facility] Protein-UA Negative Negative [facility] NITRITE Negative Negative [facility] Leukocyte esterase, ur Negative Negative [facility] Urine (Urine) 03/31/2025 1:3 2 PM EDT 03/31/2025 1:33 PM EDT us Des[facility]e [facility] S Final Result [facility] [address] [place], [place] [phone] * Thyroperoxidase (TPO) antibodies (03/31/2025 1:21 PM EDT) THYROPEROXIDASE AB, S <0.3 <9.0 IU/mL [facility]/PATH [address] Blood 03/31/2025 1:21 PM EDT 03/31/2025 1:26 PM EDT us Desiree Barry PMHNP-BC LAB BLOOD BKR ORDER [place] Final Result [facility]PATH [address] [place] [address] * TSH with reflex (03/31/2025 1:21 PM EDT) TSH 1.02 0.27 - 4.20 uIU/mL [facility] Blood 03/31/2025 1:21 PM EDT 03/31/2025 1:25 PM EDT us Desiree Barry PMHNP-BC LAB BLOOD BKR ORDER K[place] Final Result Performing Organization Address City/[facility]/ZIP Co de Phone Number [address] [address] * Comprehensive metabolic panel (03/31/2025 1:21 PM EDT) SODIUM 139 133 - 146 mmol/L [facility] POTASSIUM 4.4 3.3 - 5.1 mmol/L [facility] CHLORIDE 105 96 - 108 mmol/L [facility] CO2 22 21 - 35 mmol/L [facility] BUN 11 6 - 19 mg/dL [facility] CREATININE 0.70 0.5 - 1.5 mg/dL [facility] GLUCOSE 97 70 - 99 mg/dL [facility] ALBUMIN 4.8 3.9 - 4.8 g/dL [facility] TOTAL PROTEIN 7.7 6.5 - 8.0 g/dL [facility] CALCIUM 9.9 8.4 - 10.3 mg/dL [facility] ALKALINE PHOSPHATASE 83 39 - 117 U/L [facility] TOTAL BILIRUBIN 0.6 0.0 - 1.2 mg/dL [facility] AST 13 0 - 37 U/L [facility] ALT 16 0 - 40 U/L [facility] GLOBULIN 2.9 1 - 4.8 g/dL [facility] EGFR >120 >59 mL/min/1.7 3m2 [facility] Comment:Estimated glomerular filtration rate calculated using the CKD-EPI refit equation. ANION GAP 16 10 - 20 mmol/L [facility] Blood 03/31/2025 1:21 PM EDT 03/31/2025 1:25 PM EDT us Desiree Barry PMHNP-BC LAB BLOOD BKR ORDER [place]TON Final Result [facility] [address] [place] [address] * (ABNORMAL) CBC and differential (03/31/2025 1:21 PM EDT) WBC 7.07 4.00 - 11.00 K/uL [facility] RBC 4.70 4.00 - 5.20 M/uL [facility] HGB 14.7 12.0 - 16.0 g/dL [facility] HCT 41.6 36.0 - 46.0 % [facility] PLT 295 150 - 450 K/uL [facility] MCV 88.5 80.0 - 100.0 fL [facility] MCH 31.3(H) 27.0 - 31.0 pg [facility] MCHC 35.3 32.0 - 36.0 g/dL [facility] RDW 12.0 11.5 - 14.5 % [facility] MPV 10.1 8.4 - 12.0 fL [facility] NRBC 0.00 0.00 /100 WBCs [facility] ABSOLUTE NRBC 0.00 0.00 K/uL [facility] DIFF METHOD Auto [facility] NEUTS 63.9 48.0 - 76.0 % [facility] LYMPHS 25.9 18.0 - 41.0 % [facility] MONOS 7.6 4.0 - 11.0 % [facility] EOS 2.1 0.0 - 5.0 % [facility] BASOS 0.4 0.0 - 1.5 % [facility] Granulocytes, immature (%) 0.1 0.0 - 0.9 % [facility] ABSOLUTE NEUTS 4.51 1.92 - 7.60 K/uL [facility] ABSOLUTE LYMPHS 1.83 0.72 - 4.10 K/uL [facility] ABSOLUTE MONOS 0.54 0.16 - 1.10 K/uL [facility] ABSOLUTE EOS 0.15 0.00 - 0.50 K/uL [facility] ABSOLUTE BASOS 0.03 0.00 - 0.15 K/uL [facility] Granulocytes, immature 0.01 0.00 - 0.09 K/uL [facility] Blood 03/31/2025 1:21 PM EDT 03/31/2025 1:25 PM EDT us Desiree Barry PMHNP- LAB BLOOD BKR ORDER KOLTON Final Result Performing Organization Address City/State/[facility] Co de Phone Number [facility] [address] [place] [address] documented in this encounter Visit Diagnoses Diagnosis Bipolar affective disorder, currently manic, moderate- Primary Bipolar I disorder, most recent episode (or current) manic, moderate documented in this encounter Additional Health Concerns Assessment Noted Time PHQ-9 Depression Total Score: 21 025 10:22 AM EDT PHQ-2 Depression Total Score: 4 03/23/20 25 10:22 AM EDT documented as of this encounter Care Teams Cyber Defense Incident Responder Relationship Specialty Start Date End Date Evelyn Dash CNP [address] [place] [address] [email or web address] PCP - General Nurse Practitioner 01/25/24 Dillon Bishop MD [address] [place] [address] [place] [address] [email or web address] Anesthesiology 07/31/22 Dillon Salinas MD [address] [place] [address] [email or web address] Pediatric Cardiology 07/10/24 Desiree Barry, PMHNP- [address] [place] [address] [email or web address] Psychiatrist Nurse Practitioner 02/16/25 documented as of this encounter Additional Source Comments The information contained in this document represents components of the legal health record. It is not the complete legal health record.[facility]
--- OUTSIDE RECORDS SUMMARY | 2025-04-28 17:42 | XMS_ITS | Encounter Summary ---
Author Organization [facility] Address [address] [place], [place] [phone] Phone Care Team Providers Care Home Therapy Teacher Name Role Phone Yelena Martinez DO Primary Care Provider [phone] Reason for Visit * Reason Comments Med Refill Encounter Details Date Type Department Care Team ([facility] Contact Info) Description 06/04/2017 Refill [facility] [place] [address] [place] [address] Marie Meza MD [address] [place], [place] [phone] Encounter for surveillance of contraceptives, unspecified contraceptive [...] Primary documented in this encounter Care Teams Home Therapy Teacher Relationship Specialty Start Date End Date Yelena Martinez DO [address] [place] [address] [facility] [place] [address] PCP - General Pediatrics 01/11/22 03/19/23 documented as of this encounter
== END 2025-04-28 15:07 | disposition home or self-care (01) ==
LOC: HO.HSM 14:38
PROVIDERS: PCP Nurse Practitioner; Visit Provider Psychiatry & Neurology Neurology
DX: G95.0 Syringomyelia and syringobulbia (principal)
CPT/HCPCS: 99203

== ENCOUNTER 2025-04-28 15:45 | Emergency (ER) | payer OTHER, MEDICAID, SELFPAY ==
[2025-04-28 15:52] VITALS: BP 128/77; PULSE 85; RESP 18; TEMP 35.8; O2SAT 100; BMI 26.5
--- NOTE | 2025-04-28 16:05 | ED.GENADULT ---
HPI - General Adult General Chief complaint: Back Pain/Injury Stated complaint: severe back pain Related Data Home Medications ?Medication ?Instructions ?Recorded ?Confirmed lamotrigine 100 mg tablet 100 mg PO DAILY 04/28/25 04/28/25 losartan 25 mg tablet 25 mg PO DAILY 04/28/25 04/28/25 melatonin 5 mg capsule mg PO ONCE 04/28/25 04/28/25 omeprazole 20 mg capsule,delayed 20 mg PO DAILY 04/28/25 04/28/25 release Previous Rx's ?Medication ?Instructions ?Recorded cefuroxime axetil 500 mg tablet 500 mg PO Q12H 5 days #10 tabs 08/02/22 ibuprofen 600 mg tablet 600 mg PO Q6H PRN fever or pain 11/29/22 #20 tabs cefuroxime axetil 500 mg tablet 500 mg PO BID #14 tabs 01/06/23 naproxen 500 mg tablet 500 mg PO BID PRN pain #20 tabs 01/06/23 nitrofurantoin 100 mg PO BID 7 days #14 caps 01/11/23 monohydrate/macrocrystals 100 mg capsule (Macrobid) cefuroxime axetil 250 mg tablet 250 mg PO Q12H #14 tabs 08/28/23 cefuroxime axetil 500 mg tablet 500 mg PO BID 7 days #14 tabs 01/25/24 cefuroxime axetil 500 mg tablet 500 mg PO Q12H 7 days #14 tabs 03/25/24 clindamycin HCl 300 mg capsule 300 mg PO TID #21 caps 09/03/24 methocarbamol 750 mg tablet 750 mg PO Q8H PRN spasm #10 tabs 04/21/25 Allergies Allergy/AdvReac Type Severity Reaction Status Date / Time amoxicillin (Augmentin) Allergy Unknown diarrhea Verified 04/28/25 16:06 clavulanic acid (Augmentin) Allergy Unknown diarrhea Verified 04/28/25 16:06 levofloxacin Allergy Unknown Verified 04/28/25 16:06 [facility] Past Medical History Medical History (Updated 04/30/25 @ 09:57 by Alix Linton NP) Vkzfgx-uk-zija transgender person Syringomyelia Social History Social History Patient Tobacco Use Status: Tobacco use Unknown Advance Directives: No Advance Directives Information Provided: No Do you have a plan to hurt others: No Plan Physical Exam ED Vital Signs: BMI result Body Mass Index 26.5 Course Course Course Narrative: This is a rapid medical exam performed by Leonardo Linton NP: Additional HPI, ROS, PE not included below will be deferred to primary provider. Patient is a 19-year-old female sex assigned at previously transitioning to male no longer, reported history of syringomyelia presenting to the ED stating that she was diagnosed with a spinal cyst at prior visit on 04/21 and was told to return for an MRI if pain continues. Plan: will defer imaging to primary provider Patient left the emergency department before myself or any of the other clinicians could review or explain physical exam findings, test results, need or lack there of for additional testing, treatment options, or a treatment plan. Discharge Plan Discharge Clinical Impression: Thoracic back pain Patient Disposition: Left W/O Completing Treatment Prescriptions: No Action cefuroxime axetil 500 mg tablet 500 mg PO Q12H 5 Days Qty: 10 0RF ibuprofen 600 mg tablet 600 mg PO Q6H PRN (Reason: fever or pain) Qty: 20 0RF cefuroxime axetil 250 mg tablet 250 mg PO Q12H Qty: 14 0RF cefuroxime axetil 500 mg tablet 500 mg PO BID 7 Days Qty: 14 0RF clindamycin HCl 300 mg capsule 300 mg PO TID Qty: 21 0RF methocarbamol 750 mg tablet 750 mg PO Q8H PRN (Reason: spasm) Qty: 10 0RF cefuroxime axetil 500 mg tablet 500 mg PO BID Qty: 14 0RF naproxen 500 mg tablet 500 mg PO BID PRN (Reason: pain) Qty: 20 0RF nitrofurantoin monohyd/m-cryst [Macrobid] 100 mg capsule 100 mg PO BID 7 Days Qty: 14 0RF Rx Instructions: must administer with a meal/food cefuroxime axetil 500 mg tablet 500 mg PO Q12H 7 Days Qty: 14 0RF losartan 25 mg tablet 25 mg PO DAILY omeprazole 20 mg capsule,delayed release(DR/EC) 20 mg PO DAILY lamotrigine 100 mg tablet 100 mg PO DAILY melatonin 5 mg capsule PO ONCE Discharge Date/Time: 04/28/25 21:10
== END 2025-04-28 21:10 | disposition left against medical advice (07) ==
LOC: HO.ED 21:09
PROVIDERS: Emergency Provider Emergency Medicine; PCP Nurse Practitioner
DX: M54.6 Pain in thoracic spine (principal); Z53.29 Procedure and treatment not carried out because of patient's decision for other reasons
CPT/HCPCS: 99281

== ENCOUNTER 2025-06-11 23:32 | Emergency (ER) | payer OTHER, SELFPAY ==
--- OUTSIDE RECORDS SUMMARY | 2025-06-10 11:30 | XMS_ITS | Encounter Summary ---
Author Organization [facility] Address [address] [place] [address] [place] [address] Phone Care Team Providers Care Roundhouse Supervisor Name Role Phone Dillon Bishop MD Unavailable [phone] Evelyn Dash CNP Primary Care Provid er Dillon Salinas MD Unavailable [phone] Desiree Barry [facility]- Unavailable [phone] Encounter Details Date Type Department Care Team (Late st Contact Info) Description 06/10/2025 11:30 AM EST Telemedicine [facility] [address] [place] [address] [phone] Desiree Barry [facility]-[address] [phone] [email or web address] Bipolar affective disorder, depressed, severe, with psychotic [...] as of this encounter Progress Notes * Desiree Barry, PMHNP-BC - 06/10/2025 11:30 AM EST Images from the original note were not included. Psychopharmacology Progress Note Limits of confidentiality are discussed prior to start of sessions. Location confirmed in [facility] [place] and contact information verified. Medication reconciliation completed at start of visit; any discrepancies found were reconciled in the client chart. Chief Complaint Lorenzo Crowe is a 19 y.o. client here today for a regularly scheduled follow- up for psychopharmacologic and psychotherapeutic management regarding he/him/his, they/them/theirs Bipolar disorder withpsychotic features, reconsideration for Borderline personality disorder diagnosis. and their present ing psychiatric symptoms. At Last Visit: We discussed the risks, benefits, and expectations regarding starting Prazosin 1mg for night terrors and together elected to start it. Patient medication education provided, and all questions answered. Currently: CC: I currently just got a job at [employer], it's really easy, it's easier than [employer]. 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 I just got my first pay check and even though it's all going to bills, they are getting paid. I came off of Prazosin because I had insomnia and awful lucid dreams and would wake up and want todie. We discussed the importance of letting me know of any medication changes. We reviewed genetic testing results, sent them to Pt via email. Discussed that Lamictal is in the red category and may need higher doses. Discussed changing it to one of the green medications but agreed to keep Lamictal due to it's efficacy. We dicussed increasing the dose to 125mg to better targetmood fluctuation. Appetite: Patient reports that they are consuming enough calories daily to support their body. 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 Sleep: Patient reports getting 5.5 hours of sleep a night on average and reports waking up feeling tired. 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 I get home about 12/12:30 and I take a nap which is not great sleep either because I worry about not waking up in time to get my partner from work at 5. W hen I do sleep it's very light, if my partner rolls over I wake up. I've noticed a little bit of impulsivity after I got the job and had a few stressful things happenover the last week, I've been all over the place. No current or active SI/HI/SIB/AH/VH endorsed by client. Overall, the patient does not appear to beat an elevated or acute risk of harm to themself or others; they do not meet Section 12a criteria or require an inpatient level of care for diagnostic clarity, symptom stabilization, medication management, and aftercare planning. No concerns to report at this time. Referrals Status: None required at this time Patient agrees to contact the office with any new or worsening symptoms and call ANGLE SHEAR OPERATOR, 911, or go totheir nearest ER if they are in crisis or feel they are a danger to themselves or others. Diagnoses: Bipolar disorder with psychotic features, reconsideration for Borderline personality disorder diagnosis. Plan: We discussed the risks, benefits, and expectations regarding increasing Lamictal from 100mg to 125mg and together elected to increase it. Patient medication education provided, and all questions answered. Follow Up: Patient will follow-up in 1 month. . Psychiatric Assessment & Review of Systems 03/19/2025 9:54 AM 03/23/2025 10:21 AM 05/05/2025 11:28 AM Generalized Anxiety Disorder Scale MARCO A-7 Total Score 15 17 10 Patient-reported 02/13/2023 4:06 PM 03/23/2025 10:22 AM 05/13/2025 10:19 AM PHQ Depression Screening Score Little interest or pleasure in doing things More than half of the days Nearly every day Several days Feeling down, depressed, or hopeless Several days Several days Several days Trouble falling or staying asleep, or sleeping too much Nearly every day Nearly every day Nearly every day Feeling tired or having little energy Nearly every day Nearly every day Nearly every day Poor appetite or overeating Several days Nearly every day Nearly every day Feeling bad about yourself - or that you are a failure or have let yourself or your family down Notat all Several days Several days Trouble concentrating on things, such as reading the newspaper or watching television Nearly every day Nearly every day More than half the days Moving or speaking so slowly that other people could have noticed. Or the opposite - being so fidgety or restless that you have been moving around a lot more than usual Not at all Nearly every day Nearly every day Thoughts that you would be better off , or of hurting yourself in some way Not at all Several days Several days If you checked off any problems, how difficult have these problems made it for you to do your work,take care of things at home, or get along with other people? Somewhat difficult Extremely difficultExtremely difficult PHQ-9 Total Score 13 21 18 Current Mental Status Exam: Appearance: well groomed and appropriately dressed Behavior: cooperative and pleasant Psychomotor Activity: normal Speech: regular rhythm, regular volume, and rapid but interruptible Language: normal comprehension Mood: happy Affect: mood congruent Thought Process: logical, linear, and goal-directed Associations: no loosening of associations Thought Content: no delusions and no obsessions Suicidal/Homicidal Ideation: no suicidal ideation and no homicidal ideation Perceptions/Experiences: no hallucinations Orientation/Sensorium: oriented x 3 Memory: immediate recall intact and short-term memory intact. Attention/Concentration: intact to observation Abstract Reasoning: intact to observation Fund of Knowledge: average Insight: good Judgment: good Length of Session: 37 minutes were spent via real-time, interactive virtual clinical encounter, which was conducted virtually using Audio/Video technology. Greater than 85% of the time spent was devoted to counseling and coordinating care including review of records, pertinent lab data and studies,as well as discussing patient's current status, diagnostic evaluation and work up, planned therapeutic interventions and future disposition of care/creation of care plans. Responsible Clinicians: Desiree Barry MSN, CERTIFIED NURSES AIDE, PMHNP-BC (under the supervision of Meagan Brooks MSN, CERTIFIED NURSES AIDE, ORACLE IAM CONSULTANT, PMHNP-BC), Evelyn Dash CNP. Session Number: 6 documented in this encounter Plan of Treatment Upcoming Encounters Date Type Department Care Team (Late st Contact Info) Description 05/06/2025 Procedure Pass [address] [address] 06/16/2025 3:00 PM EST Telemedicine [facility] [address] [place] [place] [address] Travis Morrissey MD [address] [facility] [address] [place] [address] 06/16/2025 6:45 PM EST Hospital Encounter [facility] - [address] [address] Itzel Figueroa MD [address] [place] [address] [phone] 06/24/2025 11:00 AM EST Office Visit [facility] [address] [place] [address] Evelyn Dash CNP [address] [place] [address] [phone] 11/03/2025 3:00 PM EDT Telemedicine [facility] [address] [place] [address] Dillon Salinas MD [address] [place] [address] [email or web address] documented as of this encounter Visit Diagnoses Diagnosis Bipolar affective disorder, depressed, severe, with psychotic behavior- Primary Bipolar I disorder, most recent episode (or current) depressed, severe, specified as with psychotic behavior documented in this encounter Additional Health Concerns Assessment Noted Time PHQ-9 Depression Total Score: 18 025 10:19 AM EST PHQ-2 Depression Total Score: 2 05/13/20 25 10:19 AM EST documented as of this encounter Care Teams Roundhouse Supervisor Relationship Specialty Start Date End Date Evelyn Dash CNP [address] [place] [address] [phone] PCP - General Nurse Practitioner 01/25/24 Dillon Bishop MD [address] [place] [address] [address] [place] [address] [email or web address] Anesthesiology 07/31/22 Dillon Salinas MD [address] [place] [address] [email or web address] Pediatric Cardiology 07/10/24 Desiree Barry, [facility]- [address] [place] [address] [email or web address] Psychiatrist Nurse Practitioner 02/16/25 documented as of this encounter Additional Source Comments The information contained in this document represents components of the legal health record. It is not the complete legal health record.[facility]
[2025-06-11 23:52] VITALS: BP 127/73; PULSE 106; RESP 20; TEMP 37; O2SAT 97; BMI 26.6
--- OUTSIDE RECORDS SUMMARY | 2025-06-12 01:04 | XMS_ITS | Clinical Summary ---
Author Organization [facility] Address [address] [place] [address] Phone Care Team Providers Care Profile Grinder Technician Name Role Phone Unavailable Primary Care Provider [...] limit skin exposure to semen Could see tuber machine operator helper for desensitization- would need sample of partner's semen; pt is not interested at this time STI screen sent Syrinx of spinal cord 09/26/2021 Overview (10/04/2021): On MRI - 2mm in thoracic area; not impinging on cord Saw Ortho BC- no orthopedic intervention needed- PT advised; no FU Neurosurg NS- [facility] 09/29/21- no surgical intervention advised; back [...] a burning sensation pain Will be seeing [facility] NS this week for virtual CS Mom spoke to teen's neurologist @ [employer] who [facility]- I do not feel this is definitely needed as teen has not yet even been evaluated by [facility] Neurosurg Mom insists on second opinion [...] on 09/14- sent prilosec Rx Did not miner pick prilosec Rx from pharm and will do so now Expect he will start feeling better in 2-4 weeks- recheck in November Assessment & Plan (09/14/2021 6:25 PM EDT): 3mo course prilosec and will then recheck teen Avoid CHANTAL triggers Left wrist pain 05/27/2021 Overview (01/11/2022): Saw local ortho- Dr. Lugo first in 2020 Mom wanted sec opinion- to see Dr. Morton in [place] Assessment & Plan (09/14/2021 6:13 PM EDT): Teen reports not address by [facility] Ortho He saw local ortho for [...] is calling with SArturo Sands from the [employer] office is calling. Mom, Ahsley, is giving permission for us to give update to [employer]. Update given. Assessment & Plan (07/28/2020 1:01 [...] switch to topamax or propanolol Previously: Saw [facility] neurol in 2019- had MRI brain- [...] for first visit in October Was seeing [facility] Neurol prior but too far for [...] being worked up for Ehler Danlos and Puap-Oxxm-Rcr syndrome by genetics. Mom is worried that he may be prone to cellulitis because she is. (He was seen for preseptal cellulitis today) Await genetic testing results and conclusions. Spondylolysis of lumbar region 12/10/2018 Gflyai-bj-qfai transgender person 10/04/2018 Overview (07/20/2022): Sees [facility] Started TEST inj 2021 On Depo Identifies [...] can start hormones [facility]- gave info to pt so he/mom can call and book appt Prefers not to return to [facility] clinic @ [facility]- provider missed last televisit Assessment & Plan [...] skull fx. DCF involved. I looked at [facility] notes and found that further imaging reassuring for no skull fx. I called and let mom know. 10/2018 Brain MRI normal Assessment & Plan (11/26/2018 9:24 AM EDT): reasurrance given that Lorenzo does not have MS, given recent neg MRI Assessment & Plan (10/04/2018 4:13 PM EDT): Neuro appt scheduled with Dr Sarmiento at [facility] in early October. Mid back pain, chronic 07/10/2018 Overview (01/11/2022): [place]. Bishop[place] [facility] Plan: Add tizanidine 2mg BID Add Cymbalta/duloxetine 20mg QD PT advised by Ortho and neursurg On gabapentin per [facility]/Neurol(sees pt for HAs) Was seeing [facility] Rheum: last FU , now prn Was on celebrex- neurol weaned off in - ?contributing to HAs Labs ordered Hold PT- pt not interested Seeing ortho [facility] for spondylolysis- repeat MRI as pain [...] for mild S shaped thoracolumbar scoliosis. Saw [facility] Neurol: MRI done @ [facility] October 2018: pos for L5 fracture [...] PM EDT): Had repeat MRI recently per [facility] Ortho- 2mm syrinx was seen- not impinging on cord Uncertain if pain is related to the syrinx- will be seeing NS soon Eval by Pain Mgmt highly recommended- will see if teen can get more timely appt w/ [facility] Pain Mgmt He used to take celecoxib for back pain per Rheum- did not think it helped and does not want to take it again Advised have mtg w/ school to go over 504 plan as it needs amending for his ongoing back pain He is graduating this year- 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 Morton for FU in FEB Assessment & Plan (01/19/2021 2:46 PM EDT): Will see Dr. Morton [facility] FEB for FU Seeing [facility] Rheum-last FU Assessment & Plan (08/18/2020 5:04 PM EST): Mom would like to see [facility] Ortho again- has appt in [facility]; needs new referral- Jerel Morton Assessment & Plan (07/24/2019 8:46 AM EST): Seeing multiple specialists for this- rheum locally and [facility] Ortho and had [facility] neurol C/S Will be having repeat MRI spine per Ortho- then deciding on plan Has brace and has done PT Assessment & Plan (03/04/2019 9:19 AM EDT): Has appt with Ortho soon- mom thinks teen needs another MRI; she just had one of L spine in OCTOBER @ [facility] that showed L5 pars fracture/spondylolysis; advised take the radiol disk to appt and d/w ortho the need for MRI Assessment & Plan (11/26/2018 9:36 AM EDT): Has had worsening low back pain. Has not been in school 2nd to pain this week. Recent MRI reveals old 5 spine fx. No hx known injury.Has appt in the next few weeks at [facility] spine Clinic.I discussed pain management - to [...] - Anxiety disorder 06/07/2018 Overview (01/25/2022): Saw [facility] 2021- Kimberlee Assessment & Plan [...] can start hormones Wants to go [facility] for therapy- gave info to pt so [...] will cancel appt @ [facility] Mom will call Dr. 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 Procedure Name Priority Date/Time Associated Diagnosis Comments CHLAMYDIA AND GONORRHEA, AMPLIFIED Routine 12/06/2022 4:28 PM EDT Flank pain GLUCOSE, FASTING Routine 09/18/2022 3:47 PM EDT Dizziness LIPID PANEL, FASTING Routine 01/25/2022 11:57 AM EDT Well adult exam from Last 3 Months or Most Recently Relevant to Health Maintenance Results * Due to [place] state law, this organization might not be sharing sensitive test results. * Chlamydia and Gonorrhoea, Amplified (12/06/2022 4:28 PM EDT) Chlamydia Trachomatis, DNA Probe NEGATIVE (NEG) [facility] Comment: No Chlamydia Trachomatis RNA detected in this patient's sample (REFERENCE RANGE/NORMAL VALUE: NOT DETECTED) Note: This test uses radio host- mediated amplification method to detect rRNA from C. Trachomatis URINE GC AMP PROBE NEGATIVE (NEG) [facility] Comment: No Neisseria Gonorrhoeae RNA detected in this patient's sample (REFERENCE RANGE/NORMAL VALUE: NOT DETECTED) NOTE: This test uses radio host-mediated amplification method to detect rRNA from N.Gonorrhoeae. [...] without risk of sexual abuse. Consult the [facility] if needed. Contact phone number . Therapeutic failure or success cannot be determined with the Aptima Combo2 assay since nucleic acid may persist following appropriate antimicrobial therapy. The Centers for Disease Control and Prevention (CDC) recommends confirmatory retesting using culture or a different nucleic acid amplification test when positive results occur, if indicated. Testing performed or reported by [facility], a Service of [facility], [address] [place] [address] Vamsi Estrada MD, Transfer And Line Up Worker [facility]# [id number] Urine (Urine) 12/06/2022 4:2 8 PM EDT 12/06/2022 8:01 PM EDT Jocelyn Redd MD LAB MICROBIOLOGY - GENERAL ORDJoshua UMANZOR Final Result Performing Organization Address [facility] de Phone Number [facility] * Glucose, fasting (09/18/2022 3:47 PM EDT) Glucose 83 (70-99) MG/DL [facility] Comment: Testing performed or reported by [facility], a Service of [address] [address] Nora Downs MD, Transfer And Line Up Worker CLIA# [id number] Blood 09/18/2022 3:47 PM EDT 09/18/2022 5:00 PM EDT Result [facility] Yelena [employer] LAB BLOOD ORDERABLES Final Resul t Performing Organization Address [facility] Number [facility] * (ABNORMAL) Lipid Panel, Fasting (01/25/2022 11:57 AM EDT) Cholesterol, Total 155 (<170) MG/DL [facility] Triglycerides 128(H) (<90) MG/DL [facility] HDL 40(L) (>45) MG/DL [facility] LDL 89 (0-109) MG/DL [facility] Non-HDL Cholesterol 115 (<120) MG/DL [facility] Comment: Testing performed or reported by [facility], a Service of [address] [address] Nora Downs MD, Transfer And Line Up Worker [facility]# [id number] Blood 01/25/2022 11:5 7 AM EDT 01/25/2022 11:58 AM EDT [employer] LAB BLOOD ORDERABLES Final Resul t Performing Organization Address [facility] Phone Number [facility] from Last 3 Months or Most Recently Relevant to Health Maintenance Insurance [facility] [employer] [address] [place] [address] HMO
--- OUTSIDE RECORDS SUMMARY | 2025-06-12 01:04 | XMS_ITS | Encounter Summary ---
Author Organization [facility] Address [address] [place] [address] Phone Care Team Providers Care Tire Fabricator Name Role Phone Yelena Martinez DO Primary Care Provider [phone] Reason for Visit * Reason Comments Med Refill Encounter Details Date Type Department Care Team (Late st Contact Info) Description 12/26/2021 Refill [facility] [address] [place] [address] Yelena Martinez DO 150 [place] [address] Acne vulgaris; Menstrual disorder Social History Tobacco [...] disorder documented in this encounter Care Teams Tire Fabricator Relationship Specialty Start Date End Date Yelena Martinez DO [address] [place] [address] LE[place] Blood [id number] PCP - General Pediatrics 01/11/22 03/19/23 documented as of this encounter
--- OUTSIDE RECORDS SUMMARY | 2025-06-12 01:04 | XMS_ITS | Encounter Summary ---
Author Organization [facility] Address [address] [place], [place] [phone] Phone Care Team Providers Care Cell Assembly Pinner Name Role Phone Yelena Martinez DO Primary Care Provider [phone] Reason for Visit * Reason Comments Med Refill Encounter Details Date Type Department Care Team ([facility] Contact Info) Description 06/04/2017 Refill [facility] [place] [address] [place] [address] Marie Meza MD 150 [place], [place] [phone] Encounter for surveillance of contraceptives, unspecified contraceptive [...] Primary documented in this encounter Care Teams Cell Assembly Pinner Relationship Specialty Start Date End Date Yelena Martinez DO [address] [place] [address] [place] Blood [address] PCP - General Pediatrics 01/11/22 03/19/23 documented as of this encounter
--- OUTSIDE RECORDS SUMMARY | 2025-06-12 01:04 | XMS_ITS | Encounter Summary ---
Author Organization [facility] Address [address] [place] [address] Phone Care Team Providers Care Insurance Billing Clerk Name Role Phone Yelena Martinez DO Primary Care Provider [phone] Reason for Visit * Reason Comments Med Refill Encounter Details Date Type Department Care Team (Late st Contact Info) Description 02/26/2020 Refill [facility] [place] [address] [place] [address] Yelena Matrinez DO 150 [place] [address] Chronic bilateral low back pain without sciatica [...] Miscellaneous Notes * Telephone Encounter - Yudy Daiz LPN - 02/26/2020 7:45 AM EDT Refill request for Omeprazole. Last PE 07/23/18/BO documented in this encounter Plan of Treatment Not on file documented as of this encounter Visit Diagnoses Diagnosis Chronic bilateral low back pain without sciatica documented in this encounter Care Teams Insurance Billing Clerk Relationship Specialty Start Date End Date Yelena Martinez DO [address] [facility] [place] [address] PCP - General Pediatrics 01/11/22 03/19/23 documented as of this encounter
--- OUTSIDE RECORDS SUMMARY | 2025-06-12 01:04 | XMS_ITS | Encounter Summary ---
Author Organization [facility] Address [address] [facility] [address] [place] [address] Phone Care Team Providers Care Roller Name Role Phone Dillon Bishop MD Unavailable Evelyn Dash CNP Primary Care Provid er Dillon Slainas MD Unavailable Desiree Barry [facility] Unavailable [phone] Encounter Details Date Type Department Care Team (Late st Contact Info) Description 04/10/2025 Telephone [facility] [address] [place] [address] [phone] Evelyn Dash CNP [address] [place], [place] [phone] [email or web address] Social History Tobacco Use Types [...] Patient calling in regards to new medication '[place]'. Patient was advised by pharmacy that they could not fill the medication due to Luzmaria Barry not being credentialed to prescribe. Patient requesting Dr. Itzel Figueroa to rewrite prescription for medication in order to fulfil prescription. Patient requesting follow up, . documented in this encounter Plan of Treatment Upcoming Encounters Date Type Department Care Team (Late st Contact Info) Description 05/06/2025 Procedure Pass [facility], [address] [address] 06/16/2025 3:00 PM EST Telemedicine [facility] [address] [place] [address] Travis Morrissey MD 1 [place] [address] 06/16/2025 6:45 PM EST Hospital Encounter [address] [address] Itzel Figueroa MD [address] [place] [address] [id number] 06/24/2025 11:00 AM EST Office Visit [facility] [address] [place] [address] [phone] Evelyn Dash, ANDRAE [address] [place] [address] [id number] 11/03/2025 3:00 PM EDT Telemedicine [facility]4 [place], [place] [phone] Dillon Salinas MD [address] [place], [place] [phone] [email or web address] documented as of this encounter Visit Diagnoses Not on filedocumented in this encounter Additional Health Concerns Assessment Noted Time PHQ-9 Depression Total Score: 21 025 10:22 AM EDT PHQ-2 Depression Total Score: 4 03/23/20 25 10:22 AM EDT documented as of this encounter Care Teams Roller Relationship Specialty Start Date End Date HaleyKandisEvelyn mckenna CNP [address] [place] [address] [email or web address] PCP - General Nurse Practitioner 01/25/24 Dillon Bishop MD [address] [place] [address] [place] [address] [email or web address] Anesthesiology 07/31/22 Dillon Salinas MD [address] [place] [address] [email or web address] Pediatric Cardiology 07/10/24 Desiree Barry, [facility] [address] [place] [address] [email or web address] Psychiatrist Nurse Practitioner 02/16/25 documented as of this encounter Additional Source Comments The information contained in this document represents components of the legal health record. It is not the complete legal health record.[facility]
--- OUTSIDE RECORDS SUMMARY | 2025-06-12 01:04 | XMS_ITS | Encounter Summary ---
Author Organization [facility] Address [address] [place] [address] Phone Care Team Providers Care Staying Machine Operator Name Role Phone Yelena Martinez DO Primary Care Provider [phone] Encounter Details Date Type Department Care Team (Late st Contact Info) Description 07/19/2015 Documentation [facility] [address] [place] [address] Family Medicine, Physician [address] [place], [place] 656691 Social History Tobacco Use Types Packs/Day Years [...] on filedocumented in this encounter Care Teams Staying Machine Operator Relationship Specialty Start Date End Date Yelena Martinez DO 150 [place] [address] PCP - General Pediatrics 01/11/22 03/19/23 documented as of this encounter
--- OUTSIDE RECORDS SUMMARY | 2025-06-12 01:04 | XMS_ITS | Encounter Summary ---
Author Organization [facility] Address [address] [place] [address] Phone Care Team Providers Care Car Shagger Name Role Phone Yelena Martinez DO Primary Care Provider [phone] Encounter Details Date Type Department Care Team (Late st Contact Info) Description 02/08/2017 Conversion Encounter [facility] [address] [place], [place] [phone] Social History Tobacco Use Types Packs/Day Years [...] on filedocumented in this encounter Care Teams Car Shagger Relationship Specialty Start Date End Date Yelena Martinez DO 150 [place] [address] PCP - General Pediatrics 01/11/22 03/19/23 documented as of this encounter
--- OUTSIDE RECORDS SUMMARY | 2025-06-12 01:04 | XMS_ITS | Encounter Summary ---
Author Organization [facility] Address [address] [place] [address] Phone Care Team Providers Care Health Support Specialist Name Role Phone Yelena Martinez DO Primary Care Provider [phone] Reason for Visit * Reason Comments Med Refill Encounter Details Date Type Department Care Team (Late st Contact Info) Description 12/27/2022 Refill [facility] [address] [place] [address] Yelena Martinez DO 150 [place] [address] GERD without esophagitis Social History Tobacco Use [...] reflux documented in this encounter Care Teams Health Support Specialist Relationship Specialty Start Date End Date Yelena Martinez DO 150 [facility] LE[place] Blood [address] PCP - General Pediatrics 01/11/22 03/19/23 documented as of this encounter
--- OUTSIDE RECORDS SUMMARY | 2025-06-12 01:04 | XMS_ITS | Encounter Summary ---
Author Organization [facility] Address [address] [facility] [address] [place] [address] Phone Care Team Providers Care Neuro Urologist Name Role Phone Yelena Martinez DO Primary Care Provider Jimbo Oliveros MD Unavailable Dillon Bishop MD Unavailable [phone] Jimbo Oliveros MD Primary Care Provider Ashley Nunez [facility] Unavailable Jimbo Bryan NP Unavailable Evelyn Dash ONLINE MERCHANDISING COORDINATOR Primary Care Provid er Dillon Salinas MD Unavailable [phone] Desiree Barry [facility]- Unavailable [phone] Encounter Details Date Type Department Care Team (Late st Contact Info) Description 10/30/2022 Procedure Pass [facility] Children Cardiology [address] [place], [place] [phone] Social History Tobacco Use Types Packs/Day Years [...] high school, GED, job training, learning the Egyptian language, technical skills, or developing parenting skills)? [...] st Contact Info) Description 05/06/2025 Procedure Pass [facility], [address] [address] 06/16/2025 3:00 PM EST Telemedicine [facility] [address] [place] [address] Travis Morrissey MD 1 [place] [address] 06/16/2025 6:45 PM EST Hospital Encounter [facility], [address] [address] Itzel Figueroa MD [address] [place] [address] 06/24/2025 11:00 AM EST Office Visit [facility] [address] [place] [address] Evelyn Dash, ANDRAE [address] [place] [address] 11/03/2025 3:00 PM EDT Telemedicine [facility] [address] [place] [address] Dillon Salinas MD [address] [place] [phone] [email or web address] documented as of this encounter Visit Diagnoses Not on filedocumented in this encounter Additional Health Concerns Assessment Noted Time PHQ-9 Depression Total Score: 13 023 1:14 PM EDT PHQ-2 Depression Total Score: 2 10/28/19 23 1:14 PM EDT documented as of this encounter Care Teams Neuro Urologist Relationship Specialty Start Date End Date Yelena Martinez DO [address] [place] [address] PCP - General Pediatrics 04/30/19 01/15/23 Jimbo Oliveros MD 150 [place] [address] PCP - General Pediatrics 01/16/23 01/24/24 Evelyn Dash CNP [address] [place] [address] [email or web address] PCP - General Nurse Practitioner 01/25/24 Jimbo Oliveros MD [address] [place] [address] Consulting Provider Pediatrics 04/25/22 07/22/24 Dillon Bishop MD [address] [place] [address] [place] [address] [email or web address] Anesthesiology 07/31/22 Ashley Nunez CNP [address] [place] [address] [email or web address] Primary Care Physician 04/18/23 01/24/24 Jimbo Bryan, LAURIE [address] [place] [address] Psychiatrist 06/11/23 08/22/24 Dillon Salinas MD [address] [place] [phone] [email or web address] Pediatric Cardiology 07/10/24 Desiree Barry, [facility] [address] [place] [address] [email or web address] Psychiatrist Nurse Practitioner 02/16/25 documented as of this encounter Additional Source Comments The information contained in this document represents components of the legal health record. It is not the complete legal health record.[facility]
--- OUTSIDE RECORDS SUMMARY | 2025-06-12 01:04 | XMS_ITS | Encounter Summary ---
Author Organization [facility] Address [address] [place] [address] Phone Care Team Providers Care Boring Machine Set Up Operator Name Role Phone Yelena Martinez DO Primary Care Provider [phone] Reason for Visit * Reason Comments Med Refill Encounter Details Date Type Department Care Team (Late st Contact Info) Description 05/03/2018 Refill [facility] [place] [address] [place] [address] Ashley Onofre NP [address] [facility] [address] [place] [address] Chronic midline thoracic back pain (Primary Dx); [...] region documented in this encounter Care Teams Boring Machine Set Up Operator Relationship Specialty Start Date End Date Yelena Martinez DO 150 [facility] [place] [address] PCP - General Pediatrics 01/11/22 03/19/23 documented as of this encounter
--- OUTSIDE RECORDS SUMMARY | 2025-06-12 01:04 | XMS_ITS | Encounter Summary ---
Author Organization [facility] Address [address] [place] [address] Phone Care Team Providers Care Electrician Shop Name Role Phone Yelena Martinez DO Primary Care Provider Reason for Visit * Reason Comments Med Change Request Encounter Details Date Type Department Care Team (Late st Contact Info) Description 01/07/2023 Refill [facility] [place] [address] [place] [address] Aren Arteaga MD 150 [place] [address] GERD without esophagitis Social History Tobacco Use [...] reflux documented in this encounter Care Teams Electrician Shop Relationship Specialty Start Date End Date Yelena Martinez DO [address] [place] [address] [place] Blood [address] PCP - General Pediatrics 01/11/22 03/19/23 documented as of this encounter
--- OUTSIDE RECORDS SUMMARY | 2025-06-12 01:04 | XMS_ITS | Encounter Summary ---
Author Organization [facility] Address [address] [facility] [address] [place] [address] Phone Care Team Providers Care Laydown Machine Operator Name Role Phone Jimbo Oliveros MD Unavailable Dillon Bishop MD Unavailable [phone] Jimbo Bryan NP Unavailable [phone] Evelyn Dash CNP Primary Care Provid er Dillon Salinas MD Unavailable Desiree Barry [facility] Unavailable [phone] Encounter Details Date Type Department Care Team (Late st Contact Info) Description 01/25/2024 Nurse Triage [facility] [address] [place] [address] [phone] Ashley Nunez CNP [address] [place], [place] [phone] [email or web address] Social History Tobacco Use Types [...] st Contact Info) Description 05/06/2025 Procedure Pass [facility], [address] [address] 06/16/2025 3:00 PM EST [facility]med[facility] [address] [place] [address] Travis Morrissey MD 1 [facility] [place] [address] 06/16/2025 6:45 PM EST Hospital Encounter [address] [address] Itzel Figueroa MD [address] [place] [address] [email or web address] 06/24/2025 11:00 AM EST Office Visit [facility] [address] [place] [address] Evelyn Dash, ANDRAE [address] [place] [address] 11/03/2025 3:00 PM EDT Telemedicine [facility] [address] [place] [address] Dillon Salinas MD [address] [place] [address] [phone] [email or web address] documented as of this encounter Visit Diagnoses Not on filedocumented in this encounter Additional Health Concerns Assessment Noted Time PHQ-9 Depression Total Score: 13 023 4:06 PM EDT PHQ-2 Depression Total Score: 3 02/14/20 23 4:06 PM EDT documented as of this encounter Care Teams Laydown Machine Operator Relationship Specialty Start Date End Date Evelyn Dash CNP [address] [place] [address] [phone] [email or web address] PCP - General Nurse Practitioner 01/25/24 Jimbo Oliveros MD 150 [place] [address] Consulting Provider Pediatrics 04/25/22 07/22/24 Dillon Bishop MD [address] [place] [address] 444 [place] [address] [email or web address] Anesthesiology 07/31/22 Jimbo Bryan NP [address] [place] [address] Psychiatrist 06/11/23 08/22/24 Dillon Salinas MD [address] [place] [address] [email or web address] Pediatric Cardiology 07/10/24 Desiree Barry, [facility] [address] [place] [address] [email or web address] Psychiatrist Nurse Practitioner 02/16/25 documented as of this encounter Additional Source Comments The information contained in this document represents components of the legal health record. It is not the complete legal health record.[facility]
--- OUTSIDE RECORDS SUMMARY | 2025-06-12 01:04 | XMS_ITS | Encounter Summary ---
Author Organization [facility] Address [address] [place] [address] Phone Care Team Providers Care Enrollment Clerk Name Role Phone Yelena Martinez DO Primary Care Provider [phone] Reason for Visit * Reason Comments Med Refill Encounter Details Date Type Department Care Team (Late st Contact Info) Description 01/24/2021 Refill [facility] [place] [address] [place] [address] Yelena Martinez DO 150 [place] [address] Acne vulgaris Social History Tobacco Use Types [...] acne documented in this encounter Care Teams Enrollment Clerk Relationship Specialty Start Date End Date Yelena Martinez DO 150 [facility] [place] [address] PCP - General Pediatrics 01/11/22 03/19/23 documented as of this encounter
--- OUTSIDE RECORDS SUMMARY | 2025-06-12 01:04 | XMS_ITS | Encounter Summary ---
Author Organization [facility] Address [address] [facility] [address] [place] [address] Phone Care Team Providers Care Petrologist Name Role Phone Dillon Bishop MD Unavailable [phone] Evelyn Dash CNP Primary Care Provid er Dillon Salinas MD Unavailable Desiree Barry [facility] Unavailable [phone] Encounter Details Date Type Department Care Team (Late st Contact Info) Description 04/10/2025 Telephone [facility] [address] [place] [address] [phone] Evelyn Dash CNP 10 [place], [place] [phone] [email or web address] Social History Tobacco Use Types Packs/Day [...] service calling to report recent conversation with [facility] in regards to patients medications recently prescribed. Reporting rx interaction (answering service did not get the medication names) documented in this encounter Plan of Treatment Upcoming Encounters Date Type Department Care Team (Late st Contact Info) Description 05/06/2025 Procedure Pass [facility], [address] [address] 06/16/2025 3:00 PM EST Telemedicine [facility] [address] [place] [address] Travis Morrissey MD 1 [place] [address] 06/16/2025 6:45 PM EST Hospital Encounter [address] [address] Itzel Figueroa MD [address] [place] [address] 06/24/2025 11:00 AM EST Office Visit [facility] [address] [place] [address] Evelyn Dash, ANDRAE [address] [place] [address] 11/03/2025 3:00 PM EDT Telemedicine [facility] [address] [place] [address] Dillon Salinas MD [address] [place], [place] [phone] [email or web address] documented as of this encounter Visit Diagnoses Not on filedocumented in this encounter Additional Health Concerns Assessment Noted Time PHQ-9 Depression Total Score: 21 025 10:22 AM EDT PHQ-2 Depression Total Score: 4 03/23/20 25 10:22 AM EDT documented as of this encounter Care Teams Petrologist Relationship Specialty Start Date End Date EktaEvelyn CNP [address] [place] [address] [email or web address] PCP - General Nurse Practitioner 01/25/24 Dillon Bsihop MD [address] [place] [address] [place] [address] [email or web address] Anesthesiology 07/31/22 Dillon Salinas MD [facility]4 [place] [address] [email or web address] Pediatric Cardiology 07/10/24 Desiree Barry, [facility] [address] [place] [address] [email or web address] Psychiatrist Nurse Practitioner 02/16/25 documented as of this encounter Additional Source Comments The information contained in this document represents components of the legal health record. It is not the complete legal health record.[facility]
--- OUTSIDE RECORDS SUMMARY | 2025-06-12 01:04 | XMS_ITS | Clinical Summary ---
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 [facility] A[facility] ACO [place] [address] [place] [address] PPO [facility] [employer] [id number] [employer]gu [employer] ALLANCE [facility] [employer]gu [employer] [facility] ACO CIGNA [facility]PO [facility] Care Teams Thread Separator Relationship Specialty Start Date End Date Evelyn Dash CNP [address] [place] [phone] [email or web address] PCP - General Nurse Practitioner 01/25/24 Dillon Bishop MD [address] [place] [address] [address] [place] [address] [email or web address] Anesthesiology 07/31/22 Dillon Salinas MD [address] [place] [phone] [email or web address] Pediatric Cardiology 07/10/24 Desiree Barry, HNP- [address] [place] [address] [email or web address] Psychiatrist Nurse Practitioner 02/16/25 Additional Source Comments The information contained in this document represents components of the legal health record. It is not the complete legal health record.[facility]
--- OUTSIDE RECORDS SUMMARY | 2025-06-12 01:05 | XMS_ITS | Encounter Summary ---
Author Organization [facility] Address [address] [place] [address] [place] [address] Phone Care Team Providers Care Chemical Educator Name Role Phone Dillon Bishop MD Unavailable [phone] Evelyn Dash [facility] Primary Care Provid er Dillon Salinas MD Unavailable [phone] Desiree Barry [facility] Unavailable [phone] Reason for Visit * Reason Comments Medication Refill Encounter Details Date Type Department Care Team (Late st Contact Info) Description 06/07/2025 Refill [facility] [address] [place] [address] [phone] Itzel Figueroa MD [address] [place] [address] [phone] [email or web address] Medication Refill Social History Tobacco Use Types [...] st Contact Info) Description 05/06/2025 Procedure Pass [facility], [address] [address] 06/16/2025 3:00 PM EST [facility]medicine [facility] [address] [place] [address] Travis Morrissey MD [address] [place] [address] 06/16/2025 6:45 PM EST Hospital Encounter [address] [address] Itzel Figueroa MD [address] [place] [address] [phone] 06/24/2025 11:00 AM EST Office Visit [facility] [address] [place] [address] Evelyn Dash CNP [address] [place] [address] 11/03/2025 3:00 PM EDT Telemedicine [facility] Card[facility] Clinic [address] [place] [address] Dillon Salinas MD [address] [place] [address] [email or web address] documented as of this encounter Visit Diagnoses Not on filedocumented in this encounter Additional Health Concerns Assessment Noted Time PHQ-9 Depression Total Score: 18 025 10:19 AM EST PHQ-2 Depression Total Score: 2 05/13/20 25 10:19 AM EST documented as of this encounter Care Teams Chemical Educator Relationship Specialty Start Date End Date Evelyn Dash CNP [address] [place] [address] [phone] PCP - General Nurse Practitioner 01/25/24 Dillon Bishop MD [address] [place] [address] [place] [address] [email or web address] Anesthesiology 07/31/22 Dillon Salinas MD [address] [place] [address] [email or web address] Pediatric Cardiology 07/10/24 Desiree Barry, [facility] [address] [place] [address] [email or web address] Psychiatrist Nurse Practitioner 02/16/25 documented as of this encounter Additional Source Comments The information contained in this document represents components of the legal health record. It is not the complete legal health record.[facility]
--- OUTSIDE RECORDS SUMMARY | 2025-06-12 01:05 | XMS_ITS | Encounter Summary ---
Author Organization [facility] Address [address] [place] [address] Phone Care Team Providers Care Costuming Supervisor Name Role Phone Dillon Bishop MD Unavailable Evelyn Dash [facility] Primary Care Provid er Dillon Salinas MD Unavailable [phone] Desiree Barry [facility] Unavailable [phone] Reason for Visit * Reason Onset Date Comments Medication Refill 06/08/2025 Encounter Details Date Type Department Care Team (Late st Contact Info) Description 06/08/[id number] [place] [address] [place] [address] [email or web address] Medication Refill Social History Tobacco Use Types [...] st Contact Info) Description 05/06/2025 Procedure Pass [facility], Mri - [address] [address] 06/16/2025 3:00 PM EST [facility]medicine [facility] [address] [place] [address] Travis Morrissey MD [address] [place] [address] 06/16/2025 6:45 PM EST Hospital Encounter [facility], [facility] - [address] [address] Itzel Figueroa MD [address] [place] [address] 06/24/2025 11:00 AM EST Office Visit [facility] [address] [place] [address] Evelyn Dash CNP [address] [place] [address] 11/03/2025 3:00 PM EDT Telemedicine [facility] Card[facility] Clinic [address] [place] [address] Dillon Salinas MD [address] [place] [address] [email or web address] documented as of this encounter Visit Diagnoses Not on filedocumented in this encounter Additional Health Concerns Assessment Noted Time PHQ-9 Depression Total Score: 18 025 10:19 AM EST PHQ-2 Depression Total Score: 2 05/13/20 25 10:19 AM EST documented as of this encounter Care Teams Costuming Supervisor Relationship Specialty Start Date End Date Evelyn Dash CNP [address] [place] [address] PCP - General Nurse Practitioner 01/25/24 Dillon Bishop MD [address] [place] [address] [place] [address] [email or web address] Anesthesiology 07/31/22 Dillon Salinas MD [address] [place] [address] [email or web address] Pediatric Cardiology 07/10/24 Desiree Barry, HNP- [address] [place] [address] [email or web address] Psychiatrist Nurse Practitioner 02/16/25 documented as of this encounter Additional Source Comments The information contained in this document represents components of the legal health record. It is not the complete legal health record.[facility]
--- OUTSIDE RECORDS SUMMARY | 2025-06-12 01:05 | XMS_ITS | Clinical Summary ---
Author Organization [facility] Address [address] [place] [address] Phone Care Team Providers Care Central Office Inspector Name Role Phone Evelyn Whitt Alexandre SULLIVAN Primary Care Provider [phone] Allergies Active Allergy Reactions Criticality Noted Date Comments Amoxicillin-Pot Clavulanate 05/05/20 25 Levofloxacin 05/05/2025 Medications tiZANidine (ZANAFLEX) 4 mg capsule Take 1 capsule (4 mg total) by mouth 1 (one) time each day. 12 each 5 Active lidocaine (LIDODERM) 5 % patch Apply 1 patch topically 1 (one) time each day for 10 days. Remove & discard patch within 12 hours or as directed by . 10 each 5 05/15/20 25 Encounters Date Type Department Care Team Description 05/05/2025 10:26 AM EST - 05/05/2025 2:17 PM EST Emergency [facility] Emergency [address] [place] [address] Reilly Cortes MD Chronic back pain, unspecified back location, unspecified back pain laterality (Primary Dx); Acute cystitis without hematuria Discharge Disposition: Home or Self Care from Last 3 Months Medical History Medical History Date Comments Routine infant or child health check 05/09/2007 DX:Routine infant or child health check Amblyopia, unspecified DX:Amblyo nithin, unspecified; COMMENT: DR. THOMAS Family History Relation Name Status Comments Brother Alive 1/2 Father Alive SCOLIOSIS, HEAR T MURMUR, ADHD Maternal Grandfather Alive HTN, CH OLESTEROL Maternal Grandmother Alive S/P THY ROIDECTOMY Mother Alive CERVICAL CA Paternal Grandfather Alive Paternal Grandmother Alive ETOH Social History Tobacco Use Types Packs/Day Years Used Date Smoking Tobacco: Passive Smo ke Exposure - Never Smoker Alcohol Use Standard Drinks/Week Comments Not Asked 0 (1 standard drink = 0.6 oz pur e alcohol) Comments Unknown Sex and Gender Information Value Date Recorded Sex Assigned at Not on file Legal Sex Female 1:14 AM EST Gender Identity Not on file Sexual Orientation Not on file Last Filed Vital Signs Vital Sign Reading Time Taken Comments Blood Pressure 103/66 05/05/2025 2:16 PM EST Pulse 82 05/05/2025 2:16 PM EST Temperature 37.1 C (98.8 F) 05/05/2025 2:16 PM EST Respiratory Rate 20 05/05/2025 2:16 PM EST Oxygen Saturation 100% 05/05/2025 2:16 PM EST Inhaled Oxygen Concentration - - Weight 79.4 kg (175 lb) 05/05/2025 9:59 AM EST Height 172.7 cm (5' 8 ) 05/05/2025 9:59 AM EST Body Mass Index 26.61 05/05/2025 9:59 AM EST Plan of Treatment Health Maintenance Due Date Last Done Comments Gonorrhea/Chlamydia Screening 2003 HPV Vaccines (2 - 2-dose series) 11/05/2016 05/08/2016 Meningococcal B Vaccine (2 of 2 - Trumenba SCDM 2-dose series) 07/28/2022 01/25/2022 Depression Screening 06/25/2024 Cervical Cancer Screening: Pap Smear 12/30/2024 COVID-19 Vaccine ( season) 2025 02/13/2022, 01/11/2022 Influenza Vaccine (#1) 2025 , 04/28/2015, 03/21/2013, Additional history exists DTaP,Tdap,and Td Vaccines (7 - Td or Tdap) 04/28/2025 04/28/2015, 01/02/2008, 05/03/2005, Additional history exists Annual Well Child Visit (3-21 years old) 05/05/2025 02/13/2023, 01/25/2022, 01/19/2021, Additional history exists HIV Screening 05/05/2025 Hepatitis C Screening 05/05/2025 Social Influencers of Health Screening 05/05/2025 Cholesterol Screening (Lipid Panel) 05/15/2027 05/15/2022 RSV Immunization Adult Patients (1 - 1-dose 75+ series) 12/30/2078 Hepatitis B Vaccines Completed 07/05/2004, 02/08/2004, 2003 Pneumococcal Vaccine: Pediatrics (0 to 5 Years) and At-Risk Patients (6 to 49 Years) Completed 02/09/2005, 07/05/2004, 05/05/2004, Additional history exists HIB Vaccines Completed 05/03/2005, 02/2005, 07/05/2004, Additional history exists IPV Vaccines Completed 01/02/2008, 02/2005, 07/05/2004, Additional history exists MMR Vaccines Completed 01/02/2008, 02/09/2005 Varicella Vaccines Completed 01/02/2008, 02/09/2005 Hepatitis A Vaccines Completed 02/27/2012, 01/02/20 Meningococcal ACWY Vaccine Completed 03/03/2020, RSV Immunization Patients Under 20 months Aged Out No longer eligible based on patient's age to complete this topic Procedures Procedure Name Priority Date/Time Associated Diagnosis Comments YEH URINE CULTURE TUBE Routine 05/05/2025 11:52 AM EST EXTRA TUBES Routine 05/05/2025 11:52 AM EST URINALYSIS WITH REFLEX MICROSCOPIC STAT 05/05/2025 11:52 AM EST URINALYSIS WITH REFLEX MICROSCOPIC STAT 05/05/2025 11:52 AM EST POC , URINE DIAGNOSTIC STAT 05/05/2025 10:56 AM EST URINALYSIS WITH REFLEX MICROSCOPIC STAT 05/05/2025 10:35 AM EST URINALYSIS WITH REFLEX MICROSCOPIC STAT 05/05/2025 10:35 AM EST YEH URINE CULTURE TUBE Routine 05/05/2025 10:31 AM EST EXTRA TUBES Routine 05/05/2025 10:31 AM EST from Last 3 Months Results * (ABNORMAL) Urinalysis with reflex microscopic (05/05/2025 11:52 AM EST) Only the most recent of2 resultswithin the time period is included. Specific [place] Urine 1.039(H) 1.003 - 1.030 LAB URINALYSIS - AUTOMATED METHOD 05/05/2025 1:36 PM [facility] pH, Urine 6.5 5.0 - 8.0 pH LAB URINALYSIS - AUTOMATED METHOD 05/05/2025 1:36 PM [facility] Leukocytes, Urine Trace(A) Negative LAB URINALYSIS - AUTOMATED METHOD 05/05/2025 1:36 PM [facility] Nitrite, Urine Negative Negative LAB URINALYSIS - AUTOMATED METHOD 05/05/2025 1:36 PM [facility] Protein, Urine 30(A) <=Trace mg/dL LAB URINALYSIS - AUTOMATED METHOD 05/05/2025 1:36 PM [facility] Glucose, Urine Negative Negative mg/dL LAB URINALYSIS - AUTOMATED METHOD 05/05/2025 1:36 PM [facility] Ketones, Urine Trace(A) Negative mg/dL LAB URINALYSIS - AUTOMATED METHOD 05/05/2025 1:36 PM [facility] Urobilinogen , Urine 1.0 0.2 - 1.0 mg/dL LAB URINALYSIS - AUTOMATED METHOD 05/05/2025 1:36 PM [facility] Bilirubin, Urine Negative Negative LAB URINALYSIS - AUTOMATED METHOD 05/05/2025 1:36 PM [facility] Blood, Urine Negative Negative LAB URINALYSIS - AUTOMATED METHOD 05/05/2025 1:36 PM [facility] RBC, Urine 1 0 - 4 /HPF 05/05/2025 1:36 PM [facility] WBC, Urine 8(H) 0 - 4 /HPF 05/05/2025 1:36 PM EST [facility] Squamous Epithelial, Urine >100(H) 0 - 60 /LPF 05/05/2025 1:36 PM [facility] Bacteria, Urine Moderate(A) Negative /HPF 05/05/2025 1:36 PM [facility] Mucus, Urine Large None /HPF 05/05/2025 1:36 PM [facility] Urine Urine specimen obtained by clean catch procedure / Unknown Non-blood Collection / Unknown 05/05/2025 11:52 AM EST 05/05/2025 12:56 PM EST us Reilly Cortes MD LAB URINE ORDERABLES Final Resul t Performing Organization Address [facility]/ZIP Co de Phone Number [facility] [address] [place] [address], [place] [phone] * Yeh urine culture tube (05/05/2025 11:52 AM EST) Only the most recent of2 resultswithin the time period is included. Extra Tube Hold for add-ons. 05/05/2025 2:02 PM EST [facility] Comment:Auto resulted. Urine Urine specimen obtained by clean catch procedure / Unknown 05/05/2025 11:52 AM EST 05/05/2025 12:56 PM EST us Reilly Cortes MD LAB URINE ORDERABLES Final Resul t Performing Organization Address City/[facility]/ZIP Co de Phone Number [facility] [address] [place] [address], [place] [phone] * POC , urine manually resulted (05/05/2025 10:56 AM EST) HCG, Ur POC Negative Negative POC hCG Int QC Pass? Yes Yes Urine Urine specimen obtained by clean catch procedure / Unknown 05/05/2025 10:56 AM EST Reilly Cortes MD POINT OF CARE TEST ENTER/EDIT OR DERABLES Final Result from Last 3 Months [facility] [place] Care Teams Central Office Inspector Relationship Specialty Start Date End Date Evelyn Whitt NP [address] [place] [address] [phone] PCP - General Nurse Practitioner 05/05/25
--- OUTSIDE RECORDS SUMMARY | 2025-06-12 01:05 | XMS_ITS | Encounter Summary ---
Author Organization [facility] Address [address] [place] [address] Phone Care Team Providers Care Supervisor Home Energy Consultant Name Role Phone Dillon Bishop MD Unavailable [phone] Evelyn Dash [facility] Primary Care Provid er Dillon Salinas MD Unavailable [phone] Desiree Barry [facility] Unavailable [phone] Reason for Visit * Reason Onset Date Comments Medication Refill 06/08/2025 Encounter Details Date Type Department Care Team (Late st Contact Info) Description 06/08/2025 Refill [facility] [address] [place], [place] [phone] Anthony Young [address] [place] [address] [email or web address] Medication Refill Social History Tobacco Use Types [...] st Contact Info) Description 05/06/2025 Procedure Pass [facility], Mri - [address] [address] 06/16/2025 3:00 PM EST [facility]med[facility] [address] [place] [address] Travis Morrissey MD [address] [place] [address] 06/16/2025 6:45 PM EST Hospital Encounter [facility], Mri - [address] [address] Itzel Figueroa MD [address] [place] [address] 06/24/2025 11:00 AM EST Office Visit [facility] [address] [place] [address] Evelyn Dash CNP [address] [place] [address] 11/03/2025 3:00 PM EDT Telemedicine [facility] Card[facility] [address] [place] [address] Dillon Salinas MD [address] [place] [address] [email or web address] documented as of this encounter Visit Diagnoses Not on filedocumented in this encounter Additional Health Concerns Assessment Noted Time PHQ-9 Depression Total Score: 18 025 10:19 AM EST PHQ-2 Depression Total Score: 2 05/13/20 25 10:19 AM EST documented as of this encounter Care Teams Supervisor Home Energy Consultant Relationship Specialty Start Date End Date Evelyn Dash CNP [address] [place] [phone] PCP - General Nurse Practitioner 01/25/24 Dillon Bishop MD [address] [place] [address] [address] [place] [address] [email or web address] Anesthesiology 07/31/22 Dillon Salinas MD [address] [place] [address] [email or web address] Pediatric Cardiology 07/10/24 Desiree Barry, PMHNP-BC [address] [place] [address] [email or web address] Psychiatrist Nurse Practitioner 02/16/25 documented as of this encounter Additional Source Comments The information contained in this document represents components of the legal health record. It is not the complete legal health record.[facility]
--- OUTSIDE RECORDS SUMMARY | 2025-06-12 01:05 | XMS_ITS | Clinical Summary ---
Author Organization [facility] Address [address] [place], [place] [id number] Care Team Providers Care Sales And Marketing Executive Name Role Phone Yelena Martinez DO Primary Care Provider [phone] Source Comments Please note that some or [...] so, obtain the minor's consent prior to disclosure.[facility] Allergies Active Allergy Reactions Criticality Noted [...] On amitryptiline and prn imitrex Previously: Saw [facility] neurol in 2019- had MRI brain- wnl; was concerned about mom's MS hx Last Assessment & Plan: Migraines are manageable per teen On amitryptiline and prn imitrex Will see Dr. 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 Mom is worried that [...] doxy course Binder is not exacerbating acne Jeipyv-fa-muwi transgender person 10/04/2018 Overview (04/08/2020): Identifies as [...] skull fx. DCF involved. I looked at [facility] notes and found that further imaging reassuring for no skull fx. I called and let mom know. 10/2018 Brain MRI normal Last Assessment & Plan: reasurrance given that Lorenzo does not have MS, given recent neg MRI Chronic bilateral low back pain without sciatica 07/10/2018 Overview (04/08/2020): Has C/S w/ [facility] Rheum APR 08 Seeing ortho [facility] for spondylolysis- Brace rx; plan PT; Had [...] for mild S shaped thoracolumbar scoliosis. Saw [facility] Neurol: MRI done @ [facility] October 2018: pos for L5 fracture (consistent with Spondylolysis) Last Assessment & Plan: Seeing multiple specialists for this- rheum locally and [facility] Ortho and had [facility] neurol C/S Will be having repeat MRI [...] patient's age to complete this topic Insurance [facility] Address: [address] [address] [facility] MEDICAID Care Teams Sales And Marketing Executive Relationship Specialty Start Date End Date Yelena Martinez DO [address] [place] [address] MJ 1 [place] [phone] PCP - General General Pediatrics 01/28/20
--- OUTSIDE RECORDS SUMMARY | 2025-06-12 01:05 | XMS_ITS | Encounter Summary ---
Author Organization [facility] Address [address] [facility] [address] [place] [address] Phone Care Team Providers Care Wire Splicer Name Role Phone Dillon Bishop MD Unavailable [phone] Evelyn Dash CNP Primary Care Provid er Dillon Salinas MD Unavailable [phone] Desiree Barry [facility] Unavailable [phone] Encounter Details Date Type Department Care Team (Late st Contact Info) Description 06/10/2025 Telephone [facility] [address] [place] [phone] Evelyn Dash CNP [address] [place], [place] [phone] [email or web address] Social History Tobacco Use Types Packs/Day Years [...] as of this encounter Progress Notes * Richie Hilliard - 06/10/2025 10:59 AM EST Misty Priest with [facility] calling to notify approval of Prior authorization order for Lumbar MRI order with dates of service between 06/05/2025-12/02/2025 Authorization number [id number] Ref [id number] documented in this encounter Plan of Treatment Upcoming Encounters Date Type Department Care Team (Late st Contact Info) Description 05/06/2025 Procedure Pass [address] [address] 06/16/2025 3:00 PM EST [facility] [address] [place] [address] Travis Morrissey MD 1 [place] [address] 06/16/2025 6:45 PM EST Hospital Encounter [address] [address] Itzel Figueroa MD [address] [place] [address] 06/24/2025 11:00 AM EST Office Visit [facility] [address] [place] [address] Evelyn Dash, ANDRAE [address] [place] [address] 11/03/2025 3:00 PM EDT [facility] [address] [place], [place] [phone] Dillon Salinas MD [address] [place], [place] [phone] [email or web address] li documented as of this encounter Visit Diagnoses Not on filedocumented in this encounter Additional Health Concerns Assessment Noted Time PHQ-9 Depression Total Score: 18 025 10:19 AM EST PHQ-2 Depression Total Score: 2 05/13/20 25 10:19 AM EST documented as of this encounter Care Teams Wire Splicer Relationship Specialty Start Date End Date Evelyn Dash CNP [address] [place] [address] [email or web address] PCP - General Nurse Practitioner 01/25/24 Dillon Bishop MD [address] [place] [address] [place] [address] [email or web address] Anesthesiology 07/31/22 Dillon Salinas MD [address] [place] [address] [email or web address] Pediatric Cardiology 07/10/24 Desiree Barry, HNP- [address] [place] [address] [email or web address] Psychiatrist Nurse Practitioner 02/16/25 documented as of this encounter Additional Source Comments The information contained in this document represents components of the legal health record. It is not the complete legal health record.[facility]
--- OUTSIDE RECORDS SUMMARY | 2025-06-12 01:05 | XMS_ITS | Encounter Summary ---
Author Organization [facility] Address [address] [place] [address] Phone Care Team Providers Care Core Filer Name Role Phone Dillon Bishop MD Unavailable [phone] Evelyn Dash [facility] Primary Care Provid er Dillon Salinas MD Unavailable [phone] Desiree Barry [facility] Unavailable [phone] Reason for Visit * Reason Onset Date Comments Medication Refill 05/14/2025 Encounter Details Date Type Department Care Team (Late st Contact Info) Description 05/14/2025 Refill [facility] [address] [place], [place] [phone] Anthony Young [address] [place] [address] [email or web address] Medication Refill Social History Tobacco [...] st Contact Info) Description 05/06/2025 Procedure Pass [facility], Mri - [address] [address] 06/16/2025 3:00 PM EST [facility] [address] [place] [address] Travis Morrissey MD 1 [place] [address] 06/16/2025 6:45 PM EST Hospital Encounter [facility], Mri - [address] [address] Itzel Figueroa MD [address] [place] [address] 06/24/2025 11:00 AM EST Office Visit [facility] [address] [place] [address] Evelyn Dash CNP [address] [place] [address] 11/03/2025 3:00 PM EDT Telemedicine [facility] [address] [place] [address] Dillon Salinas MD [address] [place] [address] [email or web address] documented as of this encounter Visit Diagnoses Not on filedocumented in this encounter Additional Health Concerns Assessment Noted Time PHQ-9 Depression Total Score: 18 025 10:19 AM EST PHQ-2 Depression Total Score: 2 05/13/20 25 10:19 AM EST documented as of this encounter Care Teams Core Filer Relationship Specialty Start Date End Date Evelyn Dash CNP [address] [place] [address] PCP - General Nurse Practitioner 01/25/24 Dillon Bishop MD [address] [place] [address] 444 [place] [address] [email or web address] Anesthesiology 07/31/22 Dillon Salinas MD [address] [place] [address] [email or web address] Pediatric Cardiology 07/10/24 Desiree Barry, PMHNP-BC [address] [place] [address] [email or web address] Psychiatrist Nurse Practitioner 02/16/25 documented as of this encounter Additional Source Comments The information contained in this document represents components of the legal health record. It is not the complete legal health record.[facility]
--- OUTSIDE RECORDS SUMMARY | 2025-06-12 01:05 | XMS_ITS | Encounter Summary ---
Author Organization [facility] Address [address] [facility] [address] [place] [address] Phone Care Team Providers Care Traffic Control Technician Name Role Phone Dillon Bishop MD Unavailable [phone] Evelyn Dash CNP Primary Care Provid er Dillon Salinas MD Unavailable [phone] Desiree Barry [facility] Unavailable [phone] Encounter Details Date Type Department Care Team (Late st Contact Info) Description 06/08/2025 Telephone [facility] [address] [place] [address] [phone] Evelyn Dash CNP [address] [place], [place] [phone] [email or web address] Social History Tobacco Use Types [...] encounter Progress Notes * Ms Sri Benson 06/08/2025 12:57 PM EST Patient called to follow up on a Lamictal refill request. Patient reports they are currently out ofmedication and that the refill request was denied. Patient expressed concern that going additional days without medication would require restarting the medication titration. Patient is requesting an urgent refill. Outreached assigned Clinical Tech for PCP for guidance. Patient contact, . documented in this encounter Plan of Treatment Upcoming Encounters Date Type Department Care Team (Late st Contact Info) Description 05/06/2025 Procedure Pass [facility], [address] [address] 06/16/2025 3:00 PM EST [facility] [address] [place] [address] Travis Morrissey MD 1 [place] [address] 06/16/2025 6:45 PM EST Hospital Encounter [address] [address] Itzel Figueroa MD [address] [place] [phone] 06/24/2025 11:00 AM EST Office Visit [facility] [address] [place] [phone] Evelyn Dash, ANDRAE [address] [place] [address] 11/03/2025 3:00 PM EDT Telemedicine [facility] [address] [place] [address] Dillon Salinas MD [address] [place] [address] [phone] [email or web address] li documented as of this encounter Visit Diagnoses Not on filedocumented in this encounter Additional Health Concerns Assessment Noted Time PHQ-9 Depression Total Score: 18 025 10:19 AM EST PHQ-2 Depression Total Score: 2 05/13/20 25 10:19 AM EST documented as of this encounter Care Teams Traffic Control Technician Relationship Specialty Start Date End Date StevanEvelyn Marquis ANDRAE [address] [place] [address] [email or web address] PCP - General Nurse Practitioner 01/25/24 Dillon Bishop MD [address] [place] [address] [place] [address] [email or web address] Anesthesiology 07/31/22 Dillon Salinas MD [address] [place] [address] [email or web address] Pediatric Cardiology 07/10/24 Desiree Barry, [facility] [address] [place] [address] [email or web address] Psychiatrist Nurse Practitioner 02/16/25 documented as of this encounter Additional Source Comments The information contained in this document represents components of the legal health record. It is not the complete legal health record.[facility]
--- OUTSIDE RECORDS SUMMARY | 2025-06-12 01:05 | XMS_ITS | Encounter Summary ---
Author Organization [facility] Address [address] [facility] [address] [place] [address] Phone Care Team Providers Care Knitter Helper Name Role Phone Dillon Bishop MD Unavailable [phone] Evelyn Dash [facility] Primary Care Provid er Dillon Salinas MD Unavailable Desiree Barry [facility] Unavailable [phone] Encounter Details Date Type Department Care Team (Late st Contact Info) Description 06/08/2025 Telephone [facility] [address] [place], [place] [phone] [address] [place] 10 [place] [address] [email or web address] Social [...] as of this encounter Progress Notes * Rd [place] - 06/08/2025 1:20 PM EST Spoke to patient regarding medication requested , I mentioned to patient Med was discontinue by Bibi since Luzmaria is the new prescriber ,patient afraid to have a manic episode patent has upcoming appt on 06/10 documented in this encounter Plan of Treatment Upcoming Encounters Date Type Department Care Team (Late st Contact Info) Description 05/06/2025 Procedure Pass [facility], [address] [address] 06/16/2025 3:00 PM EST [facility] [address] [facility] [place] [address] Travis Morrissey MD 1 [place] [address] 06/16/2025 6:45 PM EST Hospital Encounter [facility], [address] [address] Itzel Figueroa MD [address] [place] [address] [email or web address] 06/24/2025 11:00 AM EST Office Visit [facility] [address] [place] [address] Evelyn Dash, ANDRAE [address] [place] [address] 11/03/2025 3:00 PM EDT Telemedicine [facility] [address] [place], [place] [phone] Dillon Salinas MD [facility]4 [place], [place] [phone] [email or web address] documented as of this encounter Visit Diagnoses Not on filedocumented in this encounter Additional Health Concerns Assessment Noted Time PHQ-9 Depression Total Score: 18 05/13/2 025 10:19 AM EST PHQ-2 Depression Total Score: 2 05/13/20 10:19 AM EST documented as of this encounter Care Teams Knitter Helper Relationship Specialty Start Date End Date EktaEvelyn CNP [address] [place] [address] [email or web address] PCP - General Nurse Practitioner 01/25/24 Dillon Bishop MD [address] [place] [address] [place] [address] [email or web address] Anesthesiology 07/31/22 Dillon Salinas MD [facility] [place] [address] [email or web address] Pediatric Cardiology 07/10/24 Desiree Barry, [facility] [address] [place] [address] [email or web address] Psychiatrist Nurse Practitioner 02/16/25 documented as of this encounter Additional Source Comments The information contained in this document represents components of the legal health record. It is not the complete legal health record.[facility]
--- OUTSIDE RECORDS SUMMARY | 2025-06-12 01:05 | XMS_ITS | Data Portability ---
Author Organization [facility], [address] Address [address] [place] [address] Assessment No assessment recorded. Plan of Treatment Reminders Order Date Submit Date Provider Last Modified By Organization Details Last Modified Time Details Appointments None recorded. Lab None recorded. Referral None recorded. Procedures None recorded. Surgeries None recorded. Imaging None recorded. Medication Orders naproxen [address] tablet [address] [facility] #[id number], [address] [facility] [place], [address], 17:29:02 Patient TargetsNo targets recorded. 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 Procedures Surgical History Date Name Laterality Status Provider Name and Address Organization Details Recorded Time procedure on urinary bladder completed [email or web address] 11/29/2022 16:54:58 excision of lymph node completed [email or web address] 11/29/2022 16:55:25 Imaging Results None recorded. Procedure Notes None recorded. Medical Equipment None Reported. Allergies Allergen ID Allergen Name Allergen Category Reaction Reaction Severity Criticality Documentation Date Start Date Code Code System Note Provider Name and Address Organization Details Recorded Time 283167 levofloxa segun medicatio n Not available Not available Not available 11/29/2022 95099 RxNorm tendo n/bon e pain [facility] 3 16:50:26 940829 Augmentin medicatio n diarrhea Not available Not available 11/29/2022 40254 2 RxNorm [facility] 3 16:50:32 Medications Name [...] Available Not Available Not Available Blanca Ibarra [facility] spacer USE WITH INHALER DIRECTED active Not [...] [Score] - Reported Respiratory rate Oxygen saturation Heart rate Body temperature Systolic And Diastolic Provider Name and Address Organization Details Last Updated DateTime 170.18 cm 87 % 26.6 kg/m2 60819.7 g 7 18 /min 96 % 110 /min 98.2 [degF] 120/73 mm[Hg] BRENNA PETE [place] 16:56:17 Social History Question Answer Notes LastModified by [employer] Details LastModified Time Tobacco Smoking Status Never Smoker BRENNA valle [place] [facility] 11/29/2022 16:54:23 Which Illicit Or Recreational Drugs Have You Used? Marijuana [email or web address] Information not available 11/29/2022 Have You Recently Traveled Abroad? No [email or web address] Information not available 11/29/2022 Sex: Unknown Functional Status Question Answer Note LastModified by [employer] Details LastModified Time Do you use any illicit or recreational drugs? Yes [email or web address] Information not available 11/29/2022 Do you or have you ever used any other forms of tobacco or nicotine? No [email or web address] Information not available 11/29/2022 What is your level of alcohol consumption? None [email or web address] Information not available 11/29/2022 Mental Status None recorded. Family History Relationship Description Onset Age of this Age Resolved Age Notes LastModified by Organization Details LastModified Time Father No current problems or disability Not available 11/29 16:54:12 Mother No current problems or disability [email or web address] Not available 11/29 16:54:12 Medical History No medical history recorded. Gynecological History Statement/Question Response Is there any chance of ? No Obstetrics History GPAL:G 0 P 0 0 0 0 Past Encounters Encounter ID Performer Location Encounter Start Date Encounter Closed Date Diagnosis/Indication Diagnosis SNOMED-CT Code Diagnosis ICD10 Code Diagnosis IMO Codes Diagnosis Note [id number] [facility] [address] [place] [address] 09/24/2018 11:24:41 09/24/2018 12:00:52 [id number] [facility] [address] [place] [address] 07/15/2015 16:16:00 07/15/2015 17:04:58 [id number] [facility] [address] [place] [address] 09/19/2018 09:36:51 09/19/2018 10:24:36 [id number] Tima Gallegos NP [facility] [address] [place] [address] 11/29/2022 16:15:35 11/29/2022 17:30:59 Low back pain 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 Health Concerns Section Related Observation LastModified by Organization Detai ls LastModified Time None Recorded Concern Status LastModified by Organization Details LastModified Time None Recorded Advance Directives Directive None Recorded Payers Insurance Date Sequence Insurance Name Policy Number Policy Barrientos Covered Member ID Barrientos Member ID Guarantor Name 11/29/2022 1 [place] (HMO) [id number] Jerel Crowe [id number] Kaylyn Crowe 11/29/2022 2 [place] Kaylyn Crowe [id number] Kaylyn Crowe Notes Date Note Type Note [...] working, patient reportsno. Tima Gallegos NP [address] [place], [address], [place] - [facility] 11/29/2022 17:29:47 OBGyn Episode No OBEpisode recorded.
[2025-06-12 01:14] LABS: Hematocrit 37.6 % (37.0-47.0); Hemoglobin 13.6 g/dl (12.0-16.0); Imm Gran Abs Auto 0.01 X10*3/uL (0.00-0.03); Imm Gran Pct Auto 0.1 % (0.0-0.4); Lymphocytes Absolute Auto 1.2 X10*3/uL (1.2-4.9); MANUAL DIFF FLAG NO; Mean Corpuscular HGB Conc 36.2 g/dl (31.0-35.0); Mean Corpuscular Hemoglobin 31.6 pg (27.0-33.0); Mean Corpuscular Volume 87.2 fL (80.0-98.0); NRBC Abs Auto 0.000 X10*3/uL (0.0-0.012); NRBC Pct Auto 0.0 /100WBC (0.0-0.2); Platelet Count 234 X10*3/uL (160-400); Red Blood Count 4.31 X10*6/uL (4.20-5.50); White Blood Count 7.1 X10*3/uL (4.8-10.8)
[2025-06-12 01:29] LABS: Alanine Aminotransferase 29 U/L (0-31); Albumin Level 4.7 g/dL (3.5-5.0); Alkaline Phosphatase 72 U/L (39-117); Anion Gap 11 (12-20); Aspartate Amino Transferase 23 U/L (5-31); Blood Urea Nitrogen 11 mg/dL (9-16); Calcium 9.5 mg/dL (8.4-10.2); Carbon Dioxide 25 mmol/L (22-29); Chloride 107 mmol/L (96-108); Creatinine Clr Calc Pharmacy 118.6; Estimated Glomerular Filt Rate > 60; Potassium 4.2 mmol/L (3.3-5.1); Sodium 139 mmol/L (135-145); Total Protein 7.0 g/dL (6.5-8.0)
[2025-06-12 02:08] VITALS: BP 119/70; PULSE 86; RESP 17; TEMP 37; O2SAT 97
--- NOTE | 2025-06-12 03:20 | ED.URI ---
HPI - URI/Sore Throat General Chief Complaint: Upper Respiratory Symptoms Stated Complaint: Flu Symptoms Time Seen by Provider: 06/12/25 03:07 Source: patient Mode of arrival: ambulatory Limitations: no limitations History of Present Illness ED Provider: Dr. Gely George HPI Narrative: patient comes to the emergency room requesting Tamiflu. Earlier today, the patient was diagnosed with influenza a, was prescribed Sudafed, Motrin, cough suppressant/Tessalon Perles. Patient states that she will like to try Tamiflu. Symptoms started yesterday. Also, patient complaining of diarrhea/ loose bowel movements but patient has been able to keep up with fluids. patient does not want to take anything for diarrhea since it is minimal. Related Data Home Medications ?Medication ?Instructions ?Recorded ?Confirmed lamotrigine 100 mg tablet 100 mg PO DAILY 04/28/25 04/28/25 losartan 25 mg tablet 25 mg PO DAILY 04/28/25 04/28/25 melatonin 5 mg capsule mg PO ONCE 04/28/25 04/28/25 omeprazole 20 mg capsule,delayed 20 mg PO DAILY 04/28/25 04/28/25 release Previous Rx's ?Medication ?Instructions ?Recorded cefuroxime axetil 500 mg tablet 500 mg PO Q12H 5 days #10 tabs 08/02/22 ibuprofen 600 mg tablet 600 mg PO Q6H PRN fever or pain 11/29/22 #20 tabs cefuroxime axetil 500 mg tablet 500 mg PO BID #14 tabs 01/06/23 naproxen 500 mg tablet 500 mg PO BID PRN pain #20 tabs 01/06/23 nitrofurantoin 100 mg PO BID 7 days #14 caps 01/11/23 monohydrate/macrocrystals 100 mg capsule (Macrobid) cefuroxime axetil 250 mg tablet 250 mg PO Q12H #14 tabs 08/28/23 cefuroxime axetil 500 mg tablet 500 mg PO BID 7 days #14 tabs 01/25/24 cefuroxime axetil 500 mg tablet 500 mg PO Q12H 7 days #14 tabs 03/25/24 clindamycin HCl 300 mg capsule 300 mg PO TID #21 caps 09/03/24 methocarbamol 750 mg tablet 750 mg PO Q8H PRN spasm #10 tabs 04/21/25 tizanidine 4 mg tablet 4 mg PO BEDTIME PRN muscle 05/01/25 spasticity 7 days #7 tabs oseltamivir 75 mg capsule (Tamiflu) 75 mg PO BID 5 days #10 caps 06/12/25 Allergies Allergy/AdvReac Type Severity Reaction Status Date / Time amoxicillin (Augmentin) Allergy Unknown diarrhea Verified 06/11/25 23:55 clavulanic acid (Augmentin) Allergy Unknown diarrhea Verified 06/11/25 23:55 levofloxacin Allergy Unknown Verified 06/11/25 23:55 Review of Systems Review of Systems: Constitutional : No Weight loss, No Fever, No Chills, No Night Sweats, complaining of fatigue and generalized malaise ENT/Mouth : No Hearing loss, No Ear Pain, complaining of Nasal Congestion, No Sinus Pain, No Hoarseness, No sore throat, No Rhinorrhea, No Swallowing Difficulty Eyes: No Eye Pain, No Swelling, No Redness, No Foreign Body, No Discharge, No Vision Changes Cardiovascular : No Chest Pain, No SOB, No Dyspnea on Exertion, No Orthopnea, No Edema, No Palpitations Respiratory : No Cough, No Sputum, No Wheezing, No Smoke Exposure, No Dyspnea Gastrointestinal : No Nausea, No Vomiting, No Diarrhea, No Constipation, No abdominal Pain, No Hematochezia, No Melena Genitourinary : no irregular bleeding, No Dysuria, No Urinary Frequency, No Hematuria, No Urinary Incontinence, No Urgency, No Flank Pain, No Urinary Flow Changes, No Hesitancy Musculoskeletal : No joint pain, complaining of Myalgias, No Joint Swelling Skin : No Skin Lesions, No rash Neuro : No Weakness, No Numbness, No Paresthesias, No Loss of Consciousness, No Dizziness, No Headache Psych : No Anxiety/Panic, No Depression, No SI/HI/AH/VH, No Social Issues, Heme/Lymph: No Bruising, No Bleeding,No Lymphadenopathy Endocrine : No Polyuria, No Polydipsia, No Temperature Intolerance [facility] Past Medical History Medical History (Updated 06/12/25 @ 03:22 by Gely George MD) [id number] transgender person Syringomyelia Social History Social History Patient Tobacco Use Status: Tobacco use Unknown Advance Directives: No Advance Directives Information Provided: No Physical Exam Exam: Exam: Appearance: Alert. Oriented X3. No acute distress. Eyes: Pupils equal, round and reactive to light. ENT: Pharynx normal. Neck: Normal inspection. Neck supple. No lymph nodes noted. No crepitus CVS: Normal heart rate and rhythm. Pulses normal. Normal S1 and S2 Respiratory: No respiratory distress. Breath sounds normal. No Wheezing. No rales Abdomen: Soft and nontender. No rigidity. No distention. Skin: Skin warm and dry. Normal skin color. Normal skin turgor. Extremities: No lower extremity edema. No Lacerations. No Rash Neuro: Oriented X 3. No motor deficit. No sensory deficit. Moving all extremities. No slurred speech. CN 2 through 12 grossly intact Psych: calm, cooperative, normal affect Vital Signs: Vital Signs: Last Vital Signs Temp 98.6 F 06/12/25 02:08 Pulse 86 06/12/25 02:08 Resp 17 06/12/25 02:08 BP 119/70 06/12/25 02:08 Pulse Ox 97 06/12/25 02:08 O2 Del Method Room Air 06/12/25 02:08 BMI result Body Mass Index 26.6 Medical Decision Making Medical Decision Making MDM Narrative: patient has already been seen and treated for symptomatic influenza a. However, the patient requesting Tamiflu Lab Data 06/12/25 01:10 06/12/25 01:10 Labs: Lab Results 06/12/25 Range/Units 01:10 WBC 7.1 (4.8-10.8) X10*3/uL RBC 4.31 (4.20-5.50) X10*6/uL Hgb 13.6 (12.0-16.0) g/dl Hct 37.6 (37.0-47.0) % MCV 87.2 (80.0-98.0) fL MCH 31.6 (27.0-33.0) pg MCHC 36.2 H (31.0-35.0) g/dl RDW 12.3 (11.0-16.0) % Plt Count 234 (160-400) X10*3/uL MPV 9.6 (9.4-12.3) fL Immature Gran % (Auto) 0.1 (0.0-0.4) % Neut % (Auto) 66.1 (45-73) % Lymph % (Auto) 16.7 L (20-40) % [place] % (Auto) 12.9 H (2-11) % Eos % (Auto) 3.8 (0-4) % Baso % (Auto) 0.4 (0-2) % Lymph # (Auto) 1.2 (1.2-4.9) X10*3/uL [place] # (Auto) 0.9 (0.1-1.2) X10*3/uL Eos # (Auto) 0.3 (0.0-0.4) X10*3/uL Baso # (Auto) 0.0 (0.0-0.2) X10*3/uL Abs Immat Gran (auto) 0.01 (0.00-0.03) X10*3/uL Absolute Neuts (auto) 4.7 (2.0-8.3) x10*3/uL Absolute Nucleated RBC 0.000 (0.0-0.012) X10*3/uL Nucleated RBC % (auto) 0.0 (0.0-0.2) /100WBC Sodium 139 (135-145) mmol/L Potassium 4.2 (3.3-5.1) mmol/L Chloride 107 (96-108) mmol/L Carbon Dioxide 25 (22-29) mmol/L Anion Gap 11 L (12-20) BUN 11 (9-16) mg/dL Creatinine 0.83 (0.5-1.4) mg/dL Estim Creat Clear Calc 118.6 Estimated GFR > 60 Random Glucose 99 (60-115) mg/dL Calcium 9.5 (8.4-10.2) mg/dL Total Bilirubin 0.3 (0.0-1.0) mg/dL AST 23 (5-31) U/L ALT 29 (0-31) U/L Alkaline Phosphatase 72 (39-117) U/L Total Protein 7.0 (6.5-8.0) g/dL Albumin 4.7 (3.5-5.0) g/dL Discharge Plan Discharge Clinical Impression: Influenza Patient Disposition: Home, Self-Care Instructions: Influenza (ED) Additional Instructions: Please follow-up with your primary care physician tomorrow. If you have any worsening or new symptoms, please return to the emergency room or call 911 Prescriptions: New oseltamivir [Tamiflu] 75 mg capsule 75 mg PO BID 5 Days Qty: 10 0RF No Action tizanidine 4 mg tablet 4 mg PO BEDTIME PRN (Reason: muscle spasticity) 7 Days Qty: 7 0RF cefuroxime axetil 500 mg tablet 500 mg PO Q12H 5 Days Qty: 10 0RF ibuprofen 600 mg tablet 600 mg PO Q6H PRN (Reason: fever or pain) Qty: 20 0RF cefuroxime axetil 250 mg tablet 250 mg PO Q12H Qty: 14 0RF cefuroxime axetil 500 mg tablet 500 mg PO BID 7 Days Qty: 14 0RF clindamycin HCl 300 mg capsule 300 mg PO TID Qty: 21 0RF methocarbamol 750 mg tablet 750 mg PO Q8H PRN (Reason: spasm) Qty: 10 0RF cefuroxime axetil 500 mg tablet 500 mg PO BID Qty: 14 0RF naproxen 500 mg tablet 500 mg PO BID PRN (Reason: pain) Qty: 20 0RF nitrofurantoin monohyd/m-cryst [Macrobid] 100 mg capsule 100 mg PO BID 7 Days Qty: 14 0RF Rx Instructions: must administer with a meal/food cefuroxime axetil 500 mg tablet 500 mg PO Q12H 7 Days Qty: 14 0RF losartan 25 mg tablet 25 mg PO DAILY omeprazole 20 mg capsule,delayed release(DR/EC) 20 mg PO DAILY lamotrigine 100 mg tablet 100 mg PO DAILY melatonin 5 mg capsule PO ONCE Stand Alone Forms: Work/School Release Print Language: Mozambican
[2025-06-12 03:47] VITALS: BP 99/62; PULSE 91; RESP 16; TEMP 36.8; O2SAT 97
== END 2025-06-12 03:49 | disposition home or self-care (01) ==
PROVIDERS: Emergency Provider Emergency Medicine; PCP Nurse Practitioner
DX: J10.1 Influenza due to other identified influenza virus with other respiratory manifestations (principal)
CPT/HCPCS: 36415; 80053; 85025; 99283